=== PATIENT | female | born 1950 | race African-American/Black ===

== ENCOUNTER 2021-10-12 22:24 | Observation (INO) | payer MEDICARE, OTHER ==
[2021-10-12] MEDS ORDERED: SODIUM CHLORIDE 0.9% 1,000 ML IV STA (22:39)
--- NOTE | 2021-10-12 22:47 | ED ---
Weakness HPI - General Stated complaint: weakness Time Seen by Provider: 10/12/21 22:32 Source: RN notes reviewed - History of Present Illness Initial comments: This is a pleasant 71-year-old female with a history of diabetes, hypertension, osteoarthritis. Patient presents to the emergency department today complaining of worsening weakness over the past few days. Patient also states she's getting a jerking sensation in her left hand and arm. Patient also ascertains that she is having some stuttering in her speech. She states this was going on "a few days. " Patient also complaining of generalized weakness with decreased mobility. Patient normally gets around her house with her electric wheelchair. Patient lives alone. Does have a son and daughter in the area. No headache, no fever or chills, no changes in vision or hearing, no sore throat or difficulty with speech, no neck pain, no chest pain or shortness of breath, no abdominal pain, no nausea or vomiting, no changes in urination or bowel movements, no numbness or tingling, no extremity pain, no skin rashes or lesions. MD Complaint: generalized weakness - Related Data Home Medications Medication Instructions Recorded Confirmed Omeprazole [PriLOSEC] 20 mg PO DAILY 05/22/15 10/12/21 Albuterol Inhaler [Ventolin Hfa 1 - 2 puff INHALATION RT-Q4H PRN 10/12/21 10/12/21 Inhaler] Gabapentin [Neurontin] 400 mg PO TID 10/12/21 10/12/21 Hydrocodone/Acetaminophen 1 tab PO Q6HR PRN 10/12/21 10/12/21 [Hydrocodone/Acetaminophen 10-325] amLODIPine [Norvasc] 5 mg PO DAILY 10/12/21 10/12/21 Allergies Allergy/AdvReac Type Severity Reaction Status Date / Time No Known Allergies Allergy Verified 10/12/21 23:46 Review of Systems ROS Statement: Those systems with pertinent positive or pertinent negative responses have been documented in the HPI. ROS Other: All systems not noted in ROS Statement are negative. Past Medical History Past Medical History: GERD/Reflux, Hypertension, Osteoarthritis (OA) Additional Past Medical History / Comment(s): has been on oral hyperglycemic medications in the past but pcp has taken her off of meds History of Any Multi-Drug Resistant Organisms: MRSA Date of last positivie culture/infection: 2011 MDRO Source:: L Knee Past Surgical History: Hernia Repair, Joint Replacement Additional Past Surgical History / Comment(s): total knee bilateral, left became infected component removed and antibiotic spacer placed. 3 years ago was on iv antibiotics and in rehab for 8 months follwing this Past Anesthesia/Blood Transfusion Reactions: No Reported Reaction Past Psychological History: No Psychological Hx Reported Past Alcohol Use History: Rare Past Drug Use History: None Reported - Past Family History Mother Family Medical History: Cancer Father Family Medical History: Myocardial Infarction ([place]) General Exam - General Exam Comments Initial Comments: Plan no specific distress. Cranial nerves II through XII are intact. No tremor noted. No focal neurologic deficit noted. Patient does not appear to be toxic. Vital signs reviewed General appearance: alert, in no apparent distress, obese Head exam: Present: atraumatic, normocephalic, normal inspection Eye exam: Present: normal appearance, PERRL, EOMI. Absent: scleral icterus, conjunctival injection, periorbital swelling ENT exam: Present: normal exam, normal oropharynx, mucous membranes dry, mucous membranes moist, normal external ear exam Neck exam: Present: normal inspection, full ROM. Absent: tenderness, meningismus, lymphadenopathy Respiratory exam: Present: normal lung sounds bilaterally. Absent: respiratory distress, wheezes, rales, rhonchi, stridor, chest wall tenderness, accessory muscle use, decreased breath sounds, prolonged expiratory Cardiovascular Exam: Present: regular rate, normal rhythm, normal heart sounds. Absent: systolic murmur, diastolic murmur, rubs, gallop, clicks GI/Abdominal exam: Present: soft, normal bowel sounds. Absent: distended, tenderness, guarding, rebound, rigid Extremities exam: Present: normal inspection, full ROM, normal capillary refill, pedal edema (Scant edema bilaterally. Patient has chronic skin changes with an open wound to the right lower extremity which appears to be chronic in nature. Distal sensation intact. Pulses intact.). Absent: tenderness, joint swelling, calf tenderness Back exam: Present: normal inspection Neurological exam: Present: alert, oriented X3, CN II-XII intact, reflexes normal. Absent: motor sensory deficit Expanded Patient oriented to: Present: person, place, time Speech: Present: fluid speech Cranial nerves: EOM's Intact: Normal, Gag Reflex: Normal, Tongue Deviation: Normal, Nystagmus: Normal, Facial Sensation: Normal, Facial Palsy with Forehead Movement: Normal, Facial Palsy without Forehead Movement: Normal Cerebellar function: Finger to Nose: Normal, Heel to [place]: Normal Upper motor neuron: Timbo Neglect: Normal, Pronator Drift: Normal, Sensory Extinction: Normal Sensory exam: Upper Extremity Light Touch: Normal, Upper Extremity Pin Prick: Normal, Lower Extremity Light Touch: Normal, Lower Extremity Pin Prick: Normal Motor strength exam: RUE: 5, LUE: 5, RLE: 5, LLE: 5 Eye Response: (4) open spontaneously Motor Response: (6) obeys commands Verbal Response: (5) oriented Psychiatric exam: Present: normal affect, normal mood Skin exam: Present: warm, dry, intact, normal color. Absent: rash Course Vital Signs 10/12/21 23:01 Temperature 98.2 F Pulse Rate 78 Respiratory 18 Rate Blood Pressure 109/45 O2 Sat by Pulse 98 Oximetry - Reevaluation(s) Reevaluation #1: 10/13/21 02:28 Medical record is reviewed Symptoms are essentially unchanged Patient is informed of results and questions answered Patient in no distress - Consultations Consultation #1: Case discussed with Dr. Weldon for observation/admission. Consultation for neurology will be placed Medical Decision Making - Medical Decision Making Patient presents with generalized weakness, also twitching in her left hand and arm. Although she she retains full strength. Patient also ascertains that she's been having some stuttering and stammering for the past 2 or 3 days. Patient has no other focal neurologic deficits. Differential could include neurological etiology. Electrolyte disturbance. The case was discussed in detail with ED attending physician. Presentation, findings, treatment plan discussed in detail. Data Processing Consultant Dr. Hull - Lab Data Result diagrams: 10/12/21 23:40 10/12/21 23:40 Lab Results 10/12/21 10/12/21 10/12/21 Range/Units 23:40 23:40 23:40 WBC 9.6 (3.8-10.6) k/uL RBC 3.75 L (3.80-5.40) m/uL Hgb 11.1 L (11.4-16.0) gm/dL Hct 37.7 (34.0-46.0) % MCV 100.7 H (80.0-100.0) fL MCH 29.6 (25.0-35.0) pg MCHC 29.4 L (31.0-37.0) g/dL RDW 17.0 H (11.5-15.5) % Plt Count 139 L (150-450) k/uL MPV 10.4 Neutrophils % 81 % Lymphocytes % 9 % Monocytes % 6 % Eosinophils % 1 % Basophils % 0 % Neutrophils # 7.8 H (1.3-7.7) k/uL Lymphocytes # 0.9 L (1.0-4.8) k/uL Monocytes # 0.6 (0-1.0) k/uL Eosinophils # 0.1 (0-0.7) k/uL Basophils # 0.0 (0-0.2) k/uL Hypochromasia Marked Anisocytosis Slight Macrocytosis Slight APTT 27.2 (22.0-30.0) sec Sodium 141 (137-145) mmol/L Potassium 5.8 H (3.5-5.1) mmol/L Chloride 112 H (98-107) mmol/L Carbon Dioxide 22 (22-30) mmol/L Anion Gap 7 mmol/L BUN 43 H (7-17) mg/dL Creatinine 1.72 H (0.52-1.04) mg/dL Est GFR (CKD-EPI)AfAm 34 (>60 ml/min/1.73 sqM) Est GFR (CKD-EPI)NonAf 29 (>60 ml/min/1.73 sqM) Glucose 89 (74-99) mg/dL Plasma Lactic Acid Marcus (0.7-2.0) mmol/L Calcium 9.1 (8.4-10.2) mg/dL Ionized Calcium Tyler 5.1 (4.5-5.3) mg/dL Phosphorus 4.6 H (2.5-4.5) mg/dL Magnesium 2.1 (1.6-2.3) mg/dL Total Bilirubin 0.4 (0.2-1.3) mg/dL AST 37 H (14-36) U/L ALT 31 (4-34) U/L Alkaline Phosphatase 110 (38-126) U/L Creatine Kinase 198 H (30-135) U/L Troponin I (0.000-0.034) ng/mL NT-Pro-B Natriuret Pep pg/mL Total Protein 7.0 (6.3-8.2) g/dL Albumin 3.4 L (3.5-5.0) g/dL TSH 2.660 (0.465-4.680) mIU/L 10/12/21 10/12/21 10/12/21 Range/Units 23:40 23:40 23:40 WBC (3.8-10.6) k/uL RBC (3.80-5.40) m/uL Hgb (11.4-16.0) gm/dL Hct (34.0-46.0) % MCV (80.0-100.0) fL MCH (25.0-35.0) pg MCHC (31.0-37.0) g/dL RDW (11.5-15.5) % Plt Count (150-450) k/uL MPV Neutrophils % % Lymphocytes % % Monocytes % % Eosinophils % % Basophils % % Neutrophils # (1.3-7.7) k/uL Lymphocytes # (1.0-4.8) k/uL Monocytes # (0-1.0) k/uL Eosinophils # (0-0.7) k/uL Basophils # (0-0.2) k/uL Hypochromasia Anisocytosis Macrocytosis APTT (22.0-30.0) sec Sodium (137-145) mmol/L Potassium (3.5-5.1) mmol/L Chloride (98-107) mmol/L Carbon Dioxide (22-30) mmol/L Anion Gap mmol/L BUN (7-17) mg/dL Creatinine (0.52-1.04) mg/dL Est GFR (CKD-EPI)AfAm (>60 ml/min/1.73 sqM) Est GFR (CKD-EPI)NonAf (>60 ml/min/1.73 sqM) Glucose (74-99) mg/dL Plasma Lactic Acid Marcus 1.3 (0.7-2.0) mmol/L Calcium (8.4-10.2) mg/dL Ionized Calcium Tyler (4.5-5.3) mg/dL Phosphorus (2.5-4.5) mg/dL Magnesium (1.6-2.3) mg/dL Total Bilirubin (0.2-1.3) mg/dL AST (14-36) U/L ALT (4-34) U/L Alkaline Phosphatase (38-126) U/L Creatine Kinase (30-135) U/L Troponin I <0.012 (0.000-0.034) ng/mL NT-Pro-B Natriuret Pep 362 pg/mL Total Protein (6.3-8.2) g/dL Albumin (3.5-5.0) g/dL TSH (0.465-4.680) mIU/L Disposition Clinical Impression: Generalized weakness, Hyperkalemia, Myoclonic disorder, Stage 3 acute kidney injury, Hyperphosphatemia, Thrombocytopenia Disposition: ADMITTED IP TO THIS HOSP Condition: Fair Referrals: Garry Carranza DO [Primary Care Provider] - 1-2 days Time of Disposition: 02:15 Decision to Admit Reason: Admit from EC Decision Time: 02:15
[2021-10-13 00:05] LABS: Ionized Calcium 5.1 mg/dL (4.5-5.3)
[2021-10-13 00:13] LABS: Anisocytosis Slight; Basophils % (A) 0 %; Eosinophils # (A) 0.1 k/uL (0-0.7); Eosinophils % (A) 1 %; HCT 37.7 % (34.0-46.0); HGB 11.1 gm/dL (11.4-16.0); Hypochromasia Marked; Lymphocytes # (A) 0.9 k/uL (1.0-4.8); Lymphocytes % (A) 9 %; MCH 29.6 pg (25.0-35.0); MCHC 29.4 g/dL (31.0-37.0); MCV 100.7 fL (80.0-100.0); Macrocytosis Slight; Mean Platelet Volume 10.4; Monocytes # (A) 0.6 k/uL (0-1.0); Monocytes % (A) 6 %; Neutrophils # (A) 7.8 k/uL (1.3-7.7); Neutrophils % (A) 81 %; Platelet Count 139 k/uL (150-450); RBC 3.75 m/uL (3.80-5.40); WBC 9.6 k/uL (3.8-10.6)
[2021-10-13 00:21] LABS: Amorphous Sediment,Urine Rare /hpf; Appearance,Urine Clear (Clear); Bacteria,Urine Rare /hpf; Bilirubin,Urine Negative (Negative); Blood,Urine Negative (Negative); Color,Urine Yellow; Glucose,Urine (UA) Negative (Negative); Hyaline Casts,Urine 15 /lpf (0-2); Ketones,Urine 1+ (Negative); Leukocyte Esterase,Urine Trace (Negative); Mucus,Urine Rare /hpf; Nitrite,Urine Negative (Negative); Protein,Urine Trace (Negative); RBC,Urine 1 /hpf (0-5); Squamous Epithelial Cell,Urine 1 /hpf (0-4); WBC,Urine 2 /hpf (0-5)
[2021-10-13 01:05] LABS: Albumin 3.4 g/dL (3.5-5.0); Calcium 9.1 mg/dL (8.4-10.2); Magnesium 2.1 mg/dL (1.6-2.3); Phosphorus 4.6 mg/dL (2.5-4.5); Potassium 5.8 mmol/L (3.5-5.1); Total Bilirubin 0.4 mg/dL (0.2-1.3)
--- NOTE | 2021-10-13 01:14 | XR ---
EXAM: XR Chest, 1 View CLINICAL HISTORY: ITS.REASON XR Reason: Weakness TECHNIQUE: Frontal view of the chest. COMPARISON: No previous studies. FINDINGS: Lungs: Unremarkable. No consolidation. Pleural space: Unremarkable. No pneumothorax. Heart: Cardiomegaly. Mediastinum: Unremarkable. Bones/joints: Osteopenia. Soft tissues: Soft tissues are unremarkable. Vasculature: Prominence of central pelvic vasculature. Atherosclerotic disease. Upper abdomen: Elevation of the right hemidiaphragm. Other findings: Mild hypoaeration. IMPRESSION: 1. Cardiomegaly and prominence of central pulmonary vasculature. Clinical correlation is advised to assess for incipient congestive heart failure. 2. Atherosclerotic disease. 3. Osteopenia.
--- NOTE | 2021-10-13 01:17 | CT ---
EXAM: CT Head Without Intravenous Contrast CLINICAL HISTORY: ITS.REASON CT Reason: weakness TECHNIQUE: Axial computed tomography images of the head/brain without intravenous contrast. CTDI is 49.27 mGy and DLP is 1113.4 mGy-cm. This CT exam was performed using one or more of the following dose reduction techniques: automated exposure control, adjustment of the mA and/or kV according to patient size, and/or use of iterative reconstruction technique. COMPARISON: No previous studies. FINDINGS: Brain: No abnormal extra-axial collection is noted. No hemorrhage. No significant white matter disease. Ventricles: The ventricular system is age appropriate. Bones/joints: Calvarium is within normal limits. No acute fracture. Soft tissues: Unremarkable. Sinuses: Visualized sinuses are unremarkable. Mastoid air cells: Mastoid air cells are well pneumatized. Sella: Partial empty sella. IMPRESSION: 1. Age-related changes. 2. No acute intracranial pathology. 3. If there is concern for etiology such as early acute lacunar infarcts, MRI imaging of the brain with diffusion-weighted sequences should be performed.
[2021-10-13] MEDS ORDERED: ASPIRIN 325 MG TAB PO STA (02:10)
[2021-10-13] MEDS: SODIUM POLYSTYRENE SULFONATE 15 GM/60 ML BOTTLE PO STA ×2 (02:30→02:33)
[2021-10-13] MEDS ORDERED: NALOXONE 0.4 MG/ML 1 ML VIAL IV PRN (02:31)
[2021-10-13] MEDS ORDERED: ACETAMINOPHEN TAB 325 MG TAB PO PRN (02:31)
[2021-10-13] MEDS ORDERED: ONDANSETRON 4 MG/2 ML VIAL IVP PRN (02:31)
[2021-10-13] MEDS ORDERED: ALBUTEROL NEBULIZED 2.5 MG/3 ML INHALATION PRN (02:35)
[2021-10-13] MEDS: SODIUM CHLORIDE 0.9% 1,000 ML IV SCH ×2 (04:23→18:16)
[2021-10-13] MEDS: HYDROcodone/APAP 10-325MG 1 EACH TAB PO PRN ×2 (04:42→12:54)
[2021-10-13] MEDS ORDERED: GABAPENTIN 400 MG CAP PO SCH (09:00)
[2021-10-13] MEDS: amLODIPine 5 MG TAB PO SCH (09:42)
[2021-10-13] MEDS: PANTOPRAZOLE 40 MG TABLET PO SCH (09:42)
[2021-10-13 09:46] LABS: Glucose,Whole Blood 118 mg/dL (70-110)
[2021-10-13] MEDS ORDERED: ENOXAPARIN 40 MG/0.4 ML SYRINGE SQ SCH (12:15)
[2021-10-13] MEDS: SODIUM ZIRCONIUM CYCLOSILICATE 10 GM PACKET PO SCH ×3 (12:47→22:28)
--- NOTE | 2021-10-13 14:12 | P.HPIM ---
History of Present Illness H&P Date: 10/13/21 Chief Complaint: Slurred speech This is a pleasant 71-year-old patient of follows with Dr. Carranza. Patient lives alone. Normally uses electric scooter. Chronic stable medical conditions include GERD, hypertension, osteoarthritis, peripheral neuropathy. Patient was discovered while talking on the phone to her [id number] that patient is having slurred speech. Patient also reported jerking of the left arm. That has been going on from 3 days. Patient has slight headache yesterday. No change in swallowing. No arm or leg weakness otherwise. Currently patient's daughter and son-in-law at the bedside. Review of systems: GEN.: Tired EYES: None HEENT: None NECK: None RESPIRATORY: None CARDIOVASCULAR: None GASTROINTESTINAL: None GENITOURINARY: Continents MUSCULOSKELETAL: Joint pains LYMPHATICS: None HEMATOLOGICAL: None PSYCHIATRY: None NEUROLOGICAL: Uses electric scooter Past medical history to include: GERD, hypertension, osteoarthritis, peripheral neuropathy, baseline uses electric scooter Social history: Lives alone. Does use electric scooter. No smoking. Alcohol rarely. Family history: Cancer Physical examination: VITAL SIGNS: 98.3, 54, 18, 1:30 was 85, 98% room air GENERAL: BMI 54.1, reclining bed, awake. EYES: Pupils equal. Conjunctiva normal. HEENT: External appearance of nose and ears normal, oral cavity grossly normal. NECK: JVD unable to assess; masses not palpable. HEART: First and second heart sounds are normal; no edema. LUNGS: Respiratory rate normal; distant breath sounds. ABDOMEN: Soft, nontender, liver spleen not palpable, no masses palpable. PSYCH: Alert and oriented x3; mood and affect normal. MUSCULOSKELETAL:No Clubbing/cyanosis;muscles-grossly intact. Chronic limited range of motion of right shoulder. NEUROLOGICAL: Slowness of speech. No facial asymmetry.. Power sensation grossly intact. LYMPHATICS: No lymph nodes palpable in the axilla and neck INVESTIGATIONS, reviewed in the clinical context: White count 9.6 hemoglobin 11.1 platelets 139 potassium 5.8 BUN 43 creatinine 1.7 to Troponin I less than 0.012 TSH 2.6 Chest x-ray film personally reviewed by me-portable/cardiomegaly question venous prominence. Telemetry strip: Sinus rhythm CT brain: Without contrast: No stroke reported Assessment and plan: -Possible subacute stroke. For 3 days patient noticed to have slurred speech. She came the left arm. This could be focal seizure from the stroke area. Aspirin. Lipitor. Neurology consultation. Neuro checks. -Morbid obesity BMI 54.1 Weight loss measures -Essential hypertension Amlodipine 5 mg daily -Primary osteoarthritis [place] 10 every 6 when necessary -Peripheral neuropathy Contact Neurontin to 300 mg twice a day in setting of kidney dysfunction. -GERD Prilosec mg a day -Hyperkalemia in the setting of renal failure. Regional diet. Lokelma. -Abnormal kidney function. Unknown acute versus chronic. Renal ultrasound. IV fluids. Repeat labs in the morning. UA shows trace protein. Neuro checks.. Aspirin. Lipitor. Neurology consulted. Home medications resumed. Possible EEG. Subcu Lovenox. Patient needed D echocardiogram carotid ultrasound. Consultation to speech therapy. Advanced care planning: Discussed with the patient. She wants her [id number], Prerna to be the POA. She currently does not have any official documents for the same. This was discussed with patient other daughter and son-in-law at the bedside." I care was discussed. After several questions patient decided to proceed to be DO NOT RESUSCITATE. Total time spent during this was about 25 minutes Past Medical History Past Medical History: GERD/Reflux, Hypertension, Osteoarthritis (OA) Additional Past Medical History / Comment(s): has been on oral hyperglycemic medications in the past but pcp has taken her off of meds; neuropathy History of Any Multi-Drug Resistant Organisms: MRSA Date of last positivie culture/infection: 2011 MDRO Source:: L Knee Past Surgical History: Hernia Repair, Joint Replacement Additional Past Surgical History / Comment(s): total knee bilateral, left became infected component removed and antibiotic spacer placed. 3 years ago was on iv antibiotics and in rehab for 8 months follwing this Past Anesthesia/Blood Transfusion Reactions: No Reported Reaction Past Psychological History: No Psychological Hx Reported Smoking Status: Never smoker Past Alcohol Use History: Rare Past Drug Use History: None Reported - Past Family History Mother Family Medical History: Cancer Father Family Medical History: Myocardial Infarction ([place]) Medications and Allergies Home Medications Medication Instructions Recorded Confirmed Type Omeprazole [PriLOSEC] 20 mg PO DAILY 05/22/15 10/12/21 History Albuterol Inhaler [Ventolin Hfa 1 - 2 puff INHALATION RT-Q4H PRN 10/12/21 10/12/21 History Inhaler] Gabapentin [Neurontin] 400 mg PO TID 10/12/21 10/12/21 History Hydrocodone/Acetaminophen 1 tab PO Q6HR PRN 10/12/21 10/12/21 History [Hydrocodone/Acetaminophen 10-325] amLODIPine [Norvasc] 5 mg PO DAILY 10/12/21 10/12/21 History Allergies Allergy/AdvReac Type Severity Reaction Status Date / Time No Known Allergies Allergy Verified 10/12/21 23:46 Physical Exam Vitals: Vital Signs Temp Pulse Pulse Resp BP BP Pulse Ox 10/13/21 09:41 98.3 F 54 L 131/85 98 10/13/21 07:53 96 10/13/21 06:10 97.5 F L 10/13/21 04:00 18 10/13/21 03:55 96.6 F L 72 18 107/55 100 10/13/21 02:37 72 18 114/89 96 10/12/21 23:01 98.2 F 78 18 109/45 98 Intake and Output 10/12/21 10/13/21 10/13/21 22:59 06:59 14:59 Intake Total 250 0 Balance 250 0 Intake: Intake, IV Titration 150 Amount Sodium Chloride 0.9% 1, 150 000 ml @ 75 mls/hr IV . [id number] [facility] Rx#:[id number] Oral 100 0 Other: Voiding Method External Catheter Weight 147.418 kg Results CBC & Chem 7: 10/12/21 23:40 10/13/21 02:52 Labs: Abnormal Lab Results - Last 24 Hours (Table) 10/12/21 10/12/21 10/13/21 Range/Units 23:40 23:40 00:09 RBC 3.75 L (3.80-5.40) m/uL Hgb 11.1 L (11.4-16.0) gm/dL MCV 100.7 H (80.0-100.0) fL MCHC 29.4 L (31.0-37.0) g/dL RDW 17.0 H (11.5-15.5) % Plt Count 139 L (150-450) k/uL Neutrophils # 7.8 H (1.3-7.7) k/uL Lymphocytes # 0.9 L (1.0-4.8) k/uL Potassium 5.8 H (3.5-5.1) mmol/L Chloride 112 H (98-107) mmol/L BUN 43 H (7-17) mg/dL Creatinine 1.72 H (0.52-1.04) mg/dL POC Glucose (mg/dL) (70-110) mg/dL Phosphorus 4.6 H (2.5-4.5) mg/dL AST 37 H (14-36) U/L Creatine Kinase 198 H (30-135) U/L Albumin 3.4 L (3.5-5.0) g/dL Urine Protein Trace H (Negative) Urine Ketones 1+ H (Negative) Ur Leukocyte Esterase Trace H (Negative) Amorphous Sediment Rare H (None) /hpf Urine Bacteria Rare H (None) /hpf Hyaline Casts 15 H (0-2) /lpf Urine Mucus Rare H (None) /hpf 10/13/21 10/13/21 Range/Units 02:52 09:41 RBC (3.80-5.40) m/uL Hgb (11.4-16.0) gm/dL MCV (80.0-100.0) fL MCHC (31.0-37.0) g/dL RDW (11.5-15.5) % Plt Count (150-450) k/uL Neutrophils # (1.3-7.7) k/uL Lymphocytes # (1.0-4.8) k/uL Potassium 5.4 H (3.5-5.1) mmol/L Chloride (98-107) mmol/L BUN (7-17) mg/dL Creatinine (0.52-1.04) mg/dL POC Glucose (mg/dL) 118 H (70-110) mg/dL Phosphorus (2.5-4.5) mg/dL AST (14-36) U/L Creatine Kinase (30-135) U/L Albumin (3.5-5.0) g/dL Urine Protein (Negative) Urine Ketones (Negative) Ur Leukocyte Esterase (Negative) Amorphous Sediment (None) /hpf Urine Bacteria (None) /hpf Hyaline Casts (0-2) /lpf Urine Mucus (None) /hpf Thrombosis Risk Factor Assmnt - Choose All That Apply Any of the Below Risk Factors Present?: Yes Each Factor Represents 1 point: Medical pt on bed rest, Obesity (BMI >25), Swollen legs (current) Other Risk Factors: Yes Each Risk Factor Represents 2 Points: Age 61-74 years, Patient confined to bed Other congenital or acquired thrombophilia - If yes, enter type in comment: No Thrombosis Risk Factor Assessment Total Risk Factor Score: 7 Thrombosis Risk Factor Assessment Level: High Risk
--- NOTE | 2021-10-13 14:50 | CA ---
Transthoracic Echo Report Name: Sully Randall Age: 71 Gender: F : 1950 Exam Date: 10/13/2021 14:16 Exam Location: [place] [facility] Ht (in): 65 Wt (lb): 325 Ordering Physician: Afshan Wade MD Attending/Referring Phys: Research Librarian Brigid Lyons RDCS Procedure CPT: Indications: slurred speech Cardiac Hx: Technical Quality: Technically difficult study Contrast 1: Total Dose (mL): Contrast 2: Total Dose (mL): MEASUREMENTS (Male / Female) Normal Values 2D ECHO LV Diastolic Diameter PLAX 4.1 cm 4.2 - 5.9 / 3.9 - 5.3 cm LV Systolic Diameter PLAX 3.1 cm IVS Diastolic Thickness 1.5 cm 0.6 - 1.0 / 0.6 - 0.9 cm LVPW Diastolic Thickness 1.6 cm 0.6 - 1.0 / 0.6 - 0.9 cm LV Relative Wall Thickness 0.7 RV Internal Dim ED PLAX 3.7 cm M-MODE Aortic Root Diameter MM 2.4 cm LA Systolic Diameter MM 4.8 cm LA Ao Ratio MM 2.0 AV Cusp Separation MM 1.9 cm DOPPLER AV Peak Velocity 125.4 cm/s AV Peak Gradient 6.3 mmHg LVOT Peak Velocity 85.9 cm/s LVOT Peak Gradient 3.0 mmHg MV Area PHT 3.6 cm??? Mitral E Point Velocity 61.0 cm/s Mitral A Point Velocity 72.6 cm/s Mitral E to A Ratio 0.8 MV Deceleration Time 212.7 ms TR Peak Velocity 146.4 cm/s TR Peak Gradient 8.6 mmHg Right Ventricular Systolic Press 13.6 mmHg FINDINGS Left Ventricle Moderately increased left ventricular wall thickness. Left ventricular cavity size normal. No obvious regional wall motion abnormalities. Left ventricular ejection fraction is estimated at 55-60 %. Right Ventricle Moderate right ventricular dilatation. Right Atrium Right atrium not well visualized. Left Atrium Mild left atrial dilatation. No evidence for an atrial septal defect. Mitral Valve Mitral valve not well visualized. No mitral regurgitation. No mitral stenosis. Aortic Valve Aortic valve not well visualized. No aortic valve stenosis or regurgitation. Tricuspid Valve Mild tricuspid regurgitation. Pulmonic Valve Pulmonic valve not well visualized. Pericardium No pericardial effusion. Aorta Normal size aortic root and proximal ascending aorta. CONCLUSIONS Left ventricular function is normal Right ventricle is enlarged Mild tricuspid regurgitation Previewed by: Dr. Brian Marquez MD (Electronically Signed) Final Date: 13 October 2021 14:50
--- NOTE | 2021-10-13 17:32 | US ---
EXAMINATION TYPE: US kidneys/renal and bladder DATE OF EXAM: 10/13/2021 COMPARISON: NONE CLINICAL HISTORY: Abnormal kidney function. Exam done portable EXAM MEASUREMENTS: Right Kidney: 10.7 x 4.9 x 4.9 cm Left Kidney: 11.9 x 6.4 x 6.7 cm Difficult and limited study due to morbidly obese patient Right Kidney: No hydronephrosis or masses seen Left Kidney: limited visualization, appears wnl as seen Bladder: not imaged due to above limitations There is no evidence for hydronephrosis at this point in time. No nephrolithiasis is seen. No natividad s are identified. The urinary bladder is anechoic. Bilateral ureteral jets are seen. IMPRESSION: No evidence of renal mass or obstruction. No atrophy. Limited exam.
--- NOTE | 2021-10-13 17:48 | US ---
EXAMINATION TYPE: US carotid duplex BILAT DATE OF EXAM: 10/13/2021 COMPARISON: NONE CLINICAL HISTORY: Slurred speech. Exam done portable EXAM MEASUREMENTS: RIGHT: Peak Systolic Velocity (PSV) cm/sec ----- Right CCA: 64.7 ----- Right ICA: 79.3 ----- Right ECA: 82.1 ICA/CCA ratio: 1.2 RIGHT: End Diastole cm/sec ----- Right CCA: 7.7 ----- Right ICA: 21.1 ----- Right ECA: 0.0 LEFT: Peak Systolic Velocity (PSV) cm/sec ----- Left CCA: 81.1 ----- Left ICA: 105.0 ----- Left ECA: 93.6 ICA/CCA ratio: 1.3 LEFT: End Diastole cm/sec ----- Left CCA: 5.5 ----- Left ICA: 22.8 ----- Left ECA: 0.0 VERTEBRALS (direction of flow): Right Vertebral: Antegrade Left Vertebral: Antegrade Rhythm: Normal No significant stenosis IMPRESSION: There is antegrade flow in the vertebral arteries. Images and measurements suggest close to 0% stenosis in both internal carotid arteries. Criteria for Assigning % of Stenosis / Diameter reduction (Estimation based on the indirect measurements of the internal carotid artery velocities (ICA PSV). 1. Normal (no stenosis)=ICA PSV < 125 cm/s: ratio < 2.0: ICA EDV<40 cm/s. 2. Less than 50% stenosis=ICA PSV < 125 cm/s: ratio < 2.0: ICA EDV<40 cm/s. 3. 50 to 69% stenosis=ICA PSV of 125 to 230 cm/s: ration 2.0 ? 4.0: ICA EDV 40-100 cm/s. 4. Greater than 70% stenosis to near occlusion= ICA PSV > 230 cm/s: ratio > 4.0: ICA EDV > 100 cm/s. 5. Near occlusion= ICA PSV velocities may be low or undetectable: variable ratio and ICA EDV. 6. Total occlusion=unable to detect flow.
[2021-10-13] MEDS: GABAPENTIN 300 MG CAP PO SCH (21:26)
[2021-10-13] MEDS: ATORVASTATIN 40 MG TAB PO SCH (21:26)
--- NOTE | 2021-10-14 00:51 | P.CNNES ---
History of Present Illness Consult date: 10/13/21 Requesting physician: Corby Samson Reason for Consult: Myoclonic activity, stammering speech History of Present Illness: This is a tele-neurology consultation performed today on 10/13/2021. Patient is a 71-year-old female came to the hospital by ambulance yesterday at 10:24 PM for jerking of the hands, slurring. As per EMS flow sheet, EMS was called for patient having stroke symptoms started 2 days ago. When they a rrived, found patient sitting on the side of her bed at her home. She states she has slurred speech and she might have left-sided weakness. [place] stroke scale was negative and her slurred speech was felt to be due to dentures falling out when she tried to speak. Patient mentioned that she has not been out of bed in 4-5 days. Patient was covered in urine and fecal matter and smelled of UTI. Patient showed signs of dehydration therefore fluids were started. Patient's blood pressure at the scene was 134/55% 74 respirations 16 saturation 95% blood sugar 124 mg/dL. CT head showed no acute process. Age-related changes. MRI if clinically indicated. I personally reviewed CT head agree with the findings. Chest x-ray revealed cardiomegaly and prominence of central pulmonary vasculature. Clinical correlation is advised to assess for CHF. Osteopenia, atherosclerotic disease. Blood test shows normal WBC hemoglobin 11.1, platelet 139. PTT is normal, sodium normal, potassium 5.8, BUN 43 creatinine 1.72. AST 37 ALT 31. Troponin negative. CK 198, TSH normal, UA shows trace leukocyte esterase. Patient's daughter and son-in-law were present today. They state that patient's symptoms have been present for 2-3 days when she started slurring/stuttering and became very tremulous. Her hands were jerking. It has never happened before. Patient's granddaughter noticed that patient was not making sense, something was not right. There was no facial droop, no focal weakness. Her right shoulder always hurts. Now the left shoulder also hurts. She also has some neuropathy. Since she arrived to the hospital, she sometimes stuttering, and jerking has improved, but not gone yet. Slightly better. Patient has been wheelchair-bound since last 10 years, after she underwent left knee surgery and developed infection in the joint, and the joint was removed. She has known left knee joint. Patient has history of hypertension, denies diabetes. Patient has smoked 1 pack per day started from age 23 until age 63 when she cut back to 1 pack per week. Denies any alcohol. Patient's home medications include gabapentin 400 mg 3 times a day, amlodipine 5 mg daily, albuterol, [place] and omeprazole. Review of Systems All 14 points of review systems reviewed, noncontributory except as mentioned in HPI. Past Medical History Past Medical History: GERD/Reflux, Hypertension, Osteoarthritis (OA) Additional Past Medical History / Comment(s): has been on oral hyperglycemic medications in the past but pcp has taken her off of meds; neuropathy History of Any Multi-Drug Resistant Organisms: MRSA Date of last positivie culture/infection: 2011 MDRO Source:: L Knee Past Surgical History: Hernia Repair, Joint Replacement Additional Past Surgical History / Comment(s): total knee bilateral, left became infected component removed and antibiotic spacer placed. 3 years ago was on iv antibiotics and in rehab for 8 months follwing this Past Anesthesia/Blood Transfusion Reactions: No Reported Reaction Past Psychological History: No Psychological Hx Reported Smoking Status: Never smoker Past Alcohol Use History: Rare Past Drug Use History: None Reported - Past Family History Mother Family Medical History: Cancer Father Family Medical History: Myocardial Infarction ([place]) Medications and Allergies Home Medications Medication Instructions Recorded Confirmed Type Omeprazole [PriLOSEC] 20 mg PO DAILY 05/22/15 10/12/21 History Albuterol Inhaler [Ventolin Hfa 1 - 2 puff INHALATION RT-Q4H PRN 10/12/21 0 10/12/21 History Inhaler] Gabapentin [Neurontin] 400 mg PO TID 10/12/21 10/12/21 History Hydrocodone/Acetaminophen 1 tab PO Q6HR PRN 10/12/21 10/12/21 History [Hydrocodone/Acetaminophen 10-325] amLODIPine [Norvasc] 5 mg PO DAILY 10/12/21 10/12/21 History Allergies Allergy/AdvReac Type Severity Reaction Status Date / Time No Known Allergies Allergy Verified 10/12/21 23:46 Physical Examination - Vital Signs Vital Signs: Vital Signs Temp Pulse Pulse Resp BP BP Pulse Ox 10/13/21 09:41 98.3 F 54 L 131/85 98 10/13/21 07:53 96 10/13/21 06:10 97.5 F L 10/13/21 04:00 18 10/13/21 03:55 96.6 F L 72 18 107/55 100 10/13/21 02:37 72 18 114/89 96 10/12/21 23:01 98.2 F 78 18 109/45 98 Intake and Output 10/12/21 10/13/21 10/13/21 22:59 06:59 14:59 Intake Total 250 0 Balance 250 0 Intake: Intake, IV Titration 150 Amount Sodium Chloride 0.9% 1, 150 000 ml @ 75 mls/hr IV . [id number] [facility] Rx#:[id number] Oral 100 0 Other: Voiding Method External Catheter Weight 147.418 kg Patient is an elderly Afro[place] female, in no acute distress. Patient is alert awake oriented to time place and person. Patient states it is 10/11/2021 and that she is in [facility] in [facility]. She knows name of the current president. Speech and language functions are normal. No aphasia or dysarthria noted. Attention, concentration and fund of knowledge is adequate. On cranial examination, pupils are round and reacting to light, visual harvey are full on confrontation, extraocular muscles are intact with no nystagmus. Face is symmetric, tongue protrudes to the midline. Palatal elevation and sensa tion normal, hearing and shoulder shrug normal, facial sensation normal. Shoulder shrug normal. On muscle strength testing, there is no pronator drift and the strength is normal in arms distally and proximally, except right shoulder which is painful and weak. Patient cannot lift his lower extremities off the bed. She has no left knee joint. Her ankle dorsiflexion is normal. Patient has mentioned that she usually she can lift her right lower extremity off the bed, but because she has been sick, therefore not able to do so. Patient has significant myoclonic jerks noticed of outstretched hands bilaterally. Deep tendon reflexes are diminished and plantars are flat bilaterally. Sensory to touch is equal with no neglect. Cerebellar function showed slight ataxia for [id number] testing bilaterally. Tone and bulk of muscles normal. Gait patient nonambulatory. On general examination, there is no carotid bruit or murmur, S1-S2 audible. Abdomen is soft nontender. No organomegaly, bowel sounds present. Chest is clear. No pitting edema. Patient has a sore in the right leg above the ankle which is bandaged. Results - Laboratory Findings CBC and BMP: 10/12/21 23:40 10/13/21 02:52 Abnormal Lab Findings: Abnormal Labs 10/12/21 10/12/21 10/13/21 23:40 23:40 00:09 RBC 3.75 L Hgb 11.1 L MCV 100.7 H MCHC 29.4 L RDW 17.0 H Plt Count 139 L Neutrophils # 7.8 H Lymphocytes # 0.9 L Potassium 5.8 H Chloride 112 H BUN 43 H Creatinine 1.72 H POC Glucose (mg/dL) Phosphorus 4.6 H AST 37 H Creatine Kinase 198 H Albumin 3.4 L Urine Protein Trace H Urine Ketones 1+ H Ur Leukocyte Esterase Trace H Amorphous Sediment Rare H Urine Bacteria Rare H Hyaline Casts 15 H Urine Mucus Rare H 10/13/21 10/13/21 02:52 09:41 RBC Hgb MCV MCHC RDW Plt Count Neutrophils # Lymphocytes # Potassium 5.4 H Chloride BUN Creatinine POC Glucose (mg/dL) 118 H Phosphorus AST Creatine Kinase Albumin Urine Protein Urine Ketones Ur Leukocyte Esterase Amorphous Sediment Urine Bacteria Hyaline Casts Urine Mucus Assessment and Plan Assessment: * Altered mental status, myoclonic jerking, stuttering, likely due to metabolic encephalopathy. Exact cause is uncertain, although medication side effect(Neurontin, opiates) in the background of renal insufficiency may be cause. 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 * Morbid obesity Plan: * Patient has metabolic encephalopathy. She has significant myoclonic jerks related to metabolic dysfunction. Patient is currently on Neurontin 400 mg 3 times a day. With her renal insufficiency, we will decrease it to 300 mg twice a day. Limit amount of opiates. We will decrease [place] 10 mg every 8 hours, instead of every 6 hours as needed. * Patient has renal insufficiency. Patient is getting hydration. Repeat renal functions in the morning. * Although slurred speech is probably related to metabolic dysfunction, but we will check carotid Doppler and a 2-D echo to rule out any embolic source. * Agree with starting aspirin 81 mg daily. * Fasting lipid panel, hemoglobin A1c. * B12, folate. * DVT prophylaxis: Patient on Lovenox 30 mg subcutaneous daily. * We will follow patient clinically. Thank you for the consult.
[2021-10-14] MEDS: SODIUM CHLORIDE 0.9% 1,000 ML IV SCH (04:16)
[2021-10-14 08:14] LABS: African American GFR (CKD) 42 (>60 ml/min/1.73 sqM); Anion Gap 6 mmol/L; Blood Urea Nitrogen 36 mg/dL (7-17); Calcium 8.1 mg/dL (8.4-10.2); Carbon Dioxide 24 mmol/L (22-30); Chloride 114 mmol/L (98-107); Glucose 52 mg/dL (74-99); Non-African American GFR(CKD) 36 (>60 ml/min/1.73 sqM); Phosphorus 4.1 mg/dL (2.5-4.5); Potassium 4.6 mmol/L (3.5-5.1); Sodium 144 mmol/L (137-145)
[2021-10-14] MEDS: GABAPENTIN 300 MG CAP PO SCH ×2 (08:57→20:11)
[2021-10-14] MEDS: amLODIPine 5 MG TAB PO SCH (08:57)
[2021-10-14] MEDS: SODIUM ZIRCONIUM CYCLOSILICATE 10 GM PACKET PO SCH (08:57)
[2021-10-14] MEDS: PANTOPRAZOLE 40 MG TABLET PO SCH (08:57)
[2021-10-14] MEDS: ASPIRIN 81 MG PO SCH (08:57)
[2021-10-14] MEDS ORDERED: ENOXAPARIN 30 MG/0.3 ML SYRINGE SQ SCH ×2 (09:00→09:15)
[2021-10-14] MEDS: ENOXAPARIN 40 MG/0.4 ML SYRINGE SQ SCH (09:49)
[2021-10-14 12:01] LABS: Chol/HDL Ratio 2.22 Ratio; LDL Cholesterol,Calculated 60.4 mg/dL (0.0-131.0); VLDL Calculation 13.68 mg/dL (5.00-40.00)
[2021-10-14] MEDS: FOLIC ACID 1 MG TAB PO SCH (13:51)
[2021-10-14] MEDS: SODIUM CHLORIDE 0.45% 1,000 ML IV SCH (13:58)
[2021-10-14] MEDS: HYDROcodone/APAP 10-325MG 1 EACH TAB PO PRN (14:25)
--- NOTE | 2021-10-14 17:04 | P.PN ---
Progress Note - Text Progress Note Date: 10/14/21 Chief Complaint: Slurred speech This is a pleasant 71-year-old patient of follows with Dr. Carranza. Patient lives alone. Normally uses electric scooter. Chronic stable medical conditions include GERD, hypertension, osteoarthritis, peripheral neuropathy. Patient was discovered while talking on the phone to her [id number] that patient is having slurred speech. Patient also reported jerking of the left arm. That has been going on from 3 days. Patient has slight headache yesterday. No change in swallowing. No arm or leg weakness otherwise. Currently patient's daughter and son-in-law at the bedside. Patient felt to have metabolic encephalopathy, likely side effect from Neurontin is sitting of acute kidney injury. Dose of Neurontin was cutback. IV fluids given for kidney injury. Patient also had hyperkalemia. Given Lokelma October 14: Patient's speech is better. Feeling better. Some improvement in creatinine. Granddaughter the bedside. Oral intake better. Continue IV fluids. Hyperkalemia better. Active Medications Acetaminophen (Acetaminophen Tab 325 Mg Tab) 650 mg PO Q6HR PRN PRN Reason: Mild Pain or Fever > 100.5 Hydrocodone Bitart/Acetaminophen (Hydrocodone/Apap 10-325mg 1 Each Tab) 1 each PO Q8HR PRN PRN Reason: Pain Last Admin: 10/14/21 14:25 Dose: 1 each Albuterol Sulfate (Albuterol Nebulized 2.5 Mg/3 Ml) 2.5 mg INHALATION RT-Q4H PRN PRN Reason: Shortness Of Breath Amlodipine Besylate (Amlodipine 5 Mg Tab) 5 mg PO DAILY [facility] Last Admin: 10/14/21 08:57 Dose: 5 mg Aspirin (Aspirin 81 Mg) 81 mg PO DAILY [facility] Last Admin: 10/14/21 08:57 Dose: 81 mg Atorvastatin Calcium (Atorvastatin 40 Mg Tab) 40 mg PO HS [facility] Last Admin: 10/13/21 21:26 Dose: 40 mg Enoxaparin Sodium (Enoxaparin 40 Mg/0.4 Ml Syringe) 40 mg SQ DAILY [facility] Last Admin: 10/14/21 09:49 Dose: 40 mg Folic Acid (Folic Acid 1 Mg Tab) 1 mg PO DAILY [facility] Last Admin: 10/14/21 13:51 Dose: 1 mg Gabapentin (Gabapentin 300 Mg Cap) 300 mg PO BID [facility] Last Admin: 10/14/21 08:57 Dose: 300 mg Sodium Chloride (Saline 0.45%) 1,000 mls @ 100 mls/hr IV .Q10H [facility] Last Admin: 10/14/21 13:58 Dose: 100 mls/hr Naloxone HCl (Naloxone 0.4 Mg/Ml 1 Ml Vial) 0.2 mg IV Q2M PRN PRN Reason: Opioid Reversal Ondansetron HCl (Ondansetron 4 Mg/2 Ml Vial) 4 mg IVP Q8HR PRN PRN Reason: Nausea And Vomiting Pantoprazole Sodium (Pantoprazole 40 Mg Tablet) 40 mg PO AC-BRKFST [facility] Last Admin: 10/14/21 08:57 Dose: 40 mg Past medical history to include: GERD, hypertension, osteoarthritis, peripheral neuropathy, baseline uses electric scooter Social history: Lives alone. Does use electric scooter. No smoking. Alcohol rarely. Family history: Cancer Physical examination: VITAL SIGNS: 97.4, 89, 14, 118/73, 97% room air GENERAL: Appetite in bed, awake, comfortable EYES: Pupils equal. Conjunctiva normal. HEENT: External appearance of nose and ears normal, oral cavity grossly normal. NECK: JVD unable to assess; masses not palpable. HEART: First and second heart sounds are normal; no edema. LUNGS: Respiratory rate normal; distant breath sounds. ABDOMEN: Soft, nontender, liver spleen not palpable, no masses palpable. PSYCH: Alert and oriented x3; mood and affect normal. MUSCULOSKELETAL:No Clubbing/cyanosis;muscles-grossly intact. Chronic limited range of motion of right shoulder. NEUROLOGICAL: Speech improved. No facial asymmetry.. Power sensation grossly intact. INVESTIGATIONS, reviewed in the clinical context: Renal ultrasound: No evidence of hydronephrosis. No kidney stones. No masses. No atrophy. October 14: Potassium 4.6 BUN 36 creatinine 1.43 LDL 60 White count 9.6 hemoglobin 11.1 platelets 139 potassium 5.8 BUN 43 creatinine 1.7 to Troponin I less than 0.012 TSH 2.6 Chest x-ray film personally reviewed by me-portable/cardiomegaly question venous prominence. Telemetry strip: Sinus rhythm CT brain: Without contrast: No stroke reported Assessment and plan: -Acute metabolic encephalopathy/delirium from Neurontin in the setting of acute kidney injury: Back to -Morbid obesity BMI 54.1 Weight loss measures -Essential hypertension Amlodipine 5 mg daily -Primary osteoarthritis [place] 10 every 6 when necessary -Peripheral neuropathy Decrease Neurontin to 300 mg twice a day in setting of kidney dysfunction. -GERD Prilosec mg a day -Hyperkalemia in the setting of renal failure. Regional diet. Lokelma. -Acute kidney injury, possibly prerenal: Some improvement Renal ultrasound. IV fluids. Repeat labs in the morning. UA shows trace protein. -Component possibly of CK D, likely nephrosclerosis Repeat labs in the morning. Discussed with patient. Continue IV fluids. Repeat renal function tomorrow. Possible discharge tomorrow.
[2021-10-14] MEDS: ATORVASTATIN 40 MG TAB PO SCH (20:11)
--- NOTE | 2021-10-14 23:10 | P.CONS ---
History of Present Illness - Reason for Consult Consult date: 10/14/21 - History of Present Illness Patient is a 71-year-old -[place] female with a past medical he significant for diabetes mellitus hypertension osteoarthritis, morbidly obese mostly bedbound however the patient has been able to have some ambulation with the help of wheelchair, patient be brought into the ER 2 nights ago for evaluation of worsening weakness over the last few days before presentation to the hospital patient also complaining of some jerking sensation in her left hand and arm except slurring of the speech for the patient has been brought into the ER concerning for possible CVA and has been evaluated by cardiology and neurology services patient on presentation to the hospital has been afebrile and no fever have been recorded subsequently patient did have a normal white count BUN/creatinine was slightly elevated however trending down urine has been negative patient was noticed to have a wound to the right posterior leg which infectious disease was consulted for further management patient mentioned she get the wound from irritation from her wheelchair about 2 weeks ago patient mention started as a small scratch however has increased in size since then patient denies any worsening pain to the area and denies having any drainage Past Medical History Past Medical History: GERD/Reflux, Hypertension, Osteoarthritis (OA) Additional Past Medical History / Comment(s): has been on oral hyperglycemic medications in the past but pcp has taken her off of meds; neuropathy 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 3 years ago was on iv antibiotics and in rehab for 8 months follwing this Past Anesthesia/Blood Transfusion Reactions: No Reported Reaction Past Psychological History: No Psychological Hx Reported Smoking Status: Never smoker Past Alcohol Use History: Rare Past Drug Use History: None Reported - Past Family History Mother Family Medical History: Cancer Father Family Medical History: Myocardial Infarction ([place]) Medications and Allergies Home Medications Medication Instructions Recorded Confirmed Type Omeprazole [PriLOSEC] 20 mg PO DAILY 05/22/15 10/12/21 History Albuterol Inhaler [Ventolin Hfa 1 - 2 puff INHALATION RT-Q4H PRN 10/12/21 10/12/21 History Inhaler] Gabapentin [Neurontin] 400 mg PO TID 10/12/21 10/12/21 History Hydrocodone/Acetaminophen 1 tab PO Q6HR PRN 10/12/21 10/12/21 History [Hydrocodone/Acetaminophen 10-325] amLODIPine [Norvasc] 5 mg PO DAILY 10/12/21 10/12/21 History Allergies Allergy/AdvReac Type Severity Reaction Status Date / Time No Known Allergies Allergy Verified 10/12/21 23:46 Physical Exam Vitals: Vital Signs Temp Pulse Resp BP Pulse Ox 10/14/21 12:49 97.4 F L 89 14 118/73 97 10/14/21 07:33 94 L 10/14/21 05:00 98 F 76 16 113/66 92 L 10/13/21 20:10 18 10/13/21 20:01 97.3 F L 76 18 117/84 98 10/13/21 15:45 97 Intake and Output 10/14/21 10/14/21 10/14/21 06:59 14:59 22:59 Intake Total 1200 Output Total 800 Balance 400 Intake: Intake, IV Titration 900 Amount Sodium Chloride 0.9% 1, 900 000 ml @ 75 mls/hr IV . [id number] [facility] Rx#:[id number] Oral 300 Output: Urine 800 Other: Voiding Method External Catheter Results CBC & Chem 7: 10/12/21 23:40 10/14/21 07:08 Labs: Abnormal Lab Results - Last 24 Hours (Table) 10/14/21 10/14/21 Range/Units 07:08 07:08 Chloride 114 H (98-107) mmol/L BUN 36 H (7-17) mg/dL Creatinine 1.43 H (0.52-1.04) mg/dL Glucose 52 L (74-99) mg/dL Calcium 8.1 L (8.4-10.2) mg/dL HDL Cholesterol 60.90 H (40.00-60.00) mg/dL Folate 4.00 L (4.40-31.00) ng/mL Assessment and Plan Plan: 1patient with right lower extremity wound traumatic currently with no evidence of any secondary cellulitis will recommend local wound care. 2we will apply dry Aquacel silver dressing and change every 48 hour daily of the pressure. 3no need for systemic antibiotic therapy. We will follow on clinical condition and cultures to further adjust medication if needed Thank you for this consultation will follow this patient along with you
[2021-10-15] MEDS: SODIUM CHLORIDE 0.45% 1,000 ML IV SCH ×2 (00:32→08:27)
--- NOTE | 2021-10-15 00:53 | P.PN ---
Subjective Progress Note Date: 10/14/21 This is a telemedicine neurology follow-up performed today on 10/14/2021. Patient states she is feeling better. Offers no complaints. States bilaterally jerks have improved, but not gone yet. Her speech is improved. Objective - Vital Signs Vital signs: Vital Signs Temp 97.4 F L 10/14/21 12:49 Pulse 89 10/14/21 12:49 Resp 14 10/14/21 12:49 BP 118/73 10/14/21 12:49 Pulse Ox 97 10/14/21 12:49 FiO2 Intake & Output 10/13/21 10/14/21 10/14/21 18:59 06:59 18:59 Intake Total 118 1200 Output Total 816 800 Balance -698 400 Intake: Intake, IV Titration 900 Amount Sodium Chloride 0.9% 1, 900 000 ml @ 75 mls/hr IV . [id number] [facility] Rx#:[id number] Oral 118 300 Output: Urine 400 800 Post Void Residual 416 Other: Voiding Method External Catheter External Catheter External Catheter - Exam Mental status, speech and language functions are normal. Patient still has myoclonic jerks of outstretched hands, although slightly better. - Labs CBC & Chem 7: 10/12/21 23:40 10/14/21 07:08 Labs: Abnormal Lab Results - Last 24 Hours (Table) 10/14/21 10/14/21 Range/Units 07:08 07:08 Chloride 114 H (98-107) mmol/L BUN 36 H (7-17) mg/dL Creatinine 1.43 H (0.52-1.04) mg/dL Glucose 52 L (74-99) mg/dL Calcium 8.1 L (8.4-10.2) mg/dL HDL Cholesterol 60.90 H (40.00-60.00) mg/dL Folate 4.00 L (4.40-31.00) ng/mL Assessment and Plan Assessment: * Altered mental status, myoclonic jerking, stuttering, likely due to metabolic encephalopathy. Exact cause is uncertain, although medication side effect(Neurontin, opiates) in the background of renal insufficiency may be cause. 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 * Morbid obesity Plan: * Patient has metabolic encephalopathy. She has significant myoclonic jerks related to metabolic dysfunction. Patient is currently on Neurontin 400 mg 3 times a day. With her renal insufficiency, we will decrease it to 300 mg twice a day. Limit amount of opiates. We will decrease [place] 10 mg every 8 hours, instead of every 6 hours as needed. * Patient has renal insufficiency. Patient is getting hydration. Her renal functions have improved with BUN 36, creatinine 1.43. * Carotid Doppler revealed no stenosis in the ICA. Antegrade flow in the vertebral arteries. * 2-D echo revealed normal left ventricular size, right ventricle is enlarged. Mild TR. Mild left atrial dilatation. * Agree with starting aspirin 81 mg daily. * Fasting lipid panel cholesterol 135, LDL 60, HDL 60 and triglycerides 68. Continue Lipitor 40 mg daily. Continue aspirin daily. * Hemoglobin A1c 5.3. * B12 541, folate 4.0. We will start folate replacement 1 mg daily. * Patient's myoclonic jerks have slightly improved, but not resolved. If the myoclonic jerks further improves overnight, will be clear for discharge from neurology point. Please inform Dr. Jesse Lee if any persistent concerns about myoclonic jerks or any other neurological concerns
[2021-10-15 07:02] LABS: African American GFR (CKD) 52 (>60 ml/min/1.73 sqM); Anion Gap 3 mmol/L; Blood Urea Nitrogen 27 mg/dL (7-17); Calcium 8.1 mg/dL (8.4-10.2); Carbon Dioxide 27 mmol/L (22-30); Chloride 113 mmol/L (98-107); Glucose 59 mg/dL (74-99); Non-African American GFR(CKD) 45 (>60 ml/min/1.73 sqM); Sodium 143 mmol/L (137-145)
[2021-10-15] MEDS: PANTOPRAZOLE 40 MG TABLET PO SCH (08:25)
[2021-10-15] MEDS: amLODIPine 5 MG TAB PO SCH (08:25)
[2021-10-15] MEDS: GABAPENTIN 300 MG CAP PO SCH ×2 (08:25→20:02)
[2021-10-15] MEDS: FOLIC ACID 1 MG TAB PO SCH (08:25)
[2021-10-15] MEDS: ENOXAPARIN 40 MG/0.4 ML SYRINGE SQ SCH (08:25)
[2021-10-15] MEDS: ASPIRIN 81 MG PO SCH (08:25)
[2021-10-15 09:07] LABS: Glucose,Whole Blood 158 mg/dL (70-110)
[2021-10-15 13:08] VITALS: BMI 54.1
--- NOTE | 2021-10-15 16:58 | P.PN ---
Progress Note - Text Progress Note Date: 10/15/21 Chief Complaint: Tired This is a pleasant 71-year-old patient of follows with Dr. Carranza. Patient lives alone. Normally uses electric scooter. Chronic stable medical conditions include GERD, hypertension, osteoarthritis, peripheral neuropathy. Patient was discovered while talking on the phone to her [id number] that patient is having slurred speech. Patient also reported jerking of the left arm. That has been going on from 3 days. Patient has slight headache yesterday. No change in swallowing. No arm or leg weakness otherwise. Currently patient's daughter and son-in-law at the bedside. Patient felt to have metabolic encephalopathy, likely side effect from Neurontin is sitting of acute kidney injury. Dose of Neurontin was cutback. IV fluids given for kidney injury. Patient also had hyperkalemia. Given Lokelma October 14: Patient's speech is better. Feeling better. Some improvement in creatinine. Granddaughter the bedside. Oral intake better. Continue IV fluids. Hyperkalemia better. October 15: Patient getting local Aquacel dressing to the right lower extremity wound from trauma as per ID. Patient IV fluids were discontinued today. Patient's finding it difficult to transfer to the chair. PTOT consulted. Discharge planning consulted for possible rehab. Active Medications Acetaminophen (Acetaminophen Tab 325 Mg Tab) 650 mg PO Q6HR PRN PRN Reason: Mild Pain or Fever > 100.5 Hydrocodone Bitart/Acetaminophen (Hydrocodone/Apap 10-325mg 1 Each Tab) 1 each PO Q8HR PRN PRN Reason: Pain Last Admin: 10/14/21 14:25 Dose: 1 each Albuterol Sulfate (Albuterol Nebulized 2.5 Mg/3 Ml) 2.5 mg INHALATION RT-Q4H PRN PRN Reason: Shortness Of Breath Amlodipine Besylate (Amlodipine 5 Mg Tab) 5 mg PO DAILY [facility] Last Admin: 10/15/21 08:25 Dose: 5 mg Aspirin (Aspirin 81 Mg) 81 mg PO DAILY [facility] Last Admin: 10/15/21 08:25 Dose: 81 mg Atorvastatin Calcium (Atorvastatin 40 Mg Tab) 40 mg PO HS [facility] Last Admin: 10/14/21 20:11 Dose: 40 mg Enoxaparin Sodium (Enoxaparin 40 Mg/0.4 Ml Syringe) 40 mg SQ DAILY [facility] Last Admin: 10/15/21 08:25 Dose: 40 mg Folic Acid (Folic Acid 1 Mg Tab) 1 mg PO DAILY [facility] Last Admin: 10/15/21 08:25 Dose: 1 mg Gabapentin (Gabapentin 300 Mg Cap) 300 mg PO BID [facility] Last Admin: 10/15/21 08:25 Dose: 300 mg Naloxone HCl (Naloxone 0.4 Mg/Ml 1 Ml Vial) 0.2 mg IV Q2M PRN PRN Reason: Opioid Reversal Ondansetron HCl (Ondansetron 4 Mg/2 Ml Vial) 4 mg IVP Q8HR PRN PRN Reason: Nausea And Vomiting Pantoprazole Sodium (Pantoprazole 40 Mg Tablet) 40 mg PO -BRKFST [facility] Last Admin: 10/15/21 08:25 Dose: 40 mg Past medical history to include: GERD, hypertension, osteoarthritis, peripheral neuropathy, baseline uses electric scooter Social history: Lives alone. Does use electric scooter. No smoking. Alcohol rarely. Family history: Cancer Physical examination: VITAL SIGNS: 97.8, 76, 16, 1 12 x 64, 94% GENERAL: Laying in bed, awake, comfortable EYES: Pupils equal. Conjunctiva normal. HEENT: External appearance of nose and ears normal, oral cavity grossly normal. NECK: JVD unable to assess; masses not palpable. HEART: First and second heart sounds are normal; no edema. LUNGS: Respiratory rate normal; distant breath sounds. ABDOMEN: Soft, nontender, liver spleen not palpable, no masses palpable. PSYCH: Alert and oriented x3; mood and affect normal. MUSCULOSKELETAL:No Clubbing/cyanosis;muscles-grossly intact. Chronic limited range of motion of right shoulder. NEUROLOGICAL: Speech improved. No facial asymmetry.. Power sensation grossly intact. INVESTIGATIONS, reviewed in the clinical context: October 15: Potassium 4. 27 creatinine. 1.21 Folate: 4 Renal ultrasound: No evidence of hydronephrosis. No kidney stones. No masses. No atrophy. October 14: Potassium 4.6 BUN 36 creatinine 1.43 LDL 60 White count 9.6 hemoglobin 11.1 platelets 139 potassium 5.8 BUN 43 creatinine 1.7 to Troponin I less than 0.012 TSH 2.6 Chest x-ray film personally reviewed by me-portable/cardiomegaly question venous prominence. Telemetry strip: Sinus rhythm CT brain: Without contrast: No stroke reported Assessment and plan: -Acute metabolic encephalopathy/delirium from Neurontin in the setting of acute kidney injury: Improved -Morbid obesity BMI 54.1 Weight loss measures -Essential hypertension Amlodipine 5 mg daily -Primary osteoarthritis [place] 10 every 6 when necessary -Peripheral neuropathy Neurontin to 300 mg twice a day in setting of kidney dysfunction. -GERD Prilosec mg a day -Hyperkalemia in the setting of renal failure: Better. Low potassium diet. Lokelma. -Acute kidney injury, possibly prerenal: Improving Renal ultrasound. IV fluids. Repeat labs in the morning. UA shows trace protein. - CK D, stage III likely nephrosclerosis Creatinine 1.21 -Folate deficiency Add folic acid -Acute on chronic medical debility. PTOT. manager analytical looking into rehab -Right cuff posterior wound traumatic, POA Aquacel silver dressing but IV to continue Discussed with patient. Stop IV fluids today. Folic acid supplement added. PTOT. Looking into rehab. Wound care to continue.
[2021-10-15] MEDS: ATORVASTATIN 40 MG TAB PO SCH (20:02)
[2021-10-15] MEDS: LOPERAMIDE 2 MG CAP PO PRN (20:03)
[2021-10-16] MEDS: HYDROcodone/APAP 10-325MG 1 EACH TAB PO PRN ×2 (00:59→09:52)
[2021-10-16] MEDS: LOPERAMIDE 2 MG CAP PO PRN (01:01)
[2021-10-16 06:41] LABS: African American GFR (CKD) 55 (>60 ml/min/1.73 sqM); Anion Gap 3 mmol/L; Blood Urea Nitrogen 24 mg/dL (7-17); Calcium 8.3 mg/dL (8.4-10.2); Carbon Dioxide 28 mmol/L (22-30); Chloride 111 mmol/L (98-107); Glucose 62 mg/dL (74-99); Non-African American GFR(CKD) 48 (>60 ml/min/1.73 sqM); Potassium 4.1 mmol/L (3.5-5.1); Sodium 142 mmol/L (137-145)
--- NOTE | 2021-10-16 07:41 | P.PN ---
Subjective Progress Note Date: 10/15/21 Principal diagnosis: Right leg wound Patient is a 71-year-old female with multiple comorbidities presented to hospital with worsening weakness and some jerky sensation she also have him wound to the right lower leg as a trauma from her wheelchair. On today's evaluation that is 10/15/2021, patient denies having any fever or chills, patient has been combining of some burning pain to the right leg and attributing it to the dressing denies any chest pain shortness of breath or cough no abdominal pain no diarrhea Objective - Vital Signs Vital signs: Vital Signs Temp 97.8 F 10/15/21 05:00 Pulse 76 10/15/21 05:00 Resp 16 10/15/21 05:00 BP 167/75 10/15/21 05:00 Pulse Ox 94 L 10/15/21 05:00 FiO2 Intake & Output 10/14/21 10/15/21 10/15/21 18:59 06:59 18:59 Intake Total 1920 Output Total 680 Balance 1240 Intake: Intake, IV Titration 1200 Amount Sodium Chloride 0.45% 1, 1200 000 ml @ 100 mls/hr IV . Q10H [facility] Rx#:[id number] Oral 720 Output: Urine 680 Other: Voiding Method External Catheter External Catheter External Catheter # Voids 2 # Bowel Movements 1 - Exam GENERAL DESCRIPTION: An elderly female lying in bed in no distress RESPIRATORY SYSTEM: Unlabored breathing , decreased breath sounds at bases HEART: S1 S2 regular rate and rhythm , ABDOMEN: Soft , no tenderness EXTREMITIES: Right leg wound is currently dressed no drainage on the dressing - Labs CBC & Chem 7: 10/12/21 23:40 10/16/21 05:39 Labs: Abnormal Lab Results - Last 24 Hours (Table) 10/14/21 10/14/21 10/15/21 Range/Units 07:08 07:08 06:02 Chloride 113 H (98-107) mmol/L BUN 27 H (7-17) mg/dL Creatinine 1.21 H (0.52-1.04) mg/dL Glucose 59 L (74-99) mg/dL POC Glucose (mg/dL) (70-110) mg/dL Calcium 8.1 L (8.4-10.2) mg/dL HDL Cholesterol 60.90 H (40.00-60.00) mg/dL Folate 4.00 L (4.40-31.00) ng/mL 10/15/21 Range/Units 09:05 Chloride (98-107) mmol/L BUN (7-17) mg/dL Creatinine (0.52-1.04) mg/dL Glucose (74-99) mg/dL POC Glucose (mg/dL) 158 H (70-110) mg/dL Calcium (8.4-10.2) mg/dL HDL Cholesterol (40.00-60.00) mg/dL Folate (4.40-31.00) ng/mL Assessment and Plan (1) Wound of right leg Current Visit: Yes Status: Acute Code(s): S81.801A - UNSPECIFIED OPEN WOUND, RIGHT LOWER LEG, INITIAL ENCOUNTER SNOMED Code(s): 345770248 Plan: 1patient with right lower extremity wound traumatic currently with no evidence of any secondary cellulitis 2patient to continue dry Aquacel silver dressing and change every 48 hour daily and keep the area off the pressure. Time with Patient: Less than 30
[2021-10-16] MEDS: ENOXAPARIN 40 MG/0.4 ML SYRINGE SQ SCH (08:21)
[2021-10-16] MEDS: GABAPENTIN 300 MG CAP PO SCH (08:21)
[2021-10-16] MEDS: ASPIRIN 81 MG PO SCH (08:21)
[2021-10-16] MEDS: amLODIPine 5 MG TAB PO SCH (08:21)
[2021-10-16] MEDS: FOLIC ACID 1 MG TAB PO SCH (08:21)
[2021-10-16] MEDS: PANTOPRAZOLE 40 MG TABLET PO SCH (08:21)
[2021-10-16 13:17] VITALS: BP 137/69; PULSE 56; RESP 16; TEMP 97.6
--- NOTE | 2021-10-16 15:16 | P.DS ---
Providers Date of admission: 10/13/21 02:32 Expected date of discharge: 10/16/21 Attending physician: John Weldon Consults: 10/13/21 02:31 Consult Physician Urgent Consulting Provider: Afshan Wade Consult Reason/Comments: Myoclonic Activity, Stammering Speech Do you want consulting provider notified?: Yes, Notify in am 10/14/21 13:25 Consult Physician Routine Consulting Provider: Roselia Khalil Consult Reason/Comments: RLE wound Do you want consulting provider notified?: Yes Primary care physician: [facility] Course: Chief Complaint: Tired This is a pleasant 71-year-old patient of follows with Dr. Carranza. Patient lives alone. Normally uses electric scooter. Chronic stable medical conditions include GERD, hypertension, osteoarthritis, peripheral neuropathy. Patient was discovered while talking on the phone to her [id number] that patient is having slurred speech. Patient also reported jerking of the left arm. That has been going on from 3 days. Patient has slight headache yesterday. No change in swallowing. No arm or leg weakness otherwise. Currently patient's daughter and son-in-law at the bedside. Patient felt to have metabolic encephalopathy, likely side effect from Neurontin is sitting of acute kidney injury. Dose of Neurontin was cutback. IV fluids given for kidney injury. Patient also had hyperkalemia. Given Lokelma October 14: Patient's speech is better. Feeling better. Some improvement in creatinine. Granddaughter the bedside. Oral intake better. Continue IV fluids. Hyperkalemia better. October 15: Patient getting local Aquacel dressing to the right lower extremity wound from trauma as per ID. Patient IV fluids were discontinued today. Patient's finding it difficult to transfer to the chair. PTOT consulted. Discharge planning consulted for possible rehab. October 16: Discussed with patient. Accepted at rehab. We'll get a right lower extremity to continue. No infection. Discussed with patient. And supply chain planner. Discussion and discharge planning more than 35 minutes Past medical history to include: GERD, hypertension, osteoarthritis, peripheral neuropathy, baseline uses electric scooter Social history: Lives alone. Does use electric scooter. No smoking. Alcohol rarely. Family history: Cancer Physical examination: VITAL SIGNS: 97.6, 56, 16, 1 37 x 69, 100% room air GENERAL: Laying in bed, awake, comfortable EYES: Pupils equal. Conjunctiva normal. HEENT: External appearance of nose and ears normal, oral cavity grossly normal. NECK: JVD unable to assess; masses not palpable. HEART: First and second heart sounds are normal; no edema. LUNGS: Respiratory rate normal; distant breath sounds. ABDOMEN: Soft, nontender, liver spleen not palpable, no masses palpable. PSYCH: Alert and oriented x3; mood and affect normal. MUSCULOSKELETAL:No Clubbing/cyanosis;muscles-grossly intact. Chronic limited range of motion of right shoulder. NEUROLOGICAL: Speech improved. No facial asymmetry.. Power sensation grossly intact. DERMATOLOGICAL: Wound on the right lower extremity, see nursing notes for details. INVESTIGATIONS, reviewed in the clinical context: October 16: Potassium 4.1 BUN 24 creatinine 1.14 COVID : Not detected October 15: Potassium 4. 27 creatinine. 1.21 Folate: 4 Renal ultrasound: No evidence of hydronephrosis. No kidney stones. No masses. No atrophy. LDL 60 White count 9.6 hemoglobin 11.1 platelets 139 potassium 5.8 BUN 43 creatinine 1.7 to Troponin I less than 0.012 TSH 2.6 Chest x-ray film personally reviewed by me-portable/cardiomegaly question venous prominence. Telemetry strip: Sinus rhythm CT brain: Without contrast: No stroke reported Assessment and plan: -Acute metabolic encephalopathy/delirium from Neurontin in the setting of acute kidney injury: Improved -Morbid obesity BMI 54.1 Weight loss measures -Essential hypertension Amlodipine 5 mg daily -Primary osteoarthritis [place] 10 every 6 when necessary -Peripheral neuropathy Neurontin to 300 mg twice a day in setting of kidney dysfunction. -GERD Prilosec mg a day -Hyperkalemia in the setting of renal failure: Better. Low potassium diet. Lokelma. -Acute kidney injury, possibly prerenal: Improving Renal ultrasound. IV fluids. Repeat labs in the morning. UA shows trace protein. - CK D, stage III likely nephrosclerosis Creatinine 1.14 -Folate deficiency folic acid -Acute on chronic medical debility. PTOT. conference planning manager looking into rehab -Right lower extremity/calf posterior wound traumatic, not infected POA Aquacel silver dressing - -DO NOT RESUSCITATE Disposition: [facility] Plan - Discharge Summary Discharge Rx Participant: No New Discharge Prescriptions: New Aspirin 81 mg PO DAILY tab Gabapentin [Neurontin] 300 mg PO BID #60 cap Folic Acid 1 mg PO DAILY #30 tab Continue Omeprazole [PriLOSEC] 20 mg PO DAILY Hydrocodone/Acetaminophen [Hydrocodone/Acetaminophen 10-325] 1 tab PO Q6HR PRN PRN Reason: Pain amLODIPine [Norvasc] 5 mg PO DAILY Albuterol Inhaler [Ventolin Hfa Inhaler] 1 - 2 puff INHALATION RT-Q4H PRN PRN Reason: Shortness Of Breath Discontinued Gabapentin [Neurontin] 400 mg PO TID Discharge Medication List Omeprazole [PriLOSEC] 20 mg PO DAILY 05/22/15 [History] Albuterol Inhaler [Ventolin Hfa Inhaler] 1 - 2 puff INHALATION RT-Q4H PRN 10/12/21 [History] Hydrocodone/Acetaminophen [Hydrocodone/Acetaminophen 10-325] 1 tab PO Q6HR PRN 10/12/21 [History] amLODIPine [Norvasc] 5 mg PO DAILY 10/12/21 [History] Aspirin 81 mg PO DAILY tab 10/15/21 [Rx] Folic Acid 1 mg PO DAILY #30 tab 10/15/21 [Rx] Gabapentin [Neurontin] 300 mg PO BID #60 cap 10/15/21 [Rx] Follow up Appointment(s)/Referral(s): Garry Carranza DO [Primary Care Provider] - 10/23/21 1:40 pm [facility], [NON-STAFF] - As Needed
== END 2021-10-16 16:19 ==
LOC: EC 22:24 → 5NMEDONC 10-13 02:32
PROVIDERS: ADMIT Hospitalist; ATTEND Hospitalist
DX: G92.8 Other toxic encephalopathy (principal); T42.6X5A Adverse effect of other antiepileptic and sedative-hypnotic drugs, initial encounter; E66.01 Morbid (severe) obesity due to excess calories; Z68.43 Body mass index [BMI] 50.0-59.9, adult; I12.9 Hypertensive chronic kidney disease with stage 1 through stage 4 chronic kidney disease, or unspecified chronic kidney disease; N18.9 Chronic kidney disease, unspecified; E11.22 Type 2 diabetes mellitus with diabetic chronic kidney disease; G62.9 Polyneuropathy, unspecified; M19.91 Primary osteoarthritis, unspecified site; K21.9 Gastro-esophageal reflux disease without esophagitis; E87.5 Hyperkalemia; N17.9 Acute kidney failure, unspecified; R47.9 Unspecified speech disturbances; E53.8 Deficiency of other specified B group vitamins; I25.2 Old myocardial infarction; D69.6 Thrombocytopenia, unspecified; E86.0 Dehydration; M85.80 Other specified disorders of bone density and structure, unspecified site; I51.7 Cardiomegaly; R47.81 Slurred speech; R51.9 Headache, unspecified; M79.89 Other specified soft tissue disorders; R53.81 Other malaise; S81.801A Unspecified open wound, right lower leg, initial encounter; Z20.822 Contact with and (suspected) exposure to COVID-19; Z86.14 Personal history of Methicillin resistant Staphylococcus aureus infection; Z96.653 Presence of artificial knee joint, bilateral; X58.XXXA Exposure to other specified factors, initial encounter; E83.39 Other disorders of phosphorus metabolism; Z71.9 Counseling, unspecified; Z71.3 Dietary counseling and surveillance; Z66 Do not resuscitate; Z99.3 Dependence on wheelchair; Z74.01 Bed confinement status; Z79.899 Other long term (current) drug therapy; Z80.9 Family history of malignant neoplasm, unspecified; Z82.49 Family history of ischemic heart disease and other diseases of the circulatory system
CPT/HCPCS: 96361 ×4; 96372 ×4; 96360; 99285; 36415; 94760 ×2; 93005 ×2; 93306; 97530; 97162; 97535 ×2; 97167; 92522; 83880; 80061; 80053; 80048 ×3; 82330; 82607; 82550; 82746; 83605; 83735 ×2; 84100 ×2; 84132; 84443; 84484; 85025; 85730; 81001; 83036; 87635; 71045; 76770; 93880; 70450; G0378 ×4; J1650 ×4

== ENCOUNTER 2022-01-29 14:02 | Observation (INO) | payer MEDICARE, OTHER ==
--- NOTE | 2022-01-29 14:16 | ED ---
General Adult HPI - General Stated complaint: confusion Time Seen by Provider: 01/29/22 14:02 Source: patient, RN notes reviewed, old records reviewed - History of Present Illness Initial comments: This is a 71-year-old female presents emergency Department from a custodial. Patient is brought in because she according to staff is more combative and is hitting staff. They also stated that she was altered mentally. Patient herself denies this. Patientmonth and the year patient knows where she is and she appears to be alert and oriented 3. Patient denies any complaints. Patient denies any headache patient denies numbness weakness. Patient denies any chest pain difficulty breathing shortness of breath per patient denies any recent fever chills or cough per patient denies any abdominal pain patient denies nausea vomiting or diarrhea. - Related Data Home Medications Medication Instructions Recorded Confirmed Omeprazole [PriLOSEC] 20 mg PO HS 05/22/15 01/29/22 Acetaminophen [Tylenol] 650 mg PO Q4H PRN 01/29/22 01/29/22 Calcium Citrate/Vitamin D3 1 tab PO BID 01/29/22 01/29/22 [Calcium Cit 315-Vit D3 6.25 Mcg (250 Iu)] Dextrose Chew [Glucose Chew Tab] 32 gm PO QID 01/29/22 01/29/22 Ipratropium-Albuterol Nebulize 3 ml INHALATION RT-Q6H PRN 01/29/22 01/29/22 [Duoneb 0.5 mg-3 mg/3 ml Soln] risperiDONE [RisperDAL] 1 mg PO HS 01/29/22 01/29/22 Previous Rx's Medication Instructions Recorded Folic Acid 1 mg PO DAILY #30 tab 10/15/21 Allergies Allergy/AdvReac Type Severity Reaction Status Date / Time No Known Allergies Allergy Verified 01/29/22 15:01 Review of Systems ROS Statement: Those systems with pertinent positive or pertinent negative responses have been documented in the HPI. ROS Other: All systems not noted in ROS Statement are negative. Past Medical History Past Medical History: GERD/Reflux, Hypertension, Osteoarthritis (OA) Additional Past Medical History / Comment(s): has been on oral hyperglycemic medications in the past but pcp has taken her off of meds; neuropathy History of Any Multi-Drug Resistant Organisms: MRSA Date of last positivie culture/infection: 2011 MDRO Source:: L Knee Past Surgical History: Hernia Repair, Joint Replacement Additional Past Surgical History / Comment(s): total knee bilateral, left became infected component removed and antibiotic spacer placed. 3 years ago was on iv antibiotics and in rehab for 8 months follwing this Past Anesthesia/Blood Transfusion Reactions: No Reported Reaction Past Psychological History: No Psychological Hx Reported Smoking Status: Never smoker Past Alcohol Use History: Rare Past Drug Use History: None Reported - Past Family History Mother Family Medical History: Cancer Father Family Medical History: Myocardial Infarction (MO) General Exam - General Exam Comments Initial Comments: GENERAL: Patient is well-developed and well-nourished. Patient is nontoxic and well- hydrated and is in no acute distress. ENT: Neck is soft and supple. No significant lymphadenopathy is noted. Oropharynx is clear. Moist mucous membranes. Neck has full range of motion without eliciting any pain. EYES: The sclera were anicteric and conjunctiva were pink and moist. Extraocular movements were intact and pupils were equal round and reactive to light. Eyelids were unremarkable. PULMONARY: Unlabored respirations. Good breath sounds bilaterally. No audible rales rhonchi or wheezing was noted. CARDIOVASCULAR: There is a regular rate and rhythm without any murmurs gallops or rubs. ABDOMEN: Soft and nontender with normal bowel sounds. SKIN: Skin is clear with no lesions or rashes and otherwise unremarkable. NEUROLOGIC: Patient is alert and oriented x3. Cranial nerves II through XII are grossly intact. Motor and sensory are also intact. Normal speech, volume and content. Symmetrical smile. MUSCULOSKELETAL: Normal extremities with adequate strength and full range of motion. LYMPHATICS: No significant lymphadenopathy is noted PSYCHIATRIC: Normal psychiatric evaluation. Course Vital Signs 01/29/22 01/29/22 14:12 17:27 Pulse Rate 82 80 Respiratory 18 18 Rate Blood Pressure 125/84 115/74 O2 Sat by Pulse 98 Oximetry Medical Decision Making - Medical Decision Making Chest x-ray shows no acute abnormality. Patient's creatinine was elevated as well as the potassium. And I was sound physician's they agreed to admit the patient admitted orders. Patient has not been here just very angry. - Lab Data Result diagrams: 01/29/22 14:36 01/29/22 14:36 Lab Results 01/29/22 01/29/22 01/29/22 Range/Units 14:17 14:20 14:36 WBC 5.3 (3.8-10.6) k/uL RBC 3.29 L (3.80-5.40) m/uL Hgb 9.7 L (11.4-16.0) gm/dL Hct 32.0 L (34.0-46.0) % MCV 97.4 (80.0-100.0) fL MCH 29.7 (25.0-35.0) pg MCHC 30.5 L (31.0-37.0) g/dL RDW 19.9 H (11.5-15.5) % Plt Count 165 (150-450) k/uL MPV 10.2 Neutrophils % 66 % Lymphocytes % 17 % Monocytes % 11 % Eosinophils % 1 % Basophils % 1 % Neutrophils # 3.5 (1.3-7.7) k/uL Lymphocytes # 0.9 L (1.0-4.8) k/uL Monocytes # 0.6 (0-1.0) k/uL Eosinophils # 0.1 (0-0.7) k/uL Basophils # 0.0 (0-0.2) k/uL Manual Slide Review Performed Hypochromasia Marked Poikilocytosis Slight Poikilocytosis (manual Present Anisocytosis Slight Macrocytosis Slight Rouleaux Present PT (9.0-12.0) sec INR (<1.2) APTT (22.0-30.0) sec Sodium (137-145) mmol/L Potassium (3.5-5.1) mmol/L Chloride (98-107) mmol/L Carbon Dioxide (22-30) mmol/L Anion Gap mmol/L BUN (7-17) mg/dL Creatinine (0.52-1.04) mg/dL Est GFR (CKD-EPI)AfAm (>60 ml/min/1.73 sqM) Est GFR (CKD-EPI)NonAf (>60 ml/min/1.73 sqM) Glucose (74-99) mg/dL POC Glucose (mg/dL) 70 (70-110) mg/dL POC Glu Bottom Loader ID Aleksey, Tanvi Calcium (8.4-10.2) mg/dL Total Bilirubin (0.2-1.3) mg/dL AST (14-36) U/L ALT (4-34) U/L Alkaline Phosphatase (38-126) U/L Troponin I (0.000-0.034) ng/mL Total Protein (6.3-8.2) g/dL Albumin (3.5-5.0) g/dL Urine Color Yellow Urine Appearance Cloudy H (Clear) Urine pH 5.5 (5.0-8.0) Ur Specific [place] 1.020 (1.001-1.035) Urine Protein 1+ H (Negative) Urine Glucose (UA) Negative (Negative) Urine Ketones 1+ H (Negative) Urine Blood Small H (Negative) Urine Nitrite Negative (Negative) Urine Bilirubin Negative (Negative) Urine Urobilinogen 2.0 (<2.0) mg/dL Ur Leukocyte Esterase Large H (Negative) Urine RBC 26 H (0-5) /hpf Urine WBC 26 H (0-5) /hpf Ur Squamous Epith Cells 9 H (0-4) /hpf Urine Mucus Rare H (None) /hpf 01/29/22 01/29/22 01/29/22 Range/Units 14:36 14:36 14:36 WBC (3.8-10.6) k/uL RBC (3.80-5.40) m/uL Hgb (11.4-16.0) gm/dL Hct (34.0-46.0) % MCV (80.0-100.0) fL MCH (25.0-35.0) pg MCHC (31.0-37.0) g/dL RDW (11.5-15.5) % Plt Count (150-450) k/uL MPV Neutrophils % % Lymphocytes % % Monocytes % % Eosinophils % % Basophils % % Neutrophils # (1.3-7.7) k/uL Lymphocytes # (1.0-4.8) k/uL Monocytes # (0-1.0) k/uL Eosinophils # (0-0.7) k/uL Basophils # (0-0.2) k/uL Manual Slide Review Hypochromasia Poikilocytosis Poikilocytosis (manual Anisocytosis Macrocytosis Rouleaux PT 10.7 (9.0-12.0) sec INR 1.0 (<1.2) APTT 26.9 (22.0-30.0) sec Sodium 146 H (137-145) mmol/L Potassium 5.4 H (3.5-5.1) mmol/L Chloride 114 H (98-107) mmol/L Carbon Dioxide 21 L (22-30) mmol/L Anion Gap 11 mmol/L BUN 33 H (7-17) mg/dL Creatinine 2.52 H (0.52-1.04) mg/dL Est GFR (CKD-EPI)AfAm 21 (>60 ml/min/1.73 sqM) Est GFR (CKD-EPI)NonAf 18 (>60 ml/min/1.73 sqM) Glucose 99 (74-99) mg/dL POC Glucose (mg/dL) (70-110) mg/dL POC Glu Bottom Loader ID Calcium 9.2 (8.4-10.2) mg/dL Total Bilirubin 0.9 (0.2-1.3) mg/dL AST 53 H (14-36) U/L ALT 31 (4-34) U/L Alkaline Phosphatase 97 (38-126) U/L Troponin I <0.012 (0.000-0.034) ng/mL Total Protein 6.3 (6.3-8.2) g/dL Albumin 3.0 L (3.5-5.0) g/dL Urine Color Urine Appearance (Clear) Urine pH (5.0-8.0) Ur Specific [place] (1.001-1.035) Urine Protein (Negative) Urine Glucose (UA) (Negative) Urine Ketones (Negative) Urine Blood (Negative) Urine Nitrite (Negative) Urine Bilirubin (Negative) Urine Urobilinogen (<2.0) mg/dL Ur Leukocyte Esterase (Negative) Urine RBC (0-5) /hpf Urine WBC (0-5) /hpf Ur Squamous Epith Cells (0-4) /hpf Urine Mucus (None) /hpf Disposition Clinical Impression: Acute renal failure, Hyperkalemia, Combative behavior Disposition: ADMITTED IP TO THIS [facility] Referrals: Garry Carranza DO [Primary Care Provider] - 1-2 days Time of Disposition: 17:08
[2022-01-29 14:18] LABS: Glucose,Whole Blood 70 mg/dL (70-110)
[2022-01-29 15:14] LABS: Anisocytosis Slight; Basophils % (A) 1 %; Eosinophils # (A) 0.1 k/uL (0-0.7); Eosinophils % (A) 1 %; HGB 9.7 gm/dL (11.4-16.0); Hypochromasia Marked; Lymphocytes # (A) 0.9 k/uL (1.0-4.8); Lymphocytes % (A) 17 %; MCH 29.7 pg (25.0-35.0); MCHC 30.5 g/dL (31.0-37.0); MCV 97.4 fL (80.0-100.0); Macrocytosis Slight; Mean Platelet Volume 10.2; Monocytes # (A) 0.6 k/uL (0-1.0); Monocytes % (A) 11 %; Neutrophils # (A) 3.5 k/uL (1.3-7.7); Neutrophils % (A) 66 %; Platelet Count 165 k/uL (150-450); Poikilocytosis Slight; RBC 3.29 m/uL (3.80-5.40); RDW 19.9 % (11.5-15.5); WBC 5.3 k/uL (3.8-10.6)
[2022-01-29 15:30] LABS: Partial Thromboplastin Time 26.9 sec (22.0-30.0); Prothrombin Time 10.7 sec (9.0-12.0)
[2022-01-29 15:32] LABS: Calcium 9.2 mg/dL (8.4-10.2); Potassium 5.4 mmol/L (3.5-5.1); Total Bilirubin 0.9 mg/dL (0.2-1.3); Total Protein 6.3 g/dL (6.3-8.2)
--- NOTE | 2022-01-29 16:01 | XR ---
EXAMINATION TYPE: XR chest 2V DATE OF EXAM: 01/29/2022 COMPARISON: Chest x-ray October 13, 2021 HISTORY: Altered mental status and weakness. TECHNIQUE: Frontal and lateral views of the chest are obtained. FINDINGS: There is cardiomegaly with new mild central increased opacities bilaterally. No pleural ef fusion or pneumothorax seen bilaterally. Bridging osteophytes in the thoracic spine are noted. IMPRESSION: Cannot exclude CHF exacerbation. Correlate clinically.
[2022-01-29 16:32] LABS: Appearance,Urine Cloudy (Clear); Bilirubin,Urine Negative (Negative); Blood,Urine Small (Negative); Color,Urine Yellow; Glucose,Urine (UA) Negative (Negative); Ketones,Urine 1+ (Negative); Leukocyte Esterase,Urine Large (Negative); Mucus,Urine Rare /hpf; Nitrite,Urine Negative (Negative); PH, Urine 5.5 (5.0-8.0); Protein,Urine 1+ (Negative); RBC,Urine 26 /hpf (0-5); Squamous Epithelial Cell,Urine 9 /hpf (0-4); WBC,Urine 26 /hpf (0-5)
[2022-01-29 16:50] LABS: Poikilocytosis (M) Present; Rouleaux Present
[2022-01-29] MEDS ORDERED: SODIUM CHLORIDE 0.9% 1,000 ML IV ONE (17:30)
[2022-01-29] MEDS: PANTOPRAZOLE 40 MG TABLET PO SCH (22:07)
[2022-01-30] MEDS ORDERED: ACETAMINOPHEN TAB 325 MG TAB PO PRN (01:43)
[2022-01-30] MEDS ORDERED: ONDANSETRON 4 MG/2 ML VIAL IVP PRN (01:43)
--- NOTE | 2022-01-30 03:38 | P.HPIM ---
History of Present Illness H&P Date: 01/29/22 Chief Complaint: combative behavior 71 year old female with hypertension, GERD This is very pleasant patient laying comfortably in bed pleasantly confused, has no complaints at this time she denies any fevers or chills denies any pain denies any chest pain trouble breathing abdominal pain nausea vomiting changes in bowel or urinary habits. She has no idea where she has. She is chatting pleasantly over random things. patient is a [place] resident , comes in due to combative aggressive behavior toward staff. Nursing staff mentioned that her mental status was altered and this is not her normal behavior Blood work in the ED showed chronic stable anemia, potassium 5.4, sodium 146, acute kidney injury with creatinine 2.5 Most recent left ventricular ejection fraction 5560 percent Review of Systems Pertinent positives as noted in HPI. All other systems were reviewed and are negative Past Medical History Past Medical History: GERD/Reflux, Hypertension, Osteoarthritis (OA) Additional Past Medical History / Comment(s): has been on oral hyperglycemic medications in the past but pcp has taken her off of meds; neuropathy History of Any Multi-Drug Resistant Organisms: MRSA Date of last positivie culture/infection: 2011 MDRO Source:: L Knee Past Surgical History: Hernia Repair, Joint Replacement Additional Past Surgical History / Comment(s): total knee bilateral, left became infected component removed and antibiotic spacer placed. 3 years ago was on iv antibiotics and in rehab for 8 months follwing this Past Anesthesia/Blood Transfusion Reactions: No Reported Reaction Past Psychological History: No Psychological Hx Reported Smoking Status: Never smoker Past Alcohol Use History: Rare Past Drug Use History: None Reported - Past Family History Mother Family Medical History: Cancer Father Family Medical History: Myocardial Infarction (CT) Medications and Allergies Home Medications Medication Instructions Recorded Confirmed Type Omeprazole [PriLOSEC] 20 mg PO HS 05/22/15 01/29/22 History Folic Acid 1 mg PO DAILY #30 tab 10/15/21 01/29/22 Rx Acetaminophen [Tylenol] 650 mg PO Q4H PRN 01/29/22 01/29/22 History Calcium Citrate/Vitamin D3 1 tab PO BID 01/29/22 01/29/22 History [Calcium Cit 315-Vit D3 6.25 Mcg (250 Iu)] Dextrose Chew [Glucose Chew Tab] 32 gm PO QID 01/29/22 01/29/22 History Ipratropium-Albuterol Nebulize 3 ml INHALATION RT-Q6H PRN 01/29/22 01/29/22 History [Duoneb 0.5 mg-3 mg/3 ml Soln] risperiDONE [RisperDAL] 1 mg PO HS 01/29/22 01/29/22 History Allergies Allergy/AdvReac Type Severity Reaction Status Date / Time No Known Allergies Allergy Verified 01/29/22 15:01 Physical Exam Vitals: Vital Signs Pulse Resp BP Pulse Ox 01/29/22 17:44 84 20 120/51 100 01/29/22 14:12 82 18 125/84 98 Intake and Output 01/29/22 01/29/22 01/29/22 06:59 14:59 22:59 Other: Weight 143.3 kg Constitutional: No acute distress, talkative pleasantly confused, morbidly obese Eyes: Anicteric sclerae, moist conjunctiva, Pupils equal round reactive to light ENMT: NC/AT Oropharynx clear, dry mucous membranes, no erythema, or exudates Neck: Supple, no masses, or JVD No carotid bruits No thyromegaly Lungs: Clear to auscultation Clear to percussion Normal respiratory effort, no accessory muscle use Cardiovascular: Heart regular in rate and rhythm, No murmurs, gallops, or rubs No peripheral edema Abdominal: Soft Nontender, no guarding, rebound or rigidity Abdomen moving with respiration Normoactive bowel sounds No hepatomegaly, No splenomegaly No palpable mass No abdominal wall hernia noted Skin: Area of skin sloughing over the left dorsal arm and right thigh, Chronic skin changes bilateral legs, otherwise Normal temperature, tone, texture, turgor No induration No subcutaneous nodules No rash, lesions No ulcers Extremities: No digital cyanosis No clubbing Pedal pulses intact and symmetrical Radial pulses intact and symmetrical No calf tenderness Psychiatric: Alert and oriented to person, only Pleasantly confused Neuro Muscles Strength 4/5 in all 4 extremities Sensation to light touch grossly present throughout Cranial nerves II-XII grossly intact No focal sensory deficits Lymphatics: no palpable cervical or supraclavicular , or inguinal lymph nodes Results CBC & Chem 7: 01/29/22 14:36 01/29/22 14:36 Labs: Abnormal Lab Results - Last 24 Hours (Table) 01/29/22 01/29/22 01/29/22 Range/Units 14:20 14:36 14:36 RBC 3.29 L (3.80-5.40) m/uL Hgb 9.7 L (11.4-16.0) gm/dL Hct 32.0 L (34.0-46.0) % MCHC 30.5 L (31.0-37.0) g/dL RDW 19.9 H (11.5-15.5) % Lymphocytes # 0.9 L (1.0-4.8) k/uL Sodium 146 H (137-145) mmol/L Potassium 5.4 H (3.5-5.1) mmol/L Chloride 114 H (98-107) mmol/L Carbon Dioxide 21 L (22-30) mmol/L BUN 33 H (7-17) mg/dL Creatinine 2.52 H (0.52-1.04) mg/dL AST 53 H (14-36) U/L Albumin 3.0 L (3.5-5.0) g/dL Urine Appearance Cloudy H (Clear) Urine Protein 1+ H (Negative) Urine Ketones 1+ H (Negative) Urine Blood Small H (Negative) Ur Leukocyte Esterase Large H (Negative) Urine RBC 26 H (0-5) /hpf Urine WBC 26 H (0-5) /hpf Ur Squamous Epith Cells 9 H (0-4) /hpf Urine Mucus Rare H (None) /hpf Assessment and Plan Assessment: Acute kidney injury Avoid nephrotoxic meds IV fluid hydration with saline Monitor renal function Mild hypernatremia and hyperkalemia Continue to monitor electrolytes closely Chronic anemia stable Denies GI bleeding Continue to monitor hemoglobin Acute metabolic encephalopathy possibly secondary to acute kidney injury and dehydration Fall precautions Supportive care Wound care for superficial wounds over the left arm and right thigh Chronic conditions Hypertension resume home blood pressure medications Peripheral neuropathy GERD dvt prophylaxis heparin subcu 3 times a day Full code
[2022-01-30] MEDS: HEPARIN SODIUM,PORCINE/PF 5,000 UNIT/0.5 ML SYRINGE SQ SCH ×2 (08:51→17:55)
[2022-01-30 12:15] LABS: Anisocytosis Slight; HCT 30.6 % (34.0-46.0); HGB 8.9 gm/dL (11.4-16.0); Hypochromasia Marked; MCH 28.7 pg (25.0-35.0); MCV 98.9 fL (80.0-100.0); Macrocytosis Moderate; Mean Platelet Volume 10.7; Platelet Count 140 k/uL (150-450); Poikilocytosis Slight; RBC 3.09 m/uL (3.80-5.40); WBC 4.2 k/uL (3.8-10.6)
[2022-01-30 12:37] LABS: African American GFR (CKD) 27 (>60 ml/min/1.73 sqM); Anion Gap 9 mmol/L; Blood Urea Nitrogen 30 mg/dL (7-17); Calcium 8.6 mg/dL (8.4-10.2); Carbon Dioxide 23 mmol/L (22-30); Chloride 116 mmol/L (98-107); Glucose 121 mg/dL (74-99); Non-African American GFR(CKD) 24 (>60 ml/min/1.73 sqM); Potassium 4.8 mmol/L (3.5-5.1); Sodium 148 mmol/L (137-145)
[2022-01-30 13:04] LABS: Eosinophils # (M) 0.04 k/uL (0-0.7); Lymphocytes # (M) 0.84 k/uL (1.0-4.8); Metamyelocytes # (M) 0.04 k/uL (0); Metamyelocytes % 1 %; Monocytes # (M) 0.38 k/uL (0-1.0); Neutrophils # (M) 2.94 k/uL (1.3-7.7); Neutrophils % (M) 70 %; Nucleated Red Blood Cells 0 /100 WBC (0-0); Total Cells Counted 200
[2022-01-30 13:07] LABS: Target Cells Present
[2022-01-30 13:08] LABS: Polychromasia Present; Rouleaux Present
[2022-01-30] MEDS: SODIUM CHLORIDE 0.9% 1,000 ML IV SCH ×2 (14:12→15:27)
[2022-01-30] MEDS: DEXTROSE 5%-0.45% NACL 1,000 ML IV SCH (15:27)
--- NOTE | 2022-01-30 15:35 | P.PN ---
Subjective Progress Note Date: 01/30/22 Hospital course: Patient is a very pleasant 71-year-old hypertension, GERD, anemia of chronic disease, and osteoarthritis currently residing in [facility] for rehabilitation. She presented to the emergency department with a chief complaint of confusion and combative behavior. . She underwent full evaluation in the emergency department. CBC revealed normocytic normochromic anemia with hemoglobin of 9.7 at baseline levels. CMP revealing hypernatremia with sodium of 146, hyperkalemia with potassium of 5.4, and an acute kidney injury with BUN of 33, creatinine 2.52, and GFR of 18 with baseline creatinine of 1.1. Urinalysis was contaminated Patient was started on IV fluid hydration and admitted under our services at this time. Upon admission patient alert to pe rson, place, situation and confused to time and date. Patient denies having any urinary complaints, initial urinalysis was contaminated. Physical exam: Patient seen and fully evaluated at bedside this morning. She was alert to person, place, and situation. She denied having any complaints or concerns including headache, lightheadedness, dizziness, chest pain, palpitations, or shortness of breath. Patient was eating breakfast. Morning labs reviewed in renal function improving with IV fluid hydration. However hypernatremia slightly worsening and 0.9% normal saline was discontinued and patient placed on D5.45 infusion for rehydration. We will continue to monitor closely with plans for likely return to long-term tomorrow morning pending further improvement of renal function with rehydration. Vital signs reviewed and stable. General: Nontoxic, no distress and appears stated age. Derm: Skin warm and dry, normal coloration for ethnicity. Patient has bruises on bilateral shoulders. Abrasions/area of skin sloughing over left dorsal arm and right thigh. Head: Atraumatic, normocephalic and symmetric. Eyes: EOMs intact, no lid lag, and anicteric sclera Mouth: no lip lesions, mucus membranes moist Cardiovascular: regular rate and rhythm with normal S1S2, no murmur, positive posterior tibial pulses bilaterally, and cap refill < 2 seconds. Lungs: Respirations even, regular, and unlabored on room air. Lungs CTA bilaterally, no rhonchi, no rales, no wheezing, and no accessory muscle usage. Abdominal: soft, nontender to palpation, no guarding, no appreciable organomega ly Ext: ROM intact. No gross muscle atrophy, no edema, no contractures Neuro: Speech clear, face symmetrical and CN II-XII grossly intact with no noted focal neuro deficits. GCS 14. Psych: Alert and oriented to person, place, and situation. Confused to time. Appropriate and pleasant affect. Assessment and Plan of Care: Acute kidney injury secondary to dehydration -Improving with IV fluid hydration -Continue to hold nephrotoxic medications and provide patient with gentle IV fluid hydration. -Continue close monitoring with repeat a.m. labs. Acute metabolic encephalopathy believed to be secondary to acute kidney injury and dehydration -Patient alert to person, place, and situation. -Provide safe and supportive care with redirection as needed. -Fall precautions. Hyperkalemia, resolved Hypernatremia, worsening -0.9% normal saline discontinued and patient placed on D5.45 infusion. Weakness, difficulty with ambulation -Physical therapy and occupational therapy consulted secondary to patient needing evaluation and prior insurance authorization for return to long-term. CODE STATUS: Full code DVT prophylaxis: Heparin Discussed with: Patient, social work, and RN Anticipated discharge date: 1-2 days pending further and improvement in renal function Anticipated discharge place: Return to [facility] A total of 38 minutes was spent on the care of this complex patient more than 50% of the time was spent in counseling and care coordination. Objective - Vital Signs Vital signs: Vital Signs Temp 97.5 F L 01/30/22 07:33 Pulse 93 01/30/22 07:33 Resp 18 01/30/22 07:33 BP 111/68 01/30/22 07:33 Pulse Ox 95 01/30/22 05:00 FiO2 Intake & Output 01/29/22 01/30/22 01/30/22 18:59 06:59 18:59 Intake Total 600 Balance 600 Weight 143.3 kg 143.3 kg Intake: Intake, IV Titration 600 Amount Sodium Chloride 0.9% 1, 600 000 ml @ 130 mls/hr IV . [id number] [facility] Rx#:[id number] Other: Voiding Method Diaper # Voids 2 - Labs CBC & Chem 7: 01/30/22 12:00 01/30/22 12:00 Labs: Abnormal Lab Results - Last 24 Hours (Table) 01/29/22 01/29/22 01/29/22 Range/Units 14:20 14:36 14:36 RBC 3.29 L (3.80-5.40) m/uL Hgb 9.7 L (11.4-16.0) gm/dL Hct 32.0 L (34.0-46.0) % MCHC 30.5 L (31.0-37.0) g/dL RDW 19.9 H (11.5-15.5) % Lymphocytes # 0.9 L (1.0-4.8) k/uL Sodium 146 H (137-145) mmol/L Potassium 5.4 H (3.5-5.1) mmol/L Chloride 114 H (98-107) mmol/L Carbon Dioxide 21 L (22-30) mmol/L BUN 33 H (7-17) mg/dL Creatinine 2.52 H (0.52-1.04) mg/dL AST 53 H (14-36) U/L Albumin 3.0 L (3.5-5.0) g/dL Urine Appearance Cloudy H (Clear) Urine Protein 1+ H (Negative) Urine Ketones 1+ H (Negative) Urine Blood Small H (Negative) Ur Leukocyte Esterase Large H (Negative) Urine RBC 26 H (0-5) /hpf Urine WBC 26 H (0-5) /hpf Ur Squamous Epith Cells 9 H (0-4) /hpf Urine Mucus Rare H (None) /hpf Microbiology - Last 24 Hours (Table) 01/29/22 14:20 Urine Culture - Preliminary Urine,Voided
[2022-01-30] MEDS: risperiDONE 1 MG TAB PO SCH (22:00)
[2022-01-30] MEDS: PANTOPRAZOLE 40 MG TABLET PO SCH (22:00)
[2022-01-31] MEDS: HEPARIN SODIUM,PORCINE/PF 5,000 UNIT/0.5 ML SYRINGE SQ SCH ×4 (00:37→23:19)
[2022-01-31] MEDS: DEXTROSE 5%-0.45% NACL 1,000 ML IV SCH ×2 (02:29→13:57)
[2022-01-31 10:37] LABS: HCT 25.4 % (37.2-46.3); HGB 7.9 g/dL (12.0-15.0); MCH 29.4 pg (27.0-32.0); MCHC 31.1 g/dL (32.0-37.0); MCV 94.4 fL (80.0-97.0); Mean Platelet Volume 11.7 fL (9.5-12.2); NRBC Per 100 WBC 0 /100 WBCS (0.0-0.0); Platelet Count 143 X 10*3/uL (140-440); RBC 2.69 X 10*6/uL (4.10-5.20); RDW 20.2 % (11.5-14.5); WBC 4.48 X 10*3/uL (4.50-10.00)
[2022-01-31 10:55] LABS: African American GFR (CKD) 31.8 (60.0-200.0); Albumin 2.6 g/dL (3.8-4.9); Albumin/Globulin Ratio 0.96 (1.60-3.17); Anion Gap 6.6 mmol/L (10.00-18.00); BUN/Creat Ratio 12.89 Ratio (12.00-20.00); Blood Urea Nitrogen 23.2 mg/dL (9.0-27.0); Calcium 8.4 mg/dL (8.7-10.3); Carbon Dioxide 24.4 mmol/L (20.0-27.5); Globulin 2.7 g/dL (1.6-3.3); Magnesium 1.5 mg/dL (1.5-2.4); Non-African American GFR(CKD) 27.4 (60.0-200.0); Potassium 4.6 mmol/L (3.5-5.5); Total Bilirubin 0.4 mg/dL (0.30-1.20); Total Protein 5.3 g/dL (6.2-8.2)
--- NOTE | 2022-01-31 15:47 | P.PN ---
Subjective Progress Note Date: 01/31/22 Hospital course: Patient is a very pleasant 71-year-old hypertension, GERD, anemia of chronic disease, and osteoarthritis currently residing in [facility] for rehabilitation. She presented to the emergency department with a chief complaint of confusion and combative behavior. . She underwent full evaluation in the emergency department. CBC revealed normocytic normochromic anemia with hemoglobin of 9.7 at baseline levels. CMP revealing hypernatremia with sodium of 146, hyperkalemia with potassium of 5.4, and an acute kidney injury with BUN of 33, creatinine 2.52, and GFR of 18 with baseline creatinine of 1.1. Urinalysis was contaminated Patient was started on IV fluid hydration and admitted under our services at this time. Upon admission patient alert to person, place, situation and confused to time and date. Patient denies having any urinary complaints, initial urinalysis was contaminated. Physical exam: Patient seen and fully evaluated at bedside this morning at 10:40 AM. She was alert to person, place, and situation and continued to deny having any complaints or concerns including headache, lightheadedness, dizziness, chest pain, palpitations, or shortness of breath. Patient is awaiting placement at [facility] pending insurance authorization. Vital signs reviewed and stable. General: Nontoxic, no distress and appears stated age. Derm: Skin warm and dry, normal coloration for ethnicity. Patient has bruises on bilateral shoulders. Abrasions/area of skin sloughing over left dorsal arm and right thigh. Head: Atraumatic, normocephalic and symmetric. Eyes: EOMs intact, no lid lag, and anicteric sclera Mouth: no lip lesions, mucus membranes moist Cardiovascular: regular rate and rhythm with normal S1S2, no murmur, positive posterior tibial pulses bilaterally, and cap refill < 2 seconds. Lungs: Respirations even, regular, and unlabored on room air. Lungs CTA bilaterally, no rhonchi, no rales, no wheezing, and no accessory muscle usage. Abdominal: soft, nontender to palpation, no guarding, no appreciable organomegaly Ext: ROM intact. No gross muscle atrophy, no edema, no contractures Neuro: Speech clear, face symmetrical and CN II-XII grossly intact with no noted focal neuro deficits. GCS 14. Psych: Alert and oriented to person, place, and situation. Confused to time. Appropriate and pleasant affect. Assessment and Plan of Care: Acute kidney injury secondary to dehydration. Improved with IV fluid hydration. -Continue close monitoring with repeat a.m. labs. Acute metabolic encephalopathy believed to be secondary to acute kidney injury and dehydration. Resolved. Hyperkalemia, resolved Hypernatremia, improved Weakness, difficulty with ambulation, patient evaluated by PT/OT and is awaiting acceptance to a assisted facility, [facility]. Patient has been accepted, however awaiting insurance authorization. CODE STATUS: Full code DVT prophylaxis: Heparin Discussed with: Patient, social work, and RN Anticipated discharge date: Awaiting insurance authorization for placement. Anticipated discharge place: [facility] A total of 38 minutes was spent on the care of this complex patient more than 50% of the time was spent in counseling and care coordination. Objective - Vital Signs Vital signs: Vital Signs Temp 98.2 F 01/31/22 11:00 Pulse 82 01/31/22 11:00 Resp 16 01/31/22 11:00 BP 123/55 01/31/22 11:00 Pulse Ox 98 01/31/22 11:00 FiO2 Intake & Output 01/30/22 01/31/22 01/31/22 18:59 06:59 18:59 Intake Total 200 1000 Balance 200 1000 Intake: Intake, IV Titration 200 1000 Amount Dextrose 5%-0.45% NaCl 1, 200 1000 000 ml @ 100 mls/hr IV . Q10H [facility] Rx#:[id number] Other: Voiding Method Diaper Diaper Diaper External Catheter Incontinent External Catheter # Voids 1 1 - Labs CBC & Chem 7: 01/31/22 07:15 01/31/22 07:15 Labs: Abnormal Lab Results - Last 24 Hours (Table) 01/31/22 01/31/22 Range/Units 07:15 07:15 WBC 4.48 L (4.50-10.00) X 10*3/uL RBC 2.69 L (4.10-5.20) X 10*6/uL Hgb 7.9 L (12.0-15.0) g/dL Hct 25.4 L (37.2-46.3) % MCHC 31.1 L (32.0-37.0) g/dL RDW 20.2 H (11.5-14.5) % Sodium 147 H (135-145) mmol/L Chloride 116 H (96-109) mmol/L Anion Gap 6.60 L (10.00-18.00) mmol/L Creatinine 1.8 H (0.6-1.5) mg/dL Est GFR (CKD-EPI)AfAm 31.8 L (60.0-200.0) Est GFR (CKD-EPI)NonAf 27.4 L (60.0-200.0) Calcium 8.4 L (8.7-10.3) mg/dL Total Protein 5.3 L (6.2-8.2) g/dL Albumin 2.6 L (3.8-4.9) g/dL Albumin/Globulin Ratio 0.96 L (1.60-3.17) g/dL Microbiology - Last 24 Hours (Table) 01/29/22 14:20 Urine Culture - Final Urine,Voided
[2022-01-31] MEDS: risperiDONE 1 MG TAB PO SCH (20:03)
[2022-01-31] MEDS: PANTOPRAZOLE 40 MG TABLET PO SCH (20:03)
[2022-02-01] MEDS ORDERED: PANTOPRAZOLE 40 MG/10 ML VIAL IVP SCH (09:00)
[2022-02-01 11:38] VITALS: BP 126/70; PULSE 91; RESP 16; TEMP 98.1
[2022-02-01 12:18] LABS: Glucose,Whole Blood 93 mg/dL (70-110)
--- NOTE | 2022-02-01 14:32 | P.DS ---
Providers Date of admission: 01/29/22 17:30 Expected date of discharge: 02/01/22 Attending physician: Lucia Latif DO [facility] Course: Discharge Diagnosis: Acute kidney injury secondary to dehydration. Improved after IV fluid hydration. Acute metabolic encephalopathy believed to be secondary to acute kidney injury and dehydration. Resolved and patient is back to baseline. Hyperkalemia, resolved Hypernatremia, improved Weakness, difficulty with ambulation, patient evaluated by PT/OT and is awaiting acceptance to a custodial facility, [facility]. Hospital Course: Patient is a very pleasant 71-year-old hypertension, GERD, anemia of chronic disease, and osteoarthritis currently residing in [facility] for rehabilitation. She presented to the emergency department with a chief complaint of confusion and combative behavior. . She underwent full evaluation in the emergency department. CBC revealed normocytic normochromic anemia with hemoglobin of 9.7 at baseline levels. CMP revealing hypernatremia with sodium of 146, hyperkalemia with potassium of 5.4, and an acute kidney injury with BUN of 33, creatinine 2.52, and GFR of 18 with baseline creatinine of 1.1. Urinalysis was contaminated. Patient was started on IV fluid hydration and admitted under our services at this time. Upon admission patient alert to person, place, situation and confused to time and date. Patient denies having any urinary complaints, and initial urinalysis was contaminated. Patient received IV fluid hydration and renal function improving. Hyperkalemia resolving and patient's mentation improving. Patient is back to baseline mentation alert and oriented 3. Patient did continue to have weakness and difficulty with ambulation however she was at [facility] receiving physical therapy for this reason. Patient underwent evaluation by physical therapy and does require assistance and physical therapist is recommending continued therapy and placement in custodial facility upon discharge. Patient and family declining wanting to return to [facility] and arrangements were made for patient to be transferred to [facility] for continued custodial and physical therapy care. Patient alert and oriented. Morning labs were to be drawn however patient declined at this time stating she is going to rehab and did not want her labs drawn again. Patient is medically stable at this time in stable for transfer to custodial facility. Physical exam: Vital signs reviewed and stable. General: Nontoxic, no distress and appears stated age. Derm: Skin warm and dry, normal coloration for ethnicity. Patient has bruises on bilateral shoulders. Abrasions/area of skin sloughing over left dorsal arm and right thigh. Head: Atraumatic, normocephalic and symmetric. Eyes: EOMs intact, no lid lag, and anicteric sclera Mouth: no lip lesions, mucus membranes moist Cardiovascular: regular rate and rhythm with normal S1S2, no murmur, positive posterior tibial pulses bilaterally, and cap refill < 2 seconds. Lungs: Respirations even, regular, and unlabored on room air. Lungs CTA bilaterally, no rhonchi, no rales, no wheezing, and no accessory muscle usage. Abdominal: soft, nontender to palpation, no guarding, no appreciable organomeg anuradha Ext: ROM intact. No gross muscle atrophy, no edema, no contractures Neuro: Speech clear, face symmetrical and CN II-XII grossly intact with no noted focal neuro deficits. GCS 14. Psych: Alert and oriented to person, place, and situation. Confused to time. Appropriate and pleasant affect. A total of 32 minutes of time were spent preparing this complex discharge summary. Pt was discharged on 02/01/22 at 12:15 PM. I reviewed the documentation as provided by the KALIN above, who is the original author of this note. I agree with the documented assessment and plan, with the following changes: none Patient Condition at Discharge: Stable Plan - Discharge Summary Discharge Rx Participant: No New Discharge Prescriptions: Continue Omeprazole [PriLOSEC] 20 mg PO HS risperiDONE [RisperDAL] 1 mg PO HS Calcium Citrate/Vitamin D3 [Calcium Cit 315-Vit D3 6.25 Mcg (250 Iu)] 1 tab P O BID Dextrose Chew [Glucose Chew Tab] 32 gm PO QID Ipratropium-Albuterol Nebulize [Duoneb 0.5 mg-3 mg/3 ml Soln] 3 ml INHALATION RT-Q6H PRN PRN Reason: Shortness Of Breath Folic Acid 1 mg PO DAILY #30 tab Acetaminophen [Tylenol] 650 mg PO Q4H PRN PRN Reason: Fever And/ Or Pain Discharge Medication List Omeprazole [PriLOSEC] 20 mg PO HS 05/22/15 [History] Folic Acid 1 mg PO DAILY #30 tab 10/15/21 [Rx] Acetaminophen [Tylenol] 650 mg PO Q4H PRN 01/29/22 [History] Calcium Citrate/Vitamin D3 [Calcium Cit 315-Vit D3 6.25 Mcg (250 Iu)] 1 tab PO BID 01/29/22 [History] Dextrose Chew [Glucose Chew Tab] 32 gm PO QID 01/29/22 [History] Ipratropium-Albuterol Nebulize [Duoneb 0.5 mg-3 mg/3 ml Soln] 3 ml INHALATION RT-Q6H PRN 01/29/22 [History] risperiDONE [RisperDAL] 1 mg PO HS 01/29/22 [History] Follow up Appointment(s)/Referral(s): Garry Carranza DO [Primary Care Provider] - 1-2 days Discharge Disposition: TRANSFER TO SNF/ECF
== END 2022-02-01 15:35 ==
LOC: EC 14:02 → 5NMEDONC 17:30
PROVIDERS: ADMIT Internal Medicine; ATTEND Internal Medicine
DX: N17.9 Acute kidney failure, unspecified (principal); E86.0 Dehydration; G93.41 Metabolic encephalopathy; E87.5 Hyperkalemia; E87.0 Hyperosmolality and hypernatremia; E66.01 Morbid (severe) obesity due to excess calories; I11.9 Hypertensive heart disease without heart failure; K21.9 Gastro-esophageal reflux disease without esophagitis; G62.9 Polyneuropathy, unspecified; M25.78 Osteophyte, vertebrae; D63.8 Anemia in other chronic diseases classified elsewhere; Z96.653 Presence of artificial knee joint, bilateral; Z82.49 Family history of ischemic heart disease and other diseases of the circulatory system; Z80.9 Family history of malignant neoplasm, unspecified; Z79.899 Other long term (current) drug therapy; Z20.822 Contact with and (suspected) exposure to COVID-19; Z68.43 Body mass index [BMI] 50.0-59.9, adult
CPT/HCPCS: 36415; 97162; 97167; 80053 ×2; 80048; 83735; 84484; 85025 ×2; 85027; 85610; 85730; 81001; 87086; 87635; 71046; G0378 ×4; C9113; J1644 ×2; 96361; 96372; 96374; 99285

== ENCOUNTER 2022-02-23 07:32 | Emergency (ER) | payer MEDICARE, OTHER ==
[2022-02-23 07:49] VITALS: TEMP 98
--- NOTE | 2022-02-23 08:07 | ED ---
General Adult HPI - General Chief complaint: Upper Respiratory Infection Stated complaint: lethargic Time Seen by Provider: 02/23/22 07:33 Source: patient, RN notes reviewed Mode of arrival: ambulatory Limitations: no limitations - History of Present Illness Initial comments: 71-year-old female presents emergency Department chief complaint of congestion. Patient was sent in by mom for evaluation stating that she was lethargic. Patient states she is sleeping EMS did arrive states that she was sleeping they aroused her she is awake alert and orientated x 4. Patient did have hospitalization 2 weeks ago for acute renal failure. Patient had repeat labs frequently, and urinalysis yesterday which was unremarkable. Patient denies any chest pain shortness breath fevers chills headache dizziness or any complaints of pain. - Related Data Home Medications Medication Instructions Recorded Confirmed Omeprazole [PriLOSEC] 20 mg PO HS 05/22/15 01/29/22 Acetaminophen [Tylenol] 650 mg PO Q4H PRN 01/29/22 01/29/22 Calcium Citrate/Vitamin D3 1 tab PO BID 01/29/22 01/29/22 [Calcium Cit 315-Vit D3 6.25 Mcg (250 Iu)] Dextrose Chew [Glucose Chew Tab] 32 gm PO QID 01/29/22 01/29/22 Ipratropium-Albuterol Nebulize 3 ml INHALATION RT-Q6H PRN 01/29/22 01/29/22 [Duoneb 0.5 mg-3 mg/3 ml Soln] risperiDONE [RisperDAL] 1 mg PO HS 01/29/22 01/29/22 Previous Rx's Medication Instructions Recorded Folic Acid 1 mg PO DAILY #30 tab 10/15/21 Allergies Allergy/AdvReac Type Severity Reaction Status Date / Time No Known Allergies Allergy Verified 02/23/22 07:39 Review of Systems ROS Statement: Those systems with pertinent positive or pertinent negative responses have been documented in the HPI. ROS Other: All systems not noted in ROS Statement are negative. Past Medical History Past Medical History: GERD/Reflux, Hypertension, Osteoarthritis (OA) Additional Past Medical History / Comment(s): has been on oral hyperglycemic medications in the past but pcp has taken her off of meds; neuropathy History of Any Multi-Drug Resistant Organisms: MRSA Date of last positivie culture/infection: 2011 MDRO Source:: L Knee Past Surgical History: Hernia Repair, Joint Replacement Additional Past Surgical History / Comment(s): total knee bilateral, left became infected component removed and antibiotic spacer placed. 3 years ago was on iv antibiotics and in rehab for 8 months follwing this Past Anesthesia/Blood Transfusion Reactions: No Reported Reaction Past Psychological History: No Psychological Hx Reported Smoking Status: Never smoker Past Alcohol Use History: Rare Past Drug Use History: None Reported - Past Family History Mother Family Medical History: Cancer Father Family Medical History: Myocardial Infarction ([place]) General Exam Limitations: no limitations General appearance: alert, in no apparent distress Head exam: Present: atraumatic, normocephalic, normal inspection Eye exam: Present: normal appearance, PERRL, EOMI. Absent: scleral icterus, conjunctival injection, periorbital swelling ENT exam: Present: mucous membranes moist Neck exam: Present: normal inspection. Absent: tenderness, meningismus, lymphadenopathy Respiratory exam: Present: normal lung sounds bilaterally. Absent: respiratory distress, wheezes, rales, rhonchi, stridor Cardiovascular Exam: Present: regular rate, normal rhythm, normal heart sounds. Absent: systolic murmur, diastolic murmur, rubs, gallop, clicks GI/Abdominal exam: Present: soft, normal bowel sounds. Absent: distended, tenderness, guarding, rebound, rigid Neurological exam: Present: alert, oriented X3 Skin exam: Present: warm, dry, intact, normal color. Absent: rash Course Vital Signs 02/23/22 07:34 Temperature 98 F Pulse Rate 72 Respiratory 18 Rate Blood Pressure 123/63 O2 Sat by Pulse 98 Oximetry Medical Decision Making - Medical Decision Making 71-year-old female presented from for evaluation of being fatigued. Patient has no acute findings. Patient had CMP and urinalysis yesterday. Patient we discharged in stable condition temperature discussed. - Lab Data Result diagrams: 02/23/22 07:58 Lab Results 02/23/22 02/23/22 Range/Units 07:58 07:58 WBC 4.7 (3.8-10.6) k/uL RBC 3.28 L (3.80-5.40) m/uL Hgb 9.5 L (11.4-16.0) gm/dL Hct 31.7 L (34.0-46.0) % MCV 96.6 D (80.0-100.0) fL MCH 29.1 (25.0-35.0) pg MCHC 30.1 L (31.0-37.0) g/dL RDW 19.7 H (11.5-15.5) % Plt Count 59 L D (150-450) k/uL MPV 13.1 Neutrophils % (Manual) 69 % Band Neuts % (Manual) 1 % Lymphocytes % (Manual) 21 % Monocytes % (Manual) 8 % Eosinophils % (Manual) 2 % Basophils % (Manual) 1 % Neutrophils # (Manual) 3.20 (1.3-7.7) k/uL Lymphocytes # (Manual) 0.99 L (1.0-4.8) k/uL Monocytes # (Manual) 0.38 (0-1.0) k/uL Eosinophils # (Manual) 0.09 (0-0.7) k/uL Basophils # (Manual) 0.05 (0-0.2) k/uL Nucleated RBCs 3 H (0-0) /100 WBC Manual Slide Review Performed Large Platelets Present Hypochromasia Marked Poikilocytosis (manual Present Anisocytosis Slight Macrocytosis Slight Target Cells Present Influenza Type A (PCR) Not Detected (Not Detectd) Influenza Type B (PCR) Not Detected (Not Detectd) RSV (PCR) Not Detected (Not Detectd) SARS-CoV-2 (PCR) Not Detected (Not Detectd) Disposition Clinical Impression: Fatigue Disposition: HOME SELF-CARE Condition: Stable Instructions (If sedation given, give patient instructions): Fatigue (ED) Additional Instructions: Please return to the Emergency Department if symptoms worsen or any other concerns. Is patient prescribed a controlled substance at d/c from ED?: No Referrals: Garry Carranza DO [Primary Care Provider] - 1-2 days Time of Disposition: 10:50
[2022-02-23 08:42] LABS: Anisocytosis Slight; HCT 31.7 % (34.0-46.0); HGB 9.5 gm/dL (11.4-16.0); Hypochromasia Marked; MCH 29.1 pg (25.0-35.0); MCHC 30.1 g/dL (31.0-37.0); Macrocytosis Slight; Mean Platelet Volume 13.1; RBC 3.28 m/uL (3.80-5.40); RDW 19.7 % (11.5-15.5)
[2022-02-23 08:43] LABS: MCV 96.6 fL (80.0-100.0)
[2022-02-23 09:21] LABS: Band Neutrophils % 1 %; Basophils # (M) 0.05 k/uL (0-0.2); Monocytes # (M) 0.38 k/uL (0-1.0); Neutrophils % (M) 69 %; Nucleated Red Blood Cells 3 /100 WBC (0-0); Total Cells Counted 200
[2022-02-23 09:22] LABS: Eosinophils # (M) 0.09 k/uL (0-0.7); Large Platelets Present; Lymphocytes # (M) 0.99 k/uL (1.0-4.8); Target Cells Present; WBC 4.7 k/uL (3.8-10.6)
[2022-02-23 09:24] LABS: Poikilocytosis (M) Present
[2022-02-23 12:58] VITALS: BP 148/86; PULSE 68; RESP 16
[2022-02-23 13:42] LABS: Platelet Count 59 k/uL (150-450)
== END 2022-02-23 12:58 | disposition home or self-care (01) ==
LOC: EC 07:32
DX: R53.83 Other fatigue (principal); K21.9 Gastro-esophageal reflux disease without esophagitis; I10 Essential (primary) hypertension; M19.90 Unspecified osteoarthritis, unspecified site; Z79.83 Long term (current) use of bisphosphonates; Z79.899 Other long term (current) drug therapy; Z20.822 Contact with and (suspected) exposure to COVID-19
CPT/HCPCS: 36415; 85025; 87636; 99284

== ENCOUNTER → 2022-03-19 | Outpatient (CLI) | payer MEDICARE, OTHER ==
--- NOTE | 2022-03-19 16:00 | US ---
EXAMINATION TYPE: US transvaginal DATE OF EXAM: 03/19/2022 COMPARISON: NONE CLINICAL HISTORY: 71-year-old female postmenopausal bleeding N95.0. Morbidly obese patient transferre d from facility. Spotting. No pain. No prior surgeries. TECHNIQUE: Transvaginal (TV) Date of LMP: RN LACTATION CONSULTANT, EXAM MEASUREMENTS: Uterus: 7.3 x 4.4 x 3.7 cm Endometrial Stripe: 0.4 cm School Bus Driver/Custodian notes:Limited exam due to patient unable to lift pelvis for different imaging angles 1. Uterus: Anteverted. Heterogenous. Focal right area of calcifications = 2.2 x 1.8 x 1.9 cm. Li mited transverse images due to unable to angle probe. 2. Endometrium: wnl as visualized 3. Right Ovary: Obscured by overlying bowel gas 4. Left Ovary: Obscured by overlying bowel gas 5. Bilateral Adnexa: wnl 6. Posterior cul-de-sac: free fluid 7. Cervix- wnl IMPRESSION: 1. Mild pelvic free fluid, abnormal in a postmenopausal female. Correlate as to potential etiology. 2. Unable to visualize either ovary. 3. Overall limited assessment due to large patient body habitus. There is a 2.2 cm focus of calcifica tion along the right side of the ureters, possible calcified uterine fibroid. 4. Endometrial stripe estimated at 4 mm. However, there is a 2.2 cm echogenic area just to the right of the expected endometrium. Intramural fibroid with submucosal component versus other lesion not exc luded. Consider further MACHINING ENGINEER evaluation versus female pelvic MRI for better assessment of the junct ional anatomy.
== END | disposition home or self-care (01) ==
LOC: RADUSWWP 10:24
PROVIDERS: ATTEND Family Medicine
DX: D25.1 Intramural leiomyoma of uterus (principal); N95.0 Postmenopausal bleeding
CPT/HCPCS: 76830

== ENCOUNTER 2022-06-30 16:18 | Inpatient (IN) | payer MEDICARE, OTHER ==
--- NOTE | 2022-06-30 16:53 | ED ---
General Adult HPI - General Chief complaint: Dizziness Stated complaint: dizziness Time Seen by Provider: 06/30/22 16:20 Source: EMS Mode of arrival: EMS Limitations: no limitations - History of Present Illness Initial comments: Dictation was produced using [employer] dictation software. please excuse any grammatical, word or spelling errors. Chief Complaint: 72-year-old female presents emergency Department with irregular heart rate, a. fib and generalized weakness History of Present Illness: Patient 72-year-old female she presents to emergency Department from half-way. Patient is a poor historian. She presents with transfer documentation. Documentation reports that patient has new-onset A. fib. She began complaining of edema to extremities, dizziness headache and bilateral hand tingling. Patient denies any pain complaints. She denies any headache at the bedside. She does complaining of tingling to the bilateral mcgovern nds. She is bedbound. The ROS documented in this emergency department record has been reviewed and confirmed by me. Those systems with pertinent positive or negative responses have been documented in the HPI. All other systems are other negative and/or noncontributory. PHYSICAL EXAM: General Impression: Alert and oriented x3, not in acute distress, obese HEENT: Normocephalic atraumatic, extra-ocular movements intact, pupils equal and reactive to light bilaterally, mucous membranes moist. Cardiovascular: Irregularly irregular Chest: Able to complete full sentences, no retractions, no tachypnea Abdomen: abdomen soft, non-tender, non-distended, no organomegaly Musculoskeletal: Pulses present and equal in all extremities, no peripheral edema Motor: no focal deficits noted Neurological: CN II-XII grossly intact, no focal motor or sensory deficits noted Skin: Intact with no visualized rashes Psych: Normal affect and mood ED course: 72-year-old female presents to the emergency department for chief complaint of generalized weakness. She presents to us from the half-way where she complained of weakness, headache, dizziness and neuropathic symptoms to the bilateral upper extremities. Upon my evaluation she denies any pain complaints. She does have an irregularly irregular rhythm. Patient allegedly does not have any history of atrial fibrillation. She was supposed to follow up with cardiology however appointment is not for quite some time. Vital signs upon arrival are within acceptable limits. Nursing notes and chart review was performed EKG interpreted by me: Ventricular rate 92, A. fib QRS 90, QTC 424. No RI prolongation, no QTC prolongation, no ST or T-wave changes noted. EKG compared to October 13 2021 showing no changes. Overall, this EKG supports new-onset atrial fibrillation Was pt. sent in by a medical professional or institution (, [facility], WAD IMPREGNATOR, urgent care, hospital, or half-way...) When possible be specific @ -custodial Did you speak to anyone other than the patient for history (EMS, parent, family, police, friend...)? What history was obtained from this source @ -EMS Did you review nursing and triage notes (agree or disagree)? Why? @ -I reviewed and agree with nursing and triage notes Were old charts reviewed (outside hosp., previous admission, EMS record, old EKG, old radiological studies, urgent care reports/EKG's, half-way records)? Report findings @ -No old charts were reviewed Differential Diagnosis (chest pain, altered mental status, abdominal pain women, abdominal pain men, vaginal bleeding, musculoskeletal, weakness, fever, dyspnea, syncope, headache, dizziness, GI bleed, back pain, seizure, CVA, palpatations, mental health)? @ - Differential Palpitations: Ventricular arrhythmias, atrial arrhythmias, myocardial infarction, anemia, thyrotoxicosis, electrolyte imbalance, hypokalemia, pulmonary embolism, p ulmonary disease, drugs, alcohol, anxiety, stress.... This is not meant to be an all-inclusive list. EKG interpreted by me (3pts min.). @ -see above X-rays interpreted by me (1pt min.). @ -Pleural effusions concerning for pulmonary edema CT interpreted by me (1pt min.). @ -None done U/S interpreted by me (1pt. min.). @ -None done What testing was considered but not performed or refused? (CT, X-rays, U/S, labs)? Why? @ -See above What meds were considered but not given or refused? Why? @ -See above Did you discuss the management of the patient with other professionals (professionals i.e. [facility] Mcleod, WAD IMPREGNATOR, lab, RT, psych nurse, school social worker, glass embosser, t eacher, flight radio officer, case packer and sealer)? Give summary @ -Spoke with Dr. Weldon for admission Was smoking cessation discussed for >3mins.? @ -No Was critical care preformed (if so, how long)? @ -No Were there social determinants of health that impacted care today? How? (Homelessness, low income, unemployed, alcoholism, drug addiction, transportation, low edu. Level, literacy, decrease access to med. care, longterm, rehab)? @ -No Was there de-escalation of care discussed even if they declined (Discuss DNR or withdrawal of care, Hospice)? DNR status @ -No What co-morbidities impacted this encounter? (DM, HTN, Smoking, COPD, CAD, Cancer, CVA, ARF, Chemo, Hep., AIDS, mental health diagnosis, sleep apnea, morbid obesity)? @ -None Was patient admitted / discharged? Hospital course, mention meds given and route, prescriptions, significant lab abnormalities, going to OR and other pertinent info. @ -72-year-old female with new-onset A. fib. Started on heparin. She was also hypothermic concerning for sepsis versus other stress-related issue. Laboratory evaluation shows anemia 9.9. Leukopenia 3.0. These appear to be around her baseline. Metabolic panel shows elevation of renal markers. Brain natruretic peptide is elevated. Patient given gentle hydration due to evidence of heart failure on her x-ray. Undiagnosed new problem with uncertain prognosis? @ -No Drug Therapy requiring intensive monitoring for toxicity (Heparin, Nitro, Insulin, Cardizem)? @ -No Were any procedures done? @ -No Diagnosis/symptom? Acute, or Chronic, or Acute on Chronic? Uncomplicated (without systemic symptoms) or Complicated (systemic symptoms)? @ -1. Hypothermia, 2. New-onset A. fib Side effects of treatment? @ -No Exacerbation, Progression, or Severe Exacerbation? @ -No Poses a threat to life or bodily function? How? (Chest pain, [place], [place], pneumonia, PE, COPD, DKA, ARF, appy, cholecystitis, CVA, Diverticulitis, Homicidal, Suicidal, threat to staff... and all critical care pts) @ -Yes - Related Data Home Medications Medication Instructions Recorded Confirmed Acetaminophen [Tylenol] 650 mg PO Q4H PRN 01/29/22 06/30/22 Dextrose Chew [Glucose Chew Tab] 32 gm PO QID PRN 01/29/22 06/30/22 Ipratropium-Albuterol Nebulize 3 ml INHALATION RT-Q6H PRN 10/04/22 03/05/23 [Duoneb 0.5 mg-3 mg/3 ml Soln] Cefuroxime [Ceftin] 250 mg PO BID@0800,1700 06/26/22 06/30/22 HYDROcodone/APAP 10-325MG [[place] 1 tab PO Q6H PRN 06/26/22 06/30/22 10-325] Albuterol Sulfate [Ventolin HFA] 1 puff INHALATION RT-Q4H PRN 06/30/22 06/30/22 Ammonium Lactate Lotion 1 applic TOPICAL BID 06/30/22 06/30/22 [Lac-Hydrin 12% Lotion] Ascorbic Acid [Vitamin C] 1,000 mg PO DAILY@1700 06/30/22 06/30/22 Cholecalciferol [Vitamin D3 (25 25 mcg PO DAILY@1700 06/30/22 06/30/22 Mcg = 1000 Iu)] Ciclopirox Olamine [Loprox 0.77% 1 applic TOPICAL BID@0800,2100 06/30/22 06/30/22 cream] Ferrous Sulfate [Iron (65 MG 325 mg PO DAILY@0800 06/30/22 06/30/22 Elemental)] Folic Acid 1 mg PO DAILY@1700 06/30/22 06/30/22 Furosemide [Lasix] 40 mg PO DAILY@0600 06/30/22 06/30/22 Loperamide HCl [Imodium A-D] 2 - 4 mg PO QID PRN 06/30/22 06/30/22 Magnesium Hydroxide [Milk of 7,200 mg PO Q48H PRN 06/30/22 06/30/22 Magnesia Concentrate] Menthol [Biofreeze] 1 applic TOPICAL DAILY PRN 06/30/22 06/30/22 Omeprazole Magnesium [PriLOSEC OTC] 20 mg PO HS 06/30/22 06/30/22 bisacodyL 10 mg RECTAL DAILY PRN 06/30/22 06/30/22 Allergies Allergy/AdvReac Type Severity Reaction Status Date / Time No Known Allergies Allergy Verified 06/30/22 17:44 Review of Systems ROS Statement: Those systems with pertinent positive or pertinent negative responses have been documented in the HPI. ROS Other: All systems not noted in ROS Statement are negative. Past Medical History Past Medical History: GERD/Reflux, Hypertension, Osteoarthritis (OA) Additional Past Medical History / Comment(s): has been on oral hyperglycemic medications in the past but pcp has taken her off of meds; neuropathy History of Any Multi-Drug Resistant Organisms: MRSA Date of last positivie culture/infection: 2011 MDRO Source:: L Knee Past Surgical History: Hernia Repair, Joint Replacement Additional Past Surgical History / Comment(s): total knee bilateral, left became infected component removed and antibiotic spacer placed. 3 years ago was on iv antibiotics and in rehab for 8 months follwing this Past Anesthesia/Blood Transfusion Reactions: No Reported Reaction Past Psychological History: No Psychological Hx Reported Smoking Status: Former smoker Past Alcohol Use History: None Reported Past Drug Use History: None Reported - Past Family History Mother Family Medical History: Cancer Father Family Medical History: Myocardial Infarction ([place]) General Exam Limitations: no limitations Course Vital Signs 06/30/22 06/30/22 16:22 17:55 Temperature 93.0 F L Pulse Rate 94 Respiratory 20 Rate Blood Pressure 149/61 O2 Sat by Pulse 99 Oximetry Medical Decision Making - Lab Data Result diagrams: 06/30/22 16:38 06/30/22 16:38 Lab Results 06/30/22 06/30/22 06/30/22 Range/Units 16:38 16:38 16:38 WBC 3.0 L (3.8-10.6) k/uL RBC 3.41 L (3.80-5.40) m/uL Hgb 9.9 L (11.4-16.0) gm/dL Hct 34.3 (34.0-46.0) % MCV 100.7 H (80.0-100.0) fL MCH 28.9 (25.0-35.0) pg MCHC 28.7 L (31.0-37.0) g/dL RDW 19.4 H (11.5-15.5) % Plt Count 130 L (150-450) k/uL MPV 11.4 Neutrophils % (Manual) 69 % Lymphocytes % (Manual) 22 % Monocytes % (Manual) 8 % Eosinophils % (Manual) 1 % Basophils % (Manual) 1 % Neutrophils # (Manual) 2.07 (1.3-7.7) k/uL Lymphocytes # (Manual) 0.66 L (1.0-4.8) k/uL Monocytes # (Manual) 0.24 (0-1.0) k/uL Eosinophils # (Manual) 0.03 (0-0.7) k/uL Basophils # (Manual) 0.03 (0-0.2) k/uL Nucleated RBCs 3 H (0-0) /100 WBC Manual Slide Review Performed Hypochromasia Marked Poikilocytosis Slight Anisocytosis Slight Macrocytosis Moderate Target Cells Present PT 10.6 (9.0-12.0) sec INR 1.0 (<1.2) APTT 31.9 H (22.0-30.0) sec Sodium 145 (137-145) mmol/L Potassium 5.2 H (3.5-5.1) mmol/L Chloride 112 H (98-107) mmol/L Carbon Dioxide 25 (22-30) mmol/L Anion Gap 8 mmol/L BUN 58 H (7-17) mg/dL Creatinine 2.22 H (0.52-1.04) mg/dL Est GFR (CKD-EPI)AfAm 24 (>60 ml/min/1.73 sqM) Est GFR (CKD-EPI)NonAf 21 (>60 ml/min/1.73 sqM) Glucose 83 (74-99) mg/dL Calcium 9.1 (8.4-10.2) mg/dL Magnesium 2.3 (1.6-2.3) mg/dL Total Bilirubin 0.3 (0.2-1.3) mg/dL AST 25 (14-36) U/L ALT 23 (4-34) U/L Alkaline Phosphatase 98 (38-126) U/L Troponin I (0.000-0.034) ng/mL NT-Pro-B Natriuret Pep pg/mL Total Protein 7.6 (6.3-8.2) g/dL Albumin 3.7 (3.5-5.0) g/dL TSH 5.440 H (0.465-4.680) mIU/L 06/30/22 06/30/22 Range/Units 16:38 16:38 WBC (3.8-10.6) k/uL RBC (3.80-5.40) m/uL Hgb (11.4-16.0) gm/dL Hct (34.0-46.0) % MCV (80.0-100.0) fL MCH (25.0-35.0) pg MCHC (31.0-37.0) g/dL RDW (11.5-15.5) % Plt Count (150-450) k/uL MPV Neutrophils % (Manual) % Lymphocytes % (Manual) % Monocytes % (Manual) % Eosinophils % (Manual) % Basophils % (Manual) % Neutrophils # (Manual) (1.3-7.7) k/uL Lymphocytes # (Manual) (1.0-4.8) k/uL Monocytes # (Manual) (0-1.0) k/uL Eosinophils # (Manual) (0-0.7) k/uL Basophils # (Manual) (0-0.2) k/uL Nucleated RBCs (0-0) /100 WBC Manual Slide Review Hypochromasia Poikilocytosis Anisocytosis Macrocytosis Target Cells PT (9.0-12.0) sec INR (<1.2) APTT (22.0-30.0) sec Sodium (137-145) mmol/L Potassium (3.5-5.1) mmol/L Chloride (98-107) mmol/L Carbon Dioxide (22-30) mmol/L Anion Gap mmol/L BUN (7-17) mg/dL Creatinine (0.52-1.04) mg/dL Est GFR (CKD-EPI)AfAm (>60 ml/min/1.73 sqM) Est GFR (CKD-EPI)NonAf (>60 ml/min/1.73 sqM) Glucose (74-99) mg/dL Calcium (8.4-10.2) mg/dL Magnesium (1.6-2.3) mg/dL Total Bilirubin (0.2-1.3) mg/dL AST (14-36) U/L ALT (4-34) U/L Alkaline Phosphatase (38-126) U/L Troponin I 0.016 (0.000-0.034) ng/mL NT-Pro-B Natriuret Pep 8520 pg/mL Total Protein (6.3-8.2) g/dL Albumin (3.5-5.0) g/dL TSH (0.465-4.680) mIU/L Disposition Clinical Impression: Hypothermia, Afib Disposition: ADMITTED IP TO THIS HOSP Condition: Serious Referrals: Garry Carranza DO [Primary Care Provider] - 1-2 days Decision Time: 19:16
[2022-06-30 17:06] LABS: Partial Thromboplastin Time 31.9 sec (22.0-30.0); Prothrombin Time 10.6 sec (9.0-12.0)
--- NOTE | 2022-06-30 17:06 | XR ---
EXAMINATION TYPE: XR chest 2V DATE OF EXAM: 06/30/2022 COMPARISON: 01/29/2022 HISTORY: Weakness TECHNIQUE: 2 views FINDINGS: Heart is enlarged. There is pulmonary vascular congestion. There is bilateral pleural effus ions are larger on the right side. Exam limited by patient's size. IMPRESSION: Congestive heart failure with bilateral pleural effusions. Pleural fluid and pulmonary co ngestion increased compared to old exams
[2022-06-30 17:20] LABS: Anisocytosis Slight; HCT 34.3 % (34.0-46.0); HGB 9.9 gm/dL (11.4-16.0); Hypochromasia Marked; MCH 28.9 pg (25.0-35.0); MCHC 28.7 g/dL (31.0-37.0); MCV 100.7 fL (80.0-100.0); Macrocytosis Moderate; Mean Platelet Volume 11.4; Platelet Count 130 k/uL (150-450); Poikilocytosis Slight; RBC 3.41 m/uL (3.80-5.40); RDW 19.4 % (11.5-15.5)
[2022-06-30 17:31] LABS: Albumin 3.7 g/dL (3.5-5.0); Calcium 9.1 mg/dL (8.4-10.2); Magnesium 2.3 mg/dL (1.6-2.3); Potassium 5.2 mmol/L (3.5-5.1); Total Bilirubin 0.3 mg/dL (0.2-1.3); Total Protein 7.6 g/dL (6.3-8.2)
[2022-06-30 17:40] LABS: Basophils # (M) 0.03 k/uL (0-0.2); Eosinophils # (M) 0.03 k/uL (0-0.7); Neutrophils % (M) 69 %; Nucleated Red Blood Cells 3 /100 WBC (0-0); Total Cells Counted 200
[2022-06-30 17:41] LABS: Lymphocytes # (M) 0.66 k/uL (1.0-4.8); Monocytes # (M) 0.24 k/uL (0-1.0); Neutrophils # (M) 2.07 k/uL (1.3-7.7)
[2022-06-30 17:42] LABS: Target Cells Present
[2022-06-30] MEDS ORDERED: PIPERACILLIN-TAZOBACTAM 3.375 GM in SODIUM CHLORIDE 0.9% 100 ML IVPB STA (18:12)
[2022-06-30] MEDS ORDERED: VANCOMYCIN IV PER PHARMACY 1 EACH MISC MISCELLANE PRN (18:12)
[2022-06-30] MEDS ORDERED: SODIUM CHLORIDE 0.9% 1,000 ML IV STA (18:14)
[2022-06-30] MEDS ORDERED: VANCOMYCIN 2,500 MG in SODIUM CHLORIDE 0.9% 500 ML 500 ML IVPB STA (18:22)
[2022-06-30] MEDS ORDERED: HEPARIN SODIUM 1,000 UN/ML (10ML VL) IV PRN (18:36)
[2022-06-30] MEDS ORDERED: HEPARIN SODIUM 1,000 UN/ML (10ML VL) IV ONE (18:36)
[2022-06-30] MEDS ORDERED: HEPARIN SOD,PORK IN 0.45% NACL 25,000 UNIT in 0.45% NACL 1 250ML.BAG IV SCH (18:45)
[2022-06-30] MEDS ORDERED: NALOXONE 0.4 MG/ML 1 ML VIAL IV PRN (19:05)
[2022-06-30] MEDS ORDERED: ACETAMINOPHEN TAB 325 MG TAB PO PRN (19:05)
[2022-06-30] MEDS ORDERED: ONDANSETRON 4 MG/2 ML VIAL IVP PRN (19:05)
[2022-06-30] MEDS: SODIUM CHLORIDE 0.9% 1,000 ML IV SCH (20:42)
[2022-06-30] MEDS: PANTOPRAZOLE 40 MG/10 ML VIAL IV SCH (20:42)
[2022-06-30 21:14] LABS: Appearance,Urine Cloudy (Clear); Bacteria,Urine Rare /hpf; Bilirubin,Urine Negative (Negative); Blood,Urine Negative (Negative); Color,Urine Yellow; Glucose,Urine (UA) Negative (Negative); Hyaline Casts,Urine 13 /lpf (0-2); Ketones,Urine Negative (Negative); Leukocyte Esterase,Urine Large (Negative); Mucus,Urine Rare /hpf; Nitrite,Urine Negative (Negative); Protein,Urine 1+ (Negative); RBC,Urine 15 /hpf (0-5); Specific Gravity,Urine 1.017 (1.001-1.035); Squamous Epithelial Cell,Urine 5 /hpf (0-4); Urobilinogen,Urine <2.0 mg/dL (<2.0); WBC,Urine 59 /hpf (0-5)
[2022-07-01 06:25] LABS: Glucose,Whole Blood 63 mg/dL (70-110)
[2022-07-01] MEDS ORDERED: LEVOTHYROXINE 50 MCG TAB PO SCH (06:30)
[2022-07-01 06:50] LABS: Glucose,Whole Blood 81 mg/dL (70-110)
[2022-07-01] MEDS: PANTOPRAZOLE 40 MG/10 ML VIAL IV SCH (08:17)
[2022-07-01] MEDS: SODIUM CHLORIDE 0.9% 1,000 ML IV SCH (08:18)
[2022-07-01 08:25] LABS: Glucose,Whole Blood 79 mg/dL (70-110)
[2022-07-01 11:02] LABS: Glucose,Whole Blood 73 mg/dL (70-110)
[2022-07-01] MEDS ORDERED: bisacodyL 10 MG SUPP RECTAL PRN (11:05)
[2022-07-01] MEDS ORDERED: METHYL SALICYLATE-MENTHOL OINT (3 OZ TUBE) TOPICAL PRN (11:05)
[2022-07-01] MEDS ORDERED: MAGNESIUM HYDROXIDE 2,400 MG/10 ML CUP PO PRN (11:05)
[2022-07-01] MEDS ORDERED: IPRATROPIUM-ALBUTEROL 3 ML NEB INHALATION PRN (11:05)
[2022-07-01] MEDS ORDERED: HYDROcodone/APAP 10-325MG 1 EACH TAB PO PRN (11:05)
[2022-07-01] MEDS ORDERED: DEXTROSE 4 GM CHEWABLE PO PRN (11:05)
[2022-07-01] MEDS ORDERED: VANCOMYCIN 2,500 MG in SODIUM CHLORIDE 0.9% 500 ML 500 ML IVPB ONE (14:00)
[2022-07-01] MEDS: LEVOTHYROXINE 50 MCG TAB PO SCH (14:34)
[2022-07-01] MEDS: DEXTROSE 4 GM CHEWABLE PO SCH ×3 (14:41→22:18)
[2022-07-01 14:44] LABS: Glucose,Whole Blood 117 mg/dL (70-110)
--- NOTE | 2022-07-01 15:58 | P.HPIM ---
History of Present Illness H&P Date: 07/01/22 Chief Complaint: Not feeling well This is a pleasant 72-year-old patient of follows with Dr. Carranza. At [facility]. Chronic stable medical conditions include GERD, hypertension, osteoarthritis, peripheral neuropathy. CK D. Patient was brought in from the [facility] by EMS. Patient had been complaining of dizzy lightheaded not feeling well. Some numbness tingling. Patient's found to be hypothermic in the ER. It may be noted that patient has glucose tablets at the [facility]. And Accu-Cheks and blood glucose running low. Patient urine was dirty appearing. Denies any chest pain or shortness of breath. Has had decreased appetite. Denied any obvious fever and chills. Review of systems: GEN.: Tired, decreased appetite EYES: None HEENT: None NECK: None RESPIRATORY: None CARDIOVASCULAR: None GASTROINTESTINAL: None GENITOURINARY: Continents MUSCULOSKELETAL: Joint pains LYMPHATICS: None HEMATOLOGICAL: None PSYCHIATRY: None NEUROLOGICAL: Wheelchair Past medical history to include: GERD, hypertension, osteoarthritis, peripheral neuropathy, CK D Social history: At [facility] No smoking. Alcohol rarely. Physical examination: VITAL SIGNS: 93 rectal, 87, 18, 103/85, 95% on 3 L GENERAL: Reclining in bed, awake, tired EYES: Pupils equal. Conjunctiva normal. HEENT: External appearance of nose and ears normal, oral cavity grossly normal. NECK: JVD unable to assess; masses not palpable. HEART: First and second heart sounds are normal; no edema. LUNGS: Respiratory rate normal; distant breath sounds. ABDOMEN: Soft, nontender, liver spleen not palpable, no masses palpable. PSYCH: Alert and oriented x3; mood and affect normal. MUSCULOSKELETAL:No Clubbing/cyanosis;muscles-grossly intact. Chronic limited range of motion of right shoulder. NEUROLOGICAL: Cranial nerves grossly intact Power sensation grossly intact. LYMPHATICS: No lymph node palpable neck and axilla INVESTIGATIONS, reviewed in the clinical context: White count 3 hemoglobin 9.9 platelets 1:30 sodium 145 potassium 5.2 BUN 58 creatinine 2.2 to TSH 5.4 UA: Protein 1+ leukoesterase positive WBC 59 bacteria rare EKG tracing personally reviewed by me-atrial fibrillation. PVC. Rate 92 Chest x-ray film personally reviewed by me-underpenetrated due to obesity. Possible right basilar infiltrate/effusion Previous testin-D echocardiogram [September 2021] EF 55-60% 05/17/2022: Creatinine 1.5 Assessment and plan: -Severe hypothermia, multifactorial. Admission rectal temperature 93 degrees IV fluids at room temperature -Probable right lower lobe pneumonia suspect gram-negative organism IV ceftriaxone -Hypoglycemia Glucose tablets -Morbid obesity BMI 72.1 Weight loss measures -Primary osteoarthritis [place] 10 every 6 when necessary -Peripheral neuropathy -GERD Prilosec 20mg -Hyperkalemia in the setting of renal failure: Low potassium diet. Lokelma. -Acute kidney injury, possibly prerenal: From decreased oral intake IV hydration - CKD, stage III likely nephrosclerosis Creatinine 1.5 in April 2022 -Chronic medical debility -DO NOT RESUSCITATE Past Medical History Past Medical History: GERD/Reflux, Hypertension, Osteoarthritis (OA) Additional Past Medical History / Comment(s): has been on oral hyperglycemic medications in the past but pcp has taken her off of meds; neuropathy History of Any Multi-Drug Resistant Organisms: MRSA Date of last positivie culture/infection: 2011 MDRO Source:: L Knee Past Surgical History: Hernia Repair, Joint Replacement Additional Past Surgical History / Comment(s): total knee bilateral, left became infected component removed and antibiotic spacer placed. 3 years ago was on iv antibiotics and in rehab for 8 months follwing this Past Anesthesia/Blood Transfusion Reactions: No Reported Reaction Past Psychological History: No Psychological Hx Reported Smoking Status: Former smoker Past Alcohol Use History: None Reported Past Drug Use History: None Reported - Past Family History Mother Family Medical History: Cancer Father Family Medical History: Myocardial Infarction ([place]) Medications and Allergies Home Medications Medication Instructions Recorded Confirmed Type Acetaminophen [Tylenol] 650 mg PO Q4H PRN 01/29/22 06/30/22 History Dextrose Chew [Glucose Chew Tab] 32 gm PO QID PRN 01/29/22 06/30/22 History Ipratropium-Albuterol Nebulize 3 ml INHALATION RT-Q6H PRN 01/29/22 06/30/22 History [Duoneb 0.5 mg-3 mg/3 ml Soln] Cefuroxime [Ceftin] 250 mg PO BID@0800,1700 06/26/22 06/30/22 History HYDROcodone/APAP 10-325MG [[place] 1 tab PO Q6H PRN 06/26/22 06/30/22 History 10-325] Albuterol Sulfate [Ventolin HFA] 1 puff INHALATION RT-Q4H PRN 06/30/22 06/30/22 History Ammonium Lactate Lotion 1 applic TOPICAL BID 06/30/22 06/30/22 History [Lac-Hydrin 12% Lotion] Ascorbic Acid [Vitamin C] 1,000 mg PO DAILY@1700 06/30/22 06/30/22 History Cholecalciferol [Vitamin D3 (25 25 mcg PO DAILY@1700 06/30/22 06/30/22 History Mcg = 1000 Iu)] Ciclopirox Olamine [Loprox 0.77% 1 applic TOPICAL BID@0800,2100 06/30/22 06/30/22 History cream] Ferrous Sulfate [Iron (65 MG 325 mg PO DAILY@0800 06/30/22 06/30/22 History Elemental)] Folic Acid 1 mg PO DAILY@1700 06/30/22 06/30/22 History Furosemide [Lasix] 40 mg PO DAILY@0600 06/30/22 06/30/22 History Loperamide HCl [Imodium A-D] 2 - 4 mg PO QID PRN 06/30/22 06/30/22 History Magnesium Hydroxide [Milk of 7,200 mg PO Q48H PRN 06/30/22 06/30/22 History Magnesia Concentrate] Menthol [Biofreeze] 1 applic TOPICAL DAILY PRN 06/30/22 06/30/22 History Omeprazole Magnesium [PriLOSEC OTC] 20 mg PO HS 06/30/22 06/30/22 History bisacodyL 10 mg RECTAL DAILY PRN 06/30/22 06/30/22 History Allergies Allergy/AdvReac Type Severity Reaction Status Date / Time No Known Allergies Allergy Verified 06/30/22 17:44 Physical Exam Vitals: Vital Signs Temp Pulse Resp BP Pulse Ox 07/01/22 10:42 89 116/62 95 07/01/22 09:01 95 16 116/58 100 07/01/22 08:00 110 H 16 113/67 100 07/01/22 06:40 100 16 92/62 100 07/01/22 05:51 97.7 F 07/01/22 04:28 96.2 F L 96 18 93/73 96 07/01/22 01:51 87 15 105/61 98 06/30/22 23:00 94.2 F L 80 18 111/98 100 06/30/22 20:57 93.8 F L 06/30/22 20:55 98 20 126/57 95 06/30/22 19:34 87 18 103/85 95 06/30/22 17:55 93.0 F L 06/30/22 17:00 115/73 06/30/22 16:22 94 20 149/61 99 06/30/22 16:21 97 Intake and Output 06/30/22 07/01/22 07/01/22 22:59 06:59 14:59 Intake Total 70.333 Output Total 200 Balance -200 70.333 Intake: Intake, IV Titration 70.333 Amount Heparin Sod,Pork in 0.45% 70.333 NaCl 25,000 unit In 0.45 % NaCl 1 250ml.bag @ 5. 249 UNITS/KG/HR 10 mls/hr IV .Q24H [facility] Rx#: [id number] Output: Urine 200 Uretheral (Gomez) 200 Other: Weight 190.509 kg Results CBC & Chem 7: 06/30/22 16:38 07/01/22 02:45 Labs: Abnormal Lab Results - Last 24 Hours (Table) 06/30/22 06/30/22 06/30/22 Range/Units 16:38 16:38 16:38 WBC 3.0 L (3.8-10.6) k/uL RBC 3.41 L (3.80-5.40) m/uL Hgb 9.9 L (11.4-16.0) gm/dL MCV 100.7 H (80.0-100.0) fL MCHC 28.7 L (31.0-37.0) g/dL RDW 19.4 H (11.5-15.5) % Plt Count 130 L (150-450) k/uL Lymphocytes # (Manual) 0.66 L (1.0-4.8) k/uL Nucleated RBCs 3 H (0-0) /100 WBC APTT 31.9 H (22.0-30.0) sec Potassium 5.2 H (3.5-5.1) mmol/L Chloride 112 H (98-107) mmol/L BUN 58 H (7-17) mg/dL Creatinine 2.22 H (0.52-1.04) mg/dL POC Glucose (mg/dL) (70-110) mg/dL TSH 5.440 H (0.465-4.680) mIU/L Urine Appearance (Clear) Urine Protein (Negative) Ur Leukocyte Esterase (Negative) Urine RBC (0-5) /hpf Urine WBC (0-5) /hpf Urine WBC Clumps (None) /hpf Ur Squamous Epith Cells (0-4) /hpf Urine Bacteria (None) /hpf Hyaline Casts (0-2) /lpf Urine Mucus (None) /hpf 06/30/22 07/01/22 07/01/22 Range/Units 20:55 02:45 02:45 WBC (3.8-10.6) k/uL RBC (3.80-5.40) m/uL Hgb (11.4-16.0) gm/dL MCV (80.0-100.0) fL MCHC (31.0-37.0) g/dL RDW (11.5-15.5) % Plt Count (150-450) k/uL Lymphocytes # (Manual) (1.0-4.8) k/uL Nucleated RBCs (0-0) /100 WBC APTT 86.1 H (22.0-30.0) sec Potassium (3.5-5.1) mmol/L Chloride (98-107) mmol/L BUN (7-17) mg/dL Creatinine 2.21 H (0.52-1.04) mg/dL POC Glucose (mg/dL) (70-110) mg/dL TSH (0.465-4.680) mIU/L Urine Appearance Cloudy H (Clear) Urine Protein 1+ H (Negative) Ur Leukocyte Esterase Large H (Negative) Urine RBC 15 H (0-5) /hpf Urine WBC 59 H (0-5) /hpf Urine WBC Clumps Few H (None) /hpf Ur Squamous Epith Cells 5 H (0-4) /hpf Urine Bacteria Rare H (None) /hpf Hyaline Casts 13 H (0-2) /lpf Urine Mucus Rare H (None) /hpf 07/01/22 07/01/22 Range/Units 06:24 09:47 WBC (3.8-10.6) k/uL RBC (3.80-5.40) m/uL Hgb (11.4-16.0) gm/dL MCV (80.0-100.0) fL MCHC (31.0-37.0) g/dL RDW (11.5-15.5) % Plt Count (150-450) k/uL Lymphocytes # (Manual) (1.0-4.8) k/uL Nucleated RBCs (0-0) /100 WBC APTT 57.5 H (22.0-30.0) sec Potassium (3.5-5.1) mmol/L Chloride (98-107) mmol/L BUN (7-17) mg/dL Creatinine (0.52-1.04) mg/dL POC Glucose (mg/dL) 63 L (70-110) mg/dL TSH (0.465-4.680) mIU/L Urine Appearance (Clear) Urine Protein (Negative) Ur Leukocyte Esterase (Negative) Urine RBC (0-5) /hpf Urine WBC (0-5) /hpf Urine WBC Clumps (None) /hpf Ur Squamous Epith Cells (0-4) /hpf Urine Bacteria (None) /hpf Hyaline Casts (0-2) /lpf Urine Mucus (None) /hpf Microbiology - Last 24 Hours (Table) 06/30/22 20:55 Urine Culture - Preliminary Urine,Voided
[2022-07-01 16:12] LABS: Anisocytosis Slight; Basophils % (A) 1 %; Eosinophils # (A) 0.1 k/uL (0-0.7); Eosinophils % (A) 1 %; HCT 31.1 % (34.0-46.0); HGB 8.9 gm/dL (11.4-16.0); Hypochromasia Marked; Lymphocytes # (A) 0.9 k/uL (1.0-4.8); Lymphocytes % (A) 17 %; MCH 29.5 pg (25.0-35.0); MCHC 28.5 g/dL (31.0-37.0); MCV 103.5 fL (80.0-100.0); Macrocytosis Moderate; Mean Platelet Volume 10.8; Monocytes # (A) 0.4 k/uL (0-1.0); Monocytes % (A) 8 %; Neutrophils # (A) 3.5 k/uL (1.3-7.7); Neutrophils % (A) 70 %; Platelet Count 118 k/uL (150-450); Poikilocytosis Slight; RBC 3.01 m/uL (3.80-5.40); RDW 19.5 % (11.5-15.5)
[2022-07-01 16:15] LABS: Total Bilirubin 0.3 mg/dL (0.2-1.3)
[2022-07-01 16:45] LABS: Albumin 3.3 g/dL (3.5-5.0); Calcium 8.2 mg/dL (8.4-10.2); Potassium 5.6 mmol/L (3.5-5.1); Total Protein 6.8 g/dL (6.3-8.2)
[2022-07-01 17:35] LABS: Polychromasia Present
[2022-07-01] MEDS: ASCORBIC ACID 500 MG TAB PO SCH (17:49)
[2022-07-01] MEDS: FOLIC ACID 1 MG TAB PO SCH (17:50)
[2022-07-01] MEDS: CHOLECALCIFEROL 25 MCG (1000 IU) TABLET PO SCH (17:50)
[2022-07-01] MEDS ORDERED: NON FORMULARY DRUG (Omeprazole Magnesium [Prilosec Otc] 20 MG Tablet) PO SCH (21:00)
[2022-07-01] MEDS: AMMONIUM LACTATE 12% LOTION 225 GM BTL TOPICAL SCH (22:02)
[2022-07-01] MEDS: CLOTRIMAZOLE 1% CREAM 30 GM TUBE TOPICAL SCH (22:02)
[2022-07-01] MEDS: APIXABAN 5 MG TAB PO SCH (22:02)
[2022-07-02] MEDS: SODIUM CHLORIDE 0.9% 1,000 ML IV SCH (00:20)
[2022-07-02] MEDS: LEVOTHYROXINE 50 MCG TAB PO SCH (05:49)
[2022-07-02] MEDS: ALBUTEROL HFA INHALER INHALATION PRN ×3 (08:25→14:43)
[2022-07-02] MEDS ORDERED: DEXTROSE PO SCH (09:00)
[2022-07-02] MEDS: APIXABAN 5 MG TAB PO SCH ×2 (09:45→21:32)
[2022-07-02] MEDS: FERROUS SULFATE 325 MG TAB PO SCH (09:45)
[2022-07-02] MEDS: METOPROLOL TARTRATE 25 MG TAB PO SCH ×2 (09:46→21:32)
[2022-07-02] MEDS: CLOTRIMAZOLE 1% CREAM 30 GM TUBE TOPICAL SCH ×2 (09:46→21:32)
[2022-07-02] MEDS: AMMONIUM LACTATE 12% LOTION 225 GM BTL TOPICAL SCH ×2 (09:46→21:32)
[2022-07-02 10:12] LABS: Calcium 8.6 mg/dL (8.4-10.2); Potassium 5.5 mmol/L (3.5-5.1)
[2022-07-02] MEDS ORDERED: SODIUM CHLORIDE 0.45% 1,000 ML IV SCH (10:45)
--- NOTE | 2022-07-02 11:09 | P.CRDCN ---
History of Present Illness History of present illness: HISTORY OF PRESENT ILLNESS: This is a 72-year-old female with a past medical history significant for chronic kidney disease, neuropathy, GERD, and morbid obesity. Patient does not follow with a property inspector. We have been asked to see the patient in consultation for new onset atrial fibrillation. Patient examined at the bedside. Patient came to the ER from [facility] due to hypothermia. The patient is wheelchair bound as baseline per documentation. She was found to be in atrial fibrillation. The patient denies a previous history of atrial fibrillation. The patient currently denies chest pain or pressure. She denies shortness of breath. She denies a history of coronary artery disease. * EKG reveals atrial fibrillation with controlled ventricular rate * Chest xray congestive heart failure with bilateral pleural effusions. Pleural fluid and pulmonary congestion increased compared to old exam * Laboratory data: WBC 5.0. Hemoglobin 8.9. Platelet count 118. Sodium 145. Potassium 5.5. BUN 62. Creatinine 3.11. * Current home cardiac medications include Lasix 40 mg daily * Most recent echocardiogram obtained in September 2021 revealed ejection fraction 55-60% and mild tricuspid regurgitation REVIEW OF SYSTEMS: At the time of my exam: CONSTITUTIONAL: Denies fever or chills. HEENT: Denies blurred vision, vision changes, or eye pain. Denies hemoptysis CARDIOVASCULAR: Denies chest pain. Denies orthopnea. Denies PND. Denies pal pitations RESPIRATORY: Denies shortness of breath. GASTROINTESTINAL: Denies abdominal pain. Denies nausea or vomiting. HEMATOLOGIC: Denies bleeding disorders. GENITOURINARY: Denies any blood in urine. SKIN: Denies pruitis. Denies rash. PHYSICAL EXAM: VITAL SIGNS: Reviewed. GENERAL: Well-developed in no acute distress. HEENT: Head is normocephalic. Pupils are equal, round. Sclerae anicteric. Mucous membranes of the mouth are moist. Neck supple. No JVD or thyromegaly LUNGS: Respirations even and unlabored. Lungs essentially clear to auscultation bilaterally. HEART: Irregular rate and rhythm. S1 and S2 heard. ABDOMEN: Soft. Nondistended. Nontender. EXTREMITIES: Normal range of motion. No clubbing or cyanosis. Peripheral pulses intact. Trace lower extremity edema NEUROLOGIC: Somewhat lethargic on examination. ASSESSMENT: Hypothermia Right lower lobe pneumonia New onset atrial fibrillation with controlled ventricular rate Hyperkalemia Acute on chronic kidney disease History of hypoglycemia GERD Neuropathy Morbid obesity Elevated TSH, patient started on synthroid PLAN: Obtain 2D echo to assess cardiac structure and function Patient has been started on Eliquis per primary medicine Add metoprolol 25mg BID Continue telemetry monitoring Further recommendations pending patient course Nurse practitioner note has been reviewed by physician. Signing provider agrees with the documented findings, assessment, and plan of care. Past Medical History Past Medical History: GERD/Reflux, Hypertension, Osteoarthritis (OA) Additional Past Medical History / Comment(s): has been on oral hyperglycemic medications in the past but pcp has taken her off of meds; neuropathy History of Any Multi-Drug Resistant Organisms: MRSA Date of last positivie culture/infection: 2011 MDRO Source:: L Knee Past Surgical History: Hernia Repair, Joint Replacement Additional Past Surgical History / Comment(s): total knee bilateral, left became infected component removed and antibiotic spacer placed. 3 years ago was on iv antibiotics and in rehab for 8 months follwing this Past Anesthesia/Blood Transfusion Reactions: No Reported Reaction Past Psychological History: No Psychological Hx Reported Smoking Status: Former smoker Past Alcohol Use History: None Reported Past Drug Use History: None Reported - Past Family History Mother Family Medical History: Cancer Father Family Medical History: Myocardial Infarction ([place]) Medications and Allergies Home Medications Medication Instructions Recorded Confirmed Type Acetaminophen [Tylenol] 650 mg PO Q4H PRN 01/29/22 06/30/22 History Dextrose Chew [Glucose Chew Tab] 32 gm PO QID PRN 01/29/22 06/30/22 History Ipratropium-Albuterol Nebulize 3 ml INHALATION RT-Q6H PRN 01/29/22 06/30/22 History [Duoneb 0.5 mg-3 mg/3 ml Soln] Cefuroxime [Ceftin] 250 mg PO BID@0800,1700 06/26/22 06/30/22 History HYDROcodone/APAP 10-325MG [[place] 1 tab PO Q6H PRN 06/26/22 06/30/22 History 10-325] Albuterol Sulfate [Ventolin HFA] 1 puff INHALATION RT-Q4H PRN 06/30/22 06/30/22 History Ammonium Lactate Lotion 1 applic TOPICAL BID 06/30/22 06/30/22 History [Lac-Hydrin 12% Lotion] Ascorbic Acid [Vitamin C] 1,000 mg PO DAILY@1700 06/30/22 06/30/22 History Cholecalciferol [Vitamin D3 (25 25 mcg PO DAILY@1700 06/30/22 06/30/22 History Mcg = 1000 Iu)] Ciclopirox Olamine [Loprox 0.77% 1 applic TOPICAL BID@0800,2100 06/30/22 06/30/22 History cream] Ferrous Sulfate [Iron (65 MG 325 mg PO DAILY@0800 06/30/22 06/30/22 History Elemental)] Folic Acid 1 mg PO DAILY@1700 06/30/22 06/30/22 History Furosemide [Lasix] 40 mg PO DAILY@0600 06/30/22 06/30/22 History Loperamide HCl [Imodium A-D] 2 - 4 mg PO QID PRN 06/30/22 06/30/22 History Magnesium Hydroxide [Milk of 7,200 mg PO Q48H PRN 06/30/22 06/30/22 History Magnesia Concentrate] Menthol [Biofreeze] 1 applic TOPICAL DAILY PRN 06/30/22 06/30/22 History Omeprazole Magnesium [PriLOSEC OTC] 20 mg PO HS 06/30/22 06/30/22 History bisacodyL 10 mg RECTAL DAILY PRN 06/30/22 06/30/22 History Allergies Allergy/AdvReac Type Severity Reaction Status Date / Time No Known Allergies Allergy Verified 06/30/22 17:44 Physical Exam Vitals: Vital Signs Temp Pulse Pulse Resp BP BP Pulse Ox 07/02/22 04:00 97.4 F L 97 18 121/71 100 07/02/22 02:00 89 18 07/02/22 00:00 97.7 F 89 18 121/83 100 07/01/22 20:07 92 L 07/01/22 20:00 97.8 F 118 H 18 96/61 97 07/01/22 17:26 95.7 F L 80 16 103/57 96 07/01/22 16:27 89 16 103/55 100 07/01/22 15:44 95.5 F L 102 H 16 110/63 97 07/01/22 14:35 95.6 F L 102 H 16 100/57 98 07/01/22 12:41 99 18 94/66 99 07/01/22 11:51 86 16 98 07/01/22 10:42 89 116/62 95 07/01/22 09:01 95 16 116/58 100 Intake and Output 07/01/22 07/02/22 07/02/22 22:59 06:59 14:59 Output Total 200 600 Balance -200 -600 Output: Urine 200 600 Uretheral (Gomez) 300 Other: Voiding Method Indwelling Catheter Indwelling Catheter Results 07/01/22 15:57 07/02/22 09:23 Cardiac Enzymes 07/01/22 Range/Units 15:57 AST 26 (14-36) U/L Coagulation 07/01/22 Range/Units 09:47 APTT 57.5 H (22.0-30.0) sec CBC 07/01/22 Range/Units 15:57 WBC 5.0 (3.8-10.6) k/uL RBC 3.01 L (3.80-5.40) m/uL Hgb 8.9 L (11.4-16.0) gm/dL Hct 31.1 L (34.0-46.0) % Plt Count 118 L (150-450) k/uL Comprehensive Metabolic Panel 07/01/22 Range/Units 15:57 Sodium 145 (137-145) mmol/L Potassium 5.6 H (3.5-5.1) mmol/L Chloride 114 H (98-107) mmol/L Carbon Dioxide 24 (22-30) mmol/L BUN 62 H (7-17) mg/dL Creatinine 2.75 H (0.52-1.04) mg/dL Glucose 102 H (74-99) mg/dL Calcium 8.2 L (8.4-10.2) mg/dL AST 26 (14-36) U/L ALT 21 (4-34) U/L Alkaline Phosphatase 71 (38-126) U/L Total Protein 6.8 (6.3-8.2) g/dL Albumin 3.3 L (3.5-5.0) g/dL Current Medications Generic Name Dose Route Start Last Admin Trade Name Freq PRN Reason Stop Dose Admin Acetaminophen 650 mg 06/30/22 19:05 Acetaminophen Tab 325 Mg Tab PO Q6HR PRN Mild Pain or Fever > 100.5 Hydrocodone Bitart/Acetaminophen 1 each 07/01/22 11:05 Hydrocodone/Apap 10-325mg 1 Each Tab PO Q6H PRN Moderate Pain 4-7 Albuterol Sulfate 2 puff 07/01/22 11:05 Albuterol Hfa Inhaler INHALATION RT-Q4H PRN Shortness Of Breath Apixaban 5 mg 07/01/22 21:00 07/01/22 22:02 Apixaban 5 Mg Tab PO 5 mg BID [facility] Administration Protocol Ascorbic Acid 1,000 mg 07/01/22 17:00 07/01/22 17:49 Ascorbic Acid 500 Mg Tab PO 1,000 mg DAILY@1700 [facility] Administration Bisacodyl 10 mg 07/01/22 11:05 Bisacodyl 10 Mg Supp RECTAL DAILY PRN Constipation Cholecalciferol 25 mcg 07/01/22 17:00 07/01/22 17:50 Cholecalciferol 25 Mcg (1000 Iu) Tablet PO 25 mcg DAILY@1700 [facility] Administration Clotrimazole 1 applic 07/01/22 21:00 07/01/22 22:02 Clotrimazole 1% Cream 30 Gm Tube TOPICAL 1 applic BID@0800,2100 [facility] Administration Ferrous Sulfate 325 mg 07/02/22 08:00 Ferrous Sulfate 325 Mg Tab PO DAILY@0800 [facility] Folic Acid 1 mg 07/01/22 17:00 07/01/22 17:50 Folic Acid 1 Mg Tab PO 1 mg DAILY@1700 [facility] Administration Glucose 32 gm 07/02/22 09:00 Dextrose (Gel) __ Gm PO QID [facility] Sodium Chloride 1,000 mls @ 75 mls/hr 06/30/22 19:15 07/02/22 00:20 Saline 0.9% IV 75 mls/hr .[id number] [facility] Administration Lactic Acid 1 applic 07/01/22 21:00 07/01/22 22:02 Ammonium Lactate 12% Lotion 225 Gm Btl TOPICAL 1 applic BID [facility] Administration Protocol Levothyroxine Sodium 50 mcg 07/01/22 13:30 07/02/22 05:49 Levothyroxine 50 Mcg Tab PO 50 mcg DAILY@0630 [facility] Administration Magnesium Hydroxide 2,400 mg 07/01/22 11:05 Magnesium Hydroxide 2,400 Mg/10 Ml Cup PO Q48H PRN Constipation Methyl Salicylate 1 applic 07/01/22 11:05 07/02/22 05:48 Methyl Salicylate-Menthol Oint (3 Oz Tube) TOPICAL 1 applic DAILY PRN Administration neck & shoulder pain Metoprolol Tartrate 25 mg 07/02/22 09:00 Metoprolol Tartrate 25 Mg Tab PO BID JAIMIE Naloxone HCl 0.2 mg 06/30/22 19:05 Naloxone 0.4 Mg/Ml 1 Ml Vial IV Q2M PRN Opioid Reversal Ondansetron HCl 4 mg 06/30/22 19:05 Ondansetron 4 Mg/2 Ml Vial IVP Q8HR PRN Nausea And Vomiting Intake and Output 07/01/22 07/02/22 07/02/22 22:59 06:59 14:59 Output Total 200 600 Balance -200 -600 Output: Urine 200 600 Uretheral (Gomez) 300 Other: Voiding Method Indwelling Catheter Indwelling Catheter 07/01/22 15:57 07/01/22 15:57
[2022-07-02] MEDS: DEXTROSE 5%-0.45% NACL 1,000 ML IV SCH (13:23)
[2022-07-02] MEDS: DEXTROSE 4 GM CHEWABLE PO SCH ×3 (13:27→21:36)
[2022-07-02] MEDS: CHOLECALCIFEROL 25 MCG (1000 IU) TABLET PO SCH (16:24)
[2022-07-02] MEDS: FOLIC ACID 1 MG TAB PO SCH (16:24)
[2022-07-02] MEDS: ASCORBIC ACID 500 MG TAB PO SCH (16:24)
--- NOTE | 2022-07-02 22:39 | P.PN ---
Progress Note - Text Progress Note Date: 07/02/22 Chief Complaint: Not feeling well This is a pleasant 72-year-old patient of follows with Dr. Carranza. At [facility]. Chronic stable medical conditions include GERD, hypertension, osteoarthritis, peripheral neuropathy. CK D. Patient was brought in from the [facility] by EMS. Patient had been complaining of dizzy lightheaded not feeling well. Some numbness tingling. Patient's found to be hypothermic in the ER. It may be noted that patient has glucose tablets at the [facility]. And Accu-Cheks and blood glucose running low. Patient urine was dirty appearing. Denies any chest pain or shortness of breath. Has had decreased appetite. Denied any obvious fever and chills. 07/02/2022: Tired. Poor appetite. Placed on D5.45. Schedules glucose tablets. Discussed with the patient increase oral intake. Active Medications Acetaminophen (Acetaminophen Tab 325 Mg Tab) 650 mg PO Q6HR PRN PRN Reason: Mild Pain or Fever > 100.5 Hydrocodone Bitart/Acetaminophen (Hydrocodone/Apap 10-325mg 1 Each Tab) 1 each PO Q6H PRN PRN Reason: Moderate to Severe Pain (4-10) Albuterol Sulfate (Albuterol Hfa Inhaler) 2 puff INHALATION RT-Q4H PRN PRN Reason: Shortness Of Breath Last Admin: 07/02/22 14:43 Dose: 2 puff Apixaban (Apixaban 5 Mg Tab) 5 mg PO BID [facility]; Protocol Last Admin: 07/02/22 21:32 Dose: 5 mg Ascorbic Acid (Ascorbic Acid 500 Mg Tab) 1,000 mg PO DAILY@1700 [facility] Last Admin: 07/02/22 16:24 Dose: 1,000 mg Bisacodyl (Bisacodyl 10 Mg Supp) 10 mg RECTAL DAILY PRN PRN Reason: Constipation Cholecalciferol (Cholecalciferol 25 Mcg (1000 Iu) Tablet) 25 mcg PO DAILY@1700 [facility] Last Admin: 07/02/22 16:24 Dose: 25 mcg Clotrimazole (Clotrimazole 1% Cream 30 Gm Tube) 1 applic TOPICAL BID@0800,2100 [facility] Last Admin: 07/02/22 21:32 Dose: 1 applic Ferrous Sulfate (Ferrous Sulfate 325 Mg Tab) 325 mg PO DAILY@0800 [facility] Last Admin: 07/02/22 09:45 Dose: 325 mg Folic Acid (Folic Acid 1 Mg Tab) 1 mg PO DAILY@1700 [facility] Last Admin: 07/02/22 16:24 Dose: 1 mg Glucose (Dextrose 4 Gm Chewable) 32 gm PO QID [facility] Last Admin: 07/02/22 21:36 Dose: 32 gm Dextrose/Sodium Chloride (Dextrose 5%-1/2ns Iv Soln) 1,000 mls @ 125 mls/hr IV .Q8H [facility] Last Admin: 07/02/22 13:23 Dose: 125 mls/hr Lactic Acid (Ammonium Lactate 12% Lotion 225 Gm Btl) 1 applic TOPICAL BID [facility]; Protocol Last Admin: 07/02/22 21:32 Dose: 1 applic Levothyroxine Sodium (Levothyroxine 50 Mcg Tab) 50 mcg PO DAILY@0630 [facility] Last Admin: 07/02/22 05:49 Dose: 50 mcg Magnesium Hydroxide (Magnesium Hydroxide 2,400 Mg/10 Ml Cup) 2,400 mg PO Q48H PRN PRN Reason: Constipation Methyl Salicylate (Methyl Salicylate-Menthol Oint (3 Oz Tube)) 1 applic TOPICAL DAILY PRN PRN Reason: neck & shoulder pain Last Admin: 07/02/22 05:48 Dose: 1 applic Metoprolol Tartrate (Metoprolol Tartrate 25 Mg Tab) 25 mg PO BID [facility] Last Admin: 07/02/22 21:32 Dose: 25 mg Naloxone HCl (Naloxone 0.4 Mg/Ml 1 Ml Vial) 0.2 mg IV Q2M PRN PRN Reason: Opioid Reversal Ondansetron HCl (Ondansetron 4 Mg/2 Ml Vial) 4 mg IVP Q8HR PRN PRN Reason: Nausea And Vomiting Past medical history to include: GERD, hypertension, osteoarthritis, peripheral neuropathy, CK D Social history: At [facility] [place] No smoking. Alcohol rarely. Physical examination: VITAL SIGNS: 97.4, 93, 15, 129/85 93% room air GENERAL: Reclining in bed, tired EYES: Pupils equal. Conjunctiva normal. HEENT: External appearance of nose and ears normal, oral cavity grossly normal. NECK: JVD unable to assess; masses not palpable. HEART: First and second heart sounds are normal; no edema. LUNGS: Respiratory rate normal; distant breath sounds. ABDOMEN: Soft, nontender, liver spleen not palpable, no masses palpable. PSYCH: Lethargic tired but able to answer questions MUSCULOSKELETAL:No Clubbing/cyanosis;muscles-grossly intact. Chronic limited range of motion of right shoulder. NEUROLOGICAL: Cranial nerves grossly intact Power sensation grossly intact. LYMPHATICS: No lymph node palpable neck and axilla INVESTIGATIONS, reviewed in the clinical context: 07/02/2022: Potassium 5.5 BUN 62 creatinine 3.11. Procalcitonin 0.12 White count 3 hemoglobin 9.9 platelets 1:30 sodium 145 potassium 5.2 BUN 58 creatinine 2.2 to TSH 5.4 UA: Protein 1+ leukoesterase positive WBC 59 bacteria rare EKG tracing personally reviewed by me-atrial fibrillation. PVC. Rate 92 Chest x-ray film personally reviewed by me-underpenetrated due to obesity. Possible right basilar infiltrate/effusion Previous testin-D echocardiogram [September 2021] EF 55-60% 05/17/2022: Creatinine 1.5 Assessment and plan: -Severe hypothermia, multifactorial. Admission rectal temperature 93 degrees: Better IV fluids at room temperature -Probable right lower lobe pneumonia suspect gram-negative organism IV ceftriaxone -Hypoglycemia Glucose tablets. D5 0.45 -Morbid obesity BMI 72.1 Weight loss measures -Primary osteoarthritis [place] 10 every 6 when necessary -Peripheral neuropathy -Hypothyroid Start Synthroid 50 g a day -GERD Prilosec 20mg -Hyperkalemia in the setting of renal failure: Low potassium diet. Lokelma. -Acute kidney injury, possibly prerenal: From decreased oral intake: Some worsening IV hydration - CKD, stage III likely nephrosclerosis Creatinine 1.5 in April 2022 -Chronic medical debility -DO NOT RESUSCITATE Change IV fluids 35.45. Increased rate. Continue glucose tablets. IV ceftriaxone. Encourage oral intake. Follow
[2022-07-03] MEDS: DEXTROSE 5%-0.45% NACL 1,000 ML IV SCH ×5 (01:49→22:17)
[2022-07-03] MEDS: LEVOTHYROXINE 50 MCG TAB PO SCH (06:27)
--- NOTE | 2022-07-03 07:28 | CA ---
Transthoracic Echo Report Name: Sully Randall Age: 72 Gender: F : 1950 Exam Date: 07/02/2022 10:54 Exam Location: [place] [facility] Ht (in): 64 Wt (lb): 420 Ordering Physician: Ofelia Flower Attending/Referring Phys: [id number], [place] [employer] Technician Kelsey Gonzales RDCS Procedure CPT: Indications: LV function Cardiac Hx: Technical Quality: Fair Contrast 1: Total Dose (mL): Contrast 2: Total Dose (mL): MEASUREMENTS (Male / Female) Normal Values 2D ECHO LV Diastolic Diameter PLAX 5.0 cm 4.2 - 5.9 / 3.9 - 5.3 cm LV Systolic Diameter PLAX 3.9 cm IVS Diastolic Thickness 1.5 cm 0.6 - 1.0 / 0.6 - 0.9 cm LVPW Diastolic Thickness 1.1 cm 0.6 - 1.0 / 0.6 - 0.9 cm LV Relative Wall Thickness 0.5 RV Internal Dim ED PLAX 3.0 cm LA Volume 80.3 cm??? 18 - 58 / 22 - 52 cm??? M-MODE Aortic Root Diameter MM 2.5 cm AV Cusp Separation MM 1.8 cm DOPPLER AV Peak Velocity 112.1 cm/s AV Peak Gradient 5.0 mmHg LVOT Peak Velocity 80.4 cm/s LVOT Peak Gradient 2.6 mmHg MV Area PHT 5.3 cm??? MR Peak Velocity 296.3 cm/s MR Peak Gradient 35.1 mmHg Mitral E Point Velocity 123.8 cm/s Mitral A Point Velocity 20.6 cm/s Mitral E to A Ratio 6.0 MV Deceleration Time 153.0 ms TR Peak Velocity 310.7 cm/s TR Peak Gradient 38.6 mmHg Right Atrial Pressure 15.0 mmHg Pulmonary Artery Systolic Pressu 53.6 mmHg Right Ventricular Systolic Press 53.6 mmHg PV Peak Velocity 83.5 cm/s PV Peak Gradient 2.8 mmHg FINDINGS Left Ventricle Moderately increased septal wall thickness. Mildly increased posterior wall thickness. Grade 4 diastolic dysfunction. Left ventricular cavity size normal. Left ventricular ejection fraction is estimated at 40-45%. Right Ventricle Severe right ventricular dilatation. Reduced right ventricular global systolic function. Moderate pulmonary hypertension. Right ventricular systolic pressure estimated at 54 mm hg. Right Atrium Severe right atrial dilatation. Left Atrium Severely increased left atrial volume. Mitral Valve Moderate mitral regurgitation. Mitral stenosis. Aortic Valve Trileaflet aortic valve. No aortic regurgitation. No aortic stenosis. Tricuspid Valve Severe tricuspid regurgitation. Pulmonic Valve Moderate pulmonic regurgitation. Pericardium normal Aorta Normal size aortic root and proximal ascending aorta. CONCLUSIONS Normal LV size with reduced LV systolic function, septal hypokinesis Severely dilated right atrium Dilated RV Left atrial enlargement Previewed by: Dr. Huang Rosa MD (Electronically Signed) Final Date: 03 July 2022 07:27
[2022-07-03 11:00] LABS: Calcium 8.7 mg/dL (8.4-10.2); Potassium 5.5 mmol/L (3.5-5.1)
[2022-07-03] MEDS ORDERED: SODIUM POLYSTYRENE SULFONATE 15 GM/60 ML BOTTLE PO STA (11:08)
[2022-07-03] MEDS: FERROUS SULFATE 325 MG TAB PO SCH (11:10)
[2022-07-03] MEDS: AMMONIUM LACTATE 12% LOTION 225 GM BTL TOPICAL SCH ×2 (11:10→22:14)
[2022-07-03] MEDS: APIXABAN 5 MG TAB PO SCH ×2 (11:10→22:16)
[2022-07-03] MEDS: METOPROLOL TARTRATE 25 MG TAB PO SCH ×2 (11:10→22:16)
[2022-07-03] MEDS: CLOTRIMAZOLE 1% CREAM 30 GM TUBE TOPICAL SCH ×2 (11:10→22:15)
[2022-07-03] MEDS: DEXTROSE 4 GM CHEWABLE PO SCH ×3 (11:11→18:27)
--- NOTE | 2022-07-03 12:58 | P.PN ---
Subjective Progress Note Date: 07/03/22 HISTORY OF PRESENT ILLNESS: This is a 72-year-old female with a past medical history significant for chronic kidney disease, neuropathy, GERD, and morbid obesity. Patient does not follow with a national sales. We have been asked to see the patient in consultation for new onset atrial fibrillation. Patient examined at the bedside. Patient came to the ER from [facility] due to hypothermia. The patient is wheelchair bound as baseline per documentation. She was found to be in atrial fibrillation. The patient denies a previous history of atrial fibrillation. The patient currently denies chest pain or pressure. She denies shortness of breath. She denies a history of coronary artery disease. * EKG reveals atrial fibrillation with controlled ventricular rate * Chest xray congestive heart failure with bilateral pleural effusions. Pleural fluid and pulmonary congestion increased compared to old exam * Laboratory data: WBC 5.0. Hemoglobin 8.9. Platelet count 118. Sodium 145. Potassium 5.5. BUN 62. Creatinine 3.11. * Current home cardiac medications include Lasix 40 mg daily * Most recent echocardiogram obtained in September 2021 revealed ejection fraction 55-60% and mild tricuspid regurgitation 07/03/2022 Patient examined this morning at the bedside. Patient remains somewhat lethargic. She denies chest pain or pressure. Denies shortness of breath. Telemetry reveals atrial fibrillation with heart rate in the 70s. Echocardiogram completed revealing ejection fraction 40-45% with moderate mitral regurgitation. Creatinine today 2.78. Potassium 5.5. Ammonia level 138. PHYSICAL EXAM: VITAL SIGNS: Reviewed. GENERAL: Well-developed in no acute distress. HEENT: Head is normocephalic. Pupils are equal, round. Sclerae anicteric. Mucous membranes of the mouth are moist. Neck supple. No JVD or thyromegaly LUNGS: Respirations even and unlabored. Lungs essentially clear to auscultation bilaterally. HEART: Irregular rate and rhythm. S1 and S2 heard. ABDOMEN: Soft. Nondistended. Nontender. EXTREMITIES: Normal range of motion. No clubbing or cyanosis. Peripheral pulses intact. Trace lower extremity edema NEUROLOGIC: Somewhat lethargic on examination. ASSESSMENT: Hypothermia Right lower lobe pneumonia New onset atrial fibrillation with controlled ventricular rate Hyperkalemia Acute on chronic kidney disease History of hypoglycemia GERD Neuropathy Morbid obesity Elevated TSH, patient started on synthroid PLAN: Patient has been started on Eliquis per primary medicine Continue additional cardiac medications Continue telemetry monitoring Stable from a cardiac standpoint Further recommendations pending patient course Nurse practitioner note has been reviewed by physician. Signing provider agrees with the documented findings, assessment, and plan of care. Objective - Vital Signs Vital signs: Vital Signs Temp 98.0 F 07/03/22 08:00 Pulse 60 07/03/22 08:00 Resp 12 07/03/22 08:00 BP 108/53 07/03/22 08:00 Pulse Ox 95 07/03/22 08:00 FiO2 Intake & Output 07/02/22 07/03/22 07/03/22 18:59 06:59 18:59 Output Total 250 275 Balance -250 -275 Weight 190.509 kg Output: Urine 250 275 Other: Voiding Method Indwelling Catheter Indwelling Catheter Indwelling Catheter - Labs CBC & Chem 7: 07/01/22 15:57 07/03/22 10:04 Labs: Abnormal Lab Results - Last 24 Hours (Table) 07/03/22 07/03/22 Range/Units 10:04 11:49 Sodium 146 H (137-145) mmol/L Potassium 5.5 H (3.5-5.1) mmol/L Chloride 115 H (98-107) mmol/L BUN 66 H (7-17) mg/dL Creatinine 2.78 H (0.52-1.04) mg/dL Glucose 102 H (74-99) mg/dL Ammonia 138 H (<30) umol/L Microbiology - Last 24 Hours (Table) 06/30/22 20:55 Urine Culture - Final Urine,Voided Proteus mirabilis 06/30/22 18:55 Blood Culture - Preliminary Blood No Growth after 48 hours
--- NOTE | 2022-07-03 13:16 | P.PN ---
Progress Note - Text Progress Note Date: 07/03/22 Chief Complaint: Not feeling well This is a pleasant 72-year-old patient of follows with Dr. Carranza. At [facility]. Chronic stable medical conditions include GERD, hypertension, osteoarthritis, peripheral neuropathy. CK D. Patient was brought in from the [facility] by EMS. Patient had been complaining of dizzy lightheaded not feeling well. Some numbness tingling. Patient's found to be hypothermic in the ER. It may be noted that patient has glucose tablets at the [facility]. And Accu-Cheks and blood glucose running low. Patient urine was dirty appearing. Denies any chest pain or shortness of breath. Has had decreased appetite. Denied any obvious fever and chills. 07/02/2022: Tired. Poor appetite. Placed on D5.45. Schedules glucose tablets. Discussed with the patient increase oral intake. 07/03/2022: Remains diet. Sleepy. Does wake up to answer questions. Taking her medications. Not really eating. Spoke at length with the patient. Willing to eat some. Consult psychiatry for depression. Active Medications Acetaminophen (Acetaminophen Tab 325 Mg Tab) 650 mg PO Q6HR PRN PRN Reason: Mild Pain or Fever > 100.5 Hydrocodone Bitart/Acetaminophen (Hydrocodone/Apap 10-325mg 1 Each Tab) 1 each PO Q6H PRN PRN Reason: Moderate to Severe Pain (4-10) Albuterol Sulfate (Albuterol Hfa Inhaler) 2 puff INHALATION RT-Q4H PRN PRN Reason: Shortness Of Breath Last Admin: 07/02/22 14:43 Dose: 2 puff Apixaban (Apixaban 5 Mg Tab) 5 mg PO BID [facility]; Protocol Last Admin: 07/03/22 11:10 Dose: 5 mg Ascorbic Acid (Ascorbic Acid 500 Mg Tab) 1,000 mg PO DAILY@1700 [facility] Last Admin: 07/02/22 16:24 Dose: 1,000 mg Bisacodyl (Bisacodyl 10 Mg Supp) 10 mg RECTAL DAILY PRN PRN Reason: Constipation Cholecalciferol (Cholecalciferol 25 Mcg (1000 Iu) Tablet) 25 mcg PO DAILY@1700 [facility] Last Admin: 07/02/22 16:24 Dose: 25 mcg Clotrimazole (Clotrimazole 1% Cream 30 Gm Tube) 1 applic TOPICAL BID@0800,2100 [facility] Last Admin: 07/03/22 11:10 Dose: 1 applic Ferrous Sulfate (Ferrous Sulfate 325 Mg Tab) 325 mg PO DAILY@0800 [facility] Last Admin: 07/03/22 11:10 Dose: 325 mg Folic Acid (Folic Acid 1 Mg Tab) 1 mg PO DAILY@1700 [facility] Last Admin: 07/02/22 16:24 Dose: 1 mg Glucose (Dextrose 4 Gm Chewable) 32 gm PO QID [facility] Last Admin: 07/03/22 11:11 Dose: 32 gm Dextrose/Sodium Chloride (Dextrose 5%-1/2ns Iv Soln) 1,000 mls @ 125 mls/hr IV .Q8H [facility] Last Admin: 07/03/22 05:36 Dose: Not Given Lactic Acid (Ammonium Lactate 12% Lotion 225 Gm Btl) 1 applic TOPICAL BID [facility]; Protocol Last Admin: 07/03/22 11:10 Dose: 1 applic Levothyroxine Sodium (Levothyroxine 50 Mcg Tab) 50 mcg PO DAILY@0630 [facility] Last Admin: 07/03/22 06:27 Dose: 50 mcg Magnesium Hydroxide (Magnesium Hydroxide 2,400 Mg/10 Ml Cup) 2,400 mg PO Q48H PRN PRN Reason: Constipation Methyl Salicylate (Methyl Salicylate-Menthol Oint (3 Oz Tube)) 1 applic TOPICAL DAILY PRN PRN Reason: neck & shoulder pain Last Admin: 07/02/22 05:48 Dose: 1 applic Metoprolol Tartrate (Metoprolol Tartrate 25 Mg Tab) 25 mg PO BID [facility] Last Admin: 07/03/22 11:10 Dose: 25 mg Naloxone HCl (Naloxone 0.4 Mg/Ml 1 Ml Vial) 0.2 mg IV Q2M PRN PRN Reason: Opioid Reversal Ondansetron HCl (Ondansetron 4 Mg/2 Ml Vial) 4 mg IVP Q8HR PRN PRN Reason: Nausea And Vomiting Sodium Zirconium Cyclosilicate (Sodium Zirconium Cyclosilicate 10 Gm Packet) 10 gm PO TID [facility] Stop: 07/04/22 09:01 Past medical history to include: GERD, hypertension, osteoarthritis, peripheral neuropathy, CK D Social history: At [facility] [place] No smoking. Alcohol rarely. Physical examination: VITAL SIGNS: 98, 16, 12, 10 8 x 53, 95% on 2 L GENERAL: Reclining in bed, tired EYES: Pupils equal. Conjunctiva normal. HEENT: External appearance of nose and ears normal, oral cavity grossly normal. NECK: JVD unable to assess; masses not palpable. HEART: First and second heart sounds are normal; no edema. LUNGS: Respiratory rate normal; distant breath sounds. ABDOMEN: Soft, nontender, liver spleen not palpable, no masses palpable. PSYCH: Lethargic tired but able to answer questions. Possibly depressed MUSCULOSKELETAL:No Clubbing/cyanosis;muscles-grossly intact. Chronic limited range of motion of right shoulder. NEUROLOGICAL: Cranial nerves grossly intact Power sensation grossly intact. LYMPHATICS: No lymph node palpable neck and axilla INVESTIGATIONS, reviewed in the clinical context: 07/03/2022: Potassium 5.5 chloride 115 BUN 66 creatinine 2.78 ammonia 138 07/02/2022: Potassium 5.5 BUN 62 creatinine 3.11. Procalcitonin 0.12 White count 3 hemoglobin 9.9 platelets 1:30 sodium 145 potassium 5.2 BUN 58 creatinine 2.2 to TSH 5.4 UA: Protein 1+ leukoesterase positive WBC 59 bacteria rare EKG tracing personally reviewed by me-atrial fibrillation. PVC. Rate 92 Chest x-ray film personally reviewed by me-underpenetrated due to obesity. Possible right basilar infiltrate/effusion Previous testin-D echocardiogram [September 2021] EF 55-60% 05/17/2022: Creatinine 1.5 Assessment and plan: -Severe hypothermia, multifactorial. Admission rectal temperature 93 degrees: Better IV fluids at room temperature -Acute metabolic encephalopathy from hyperammonemia. New diagnosis Start lactulose -Probable right lower lobe pneumonia suspect gram-negative organism IV ceftriaxone -Hypoglycemia and decreased oral intake. Glucose tablets. D5 0.45 -Hyper-ammonemia, cause unclear Start lactulose 20 g every 12. -Morbid obesity BMI 72.1 Weight loss measures -Primary osteoarthritis [place] 10 every 6 when necessary -Peripheral neuropathy -Hypothyroid Start Synthroid 50 g a day -Probable depression Consults psychiatry -GERD Prilosec 20mg -Hyperkalemia in the setting of renal failure: Not improving Low potassium diet. Lokelma. -Acute kidney injury, possibly prerenal: From decreased oral intake: Slow to respond Continue IV fluids - CKD, stage III likely nephrosclerosis Creatinine 1.5 in April 2022 -Chronic medical debility -DO NOT RESUSCITATE Continue D5 0.45. Continue glucose tablets. IV ceftriaxone. Consult psychiatry. Start lactulose 12 g every 12 I treated 2-3 BMs a day. Encourage oral intake.
[2022-07-03] MEDS: SODIUM ZIRCONIUM CYCLOSILICATE 10 GM PACKET PO SCH ×2 (13:24→18:28)
--- NOTE | 2022-07-03 14:33 | P.CN ---
Psychiatric Consult - . Consult date: 07/03/22 Consult:: 07/03/22 13:21 IDENTIFYING DATA: This patient is a 72-year-old female coming from a [facility]. REASON FOR REFERRAL: Psychiatry was consulted for "depression" HISTORY OF PRESENT ILLNESS: The patient presented to the hospital initially on Psychiatric atrial fibrillation and generalized weakness and was sent in from the [facility]. Patient apparently was a poor historian in the ER. She had an elevated potassium of 5.2, creatinine was 2.22, BUN was 58. Patient was fairly sleepy and not eating well in the hospital. Psychiatrist was consulted for suspected depression. Patient's mother states that patient has a flat affect and is fairly slow to speak. Patient was seen today laying in bed in agreeable to speak to magnetic tape typewriter operator. She appeared to be mainly disinterested in the conversation however is fairly concrete. She was morbidly obese. She claims that she feels "abit sad" when asked aboiut her depression and alsoendorsed anxiety. She states that she has never seen a psychiatrist however is agreeable to try medications. States that her sleep and appetite are fair. She was fairly concrete however was distractible during conversation . At this time patient denies any suicidal or homical ideations, intent or plan. Patient denies any auditory, visual hallucinations and denies any paranoia or delusions. Patients admits to using no recreational drugs or cigarettes. PAST PSYCHIATRIC HISTORY: Patient has no known psychiatric history. Patient denies being on any psychiatric medications. Patient denies any previous psychiatric hospitalizations. Patient denies any psychiatric outpatient follow- up. Patient denies any history of suicide attempts in the past. Past Medical History: GERD/Reflux, Hypertension, Osteoarthritis (OA) Additional Past Medical History / Comment(s): has been on oral hyperglycemic medications in the past but pcp has taken her off of meds; neuropathy History of Any Multi-Drug Resistant Organisms: MRSA Date of last positivie culture/infection: 2011 MDRO Source:: L Knee Past Surgical History: Hernia Repair, Joint Replacement Additional Past Surgical History / Comment(s): total knee bilateral, left became infected component removed and antibiotic spacer placed. 3 years ago was on iv antibiotics and in rehab for 8 months follwing this Past Anesthesia/Blood Transfusion Reactions: No Reported Reaction Past Psychological History: No Psychological Hx Reported Smoking Status: Former smoker Past Alcohol Use History: None Reported Past Drug Use History: None Reported ALLERGIES: as per EMR. CHEMICAL DEPENDENCY HISTORY: as per HPI. FAMILY PSYCHIATRIC/SUBSTANCE USE HISTORY: denies SOCIAL HISTORY: Patient was born and raised in [facility]. She claims that she has 2 kids that are grown, she was coming from [facility]. She is single. He denied any legal history. MENTAL STATUS EXAM: General Appearance: Patient appears to be morbidly obese, stated age is pleasant, and attempts to be cooperative. Patient appears to have fair hygiene a nd grooming wearing hospital gown with fair eye contact. Behavior: Patient is calmly lying in bed without any agitated behavior. Attempts to cooperate. Speech: Patient's speech is fluent and nonpressured. Soft tone Mood/Affect: Patient reports their mood is "a bit sad and anxious", affect is congruent and constricted Suicidality/Homicidality: Patient denies having any suicidal or homicidal idea tion intent or plan. Perceptions: Patient denies any visual hallucinations and denies any auditory hallucinations Though content/process: There is no evidence of any delusional thought content and thought process is linear and goal-directed. concrete. Memory and concentration: AOX3, grossly intact for the purposes of this session. Can spell "WORLD" backwards Judgment and insight: limited IMPRESSIONS: Major depressive disorder mild Anxiety disorder NOS PLAN: -At this time patient DOES NOT meet criteria for inpatient psychiatric admission. -Would recommend the following medication changes/additions: added cymbalta 30 mg daily for mood/anxiety. -flume worker to provide patient with outpatient mental health/psychiatry resources for appropriate follow up upon discharge -Communicated plan to patient's nurse -Psychiatry will sign off at this time -Please contact with any questions. 07/03/22 14:28
[2022-07-03] MEDS: DULoxetine HCL 30 MG CAPSULE.DR PO SCH (16:00)
[2022-07-03] MEDS: LACTULOSE 20 GM/30 ML CUP PO SCH ×2 (16:00→22:15)
[2022-07-03] MEDS: FOLIC ACID 1 MG TAB PO SCH (17:59)
[2022-07-03] MEDS: CHOLECALCIFEROL 25 MCG (1000 IU) TABLET PO SCH (18:00)
[2022-07-03] MEDS: ASCORBIC ACID 500 MG TAB PO SCH (18:00)
[2022-07-03 19:57] LABS: Glucose,Whole Blood 135 mg/dL (70-110)
[2022-07-04] MEDS: DEXTROSE 4 GM CHEWABLE PO SCH ×5 (01:07→22:57)
[2022-07-04] MEDS: SODIUM ZIRCONIUM CYCLOSILICATE 10 GM PACKET PO SCH ×2 (01:07→10:03)
[2022-07-04 06:07] LABS: Glucose,Whole Blood 138 mg/dL (70-110)
[2022-07-04 06:26] LABS: Anisocytosis Moderate; Basophils % (A) 1 %; Eosinophils # (A) 0.1 k/uL (0-0.7); Eosinophils % (A) 2 %; HCT 30.6 % (34.0-46.0); HGB 8.8 gm/dL (11.4-16.0); Hypochromasia Marked; Lymphocytes % (A) 18 %; MCH 29.5 pg (25.0-35.0); MCHC 28.9 g/dL (31.0-37.0); MCV 102.1 fL (80.0-100.0); Macrocytosis Moderate; Mean Platelet Volume 9.1; Monocytes # (A) 0.3 k/uL (0-1.0); Monocytes % (A) 6 %; Neutrophils # (A) 3.9 k/uL (1.3-7.7); Neutrophils % (A) 69 %; Poikilocytosis Slight; RBC 2.99 m/uL (3.80-5.40); RDW 20.4 % (11.5-15.5); WBC 5.6 k/uL (3.8-10.6)
[2022-07-04] MEDS: LEVOTHYROXINE 50 MCG TAB PO SCH (06:37)
[2022-07-04 06:54] LABS: Platelet Count 93 k/uL (150-450)
[2022-07-04] MEDS: LACTULOSE 20 GM/30 ML CUP PO SCH ×2 (10:02→20:39)
[2022-07-04] MEDS: CLOTRIMAZOLE 1% CREAM 30 GM TUBE TOPICAL SCH ×2 (10:02→20:39)
[2022-07-04] MEDS: DULoxetine HCL 30 MG CAPSULE.DR PO SCH (10:03)
[2022-07-04] MEDS: METOPROLOL TARTRATE 25 MG TAB PO SCH ×2 (10:03→20:39)
[2022-07-04] MEDS: AMMONIUM LACTATE 12% LOTION 225 GM BTL TOPICAL SCH ×2 (10:03→20:39)
[2022-07-04] MEDS: FERROUS SULFATE 325 MG TAB PO SCH (10:03)
[2022-07-04] MEDS: APIXABAN 5 MG TAB PO SCH (10:03)
--- NOTE | 2022-07-04 10:41 | P.PN ---
Subjective Progress Note Date: 07/04/22 HISTORY OF PRESENT ILLNESS: This is a 72-year-old female with a past medical history significant for chronic kidney disease, neuropathy, GERD, and morbid obesity. Patient does not follow with a family medicine physician assistant. We have been asked to see the patient in consultation for new onset atrial fibrillation. Patient examined at the bedside. Patient came to the ER from [facility] due to hypothermia. The patient is wheelchair bound as baseline per documentation. She was found to be in atrial fibrillation. The patient denies a previous history of atrial fibrillation. The patient currently denies chest pain or pressure. She denies shortness of breath. She denies a history of coronary artery disease. * EKG reveals atrial fibrillation with controlled ventricular rate * Chest xray congestive heart failure with bilateral pleural effusions. Pleural fluid and pulmonary congestion increased compared to old exam * Laboratory data: WBC 5.0. Hemoglobin 8.9. Platelet count 118. Sodium 145. Potassium 5.5. BUN 62. Creatinine 3.11. * Current home cardiac medications include Lasix 40 mg daily * Most recent echocardiogram obtained in September 2021 revealed ejection fraction 55-60% and mild tricuspid regurgitation 07/03/2022 Patient examined this morning at the bedside. Patient remains somewhat lethargic. She denies chest pain or pressure. Denies shortness of breath. Telemetry reveals atrial fibrillation with heart rate in the 70s. Echocardiogram completed revealing ejection fraction 40-45% with moderate mitral regurgitation. Creatinine today 2.78. Potassium 5.5. Ammonia level 138. 07/04/2022 Patient examined this morning. Patient is somewhat lethargic. She denies chest pain or pressure. Denies SOB. Vital signs are stable. Hemoglobin this morning 8.8. Stool for occult blood is positive. PHYSICAL EXAM: VITAL SIGNS: Reviewed. GENERAL: Well-developed in no acute distress. HEENT: Head is normocephalic. Pupils are equal, round. Sclerae anicteric. Mucous membranes of the mouth are moist. Neck supple. No JVD or thyromegaly LUNGS: Respirations even and unlabored. Lungs essentially clear to auscultation bilaterally. HEART: Irregular rate and rhythm. S1 and S2 heard. ABDOMEN: Soft. Nondistended. Nontender. EXTREMITIES: Normal range of motion. No clubbing or cyanosis. Peripheral pulses intact. Trace lower extremity edema NEUROLOGIC: Somewhat lethargic on examination. ASSESSMENT: Hypothermia Right lower lobe pneumonia New onset persistent atrial fibrillation with controlled ventricular rate Hyperkalemia Acute on chronic kidney disease History of hypoglycemia GERD Neuropathy Morbid obesity Elevated TSH, patient started on synthroid Anemia PLAN: Continue additional cardiac medications Continue telemetry monitoring Per Dr. Kearns, discontinue Eliquis due to positive occult blood Further recommendations pending patient course Nurse practitioner note has been reviewed by physician. Signing provider agrees with the documented findings, assessment, and plan of care. Objective - Vital Signs Vital signs: Vital Signs Temp 98.3 F 07/04/22 08:00 Pulse 61 07/04/22 08:00 Resp 18 07/04/22 08:00 BP 115/65 07/04/22 08:00 Pulse Ox 97 07/04/22 08:54 FiO2 Intake & Output 07/03/22 07/04/22 07/04/22 18:59 06:59 18:59 Intake Total 240 100 Output Total 1100 Balance 240 -1000 Intake: Oral 240 100 Output: Urine 1100 Uretheral (Gomez) 700 Other: Voiding Method Indwelling Catheter Indwelling Catheter # Bowel Movements 1 - Labs CBC & Chem 7: 07/04/22 05:54 07/03/22 10:04 Labs: Abnormal Lab Results - Last 24 Hours (Table) 07/03/22 07/03/22 07/03/22 Range/Units 10:04 11:49 16:33 RBC (3.80-5.40) m/uL Hgb (11.4-16.0) gm/dL Hct (34.0-46.0) % MCV (80.0-100.0) fL MCHC (31.0-37.0) g/dL RDW (11.5-15.5) % Plt Count (150-450) k/uL Sodium 146 H (137-145) mmol/L Potassium 5.5 H (3.5-5.1) mmol/L Chloride 115 H (98-107) mmol/L BUN 66 H (7-17) mg/dL Creatinine 2.78 H (0.52-1.04) mg/dL Glucose 102 H (74-99) mg/dL POC Glucose (mg/dL) (70-110) mg/dL Ammonia 138 H (<30) umol/L Stool Occult Blood Positive H (Negative) 07/03/22 07/04/2223 Range/Units 19:55 05:54 06:06 RBC 2.99 L (3.80-5.40) m/uL Hgb 8.8 L (11.4-16.0) gm/dL Hct 30.6 L (34.0-46.0) % MCV 102.1 H (80.0-100.0) fL MCHC 28.9 L (31.0-37.0) g/dL RDW 20.4 H (11.5-15.5) % Plt Count 93 L (150-450) k/uL Sodium (137-145) mmol/L Potassium (3.5-5.1) mmol/L Chloride (98-107) mmol/L BUN (7-17) mg/dL Creatinine (0.52-1.04) mg/dL Glucose (74-99) mg/dL POC Glucose (mg/dL) 135 H 138 H (70-110) mg/dL Ammonia (<30) umol/L Stool Occult Blood (Negative) Microbiology - Last 24 Hours (Table) 06/30/22 18:55 Blood Culture - Preliminary Blood No Growth after 72 hours 06/30/22 18:40 Blood Culture Gram Stain - Final Blood Blood Culture - Final Staphylococcus epidermidis 06/30/22 20:55 Urine Culture - Final Urine,Voided Proteus mirabilis
[2022-07-04 11:36] LABS: Glucose,Whole Blood 115 mg/dL (70-110)
[2022-07-04 13:19] LABS: Calcium 8.5 mg/dL (8.4-10.2); Potassium 4.8 mmol/L (3.5-5.1)
--- NOTE | 2022-07-04 14:27 | CT ---
EXAMINATION TYPE: CT brain wo con DATE OF EXAM: 07/04/2022 COMPARISON: 10/13/2021. HISTORY: Mental status. CT DLP: 1139.4 mGycm Technique: Axial images of the head were obtained without contrast. Coronal and sagittal reformats we re performed. Automated exposure control for dose reduction was used. FINDINGS: There is no acute intracranial hemorrhage, mass, midline shift, extra-axial fluid collections or hydr ocephalus. There is is question of sulcal effacement when compared to the previous examination which could potentially relate to some cerebral edema. If indicated an MRI would BE recommended for further evaluation. No acute major vessel infarct is seen. The visualized paranasal sinuses and mastoid air cells are clear. IMPRESSION: 1. WHEN COMPARED TO THE PREVIOUS EXAMINATION. THE SULCI APPEAR TO BE LESS PROMINENT AND POTENTIALLY E FFACED WHEN COMPARED TO THE PREVIOUS EXAMINATION AND CEREBRAL EDEMA MAY BE POSSIBLE. CLINICAL CORRELA TION IS RECOMMENDED AND AN MRI WOULD BE RECOMMENDED FOR FURTHER EVALUATION. 2. NO ACUTE MAJOR VESSEL INFARCT IS OTHERWISE SEEN. 3. NO ACUTE INTRACRANIAL HEMORRHAGE.
--- NOTE | 2022-07-04 15:48 | P.CNNES ---
History of Present Illness Consult date: 07/04/22 Requesting physician: John Weldon Reason for Consult: Altered mentation History of Present Illness: Patient is a 72-year-old female came to the hospital by ambulance on 06/30/2022 for patient complaining of dizziness, lightheadedness and hand numbness and tingling in her fingers and was seeing spots according to the staff. Patient was experiencing edema. Patient has morbid obesity, hypertension, possible A. fib and renal disease. She has been bedbound secondary to her failing health and morbid obesity. Patient was alert and oriented 4 with GCS of 15. Patient denied any chest pain shortness of breath or dizziness. Patient tells me that she came to the hospital because she was jerking, shaking. Patient appears obviously encephalopathic, somnolent, not able to provide detailed history. Patient's blood test shows normal WBC hemoglobin 8.8 with elevated MCV 102.1, platelets 93. Electrolytes are normal, BUN 66, creatinine 2.72. Stool occult blood positive. Patient has acute on chronic renal insufficiency. Hepatic panel is normal, troponin negative. UA shows large amount of leukocyte Estrace, few WBC clumps and rare bacteria. Patient's urine culture has grown Proteus mirabilis. Patient's blood culture on 06/30/2022 was positive for Staphylococcus epidermidis. CT head performed today reported "when compared to the previous examination, the sulci appeared to be less prominent and potentially effaced when compared to the previous examination and cerebral edema may be possible. Clinical correlation is recommended an MRI would be recommended for further evaluation". No acute major vessel infarct is otherwise seen. Patient has been wheelchair-bound since last 10 years, after she underwent left knee surgery and developed infection in the joint, and the joint was removed. She has known left knee joint. Patient has history of hypertension, denies diabetes. Patient has smoked 1 pack per day started from age 23 until age 63 when she cut back to 1 pack per week. Denies any alcohol. Patient's home medications include gabapentin 400 mg 3 times a day, amlodipine 5 mg daily, albuterol, Bernard and omeprazole. Past Medical History Past Medical History: GERD/Reflux, Hypertension, Osteoarthritis (OA) Additional Past Medical History / Comment(s): has been on oral hyperglycemic medications in the past but pcp has taken her off of meds; neuropathy History of Any Multi-Drug Resistant Organisms: MRSA Date of last positivie culture/infection: 2011 MDRO Source:: L Knee Past Surgical History: Hernia Repair, Joint Replacement Additional Past Surgical History / Comment(s): total knee bilateral, left became infected component removed and antibiotic spacer placed. 3 years ago was on iv antibiotics and in rehab for 8 months follwing this Past Anesthesia/Blood Transfusion Reactions: No Reported Reaction Past Psychological History: No Psychological Hx Reported Smoking Status: Former smoker Past Alcohol Use History: None Reported Past Drug Use History: None Reported - Past Family History Mother Family Medical History: Cancer Father Family Medical History: Myocardial Infarction ([place]) Medications and Allergies Home Medications Medication Instructions Recorded Confirmed Type Acetaminophen [Tylenol] 650 mg PO Q4H PRN 01/29/22 06/30/22 History Dextrose Chew [Glucose Chew Tab] 32 gm PO QID PRN 01/29/22 06/30/22 History Ipratropium-Albuterol Nebulize 3 ml INHALATION RT-Q6H PRN 01/29/22 06/30/22 History [Duoneb 0.5 mg-3 mg/3 ml Soln] Cefuroxime [Ceftin] 250 mg PO BID@0800,1700 06/26/22 06/30/22 History HYDROcodone/APAP 10-325MG [Bernard 1 tab PO Q6H PRN 06/26/22 06/30/22 History 10-325] Albuterol Sulfate [Ventolin HFA] 1 puff INHALATION RT-Q4H PRN 06/30/22 06/30/22 History Ammonium Lactate Lotion 1 applic TOPICAL BID 06/30/22 06/30/22 History [Lac-Hydrin 12% Lotion] Ascorbic Acid [Vitamin C] 1,000 mg PO DAILY@1700 06/30/22 06/30/22 History Cholecalciferol [Vitamin D3 (25 25 mcg PO DAILY@0 06/30/22 06/30/22 History Mcg = 1000 Iu)] Ciclopirox Olamine [Loprox 0.77% 1 applic TOPICAL BID@0800,2100 06/30/22 06/30/22 History cream] Ferrous Sulfate [Iron (65 MG 325 mg PO DAILY@0800 06/30/22 06/30/22 History Elemental)] Folic Acid 1 mg PO DAILY@1700 06/30/22 06/30/22 History Furosemide [Lasix] 40 mg PO DAILY@0600 06/30/22 06/30/22 History Loperamide HCl [Imodium A-D] 2 - 4 mg PO QID PRN 06/30/22 06/30/22 History Magnesium Hydroxide [Milk of 7,200 mg PO Q48H PRN 06/30/22 06/30/22 History Magnesia Concentrate] Menthol [Biofreeze] 1 applic TOPICAL DAILY PRN 06/30/22 06/30/22 History Omeprazole Magnesium [PriLOSEC OTC] 20 mg PO HS 06/30/22 06/30/22 History bisacodyL 10 mg RECTAL DAILY PRN 06/30/22 06/30/22 History Allergies Allergy/AdvReac Type Severity Reaction Status Date / Time No Known Allergies Allergy Verified 06/30/22 17:44 Physical Examination - Vital Signs Vital Signs: Vital Signs Temp Pulse Resp BP Pulse Ox 07/04/22 14:00 64 17 07/04/22 11:48 98 F 64 17 105/56 99 07/04/22 08:54 97 07/04/22 08:00 98.3 F 64 17 115/65 100 07/04/22 04:00 98 F 72 18 106/53 100 07/04/22 02:00 72 18 07/04/22 00:00 98.0 F 65 18 110/58 100 07/03/22 20:15 97.8 F 72 20 102/58 100 07/03/22 16:00 97.9 F 77 14 112/60 97 Intake and Output 07/03/22 07/04/22 07/04/22 22:59 06:59 14:59 Intake Total 340 Output Total 1100 Balance 340 -1100 Intake: Oral 340 Output: Urine 1100 Uretheral (Gomez) 700 Other: Voiding Method Indwelling Catheter Indwelling Catheter Indwelling Catheter # Bowel Movements 1 Patient is an elderly Afro-Greek female, morbidly obese, appears encephalopathic. She sometimes moaning. Patient is groggy, encephalopathic, but does wake up and sometimes answers appropriately. Patient knows it is June 2022 and that she is in [facility]. Speech and language functions are normal. No obvious aphasia or dysarthria. Attention, concentration and fund of knowledge is limited. On cranial nerve examination, pupils are equal 4-5 mm, round and reacting to light, visual harvey patient did not cooperate well with testing today. Extraocular muscles are intact with no nystagmus. Patient has proptosis. Face is symmetric, tongue protrudes to the midline. Patient did not cooperate for palatal testing. Hearing appears intact. Shoulder shrug normal, facial sensation normal. On muscle strength testing, patient did not cooperate well. 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 Deltoids patient did not cooperate, because of lethargy illness, she would not hold it up. She would lift her hands up with elbow on the bed, and either because of fatigue or from with 1 myoclonic jerk, she would bring it down. No myoclonic jerks noted at rest. In the lower extremities, patient would move at about 2 in bilateral hips and knees. Ankle dorsiflexion appears normal bilaterally. Deep tendon reflexes are very hypoactive, and plantars are flat. Sensory to touch is equal. Cerebellar function patient did not cooperate for testing. Tone and bulk of muscles normal. Gait deferred.. On general examination, there is no carotid bruit or murmur, S1-S2 audible. Chest is clear on consultation. Abdomen is soft nontender. No organomegaly, bowel sounds present. Patient has mild to moderate pitting edema bilaterally in the lower limbs. Patient has hyperpigmentation of the skin of the right lower leg cool area. Results - Laboratory Findings CBC and BMP: 07/04/22 05:54 07/04/22 05:54 Abnormal Lab Findings: Abnormal Labs 06/30/22 06/30/22 06/30/22 16:38 16:38 16:38 WBC 3.0 L RBC 3.41 L Hgb 9.9 L Hct MCV 100.7 H MCHC 28.7 L RDW 19.4 H Plt Count 130 L Lymphocytes # Lymphocytes # (Manual) 0.66 L Nucleated RBCs 3 H APTT 31.9 H Sodium Potassium 5.2 H Chloride 112 H BUN 58 H Creatinine 2.22 H Glucose POC Glucose (mg/dL) Calcium Ammonia Albumin Procalcitonin TSH 5.440 H Urine Appearance Urine Protein Ur Leukocyte Esterase Urine RBC Urine WBC Urine WBC Clumps Ur Squamous Epith Cells Urine Bacteria Hyaline Casts Urine Mucus Stool Occult Blood 06/30/22 07/01/22 07/01/22 20:55 02:45 02:45 WBC RBC Hgb Hct MCV MCHC RDW Plt Count Lymphocytes # Lymphocytes # (Manual) Nucleated RBCs APTT 86.1 H Sodium Potassium Chloride BUN Creatinine 2.21 H Glucose POC Glucose (mg/dL) Calcium Ammonia Albumin Procalcitonin TSH Urine Appearance Cloudy H Urine Protein 1+ H Ur Leukocyte Esterase Large H Urine RBC 15 H Urine WBC 59 H Urine WBC Clumps Few H Ur Squamous Epith Cells 5 H Urine Bacteria Rare H Hyaline Casts 13 H Urine Mucus Rare H Stool Occult Blood 07/01/22 07/01/22 07/01/22 06:24 09:47 14:40 WBC RBC Hgb Hct MCV MCHC RDW Plt Count Lymphocytes # Lymphocytes # (Manual) Nucleated RBCs APTT 57.5 H Sodium Potassium Chloride BUN Creatinine Glucose POC Glucose (mg/dL) 63 L 117 H Calcium Ammonia Albumin Procalcitonin TSH Urine Appearance Urine Protein Ur Leukocyte Esterase Urine RBC Urine WBC Urine WBC Clumps Ur Squamous Epith Cells Urine Bacteria Hyaline Casts Urine Mucus Stool Occult Blood 07/01/22 07/01/22 07/01/22 15:30 15:57 15:57 WBC RBC 3.01 L Hgb 8.9 L Hct 31.1 L MCV 103.5 H MCHC 28.5 L RDW 19.5 H Plt Count 118 L Lymphocytes # 0.9 L Lymphocytes # (Manual) Nucleated RBCs APTT Sodium Potassium 5.6 H Chloride 114 H BUN 62 H Creatinine 2.75 H Glucose 102 H POC Glucose (mg/dL) Calcium 8.2 L Ammonia Albumin 3.3 L Procalcitonin 0.12 H TSH Urine Appearance Urine Protein Ur Leukocyte Esterase Urine RBC Urine WBC Urine WBC Clumps Ur Squamous Epith Cells Urine Bacteria Hyaline Casts Urine Mucus Stool Occult Blood 07/02/22 07/03/22 07/03/22 09:23 10:04 11:49 WBC RBC Hgb Hct MCV MCHC RDW Plt Count Lymphocytes # Lymphocytes # (Manual) Nucleated RBCs APTT Sodium 146 H Potassium 5.5 H 5.5 H Chloride 113 H 115 H BUN 62 H 66 H Creatinine 3.11 H 2.78 H Glucose 102 H POC Glucose (mg/dL) Calcium Ammonia 138 H Albumin Procalcitonin TSH Urine Appearance Urine Protein Ur Leukocyte Esterase Urine RBC Urine WBC Urine WBC Clumps Ur Squamous Epith Cells Urine Bacteria Hyaline Casts Urine Mucus Stool Occult Blood 07/03/22 07/03/22 07/04/22 16:33 19:55 05:54 WBC RBC 2.99 L Hgb 8.8 L Hct 30.6 L MCV 102.1 H MCHC 28.9 L RDW 20.4 H Plt Count 93 L Lymphocytes # Lymphocytes # (Manual) Nucleated RBCs APTT Sodium Potassium Chloride BUN Creatinine Glucose POC Glucose (mg/dL) 135 H Calcium Ammonia Albumin Procalcitonin TSH Urine Appearance Urine Protein Ur Leukocyte Esterase Urine RBC Urine WBC Urine WBC Clumps Ur Squamous Epith Cells Urine Bacteria Hyaline Casts Urine Mucus Stool Occult Blood Positive H 07/04/22 07/04/22 07/04/22 05:54 06:06 11:34 WBC RBC Hgb Hct MCV MCHC RDW Plt Count Lymphocytes # Lymphocytes # (Manual) Nucleated RBCs APTT Sodium Potassium Chloride 113 H BUN 66 H Creatinine 2.72 H Glucose 112 H POC Glucose (mg/dL) 138 H 115 H Calcium Ammonia Albumin Procalcitonin TSH Urine Appearance Urine Protein Ur Leukocyte Esterase Urine RBC Urine WBC Urine WBC Clumps Ur Squamous Epith Cells Urine Bacteria Hyaline Casts Urine Mucus Stool Occult Blood Assessment and Plan Assessment: * Altered mental status, likely due to toxic metabolic encephalopathy. * Acute on chronic renal insufficiency * Stool occult blood positive. 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 * Morbid obesity * Nonambulatory status. * Depression Plan: * Patient's altered mental status is likely due to toxic metabolic encephalopath y. * Patient has acute on chronic renal insufficiency. IM to address. * Patient undergoing EEG. * CT had reported by radiologist as diffuse edema. I reviewed her current computed tomography scan and reviewed with her previous CT head from 10/13/2021, was essentially unchanged. No further workup needed. * Previous workup as below was unremarkable, no need to repeat. * Carotid Doppler 10/13/2021 revealed no stenosis in the ICA. Antegrade flow in the vertebral arteries. * 2-D echo 07/02/2022 revealed normal left ventricular size and reduced left- ventricular systolic function with EF 40-45%. Septal hypokinesis. Severely dilated right atrium. Left atrial enlargement. * Consider starting aspirin 81 mg daily. * Fasting lipid panel cholesterol 135, LDL 60, HDL 60 and triglycerides 68. Continue Lipitor 40 mg daily. Continue aspirin daily. * Hemoglobin A1c 5.3. * B12 541, folate 40.0. TSH mildly elevated 5.44, will defer to IM. * DVT prophylaxis, start heparin 5000 units subcu every 8 hours. * Thank you for the consult.
--- NOTE | 2022-07-04 16:15 | P.PN ---
Progress Note - Text Progress Note Date: 07/04/22 Chief Complaint: Not feeling well This is a pleasant 72-year-old patient of follows with Dr. Carranza. At [facility]. Chronic stable medical conditions include GERD, hypertension, osteoarthritis, peripheral neuropathy. CK D. Patient was brought in from the [facility] by EMS. Patient had been complaining of dizzy lightheaded not feeling well. Some numbness tingling. Patient's found to be hypothermic in the ER. It may be noted that patient has glucose tablets at the [facility]. And Accu-Cheks and blood glucose running low. Patient urine was dirty appearing. Denies any chest pain or shortness of breath. Has had decreased appetite. Denied any obvious fever and chills. 07/02/2022: Tired. Poor appetite. Placed on D5.45. Schedules glucose tablets. Discussed with the patient increase oral intake. 07/03/2022: Remains diet. Sleepy. Does wake up to answer questions. Taking her medications. Not really eating. Spoke at length with the patient. Willing to eat some. Consult psychiatry for depression. 07/04/2022: Patient's ammonia level came back elevated yesterday. Patient put on lactulose. Remains lethargic. Not eating. We'll proceed to do an EEG and a computed tomography scan of the brain. Consult neurology. Neurology compared to current computed tomography scan from prior computed tomography scan. Unchanged. Active Medications Acetaminophen (Acetaminophen Tab 325 Mg Tab) 650 mg PO Q6HR PRN PRN Reason: Mild Pain or Fever > 100.5 Hydrocodone Bitart/Acetaminophen (Hydrocodone/Apap 10-325mg 1 Each Tab) 1 each PO Q6H PRN PRN Reason: Moderate to Severe Pain (4-10) Albuterol Sulfate (Albuterol Hfa Inhaler) 2 puff INHALATION RT-Q4H PRN PRN Reason: Shortness Of Breath Last Admin: 07/02/22 14:43 Dose: 2 puff Ascorbic Acid (Ascorbic Acid 500 Mg Tab) 1,000 mg PO DAILY@1700 JAIMIE Last Admin: 07/03/22 18:00 Dose: 1,000 mg Bisacodyl (Bisacodyl 10 Mg Supp) 10 mg RECTAL DAILY PRN PRN Reason: Constipation Cholecalciferol (Cholecalciferol 25 Mcg (1000 Iu) Tablet) 25 mcg PO DAILY@1700 [facility] Last Admin: 07/03/22 18:00 Dose: 25 mcg Clotrimazole (Clotrimazole 1% Cream 30 Gm Tube) 1 applic TOPICAL BID@0800,2100 [facility] Last Admin: 07/04/22 10:02 Dose: 1 applic Duloxetine HCl (Duloxetine Hcl 30 Mg Capsule.Dr) 30 mg PO DAILY [facility] Last Admin: 07/04/22 10:03 Dose: 30 mg Ferrous Sulfate (Ferrous Sulfate 325 Mg Tab) 325 mg PO DAILY@0800 [facility] Last Admin: 07/04/22 10:03 Dose: 325 mg Folic Acid (Folic Acid 1 Mg Tab) 1 mg PO DAILY@1700 [facility] Last Admin: 07/03/22 17:59 Dose: 1 mg Glucose (Dextrose 4 Gm Chewable) 32 gm PO QID [facility] Last Admin: 07/04/22 14:37 Dose: Not Given Heparin Sodium (Porcine) (Heparin Sodium,Porcine/Pf 5,000 Unit/0.5 Ml Syringe) 5,000 unit SQ Q8HR [facility] Dextrose/Sodium Chloride (Dextrose 5%-1/2ns Iv Soln) 1,000 mls @ 125 mls/hr IV .Q8H [facility] Last Admin: 07/03/22 22:17 Dose: 125 mls/hr Lactic Acid (Ammonium Lactate 12% Lotion 225 Gm Btl) 1 applic TOPICAL BID [facility]; Protocol Last Admin: 07/04/22 10:03 Dose: 1 applic Lactulose (Lactulose 20 Gm/30 Ml Cup) 20 gm PO BID [facility] Last Admin: 07/04/22 10:02 Dose: 20 gm Levothyroxine Sodium (Levothyroxine 50 Mcg Tab) 50 mcg PO DAILY@0630 [facility] Last Admin: 07/04/22 06:37 Dose: 50 mcg Magnesium Hydroxide (Magnesium Hydroxide 2,400 Mg/10 Ml Cup) 2,400 mg PO Q48H PRN PRN Reason: Constipation Methyl Salicylate (Methyl Salicylate-Menthol Oint (3 Oz Tube)) 1 applic TOPICAL DAILY PRN PRN Reason: neck & shoulder pain Last Admin: 07/02/22 05:48 Dose: 1 applic Metoprolol Tartrate (Metoprolol Tartrate 25 Mg Tab) 25 mg PO BID [facility] Last Admin: 07/04/22 10:03 Dose: 25 mg Naloxone HCl (Naloxone 0.4 Mg/Ml 1 Ml Vial) 0.2 mg IV Q2M PRN PRN Reason: Opioid Reversal Ondansetron HCl (Ondansetron 4 Mg/2 Ml Vial) 4 mg IVP Q8HR PRN PRN Reason: Nausea And Vomiting Past medical history to include: GERD, hypertension, osteoarthritis, peripheral neuropathy, CK D Social history: At [facility] No smoking. Alcohol rarely. Physical examination: VITAL SIGNS: 98, 64, 17, 105/56, 99% on 2 L GENERAL: Reclining in bed, lethargic but arousable EYES: Pupils equal. Conjunctiva normal. HEENT: External appearance of nose and ears normal, oral cavity grossly normal. NECK: JVD unable to assess; masses not palpable. HEART: First and second heart sounds are normal; no edema. LUNGS: Respiratory rate normal; distant breath sounds. ABDOMEN: Soft, nontender, liver spleen not palpable, no masses palpable. PSYCH: Lethargic tired but able to answer questions. Possibly depressed MUSCULOSKELETAL:No Clubbing/cyanosis;muscles-grossly intact. Chronic limited range of motion of right shoulder. NEUROLOGICAL: Cranial nerves grossly intact Power sensation grossly intact. LYMPHATICS: No lymph node palpable neck and axilla INVESTIGATIONS, reviewed in the clinical context: CT brain without contrast: Questionable edema. 07/04/2022: White count 5.6 albumin 8.8 platelets 93 potassium 4.8 BUN 66 creatinine 2.7 to 07/03/2022: Potassium 5.5 chloride 115 BUN 66 creatinine 2.78 ammonia 138 07/02/2022: Potassium 5.5 BUN 62 creatinine 3.11. Procalcitonin 0.12 White count 3 hemoglobin 9.9 platelets 1:30 sodium 145 potassium 5.2 BUN 58 creatinine 2.2 to TSH 5.4 UA: Protein 1+ leukoesterase positive WBC 59 bacteria rare EKG tracing personally reviewed by me-atrial fibrillation. PVC. Rate 92 Chest x-ray film personally reviewed by me-underpenetrated due to obesity. Possible right basilar infiltrate/effusion Previous testin-D echocardiogram [September 2021] EF 55-60% 05/17/2022: Creatinine 1.5 Assessment and plan: -Severe hypothermia, multifactorial. Admission rectal temperature 93 degrees: B gretel IV fluids at room temperature -Acute metabolic encephalopathy from hyperammonemia. Not improving lactulose. Neurology consulted. No focal findings. Computed tomography scan unchanged from prior computed tomography scan per neurology. EEG pending -Probable right lower lobe pneumonia suspect gram-negative organism IV ceftriaxone -Hypoglycemia and decreased oral intake. Glucose tablets. D5 0.45 -Hyper-ammonemia, cause unclear lactulose 20 g every 12. Titrate for 2-3 BMs a day. -Morbid obesity BMI 72.1 Weight loss measures -Primary osteoarthritis [place] 10 every 6 when necessary -Peripheral neuropathy -Hypothyroid Synthroid 50 g a day -Probable depression Consults psychiatry -GERD Prilosec 20mg -Hyperkalemia in the setting of renal failure: Better Low potassium diet. Lokelma. -Acute kidney injury, possibly prerenal: From decreased oral intake: Slow to respond Continue IV fluids - CKD, stage III likely nephrosclerosis Creatinine 1.5 in April 2022 -Chronic medical debility -DO NOT RESUSCITATE Continue D5 0.45. Continue glucose tablets. IV ceftriaxone. lactulose 12 g every 12 . Neurology consulted. EEG pending
[2022-07-04 16:18] LABS: Glucose,Whole Blood 105 mg/dL (70-110)
[2022-07-04] MEDS: DEXTROSE 5%-0.45% NACL 1,000 ML IV SCH ×2 (16:43→20:39)
[2022-07-04] MEDS: HEPARIN SODIUM,PORCINE/PF 5,000 UNIT/0.5 ML SYRINGE SQ SCH (16:45)
[2022-07-04] MEDS: CHOLECALCIFEROL 25 MCG (1000 IU) TABLET PO SCH (18:15)
[2022-07-04] MEDS: ASCORBIC ACID 500 MG TAB PO SCH (18:15)
[2022-07-04] MEDS: FOLIC ACID 1 MG TAB PO SCH (18:16)
[2022-07-04 21:09] LABS: Glucose,Whole Blood 140 mg/dL (70-110)
[2022-07-05] MEDS: HEPARIN SODIUM,PORCINE/PF 5,000 UNIT/0.5 ML SYRINGE SQ SCH ×3 (00:46→16:55)
[2022-07-05] MEDS: DEXTROSE 5%-0.45% NACL 1,000 ML IV SCH (05:01)
[2022-07-05] MEDS: LEVOTHYROXINE 50 MCG TAB PO SCH (06:05)
[2022-07-05 06:13] LABS: Glucose,Whole Blood 135 mg/dL (70-110)
[2022-07-05 06:53] LABS: Calcium 8.4 mg/dL (8.4-10.2)
[2022-07-05 07:08] LABS: Anisocytosis Slight; Basophils % (A) 1 %; Eosinophils # (A) 0.1 k/uL (0-0.7); Eosinophils % (A) 1 %; HCT 33.9 % (34.0-46.0); HGB 9.4 gm/dL (11.4-16.0); Hypochromasia Marked; Lymphocytes # (A) 0.8 k/uL (1.0-4.8); Lymphocytes % (A) 16 %; MCH 29.1 pg (25.0-35.0); MCHC 27.7 g/dL (31.0-37.0); MCV 105.1 fL (80.0-100.0); Macrocytosis Marked; Mean Platelet Volume 9.6; Monocytes # (A) 0.4 k/uL (0-1.0); Monocytes % (A) 7 %; Neutrophils # (A) 3.6 k/uL (1.3-7.7); Neutrophils % (A) 72 %; Poikilocytosis Slight; RBC 3.23 m/uL (3.80-5.40); RDW 19.6 % (11.5-15.5); WBC 5.1 k/uL (3.8-10.6)
[2022-07-05 07:15] LABS: Platelet Count 93 k/uL (150-450)
[2022-07-05] MEDS: METOPROLOL TARTRATE 25 MG TAB PO SCH ×2 (08:55→20:42)
[2022-07-05] MEDS ORDERED: APIXABAN 5 MG TAB PO SCH (09:00)
[2022-07-05] MEDS: DEXTROSE 4 GM CHEWABLE PO SCH ×4 (09:48→21:16)
[2022-07-05] MEDS: CLOTRIMAZOLE 1% CREAM 30 GM TUBE TOPICAL SCH ×2 (09:51→21:15)
[2022-07-05] MEDS: AMMONIUM LACTATE 12% LOTION 225 GM BTL TOPICAL SCH ×2 (09:51→21:15)
--- NOTE | 2022-07-05 10:48 | P.PN ---
Subjective Progress Note Date: 07/05/22 HISTORY OF PRESENT ILLNESS: This is a 72-year-old female with a past medical history significant for chronic kidney disease, neuropathy, GERD, and morbid obesity. 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 We have been asked to see the patient in consultation for new onset atrial fibrillation. Patient examined at the bedside. Patient came to the ER from [facility] due to hypothermia. The patient is wheelchair bound as baseline per documentation. She was found to be in atrial fibrillation. The patient denies a previous history of atrial fibrillation. The patient currently denies chest pain or pressure. She denies shortness of breath. She denies a history of coronary artery disease. * EKG reveals atrial fibrillation with controlled ventricular rate * Chest xray congestive heart failure with bilateral pleural effusions. Pleural fluid and pulmonary congestion increased compared to old exam * Laboratory data: WBC 5.0. Hemoglobin 8.9. Platelet count 118. Sodium 145. Potassium 5.5. BUN 62. Creatinine 3.11. * Current home cardiac medications include Lasix 40 mg daily * Most recent echocardiogram obtained in September 2021 revealed ejection fraction 55-60% and mild tricuspid regurgitation 07/03/2022 Patient examined this morning at the bedside. Patient remains somewhat lethargic. She denies chest pain or pressure. Denies shortness of breath. Telemetry reveals atrial fibrillation with heart rate in the 70s. Echocardiogram completed revealing ejection fraction 40-45% with moderate mitral regurgitation. Creatinine today 2.78. Potassium 5.5. Ammonia level 138. 07/04/2022 Patient examined this morning. Patient is somewhat lethargic. She denies chest pain or pressure. Denies SOB. Vital signs are stable. Hemoglobin this morning 8.8. Stool for occult blood is positive. 07/05/2022 Examined this morning to bedside. Patient is lethargic at the time of examination. She does state though that she is feeling better. Telemetry reveals atrial fibrillation with controlled ventricular rates. Hemoglobin this morning remains stable at 9.4. PHYSICAL EXAM: VITAL SIGNS: Reviewed. GENERAL: Well-developed in no acute distress. HEENT: Head is normocephalic. Pupils are equal, round. Sclerae anicteric. Mucous membranes of the mouth are moist. Neck supple. No JVD or thyromegaly LUNGS: Respirations even and unlabored. Lungs essentially clear to auscultation bilaterally. HEART: Irregular rate and rhythm. S1 and S2 heard. EXTREMITIES: Normal range of motion. No clubbing or cyanosis. Peripheral pulses intact. Trace upper and lower extremity edema ASSESSMENT: Hypothermia Right lower lobe pneumonia New onset persistent atrial fibrillation with controlled ventricular rate Hyperkalemia Acute on chronic kidney disease History of hypoglycemia GERD Neuropathy Morbid obesity Elevated TSH, patient started on synthroid Anemia PLAN: Continue additional cardiac medications Continue telemetry monitoring Resume Eliquis. Monitor hemoglobin Stable from a cardiac standpoint. We will sign off. Please reconsult if needed. Nurse practitioner note has been reviewed by physician. Signing provider agrees with the documented findings, assessment, and plan of care. Objective - Vital Signs Vital signs: Vital Signs Temp 98.4 F 07/05/22 08:10 Pulse 52 L 07/05/22 08:10 Resp 19 07/05/22 08:10 BP 90/50 07/05/22 08:10 Pulse Ox 98 07/05/22 08:45 FiO2 Intake & Output 07/04/22 07/05/22 07/05/22 18:59 06:59 18:59 Output Total 150 Balance -150 Output: Urine 150 Other: Voiding Method Indwelling Catheter Indwelling Catheter Indwelling Catheter # Voids 1 # Bowel Movements 1 - Labs CBC & Chem 7: 07/05/22 05:55 07/05/22 05:55 Labs: Abnormal Lab Results - Last 24 Hours (Table) 07/04/22 07/04/22 07/04/22 Range/Units 05:54 11:34 21:06 RBC (3.80-5.40) m/uL Hgb (11.4-16.0) gm/dL Hct (34.0-46.0) % MCV (80.0-100.0) fL MCHC (31.0-37.0) g/dL RDW (11.5-15.5) % Plt Count (150-450) k/uL Lymphocytes # (1.0-4.8) k/uL Macrocytosis Chloride 113 H (98-107) mmol/L BUN 66 H (7-17) mg/dL Creatinine 2.72 H (0.52-1.04) mg/dL Glucose 112 H (74-99) mg/dL POC Glucose (mg/dL) 115 H 140 H (70-110) mg/dL Ammonia (<30) umol/L 07/05/22 07/05/22 07/05/22 Range/Units 05:55 05:55 05:55 RBC 3.23 L (3.80-5.40) m/uL Hgb 9.4 L (11.4-16.0) gm/dL Hct 33.9 L (34.0-46.0) % MCV 105.1 H (80.0-100.0) fL MCHC 27.7 L (31.0-37.0) g/dL RDW 19.6 H (11.5-15.5) % Plt Count 93 L (150-450) k/uL Lymphocytes # 0.8 L (1.0-4.8) k/uL Macrocytosis Marked A Chloride 113 H (98-107) mmol/L BUN 67 H (7-17) mg/dL Creatinine 2.87 H (0.52-1.04) mg/dL Glucose 139 H (74-99) mg/dL POC Glucose (mg/dL) (70-110) mg/dL Ammonia 166 H (<30) umol/L 07/05/22 Range/Units 06:11 RBC (3.80-5.40) m/uL Hgb (11.4-16.0) gm/dL Hct (34.0-46.0) % MCV (80.0-100.0) fL MCHC (31.0-37.0) g/dL RDW (11.5-15.5) % Plt Count (150-450) k/uL Lymphocytes # (1.0-4.8) k/uL Macrocytosis Chloride (98-107) mmol/L BUN (7-17) mg/dL Creatinine (0.52-1.04) mg/dL Glucose (74-99) mg/dL POC Glucose (mg/dL) 135 H (70-110) mg/dL Ammonia (<30) umol/L Microbiology - Last 24 Hours (Table) 06/30/22 18:55 Blood Culture - Preliminary Blood No Growth after 96 hours
[2022-07-05] MEDS ORDERED: FUROSEMIDE 10 MG/ML 4 ML VIAL IV STA (10:51)
[2022-07-05] MEDS ORDERED: DEXTROSE 5%-0.45% NACL 1,000 ML IV SCH (11:00)
--- NOTE | 2022-07-05 11:17 | P.NPCON ---
History of Present Illness - Reason for Consult acute renal failure, chronic renal failure - History of Present Illness Reason for consultation: Acute kidney injury on chronic kidney disease History of present illness: Patient is a 72-year-old female seen in consultation for acute kidney injury on chronic kidney disease. Patient has chronic kidney disease stage IIIB with baseline creatinine in the range of 1.3-1.5 in February and March 2022. This admission her creatinine was 2.22 and peaked at 3.1 on 07/02/2022. It is 2.87 today. She has a Gomez catheter. Urine output has been on the lower side. Oral intake is poor. She is receiving D5 half normal saline running at 1 25 mL an hour. Patient presented to the hospital from [facility] due to new onset A. fib. She is being followed by cardiology and is maintained on Lopressor. Patient has history of systolic CHF with ejection fraction of 40-45% with moderate mitral regurgitation, aortic regurgitation and pulmonary hypertension. Also noted to have severe tricuspid regurgitation. Patient is currently quite lethargic. She is not answering questions at this time. She is also on antibiotics for UTI as well as bacteremia. Urine culture positive for Proteus and blood culture positive for staph epidermidis. Vital signs are stable. General: Lethargic. HEENT: Head exam is unremarkable. On nasal cannula. LUNGS: No audible rhonchi or wheezes. HEART: Rate and Rhythm are regular. ABDOMEN: Obese. EXTREMITITES: Trace edema. Past Medical History Past Medical History: GERD/Reflux, Hypertension, Osteoarthritis (OA) Additional Past Medical History / Comment(s): has been on oral hyperglycemic medications in the past but pcp has taken her off of meds; neuropathy History of Any Multi-Drug Resistant Organisms: MRSA Date of last positivie culture/infection: 2011 MDRO Source:: L Knee Past Surgical History: Hernia Repair, Joint Replacement Additional Past Surgical History / Comment(s): total knee bilateral, left became infected component removed and antibiotic spacer placed. 3 years ago was on iv antibiotics and in rehab for 8 months follwing this Past Anesthesia/Blood Transfusion Reactions: No Reported Reaction Past Psychological History: No Psychological Hx Reported Smoking Status: Former smoker Past Alcohol Use History: None Reported Past Drug Use History: None Reported - Past Family History Mother Family Medical History: Cancer Father Family Medical History: Myocardial Infarction ([place]) Medications and Allergies Home Medications Medication Instructions Recorded Confirmed Type Acetaminophen [Tylenol] 650 mg PO Q4H PRN 01/29/22 06/30/22 History Dextrose Chew [Glucose Chew Tab] 32 gm PO QID PRN 01/29/22 06/30/22 History Ipratropium-Albuterol Nebulize 3 ml INHALATION RT-Q6H PRN 01/29/22 06/30/22 History [Duoneb 0.5 mg-3 mg/3 ml Soln] Cefuroxime [Ceftin] 250 mg PO BID@0800,1700 06/26/22 06/30/22 History HYDROcodone/APAP 10-325MG [[place] 1 tab PO Q6H PRN 06/26/22 06/30/22 History 10-325] Albuterol Sulfate [Ventolin HFA] 1 puff INHALATION RT-Q4H PRN 06/30/22 06/30/22 History Ammonium Lactate Lotion 1 applic TOPICAL BID 06/30/22 06/30/22 History [Lac-Hydrin 12% Lotion] Ascorbic Acid [Vitamin C] 1,000 mg PO DAILY@1700 06/30/22 06/30/22 History Cholecalciferol [Vitamin D3 (25 25 mcg PO DAILY@0 06/30/22 06/30/22 History Mcg = 1000 Iu)] Ciclopirox Olamine [Loprox 0.77% 1 applic TOPICAL BID@0800,2100 06/30/22 06/30/22 History cream] Ferrous Sulfate [Iron (65 MG 325 mg PO DAILY@0800 06/30/22 06/30/22 History Elemental)] Folic Acid 1 mg PO DAILY@1700 06/30/22 06/30/22 History Furosemide [Lasix] 40 mg PO DAILY@0600 06/30/22 06/30/22 History Loperamide HCl [Imodium A-D] 2 - 4 mg PO QID PRN 06/30/22 06/30/22 History Magnesium Hydroxide [Milk of 7,200 mg PO Q48H PRN 06/30/22 06/30/22 History Magnesia Concentrate] Menthol [Biofreeze] 1 applic TOPICAL DAILY PRN 06/30/22 06/30/22 History Omeprazole Magnesium [PriLOSEC OTC] 20 mg PO HS 06/30/22 06/30/22 History bisacodyL 10 mg RECTAL DAILY PRN 06/30/22 06/30/22 History Allergies Allergy/AdvReac Type Severity Reaction Status Date / Time No Known Allergies Allergy Verified 06/30/22 17:44 Physical Exam Vitals: Vital Signs Temp Pulse Resp BP Pulse Ox 07/05/22 08:45 98 07/05/22 08:10 98.4 F 52 L 19 90/50 97 07/05/22 08:00 52 L 19 07/05/22 04:30 98 F 60 19 105/54 99 07/05/22 02:00 18 07/05/22 00:00 98.1 F 73 18 99/54 100 07/04/22 20:00 72 20 07/04/22 19:49 98.5 F 72 20 105/58 100 07/04/22 16:00 98.4 F 59 L 19 98/53 100 07/04/22 14:00 64 17 07/04/22 11:48 98 F 64 17 105/56 99 Intake and Output 07/04/22 07/05/22 07/05/22 22:59 06:59 14:59 Output Total 150 Balance -150 Output: Urine 150 Other: Voiding Method Indwelling Catheter Indwelling Catheter Indwelling Catheter # Voids 1 # Bowel Movements 1 Results - Lab Results Most recent lab results Calcium 8.4 mg/dL (8.4-10.2) 07/05/22 05:55 Magnesium 2.3 mg/dL (1.6-2.3) 06/30/22 16:38 07/05/22 05:55 07/05/22 05:55 Assessment and Plan Plan: Assessment: 1. Acute kidney injury secondary to hemodynamic ATN. Creatinine peaked at 3.1 this admission and is 2.87 today. 2. Chronic kidney disease stage IIIB with baseline creatinine 1.3-1.5 from February and March 2022. Etiology is likely nephrosclerosis. 3. A. fib with RVR. Now rate controlled. Cardiology following. On Lopressor. 4. Anemia of chronic kidney disease. Rule out iron deficiency. 5. Chronic systolic CHF with ejection fraction of 40-45% with moderate mitral regurgitation, aortic regurgitation and pulmonary hypertension; severe tricuspid regurgitation. 6. Proteus UTI and staph epidermidis bacteremia on antibiotics. 7. Hypernatremia from lack of oral water intake. 8. Volume overload. Vascular congestion pleural effusions are noted on chest x-ray. Plan: Change IV fluids to D5W at 75 mL an hour. Add IV Lasix 40 mg once daily. Maintain Gomez catheter. Check renal ultrasound. Avoid nephrotoxins. Check iron studies. Continue to monitor renal function and urine output. Thank you for the consultation. I will continue to follow the patient during her hospital stay.
[2022-07-05] MEDS: FERROUS SULFATE 325 MG TAB PO SCH (11:23)
[2022-07-05] MEDS: DULoxetine HCL 30 MG CAPSULE.DR PO SCH (11:23)
[2022-07-05] MEDS: LACTULOSE 20 GM/30 ML CUP PO SCH ×2 (11:24→20:45)
[2022-07-05] MEDS: DEXTROSE 5% IN WATER 1,000 ML IV SCH (11:24)
[2022-07-05 11:42] LABS: Glucose,Whole Blood 130 mg/dL (70-110)
[2022-07-05 12:33] LABS: ABG Base Excess -5.5 mmol/L; ABG HCO3 25 mmol/L (21-25); ABG PO2 103 mmHg (83-108); ABG TCO2 28 mmol/L (19-24); Allen Test Performed? Yes
[2022-07-05 12:38] LABS: ABG PCO2 97 mmHg (35-45); ABG PH 7.03 (7.35-7.45)
--- NOTE | 2022-07-05 13:07 | EEG ---
ELECTROENCEPHALOGRAM REPORT PREAMBLE: This is a 72-year-old female with altered mental status. EEG FINDINGS: This is a 21-channel digital EEG recorded with video component, utilizing 10/20 international system with referential and bipolar montages. Background consists of moderately well-developed, poorly regulated, somewhat low amplitude mixed frequencies of 6 hertz theta, with 2-3 hertz delta activity seen in bihemispheric region. Background does not seem to be reactive to eye opening or closing, and no response to photic stimulation. Different stages of sleep were not seen. No focal or generalized epileptiform activity was seen. IMPRESSION: This is an abnormal EEG due to background slowing of moderate to severe degree, suggestive of generalized cerebral dysfunction as can be seen with toxic metabolic encephalopathy or related to diffuse structural brain abnormality. Clinical correlation is recommended. No epileptiform activity was seen. MMODL / IJN: [id number] /
--- NOTE | 2022-07-05 13:16 | US ---
EXAMINATION TYPE: US kidneys/renal and bladder DATE OF EXAM: 07/05/2022 COMPARISON: CLINICAL HISTORY: jaspal. Abnormal labs. Patient has bladder pierre. Poor historian, patient unable to move. EXAM MEASUREMENTS: Right Kidney: 10.4 x 4.7 x 4.0 cm Right Kidney: Echogenic in appearance. Lower pole cortical cystic lesion = 0.8 x 0.8 x 0.7 cm Left Kidney: Not visualized on todays exam due to patient morbidly obese body habitus and unable to m ove for proper positioning Bladder: pierre seen Bilateral Jets not seen due to pierre There is no evidence for hydronephrosis at this point in time. No nephrolithiasis is seen. No natividad s are identified. The urinary bladder is anechoic. Bilateral ureteral jets are seen. IMPRESSION: 1. Echogenic appearance to the right kidney which likely relates to medical renal disease. 2. Left kidney unable to be visualized as above. 3. Bladder is underdistended and not well evaluated as it contains a Pierre catheter.
--- NOTE | 2022-07-05 14:39 | P.PN ---
Progress Note - Text Progress Note Date: 07/05/22 Chief Complaint: Not feeling well This is a pleasant 72-year-old patient of follows with Dr. Carranza. At [facility]. Chronic stable medical conditions include GERD, hypertension, osteoarthritis, peripheral neuropathy. CK D. Patient was brought in from the [facility] by EMS. Patient had been complaining of dizzy lightheaded not feeling well. Some numbness tingling. Patient's found to be hypothermic in the ER. It may be noted that patient has glucose tablets at the [facility]. And Accu-Cheks and blood glucose running low. Patient urine was dirty appearing. Denies any chest pain or shortness of breath. Has had decreased appetite. Denied any obvious fever and chills. 07/02/2022: Tired. Poor appetite. Placed on D5.45. Schedules glucose tablets. Discussed with the patient increase oral intake. 07/03/2022: Remains diet. Sleepy. Does wake up to answer questions. Taking her medications. Not really eating. Spoke at length with the patient. Willing to eat some. Consult psychiatry for depression. 07/04/2022: Patient's ammonia level came back elevated yesterday. Patient put on lactulose. Remains lethargic. Not eating. We'll proceed to do an EEG and a computed tomography scan of the brain. Consult neurology. Neurology compared to current computed tomography scan from prior computed tomography scan. Unchanged. 07/05/2022: Patient getting lactulose for hyperammonemia. Having to 3 BMs a day. Still remained lethargic. Not eating. Getting IV fluids. ABG ordered showed a pH of 7.03 and a pCO2 of 97. BiPAP and pulmonary consultation done. Likely underlying obesity hypoventilation syndrome. EEG suggestive of metabolic encephalopathy. Active Medications Acetaminophen (Acetaminophen Tab 325 Mg Tab) 650 mg PO Q6HR PRN PRN Reason: Mild Pain or Fever > 100.5 Hydrocodone Bitart/Acetaminophen (Hydrocodone/Apap 10-325mg 1 Each Tab) 1 each PO Q6H PRN PRN Reason: Moderate to Severe Pain (4-10) Albuterol Sulfate (Albuterol Hfa Inhaler) 2 puff INHALATION RT-Q4H PRN PRN Reason: Shortness Of Breath Last Admin: 07/02/22 14:43 Dose: 2 puff Apixaban (Apixaban 5 Mg Tab) 5 mg PO BID [facility]; Protocol Last Admin: 07/05/22 11:23 Dose: Not Given Ascorbic Acid (Ascorbic Acid 500 Mg Tab) 1,000 mg PO DAILY@1700 [facility] Last Admin: 07/04/22 18:15 Dose: Not Given Bisacodyl (Bisacodyl 10 Mg Supp) 10 mg RECTAL DAILY PRN PRN Reason: Constipation Cholecalciferol (Cholecalciferol 25 Mcg (1000 Iu) Tablet) 25 mcg PO DAILY@1700 [facility] Last Admin: 07/04/22 18:15 Dose: Not Given Clotrimazole (Clotrimazole 1% Cream 30 Gm Tube) 1 applic TOPICAL BID@0800,2100 [facility] Last Admin: 07/05/22 09:51 Dose: 1 applic Duloxetine HCl (Duloxetine Hcl 30 Mg Capsule.Dr) 30 mg PO DAILY [facility] Last Admin: 07/05/22 11:23 Dose: Not Given Ferrous Sulfate (Ferrous Sulfate 325 Mg Tab) 325 mg PO DAILY@0800 [facility] Last Admin: 07/05/22 11:23 Dose: Not Given Folic Acid (Folic Acid 1 Mg Tab) 1 mg PO DAILY@1700 [facility] Last Admin: 07/04/22 18:16 Dose: Not Given Furosemide (Furosemide 10 Mg/Ml 4 Ml Vial) 40 mg IV DAILY [facility] Glucose (Dextrose 4 Gm Chewable) 32 gm PO QID [facility] Last Admin: 07/05/22 09:48 Dose: Not Given Ceftriaxone Sodium 1 gm/ (Sodium Chloride) 50 mls @ 100 mls/hr IVPB Q24HR [facility]; Protocol Last Admin: 07/05/22 10:24 Dose: 100 mls/hr Dextrose/Water (Dextrose 5%-Water Iv Soln) 1,000 mls @ 75 mls/hr IV .[id number] [facility] Last Admin: 07/05/22 11:24 Dose: 75 mls/hr Lactic Acid (Ammonium Lactate 12% Lotion 225 Gm Btl) 1 applic TOPICAL BID [facility]; Protocol Last Admin: 07/05/22 09:51 Dose: 1 applic Lactulose (Lactulose 20 Gm/30 Ml Cup) 20 gm PO BID [facility] Last Admin: 07/05/22 11:24 Dose: Not Given Levothyroxine Sodium (Levothyroxine 50 Mcg Tab) 50 mcg PO DAILY@0630 [facility] Last Admin: 07/05/22 06:05 Dose: 50 mcg Magnesium Hydroxide (Magnesium Hydroxide 2,400 Mg/10 Ml Cup) 2,400 mg PO Q48H PRN PRN Reason: Constipation Methyl Salicylate (Methyl Salicylate-Menthol Oint (3 Oz Tube)) 1 applic TOPICAL DAILY PRN PRN Reason: neck & shoulder pain Last Admin: 07/02/22 05:48 Dose: 1 applic Metoprolol Tartrate (Metoprolol Tartrate 25 Mg Tab) 25 mg PO BID [facility] Last Admin: 07/05/22 08:55 Dose: Not Given Naloxone HCl (Naloxone 0.4 Mg/Ml 1 Ml Vial) 0.2 mg IV Q2M PRN PRN Reason: Opioid Reversal Ondansetron HCl (Ondansetron 4 Mg/2 Ml Vial) 4 mg IVP Q8HR PRN PRN Reason: Nausea And Vomiting Past medical history to include: GERD, hypertension, osteoarthritis, peripheral neuropathy, CK D Social history: At [facility] No smoking. Alcohol rarely. Physical examination: VITAL SIGNS: 97, 53, 19, 91/54, 97% on room air GENERAL: Reclining in bed, lethargic but arousable EYES: Pupils equal. Conjunctiva normal. HEENT: External appearance of nose and ears normal, oral cavity dry mucous membranes NECK: JVD unable to assess; masses not palpable. HEART: First and second heart sounds are normal; no edema. LUNGS: Respiratory rate normal; distant breath sounds. ABDOMEN: Soft, nontender, liver spleen not palpable, no masses palpable. PSYCH: Lethargic tired but able to answer questions. Possibly depressed MUSCULOSKELETAL:No Clubbing/cyanosis;muscles-grossly intact. Chronic limited range of motion of right shoulder. NEUROLOGICAL: Cranial nerves grossly intact Power sensation grossly intact. INVESTIGATIONS, reviewed in the clinical context: 07/05/2022: White count 5.1 hemoglobin 9.4 platelets 93 potassium 5 BUN 67 creatinine 2.87 ammonia 166 ABG on room air: PH 7.03 pCO2 97 pO2 103 EEG: Suggestive of metabolic encephalopathy. CT brain without contrast: Questionable edema. 07/04/2022: White count 5.6 albumin 8.8 platelets 93 potassium 4.8 BUN 66 creatinine 2.7 to 07/03/2022: Potassium 5.5 chloride 115 BUN 66 creatinine 2.78 ammonia 138 07/02/2022: Potassium 5.5 BUN 62 creatinine 3.11. Procalcitonin 0.12 White count 3 hemoglobin 9.9 platelets 1:30 sodium 145 potassium 5.2 BUN 58 creatinine 2.2 to TSH 5.4 UA: Protein 1+ leukoesterase positive WBC 59 bacteria rare EKG tracing personally reviewed by me-atrial fibrillation. PVC. Rate 92 Chest x-ray film personally reviewed by me-underpenetrated due to obesity. Possible right basilar infiltrate/effusion Previous testin-D echocardiogram [September 2021] EF 55-60% 05/17/2022: Creatinine 1.5 Assessment and plan: -Severe hypothermia, multifactorial. Admission rectal temperature 93 degrees: Better IV fluids at room temperature -Acute metabolic encephalopathy from hyperammonemia and CO2 narcosis. Not improving lactulose. Neurology consulted. No focal findings. Computed tomography scan unchanged from prior computed tomography scan per neurology. EEG shows encephalopathy. -Acute severe respiratory acidosis from obesity hypoventilation syndrome: New diagnosis Order BiPAP -Acute hypercapnic respiratory failure from obesity hypoventilation syndrome: New diagnosis Order BiPAP. Consult pulmonary. - right lower lobe pneumonia suspect gram-negative organism IV ceftriaxone -Severe obesity hypoventilation syndrome. BMI 72.1 -Hypoglycemia and decreased oral intake. Glucose tablets. D5 0.45 iv -Hyper-ammonemia, cause unclear lactulose 20 g every 12. Titrate for 2-3 BMs a day. -Morbid obesity BMI 72.1 Weight loss measures -Primary osteoarthritis [place] 10 every 6 when necessary -Peripheral neuropathy -Hypothyroid Synthroid 50 g a day -Probable depression Consults psychiatry -Morbid obesity BMI 72.1 Weight loss measures -GERD Prilosec 20mg -Hyperkalemia in the setting of renal failure: Better Low potassium diet. Lokelma. -Acute kidney injury, possibly prerenal: From decreased oral intake: Slow to respond Continue IV fluids - CKD, stage III likely nephrosclerosis Creatinine 1.5 in April 2022 -Chronic medical debility -DO NOT RESUSCITATE Continue D5 0.45. Continue glucose tablets. IV ceftriaxone. lactulose 12 g every 12 . Order BiPAP. Pulmonary consultation.
[2022-07-05] MEDS: ALBUTEROL HFA INHALER INHALATION PRN ×2 (15:35→20:37)
[2022-07-05] MEDS ORDERED: FUROSEMIDE 10 MG/ML 10 ML VIAL IV STA (16:14)
--- NOTE | 2022-07-05 16:14 | P.CNPUL ---
History of Present Illness Consult date: 07/05/22 Chief complaint: Altered mental status History of present illness: 72-year-old morbidly obese female patient, presented to the hospital because of not feeling well, dizziness, hypothermic and she was also found to be in acute kidney injury on top of chronic kidney disease and an underlying gram-negative urinary tract infection. I was asked to evaluate this patient as the patient was becoming more somnolent and sleepy and unresponsive. Blood gas that was done this morning showed an acute respiratory acidosis. Showing a pH of 7.03 with a pCO2 of 96 and pO2 of 103 and this was done on FiO2 of 24%. Based on that, the patient was placed on a BiPAP. Currently she is on a BiPAP pressures of 14/6 cm of water and FiO2 of 30%. They changed tidal volumes around 150 with a respiratory rate of 13. Increase IPAP up to 16 and she generating a tidal volume of around 270 mL. She remains very much somnolent and lethargic although there is some improvement in her level of alertness since she was started on a BiPAP. Morning blood gases were noted. The electrolytes show a sodium level of 144, potassium is at 5, bicarbonate 24, BUN is at 67 with a creatinine of 2.7. The response at 5.1 with a hemoglobin of 9.4. Urine culture was positive Proteus mirabilis. The patient is currently on IV Rocephin. Most recent hemodynamic parameters show a temperature of 97, pulse of 53, respiration of 16 and a blood pressure 91/54. Gomez catheter was inserted. The patient was given a dose of Lasix with essentially no urine output. Ultrasound of the kidneys were done and it showed no evidence of any hydronephrosis.. This patient is known to have some mild chronic systolic heart failure with an ejection fraction of 40-45%. She has severe enlargement of the RV with tricuspid regurgitation and severe pulmonary hypertension. Her EKG is co nsistent of atrial fibrillation. She is diabetic. She has hypertension. She has peripheral neuropathy, morbid obesity, I do not think she is maintaining on any form of noninvasive positive pressure ventilator at home. The chest x-ray that was done at the time of admission showed CHF with bilateral pleural effusion. Right-sided pleural effusion is quite large. CAT scan of the brain was done because of an altered mentation. The sulci appear to be less prominent and there was a question of cerebral edema. Based on that, neurology consultation was obtained. EEG was also done today that showed background slowing and moderate to severe generalized cerebral dysfunction consistent with encephalopathy. The patient was also seen by various consultants including nephrology and neurology and their consults are all appreciated. No reported aspiration. Review of Systems ROS unobtainable: due to mental status Past Medical History Past Medical History: GERD/Reflux, Hypertension, Osteoarthritis (OA) Additional Past Medical History / Comment(s): has been on oral hyperglycemic medications in the past but pcp has taken her off of meds; neuropathy History of Any Multi-Drug Resistant Organisms: MRSA Date of last positivie culture/infection: 2011 MDRO Source:: L Knee Past Surgical History: Hernia Repair, Joint Replacement Additional Past Surgical History / Comment(s): total knee bilateral, left became infected component removed and antibiotic spacer placed. 3 years ago was on iv antibiotics and in rehab for 8 months follwing this Past Anesthesia/Blood Transfusion Reactions: No Reported Reaction Past Psychological History: No Psychological Hx Reported Smoking Status: Former smoker Past Alcohol Use History: None Reported Past Drug Use History: None Reported - Past Family History Mother Family Medical History: Cancer Father Family Medical History: Myocardial Infarction ([place]) Medications and Allergies Home Medications Medication Instructions Recorded Confirmed Type Acetaminophen [Tylenol] 650 mg PO Q4H PRN 01/29/22 06/30/22 History Dextrose Chew [Glucose Chew Tab] 32 gm PO QID PRN 01/29/22 06/30/22 History Ipratropium-Albuterol Nebulize 3 ml INHALATION RT-Q6H PRN 01/29/22 06/30/22 History [Duoneb 0.5 mg-3 mg/3 ml Soln] Cefuroxime [Ceftin] 250 mg PO BID@0800,1700 06/26/22 06/30/22 History HYDROcodone/APAP 10-325MG [[place] 1 tab PO Q6H PRN 06/26/22 06/30/22 History 10-325] Albuterol Sulfate [Ventolin HFA] 1 puff INHALATION RT-Q4H PRN 06/30/22 06/30/22 History Ammonium Lactate Lotion 1 applic TOPICAL BID 06/30/22 06/30/22 History [Lac-Hydrin 12% Lotion] Ascorbic Acid [Vitamin C] 1,000 mg PO DAILY@1700 06/30/22 06/30/22 History Cholecalciferol [Vitamin D3 (25 25 mcg PO DAILY@1700 06/30/22 06/30/22 History Mcg = 1000 Iu)] Ciclopirox Olamine [Loprox 0.77% 1 applic TOPICAL BID@0800,2100 06/30/22 06/30/22 History cream] Ferrous Sulfate [Iron (65 MG 325 mg PO DAILY@0800 06/30/22 06/30/22 History Elemental)] Folic Acid 1 mg PO DAILY@1700 06/30/22 06/30/22 History Furosemide [Lasix] 40 mg PO DAILY@0600 06/30/22 06/30/22 History Loperamide HCl [Imodium A-D] 2 - 4 mg PO QID PRN 06/30/22 06/30/22 History Magnesium Hydroxide [Milk of 7,200 mg PO Q48H PRN 06/30/22 06/30/22 History Magnesia Concentrate] Menthol [Biofreeze] 1 applic TOPICAL DAILY PRN 06/30/22 06/30/22 History Omeprazole Magnesium [PriLOSEC OTC] 20 mg PO HS 06/30/22 06/30/22 History bisacodyL 10 mg RECTAL DAILY PRN 06/30/22 06/30/22 History Allergies Allergy/AdvReac Type Severity Reaction Status Date / Time No Known Allergies Allergy Verified 06/30/22 17:44 Physical Exam Vitals: Vital Signs Temp Pulse Resp BP Pulse Ox FiO2 07/05/22 15:59 98 F 57 L 15 93/54 97 30 07/05/22 15:33 30 07/05/22 13:10 30 07/05/22 11:21 97 F L 53 L 19 91/54 97 07/05/22 08:45 98 07/05/22 08:10 98.4 F 52 L 19 90/50 97 07/05/22 08:00 52 L 19 07/05/22 04:30 98 F 60 19 105/54 99 07/05/22 02:00 18 07/05/22 00:00 98.1 F 73 18 99/54 100 07/04/22 20:00 72 20 07/04/22 19:49 98.5 F 72 20 105/58 100 Intake and Output 07/05/22 07/05/22 07/05/22 06:59 14:59 22:59 Output Total 150 Balance -150 Output: Urine 150 Other: Voiding Method Indwelling Catheter Indwelling Catheter # Bowel Movements 1 Weight 190.509 kg Patient is very much somnolent and lethargic on a BiPAP at a pressure of 16/6 cm of water and FiO2 of 30%, she is morbidly obese Head exam was generally normal. There was no scleral icterus or corneal arcus. Mucous membranes were moist. Neck was supple and without jugular venous distension, thyromegaly, or carotid bruits. Carotids were easily palpable bilaterally. There was no adenopathy. No significant JVD could be appreciated Breath other quite diminished bilaterally. No wheezes or rhonchi. Marked image breast on the mid and lower lung harvey bilaterally. Heart sounds are irregular consistent with atrial fibrillation. Overall heart sounds are distant. Abdomen is obese. CANNOT be accurately felt. There is no ascites. No direct tenderness or rebound tenderness or guarding. Extremities reveal significant amount of edema mainly in the thighs. Pulses are diminished bilaterally. No open wounds or sores. The scars of previous knee replacement bilaterally. Examination of the skin revealed no evidence of significant rashes, suspicious appearing nevi or other concerning lesions. Neurologically, the patient opens her eyes spontaneously. She is sluggishly responsive to the painful stimulation. His moldable 4 extremities. Neurologic exam is nonfocal. Results - Laboratory Findings CBC and BMP: 07/05/22 05:55 07/05/22 05:55 ABG ABG pH 7.03 (7.35-7.45) L* 07/05/22 12:25 ABG pCO2 97 mmHg (35-45) H* 07/05/22 12:25 ABG pO2 103 mmHg (83-108) 07/05/22 12:25 ABG O2 Saturation 98.0 % (94-97) H 07/05/22 12:25 PT/INR, D-dimer PT 10.6 sec (9.0-12.0) 06/30/22 16:38 INR 1.0 (<1.2) 06/30/22 16:38 Abnormal lab findings: Abnormal Labs 06/30/22 06/30/22 06/30/22 16:38 16:38 16:38 WBC 3.0 L RBC 3.41 L Hgb 9.9 L Hct MCV 100.7 H MCHC 28.7 L RDW 19.4 H Plt Count 130 L Lymphocytes # Lymphocytes # (Manual) 0.66 L Nucleated RBCs 3 H Macrocytosis APTT 31.9 H ABG pH ABG pCO2 ABG Total CO2 ABG O2 Saturation Sodium Potassium 5.2 H Chloride 112 H BUN 58 H Creatinine 2.22 H Glucose POC Glucose (mg/dL) Calcium Ammonia Albumin Procalcitonin TSH 5.440 H Urine Appearance Urine Protein Ur Leukocyte Esterase Urine RBC Urine WBC Urine WBC Clumps Ur Squamous Epith Cells Urine Bacteria Hyaline Casts Urine Mucus Stool Occult Blood 06/30/22 07/01/22 07/01/22 20:55 02:45 02:45 WBC RBC Hgb Hct MCV MCHC RDW Plt Count Lymphocytes # Lymphocytes # (Manual) Nucleated RBCs Macrocytosis APTT 86.1 H ABG pH ABG pCO2 ABG Total CO2 ABG O2 Saturation Sodium Potassium Chloride BUN Creatinine 2.21 H Glucose POC Glucose (mg/dL) Calcium Ammonia Albumin Procalcitonin TSH Urine Appearance Cloudy H Urine Protein 1+ H Ur Leukocyte Esterase Large H Urine RBC 15 H Urine WBC 59 H Urine WBC Clumps Few H Ur Squamous Epith Cells 5 H Urine Bacteria Rare H Hyaline Casts 13 H Urine Mucus Rare H Stool Occult Blood 07/01/22 07/01/22 07/01/22 06:24 09:47 14:40 WBC RBC Hgb Hct MCV MCHC RDW Plt Count Lymphocytes # Lymphocytes # (Manual) Nucleated RBCs Macrocytosis APTT 57.5 H ABG pH ABG pCO2 ABG Total CO2 ABG O2 Saturation Sodium Potassium Chloride BUN Creatinine Glucose POC Glucose (mg/dL) 63 L 117 H Calcium Ammonia Albumin Procalcitonin TSH Urine Appearance Urine Protein Ur Leukocyte Esterase Urine RBC Urine WBC Urine WBC Clumps Ur Squamous Epith Cells Urine Bacteria Hyaline Casts Urine Mucus Stool Occult Blood 07/01/22 07/01/22 07/01/22 15:30 15:57 15:57 WBC RBC 3.01 L Hgb 8.9 L Hct 31.1 L MCV 103.5 H MCHC 28.5 L RDW 19.5 H Plt Count 118 L Lymphocytes # 0.9 L Lymphocytes # (Manual) Nucleated RBCs Macrocytosis APTT ABG pH ABG pCO2 ABG Total CO2 ABG O2 Saturation Sodium Potassium 5.6 H Chloride 114 H BUN 62 H Creatinine 2.75 H Glucose 102 H POC Glucose (mg/dL) Calcium 8.2 L Ammonia Albumin 3.3 L Procalcitonin 0.12 H TSH Urine Appearance Urine Protein Ur Leukocyte Esterase Urine RBC Urine WBC Urine WBC Clumps Ur Squamous Epith Cells Urine Bacteria Hyaline Casts Urine Mucus Stool Occult Blood 07/02/22 07/03/22 07/03/22 09:23 10:04 11:49 WBC RBC Hgb Hct MCV MCHC RDW Plt Count Lymphocytes # Lymphocytes # (Manual) Nucleated RBCs Macrocytosis APTT ABG pH ABG pCO2 ABG Total CO2 ABG O2 Saturation Sodium 146 H Potassium 5.5 H 5.5 H Chloride 113 H 115 H BUN 62 H 66 H Creatinine 3.11 H 2.78 H Glucose 102 H POC Glucose (mg/dL) Calcium Ammonia 138 H Albumin Procalcitonin TSH Urine Appearance Urine Protein Ur Leukocyte Esterase Urine RBC Urine WBC Urine WBC Clumps Ur Squamous Epith Cells Urine Bacteria Hyaline Casts Urine Mucus Stool Occult Blood 07/03/22 07/03/22 07/04/22 16:33 19:55 05:54 WBC RBC 2.99 L Hgb 8.8 L Hct 30.6 L MCV 102.1 H MCHC 28.9 L RDW 20.4 H Plt Count 93 L Lymphocytes # Lymphocytes # (Manual) Nucleated RBCs Macrocytosis APTT ABG pH ABG pCO2 ABG Total CO2 ABG O2 Saturation Sodium Potassium Chloride BUN Creatinine Glucose POC Glucose (mg/dL) 135 H Calcium Ammonia Albumin Procalcitonin TSH Urine Appearance Urine Protein Ur Leukocyte Esterase Urine RBC Urine WBC Urine WBC Clumps Ur Squamous Epith Cells Urine Bacteria Hyaline Casts Urine Mucus Stool Occult Blood Positive H 07/04/22 07/04/22 07/04/22 05:54 06:06 11:34 WBC RBC Hgb Hct MCV MCHC RDW Plt Count Lymphocytes # Lymphocytes # (Manual) Nucleated RBCs Macrocytosis APTT ABG pH ABG pCO2 ABG Total CO2 ABG O2 Saturation Sodium Potassium Chloride 113 H BUN 66 H Creatinine 2.72 H Glucose 112 H POC Glucose (mg/dL) 138 H 115 H Calcium Ammonia Albumin Procalcitonin TSH Urine Appearance Urine Protein Ur Leukocyte Esterase Urine RBC Urine WBC Urine WBC Clumps Ur Squamous Epith Cells Urine Bacteria Hyaline Casts Urine Mucus Stool Occult Blood 07/04/22 07/05/22 07/05/22 21:06 05:55 05:55 WBC RBC 3.23 L Hgb 9.4 L Hct 33.9 L MCV 105.1 H MCHC 27.7 L RDW 19.6 H Plt Count 93 L Lymphocytes # 0.8 L Lymphocytes # (Manual) Nucleated RBCs Macrocytosis Marked A APTT ABG pH ABG pCO2 ABG Total CO2 ABG O2 Saturation Sodium Potassium Chloride 113 H BUN 67 H Creatinine 2.87 H Glucose 139 H POC Glucose (mg/dL) 140 H Calcium Ammonia Albumin Procalcitonin TSH Urine Appearance Urine Protein Ur Leukocyte Esterase Urine RBC Urine WBC Urine WBC Clumps Ur Squamous Epith Cells Urine Bacteria Hyaline Casts Urine Mucus Stool Occult Blood 07/05/22 07/05/22 07/05/22 05:55 06:11 11:36 WBC RBC Hgb Hct MCV MCHC RDW Plt Count Lymphocytes # Lymphocytes # (Manual) Nucleated RBCs Macrocytosis APTT ABG pH ABG pCO2 ABG Total CO2 ABG O2 Saturation Sodium Potassium Chloride BUN Creatinine Glucose POC Glucose (mg/dL) 135 H 130 H Calcium Ammonia 166 H Albumin Procalcitonin TSH Urine Appearance Urine Protein Ur Leukocyte Esterase Urine RBC Urine WBC Urine WBC Clumps Ur Squamous Epith Cells Urine Bacteria Hyaline Casts Urine Mucus Stool Occult Blood 07/05/22 12:25 WBC RBC Hgb Hct MCV MCHC RDW Plt Count Lymphocytes # Lymphocytes # (Manual) Nucleated RBCs Macrocytosis APTT ABG pH 7.03 L* ABG pCO2 97 H* ABG Total CO2 28 H ABG O2 Saturation 98.0 H Sodium Potassium Chloride BUN Creatinine Glucose POC Glucose (mg/dL) Calcium Ammonia Albumin Procalcitonin TSH Urine Appearance Urine Protein Ur Leukocyte Esterase Urine RBC Urine WBC Urine WBC Clumps Ur Squamous Epith Cells Urine Bacteria Hyaline Casts Urine Mucus Stool Occult Blood - Diagnostic Findings Chest x-ray: image reviewed Assessment and Plan Plan: Acute respiratory acidosis, multifactorial. The patient has acute hypercapnic respiratory failure currently on a BiPAP. The patient has bilateral pleural effusions/CHF in the pleural effusions worse on the right based on the chest x- ray that was done 06/30/2022. The patient has an acute kidney injury and has signs of fluid overload. Underlying pneumonia cannot be completely excluded. Altered mentation, CO2 narcosis along possibly with a component of metabolic encephalopathy. Neurologically on the case. EEG showing generalized slowing consistent with cerebral dysfunction. No evidence of any seizures. Acute on chronic kidney injury. No evidence of any hydronephrosis. The patient has baseline stage III chronic kidney disease. Currently she is anorexic/oliguric. Did not respond to Lasix. The father's on the case. Morbid obesity Proteus mirabilis UTI currently on Rocephin Diabetes mellitus Hypertension Degenerative arthritis with bilateral knee replacements Anemia of chronic disease Acute thrombocytopenia. Note that the baseline platelet count at the time of admission was also lateral around 130 CHF with systolic heart failure and ejection fraction of 40-45% and the patient has evidence of severe pulmonary hypertension and right-sided heart failure Chronic lower oximetry edema Chronic atrial fibrillation, rate is controlled for now. DNR/DNI CODE STATUS Plan This patient is critically ill. Response to BiPAP has been suboptimal. We'll keep her on a BiPAP and keep the pressures of 16/6 cm of water Recommend transferring this patient denies U for more close monitoring. Obtain a blood gases and ICU and this is a BiPAP changes will be done accordingly. The patient will be requiring diuretics. I'm going to give her 80 mg IV push Lasix and put on a Lasix drip at 10 mg an hour I'm going to start IV Rocephin stenosis patient IV Zosyn Monitor platelet counts Keep the patient by mouth for now Monitor urine output and keep the Gomez catheter in place and assess his response to Lasix. She is on anticoagulation with Eliquis. I doubt that the patient be able to take anything orally at this point in time. A recommend IV heparin. We'll transfer the patient to the ICU with the understanding that she is a DNR/DNI. We'll try to optimize her condition medically. Case was discussed with Dr. Shiraz Davis with Patient: Greater than 30
[2022-07-05] MEDS: FOLIC ACID 1 MG TAB PO SCH (16:19)
[2022-07-05] MEDS: ASCORBIC ACID 500 MG TAB PO SCH (16:19)
[2022-07-05] MEDS: CHOLECALCIFEROL 25 MCG (1000 IU) TABLET PO SCH (16:19)
--- NOTE | 2022-07-05 16:39 | P.PN ---
Subjective Progress Note Date: 07/05/22 Patient was seen for a follow-up. Patient is more lethargic, obtunded. Patient is laying in the bed, appears in respiratory distress. Objective - Vital Signs Vital signs: Vital Signs Temp 98 F 07/05/22 15:59 Pulse 57 L 07/05/22 15:59 Resp 15 07/05/22 15:59 BP 93/54 07/05/22 15:59 Pulse Ox 97 07/05/22 15:59 FiO2 30 07/05/22 15:59 Intake & Output 07/04/22 07/05/22 07/05/22 18:59 06:59 18:59 Output Total 150 Balance -150 Weight 190.509 kg Output: Urine 150 Other: Voiding Method Indwelling Catheter Indwelling Catheter Indwelling Catheter # Voids 1 # Bowel Movements 1 - Exam Patient is laying in the bed, appears obtunded, slightly lethargic. Patient's pupils are equal, round and reacting. Extraocular muscles are intact, face is symmetric. - Labs CBC & Chem 7: 07/05/22 05:55 07/05/22 05:55 Labs: Abnormal Lab Results - Last 24 Hours (Table) 07/04/22 07/05/22 07/05/22 Range/Units 21:06 05:55 05:55 RBC 3.23 L (3.80-5.40) m/uL Hgb 9.4 L (11.4-16.0) gm/dL Hct 33.9 L (34.0-46.0) % MCV 105.1 H (80.0-100.0) fL MCHC 27.7 L (31.0-37.0) g/dL RDW 19.6 H (11.5-15.5) % Plt Count 93 L (150-450) k/uL Lymphocytes # 0.8 L (1.0-4.8) k/uL Macrocytosis Marked A ABG pH (7.35-7.45) ABG pCO2 (35-45) mmHg ABG Total CO2 (19-24) mmol/L ABG O2 Saturation (94-97) % Chloride 113 H (98-107) mmol/L BUN 67 H (7-17) mg/dL Creatinine 2.87 H (0.52-1.04) mg/dL Glucose 139 H (74-99) mg/dL POC Glucose (mg/dL) 140 H (70-110) mg/dL Ammonia (<30) umol/L 07/05/22 07/05/22 07/05/22 Range/Units 05:55 06:11 11:36 RBC (3.80-5.40) m/uL Hgb (11.4-16.0) gm/dL Hct (34.0-46.0) % MCV (80.0-100.0) fL MCHC (31.0-37.0) g/dL RDW (11.5-15.5) % Plt Count (150-450) k/uL Lymphocytes # (1.0-4.8) k/uL Macrocytosis ABG pH (7.35-7.45) ABG pCO2 (35-45) mmHg ABG Total CO2 (19-24) mmol/L ABG O2 Saturation (94-97) % Chloride (98-107) mmol/L BUN (7-17) mg/dL Creatinine (0.52-1.04) mg/dL Glucose (74-99) mg/dL POC Glucose (mg/dL) 135 H 130 H (70-110) mg/dL Ammonia 166 H (<30) umol/L 07/05/22 Range/Units 12:25 RBC (3.80-5.40) m/uL Hgb (11.4-16.0) gm/dL Hct (34.0-46.0) % MCV (80.0-100.0) fL MCHC (31.0-37.0) g/dL RDW (11.5-15.5) % Plt Count (150-450) k/uL Lymphocytes # (1.0-4.8) k/uL Macrocytosis ABG pH 7.03 L* (7.35-7.45) ABG pCO2 97 H* (35-45) mmHg ABG Total CO2 28 H (19-24) mmol/L ABG O2 Saturation 98.0 H (94-97) % Chloride (98-107) mmol/L BUN (7-17) mg/dL Creatinine (0.52-1.04) mg/dL Glucose (74-99) mg/dL POC Glucose (mg/dL) (70-110) mg/dL Ammonia (<30) umol/L Microbiology - Last 24 Hours (Table) 06/30/22 18:55 Blood Culture - Preliminary Blood No Growth after 96 hours Assessment and Plan Assessment: * Altered mental status, likely due to toxic metabolic encephalopathy. * Acute on chronic renal insufficiency * Hypercapnic respiratory failure * Hypotension * Hepatic encephalopathy * Stool occult blood positive. 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 * Morbid obesity * Nonambulatory status. * Depression Plan: * Patient's altered mental status is likely due to toxic metabolic encephalopathy. * Patient has acute on chronic renal insufficiency. IM to address. * EEG was abnormal due to background slowing of moderate to severe degree, suggestive of generalized cerebral dysfunction as can be seen with toxic metabolic encephalopathy or related to diffuse structural brain abnormality. Clinical correlation is recommended. No epileptiform activity was seen. * CT had reported by radiologist as diffuse edema. I reviewed her current computed tomography scan and reviewed with her previous CT head from 10/13/2021, was essentially unchanged. No further workup needed. * Patient's ABG with pH of 7.03, pCO2 97, pO2 103 and saturation 98% on 24% FiO2. Patient started on BiPAP. Patient is DO NOT RESUSCITATE. * Patient's ammonia is 166 suggestive of hepatic encephalopathy. * Previous workup as below was unremarkable, no need to repeat. * Carotid Doppler 10/13/2021 revealed no stenosis in the ICA. Antegrade flow in the vertebral arteries. * 2-D echo 07/02/2022 revealed normal left ventricular size and reduced left- ventricular systolic function with EF 40-45%. Septal hypokinesis. Severely dilated right atrium. Left atrial enlargement. * Fasting lipid panel cholesterol 135, LDL 60, HDL 60 and triglycerides 68. Continue Lipitor 40 mg daily. Continue aspirin daily. * Hemoglobin A1c 5.3. * B12 541, folate 40.0. TSH mildly elevated 5.44, will defer to IM. * DVT prophylaxis, patient on heparin 5000 units subcu every 8 hours. * Neurologically no other workup indicated. Patient has severe numerous medical issues as listed above. Medical management as per IM, critical care, pulmonary and nephrology. * Neurology will sign off. Please reconsult if any other concerns.
[2022-07-05 16:43] LABS: Glucose,Whole Blood 135 mg/dL (70-110)
--- NOTE | 2022-07-05 16:47 | XR ---
EXAMINATION TYPE: XR chest 1V DATE OF EXAM: 07/05/2022 COMPARISON: 06/30/2022. HISTORY: Respiratory failure. TECHNIQUE: Single frontal view of the chest is obtained. FINDINGS: The cardiac silhouette is moderately enlarged and there is diffuse interstitial and airspa ce changes seen throughout the lungs bilaterally more prominent on the right which is likely related to pulmonary edema. The overall appearance is very similar to the previous examination. There appears to be small bilateral pleural effusions, right greater than left. IMPRESSION: Normal appearance to the pulmonary edema bilateral pleural effusions when compared to th e previous examination.
[2022-07-05 17:27] LABS: Glucose,Whole Blood 134 mg/dL (70-110)
[2022-07-05 17:41] LABS: ABG Base Excess -5.8 mmol/L; ABG HCO3 25 mmol/L (21-25); ABG Oxygen Saturation 95.7 % (94-97); ABG PO2 86 mmHg (83-108); ABG TCO2 28 mmol/L (19-24); Allen Test Performed? Yes
[2022-07-05 17:43] LABS: ABG PCO2 90 mmHg (35-45); ABG PH 7.05 (7.35-7.45)
[2022-07-05] MEDS: FUROSEMIDE 100 MG in SODIUM CHLORIDE 0.9% 90 ML IV SCH (18:08)
[2022-07-05 19:35] LABS: % Iron Saturation 8.43 (12.00-45.00)
[2022-07-05 19:56] LABS: Glucose,Whole Blood 126 mg/dL (70-110)
[2022-07-05] MEDS: PIPERACILLIN-TAZOBACTAM 3.375 GM in SODIUM CHLORIDE 0.9% 100 ML IVPB SCH (21:12)
[2022-07-06] MEDS: ALBUTEROL HFA INHALER INHALATION PRN ×5 (00:02→21:09)
[2022-07-06] MEDS: DEXTROSE/WATER 1 250ML.BAG with DOPamine DRIP 800 MG IV SCH ×2 (00:03→15:26)
[2022-07-06] MEDS: HEPARIN SODIUM,PORCINE/PF 5,000 UNIT/0.5 ML SYRINGE SQ SCH ×3 (01:00→15:26)
[2022-07-06] MEDS: DEXTROSE 5% IN WATER 1,000 ML IV SCH ×2 (01:20→21:41)
[2022-07-06] MEDS: FUROSEMIDE 100 MG in SODIUM CHLORIDE 0.9% 90 ML IV SCH ×2 (02:32→14:22)
[2022-07-06 02:39] LABS: Glucose,Whole Blood 108 mg/dL (70-110)
[2022-07-06 05:37] LABS: Anisocytosis Slight; HCT 31.9 % (34.0-46.0); HGB 8.9 gm/dL (11.4-16.0); Hypochromasia Marked; MCH 29.5 pg (25.0-35.0); MCV 105.4 fL (80.0-100.0); Macrocytosis Marked; Mean Platelet Volume 12.2; Poikilocytosis Slight; RBC 3.02 m/uL (3.80-5.40); RDW 19.7 % (11.5-15.5); WBC 6.1 k/uL (3.8-10.6)
[2022-07-06 05:49] LABS: Platelet Count 97 k/uL (150-450)
[2022-07-06 06:03] LABS: Albumin 3.1 g/dL (3.5-5.0); Bilirubin, Delta 0.3 mg/dL (0.0-0.2); Calcium 8.3 mg/dL (8.4-10.2); Magnesium 2.4 mg/dL (1.6-2.3); Potassium 4.8 mmol/L (3.5-5.1); Total Bilirubin 0.3 mg/dL (0.2-1.3); Total Protein 6.7 g/dL (6.3-8.2)
[2022-07-06 06:19] LABS: ABG Base Excess -4.7 mmol/L; ABG HCO3 25 mmol/L (21-25); ABG Oxygen Saturation 91.9 % (94-97); ABG PO2 65 mmHg (83-108); ABG TCO2 28 mmol/L (19-24); Allen Test Performed? Yes
[2022-07-06 06:28] LABS: ABG PCO2 81 mmHg (35-45)
--- NOTE | 2022-07-06 07:20 | XR ---
EXAMINATION TYPE: XR chest 1V portable DATE OF EXAM: 07/06/2022 5:45 AM COMPARISON: Chest radiograph from one day prior. TECHNIQUE: XR chest 1V portable Portable AP radiograph of the chest. CLINICAL INDICATION:Female, 72 years old with history of shortness of breath; FINDINGS: Lungs/Pleura: No evidence of focal consolidation or pneumothorax. Blunting of the costophrenic angles is present. Pulmonary vascularity: Pulmonary vascular congestion. Heart/mediastinum: Cardiomediastinal silhouette is enlarged and stable. Musculoskeletal: No acute osseous pathology. Other findings: None Lines/Tubes: IMPRESSION: Similar Cardiomegaly, pulmonary vascular congestion and bilateral pleural effusions. Correlate with B [employer] for congestive heart failure.
[2022-07-06] MEDS: LEVOTHYROXINE 50 MCG TAB PO SCH (07:32)
--- NOTE | 2022-07-06 07:53 | P.PN ---
Subjective Progress Note Date: 07/06/22 72-year-old morbidly obese female patient, presented to the hospital because of not feeling well, dizziness, hypothermic and she was also found to be in acute kidney injury on top of chronic kidney disease and an underlying gram-negative urinary tract infection. I was asked to evaluate this patient as the patient was becoming more somnolent and sleepy and unresponsive. Blood gas that was done this morning showed an acute respiratory acidosis. Showing a pH of 7.03 with a pCO2 of 96 and pO2 of 103 and this was done on FiO2 of 24%. Based on that, the patient was placed on a BiPAP. Currently she is on a BiPAP pressures of 14/6 cm of water and FiO2 of 30%. They changed tidal volumes around 150 with a respiratory rate of 13. Increase IPAP up to 16 and she generating a tidal volume of around 270 mL. She remains very much somnolent and lethargic although there is some improvement in her level of alertness since she was started on a BiPAP. Morning blood gases were noted. The electrolytes show a sodium level of 144, potassium is at 5, bicarbonate 24, BUN is at 67 with a creatinine of 2.7. The response at 5.1 with a hemoglobin of 9.4. Urine culture was positive Proteus mirabilis. The patient is currently on IV Rocephin. Most recent hemodynamic parameters show a temperature of 97, pulse of 53, respiration of 16 and a blood pressure 91/54. Gomez catheter was inserted. The patient was given a dose of Lasix with essentially no urine output. Ultrasound of the kidneys were done and it showed no evidence of any hydronephrosis.. This patient is known to have some mild chronic systolic heart failure with an ejection fraction of 40-45%. She has severe enlargement of the RV with tricuspid regurgitation and severe pulmonary hypertension. Her EKG is consistent of atrial fibrillation. She is diabetic. She has hypertension. She has peripheral neuropathy, morbid obesity, I do not think she is maintaining on any form of noninvasive positive pressure ventilator at home. The chest x-ray that was done at the time of admission showed CHF with bilateral pleural effusion. Right-sided pleural effusion is quite large. CAT scan of the brain was done because of an altered mentation. The sulci appear to be less prominent and there was a question of cerebral edema. Based on that, neurology consultation was obtained. EEG was also done today that showed background slowing and moderate to severe generalized cerebral dysfunction consistent with encephalopathy. The patient was also seen by various consultants including nephrology and neurology and their consults are all appreciated. No reported aspiration. On today's evaluation of 07/06/2022, the patient is lethargic and somnolent and she remains in acute hypercapnic respiratory failure. This occurred yesterday as the patient had severe respiratory acidosis. The patient was septic at the time of admission, hypothermic with gram-negative UTI with Proteus mirabilis and subsequently she developed acute hypercapnic respiratory failure. A chest x-ray was consistent with bilateral pleural effusion right more than left. She got transferred to the intensive care unit and she was placed on a BiPAP at a pressure of 16/6 cm of water FiO2 of 30%. Pulse ox is currently at 91%. She is able to generate better tidal volumes compared to yesterday which is in the order of 300 mL and her respiratory rate is around 11 when a minute ventilation of around 4 L/m. The morning blood gases showed a pH of 7.10 with a pCO2 of 81 and pO2 of 65. Chest x-ray showing cardiomegaly. His evidence of bilateral pleural effusion. Underlying pneumonia cannot be completely excluded. Based on that, I switch this patient to IV Zosyn. Overnight, attempts were made to improve the patient's urine output. The patient was given Lasix 80 mg IV. The patient was started on Lasix drip at 10 mg an hour. The patient was started on dopamine renal dose. Unfortunately, she has produced only for cc of urine output since she adopted intensive care unit. Her BUN is at 67 with a creatinine of 3.4. Sodium is at 144 with a potassium level of 4.8. Her ammonia level is down to 91. Unable to provide any lactulose as the patient doesn't have any access for oral intake of medication. Unable to take lactulose at this point in time. WBC count is at 6.1 with a hemoglobin of 8.9 and a platelet count of 97. Very much lethargic. Very much somnolent. Remains on IV Zosyn. She is receiving external warming and her rectal temperature is at 91.5. The fights on the case is Gomez cath is in place. There is no evidence of any hydronephrosis. She is known to have chronic kidney disease. She also developed an acute kidney injury on top of chronic kidney disease and she has systolic heart failure with right-sided ventricular failure and secondary pulmonary hypertension. She is a DNR/DNI CODE STATUS. Objective - Vital Signs Vital signs: Vital Signs Temp 91.5 F L 07/06/22 03:30 Pulse 90 07/06/22 07:00 Resp 10 L 07/06/22 07:00 BP 97/66 07/06/22 07:00 Pulse Ox 91 L 07/06/22 07:00 FiO2 30 07/06/22 04:03 Intake & Output 07/05/22 07/06/22 07/06/22 18:59 06:59 18:59 Intake Total 85 961.167 85 Output Total 0 4 0 Balance 85 957.167 85 Weight 190.509 kg 199.581 kg Intake: IV 885 85 Dextrose 5% in Water 1, 675 75 000 ml @ 75 mls/hr IV . [id number] JAIMIE Rx#:[id number] Furosemide 100 mg In 110 10 Sodium Chloride 0.9% 90 ml @ 10 MG/HR 10 mls/hr IV .Q10H JAIMIE Rx#: [id number] Piperacillin-Tazobactam 3 100 .375 gm In Sodium Chloride 0.9% 100 ml @ 25 mls/hr IVPB Q12HR JAIMIE Rx #:[id number] Intake, IV Titration 85 76.167 Amount Dextrose 5% in Water 1, 75 000 ml @ 75 mls/hr IV . [id number] JAIMIE Rx#:[id number] Furosemide 100 mg In 10 76.167 Sodium Chloride 0.9% 90 ml @ 10 MG/HR 10 mls/hr IV .Q10H JAIMIE Rx#: [id number] Oral 0 Output: Urine 0 4 0 Other: Voiding Method Indwelling Catheter Indwelling Catheter - Exam Patient is very much somnolent and lethargic on a BiPAP at a pressure of 16/6 cm of water and FiO2 of 30%, she is morbidly obese Head exam was generally normal. There was no scleral icterus or corneal arcus. Mucous membranes were moist. Neck was supple and without jugular venous distension, thyromegaly, or carotid bruits. Carotids were easily palpable bilaterally. There was no adenopathy. No significant JVD could be appreciated Breath other quite diminished bilaterally. No wheezes or rhonchi. Marked image breast on the mid and lower lung harvey bilaterally. Heart sounds are irregular consistent with atrial fibrillation. Overall heart sounds are distant. Abdomen is obese. CANNOT be accurately felt. There is no ascites. No direct tenderness or rebound tenderness or guarding. Extremities reveal significant amount of edema mainly in the thighs. Pulses are diminished bilaterally. No open wounds or sores. The scars of previous knee replacement bilaterally. Examination of the skin revealed no evidence of significant rashes, suspicious appearing nevi or other concerning lesions. Neurologically, the patient opens her eyes spontaneously. She is sluggishly responsive to the painful stimulation. His moldable 4 extremities. Neurologic exam is nonfocal. - Labs CBC & Chem 7: 07/06/22 05:22 07/06/22 05:22 Labs: Abnormal Lab Results - Last 24 Hours (Table) 07/05/22 07/05/22 07/05/22 Range/Units 05:55 11:36 12:25 RBC (3.80-5.40) m/uL Hgb (11.4-16.0) gm/dL Hct (34.0-46.0) % MCV (80.0-100.0) fL MCHC (31.0-37.0) g/dL RDW (11.5-15.5) % Plt Count (150-450) k/uL Macrocytosis ABG pH 7.03 L* (7.35-7.45) ABG pCO2 97 H* (35-45) mmHg ABG pO2 (83-108) mmHg ABG Total CO2 28 H (19-24) mmol/L ABG O2 Saturation 98.0 H (94-97) % Chloride (98-107) mmol/L BUN (7-17) mg/dL Creatinine (0.52-1.04) mg/dL Glucose (74-99) mg/dL POC Glucose (mg/dL) 130 H (70-110) mg/dL Calcium (8.4-10.2) mg/dL Magnesium (1.6-2.3) mg/dL Iron 30 L (50-170) ug/dL % Saturation 8.43 L (12.00-45.00) Delta Bilirubin (0.0-0.2) mg/dL Ammonia (<30) umol/L Albumin (3.5-5.0) g/dL 03/10/23 03/10/23 03/10/23 Range/Units 16:42 17:26 17:41 RBC (3.80-5.40) m/uL Hgb (11.4-16.0) gm/dL Hct (34.0-46.0) % MCV (80.0-100.0) fL MCHC (31.0-37.0) g/dL RDW (11.5-15.5) % Plt Count (150-450) k/uL Macrocytosis ABG pH 7.05 L* (7.35-7.45) ABG pCO2 90 H* (35-45) mmHg ABG pO2 (83-108) mmHg ABG Total CO2 28 H (19-24) mmol/L ABG O2 Saturation (94-97) % Chloride (98-107) mmol/L BUN (7-17) mg/dL Creatinine (0.52-1.04) mg/dL Glucose (74-99) mg/dL POC Glucose (mg/dL) 135 H 134 H (70-110) mg/dL Calcium (8.4-10.2) mg/dL Magnesium (1.6-2.3) mg/dL Iron (50-170) ug/dL % Saturation (12.00-45.00) Delta Bilirubin (0.0-0.2) mg/dL Ammonia (<30) umol/L Albumin (3.5-5.0) g/dL 07/05/22 07/06/22 07/06/22 Range/Units 19:55 05:22 05:22 RBC 3.02 L (3.80-5.40) m/uL Hgb 8.9 L (11.4-16.0) gm/dL Hct 31.9 L (34.0-46.0) % MCV 105.4 H (80.0-100.0) fL MCHC 28.0 L (31.0-37.0) g/dL RDW 19.7 H (11.5-15.5) % Plt Count 97 L (150-450) k/uL Macrocytosis Marked A ABG pH (7.35-7.45) ABG pCO2 (35-45) mmHg ABG pO2 (83-108) mmHg ABG Total CO2 (19-24) mmol/L ABG O2 Saturation (94-97) % Chloride 113 H (98-107) mmol/L BUN 67 H (7-17) mg/dL Creatinine 3.42 H (0.52-1.04) mg/dL Glucose 113 H (74-99) mg/dL POC Glucose (mg/dL) 126 H (70-110) mg/dL Calcium 8.3 L (8.4-10.2) mg/dL Magnesium 2.4 H (1.6-2.3) mg/dL Iron (50-170) ug/dL % Saturation (12.00-45.00) Delta Bilirubin 0.3 H (0.0-0.2) mg/dL Ammonia (<30) umol/L Albumin 3.1 L (3.5-5.0) g/dL 07/06/22 07/06/22 Range/Units 05:22 06:15 RBC (3.80-5.40) m/uL Hgb (11.4-16.0) gm/dL Hct (34.0-46.0) % MCV (80.0-100.0) fL MCHC (31.0-37.0) g/dL RDW (11.5-15.5) % Plt Count (150-450) k/uL Macrocytosis ABG pH 7.10 L* (7.35-7.45) ABG pCO2 81 H* (35-45) mmHg ABG pO2 65 L (83-108) mmHg ABG Total CO2 28 H (19-24) mmol/L ABG O2 Saturation 91.9 L (94-97) % Chloride (98-107) mmol/L BUN (7-17) mg/dL Creatinine (0.52-1.04) mg/dL Glucose (74-99) mg/dL POC Glucose (mg/dL) (70-110) mg/dL Calcium (8.4-10.2) mg/dL Magnesium (1.6-2.3) mg/dL Iron (50-170) ug/dL % Saturation (12.00-45.00) Delta Bilirubin (0.0-0.2) mg/dL Ammonia 91 H (<30) umol/L Albumin (3.5-5.0) g/dL Microbiology - Last 24 Hours (Table) 03/05/23 18:55 Blood Culture - Preliminary Blood No Growth after 120 hours Assessment and Plan Plan: Acute respiratory acidosis, multifactorial. The patient has acute hypercapnic respiratory failure currently on a BiPAP. The patient has bilateral pleural effusions/CHF in the pleural effusions worse on the right based on the chest x- ray that was done 06/30/2022. The patient has an acute kidney injury and has signs of fluid overload. Underlying pneumonia cannot be completely excluded. The patient got transferred to the intensive care unit. She remains on BiPAP. Limited improvement in oxygenation. Chest x-ray from today showing large bilateral pleural effusions and CHF and fluid overload. Remains on a BiPAP for now. Altered mentation, CO2 narcosis along possibly with a component of metabolic encephalopathy. Neurologically on the case. EEG showing generalized slowing consistent with cerebral dysfunction. No evidence of any seizures. There may be also a component of hepatic encephalopathy. Ammonia level is down to 91. Acute on chronic kidney injury. No evidence of any hydronephrosis. The patient has baseline stage III chronic kidney disease. Currently she is anorexic/oliguric. Did not respond to Lasix. The patient is currently on Lasix drip and dopamine infusion. No urine operas this point in time. The patient is anorexic. Morbid obesity Proteus mirabilis UTI currently on IV Zosyn should Diabetes mellitus Hypertension Degenerative arthritis with bilateral knee replacements Anemia of chronic disease Acute thrombocytopenia. CHF with systolic heart failure and ejection fraction of 40-45% and the patient has evidence of severe pulmonary hypertension and right-sided heart failure Chronic lower oximetry edema Chronic atrial fibrillation, rate is controlled for now. DNR/DNI CODE STATUS Plan This patient is critically ill. Response to BiPAP has been suboptimal. We'll keep her on a BiPAP and keep the pressures of 16/6 cm of water The patient got transferred to the intensive care unit yesterday. Remains on a BiPAP. Absolutely no response to diuretics. She is on Lasix drip. I put also on a dopamine renal dose. No response. Chest x-ray continues to show bilateral pleural effusions and the patient is in respiratory failure. Obviously, dialysis will be indicated in this situation. However, the patient is a DNR/DNI CODE STATUS. I would like to discuss this over with nephrology and the family prior to make a decision on dialysis. 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 We'll continue the IV Zosyn Monitor platelet counts Keep the patient by mouth for now Monitor urine output and keep the Gomez catheter in place Hold ANTICOAGULATION for now Condition is critical, the patient is in the ICU with the understanding that she is a DNR/DNI. > 30 minutes evaluation, critical care time Time with Patient: Greater than 30
[2022-07-06 08:08] LABS: Glucose,Whole Blood 116 mg/dL (70-110)
--- NOTE | 2022-07-06 08:27 | P.PN ---
Subjective Progress Note Date: 07/06/22 Principal diagnosis: 72-year-old female followed up with acute kidney injury secondary to bacteremia with staph epidermidis as well as Klebsiella UTI. Additionally she had A. fib with RVR and has been hypotensive. She is anuric. Currently she is retaining CO2 on her blood gases significantly at pCO2 of 81, pH of 7.1 and on 30% FiO2, on a BiPAP. She is obtunded and unresponsive. Currently she is on dopamine and on Lasix drip and anuric In atrial fibrillation with controlled ventricular response. Ultrasound shows right kidney normal size no hydronephrosis left kidney could not be visualized because she is obese . Objective - Vital Signs Vital signs: Vital Signs Temp 91.5 F L 07/06/22 03:30 Pulse 90 07/06/22 07:00 Resp 10 L 07/06/22 07:00 BP 97/66 07/06/22 07:00 Pulse Ox 91 L 07/06/22 07:00 FiO2 30 07/06/22 08:07 Intake & Output 07/05/22 07/06/22 07/06/22 18:59 06:59 18:59 Intake Total 85 961.167 85 Output Total 0 4 0 Balance 85 957.167 85 Weight 190.509 kg 199.581 kg Intake: IV 885 85 Dextrose 5% in Water 1, 675 75 000 ml @ 75 mls/hr IV . [id number] [facility] Rx#:[id number] Furosemide 100 mg In 110 10 Sodium Chloride 0.9% 90 ml @ 10 MG/HR 10 mls/hr IV .Q10H [facility] Rx#: [id number] Piperacillin-Tazobactam 3 100 .375 gm In Sodium Chloride 0.9% 100 ml @ 25 mls/hr IVPB Q12HR [facility] Rx #:[id number] Intake, IV Titration 85 76.167 Amount Dextrose 5% in Water 1, 75 000 ml @ 75 mls/hr IV . [id number] [facility] Rx#:[id number] Furosemide 100 mg In 10 76.167 Sodium Chloride 0.9% 90 ml @ 10 MG/HR 10 mls/hr IV .Q10H [facility] Rx#: [id number] Oral 0 Output: Urine 0 4 0 Other: Voiding Method Indwelling Catheter Indwelling Catheter On examination she is obtunded on CPAP 30% FiO2. No facial asymmetry noted. Because of morbid obesity difficult to examine. Heart sounds unremarkable except for atrial fibrillation Lungs are clear to auscultation currently on CPAP 30% Abdomen obese nontender Extremity exam was 2+ edema Neurologically obtunded - Labs CBC & Chem 7: 07/06/22 05:22 07/06/22 05:22 Labs: Abnormal Lab Results - Last 24 Hours (Table) 07/05/22 07/05/22 07/05/22 Range/Units 05:55 11:36 12:25 RBC (3.80-5.40) m/uL Hgb (11.4-16.0) gm/dL Hct (34.0-46.0) % MCV (80.0-100.0) fL MCHC (31.0-37.0) g/dL RDW (11.5-15.5) % Plt Count (150-450) k/uL Macrocytosis ABG pH 7.03 L* (7.35-7.45) ABG pCO2 97 H* (35-45) mmHg ABG pO2 (83-108) mmHg ABG Total CO2 28 H (19-24) mmol/L ABG O2 Saturation 98.0 H (94-97) % Chloride (98-107) mmol/L BUN (7-17) mg/dL Creatinine (0.52-1.04) mg/dL Glucose (74-99) mg/dL POC Glucose (mg/dL) 130 H (70-110) mg/dL Calcium (8.4-10.2) mg/dL Magnesium (1.6-2.3) mg/dL Iron 30 L (50-170) ug/dL % Saturation 8.43 L (12.00-45.00) Delta Bilirubin (0.0-0.2) mg/dL Ammonia (<30) umol/L Albumin (3.5-5.0) g/dL 07/05/22 07/05/22 07/05/22 Range/Units 16:42 17:26 17:41 RBC (3.80-5.40) m/uL Hgb (11.4-16.0) gm/dL Hct (34.0-46.0) % MCV (80.0-100.0) fL MCHC (31.0-37.0) g/dL RDW (11.5-15.5) % Plt Count (150-450) k/uL Macrocytosis ABG pH 7.05 L* (7.35-7.45) ABG pCO2 90 H* (35-45) mmHg ABG pO2 (83-108) mmHg ABG Total CO2 28 H (19-24) mmol/L ABG O2 Saturation (94-97) % Chloride (98-107) mmol/L BUN (7-17) mg/dL Creatinine (0.52-1.04) mg/dL Glucose (74-99) mg/dL POC Glucose (mg/dL) 135 H 134 H (70-110) mg/dL Calcium (8.4-10.2) mg/dL Magnesium (1.6-2.3) mg/dL Iron (50-170) ug/dL % Saturation (12.00-45.00) Delta Bilirubin (0.0-0.2) mg/dL Ammonia (<30) umol/L Albumin (3.5-5.0) g/dL 07/05/22 07/06/22 07/06/22 Range/Units 19:55 05:22 05:22 RBC 3.02 L (3.80-5.40) m/uL Hgb 8.9 L (11.4-16.0) gm/dL Hct 31.9 L (34.0-46.0) % MCV 105.4 H (80.0-100.0) fL MCHC 28.0 L (31.0-37.0) g/dL RDW 19.7 H (11.5-15.5) % Plt Count 97 L (150-450) k/uL Macrocytosis Marked A ABG pH (7.35-7.45) ABG pCO2 (35-45) mmHg ABG pO2 (83-108) mmHg ABG Total CO2 (19-24) mmol/L ABG O2 Saturation (94-97) % Chloride 113 H (98-107) mmol/L BUN 67 H (7-17) mg/dL Creatinine 3.42 H (0.52-1.04) mg/dL Glucose 113 H (74-99) mg/dL POC Glucose (mg/dL) 126 H (70-110) mg/dL Calcium 8.3 L (8.4-10.2) mg/dL Magnesium 2.4 H (1.6-2.3) mg/dL Iron (50-170) ug/dL % Saturation (12.00-45.00) Delta Bilirubin 0.3 H (0.0-0.2) mg/dL Ammonia (<30) umol/L Albumin 3.1 L (3.5-5.0) g/dL 07/06/22 07/06/22 07/06/22 Range/Units 05:22 06:15 08:07 RBC (3.80-5.40) m/uL Hgb (11.4-16.0) gm/dL Hct (34.0-46.0) % MCV (80.0-100.0) fL MCHC (31.0-37.0) g/dL RDW (11.5-15.5) % Plt Count (150-450) k/uL Macrocytosis ABG pH 7.10 L* (7.35-7.45) ABG pCO2 81 H* (35-45) mmHg ABG pO2 65 L (83-108) mmHg ABG Total CO2 28 H (19-24) mmol/L ABG O2 Saturation 91.9 L (94-97) % Chloride (98-107) mmol/L BUN (7-17) mg/dL Creatinine (0.52-1.04) mg/dL Glucose (74-99) mg/dL POC Glucose (mg/dL) 116 H (70-110) mg/dL Calcium (8.4-10.2) mg/dL Magnesium (1.6-2.3) mg/dL Iron (50-170) ug/dL % Saturation (12.00-45.00) Delta Bilirubin (0.0-0.2) mg/dL Ammonia 91 H (<30) umol/L Albumin (3.5-5.0) g/dL Microbiology - Last 24 Hours (Table) 06/30/22 18:55 Blood Culture - Preliminary Blood No Growth after 120 hours Assessment and Plan Assessment: Impression 1. ATN, secondary to sepsis with staph epidermidis bacteremia and Klebsiella UTI. Anuric. 2. Obtundation, CO2 narcosis, hypoventilation obesity 3. Staph epi bacteremia 4. UTI 5. Atrial fibrillation 6. Hypertension 7. Congestive heart failure. 8. Anemia, rule out an deficiency Recommendation 1. Will consider dialysis after consultation with the primary team. 2. Prognosis very guarded. 3. Will require a Filippo catheter if the decision is to proceed with dialysis. 4. No changes in medications suggestive for right now
[2022-07-06] MEDS ORDERED: FUROSEMIDE 10 MG/ML 4 ML VIAL IV SCH (09:00)
--- NOTE | 2022-07-06 09:02 | P.PN ---
Subjective Progress Note Date: 07/06/22 PROGRESS NOTE The patient became more lethargic yesterday, requiring transfer to the ICU she is on the BiPAP, she has no urinary output. She continues to be in atrial fibrillation with controlled ventricular response. She is not able to take any oral medications. She is on IV Lasix drip without significant response. She is being evaluated for possible dialysis. She continues to be somnolent today, she has hypercapnic respiratory failure. Medications: IV Lasix drip, IV dopamine, subcu heparin. Patient is unable to take her beta patricia because of the mental status PHYSICAL EXAMINATION: 72-year-old female somnolent, morbidly obese Blood pressure 97/66 heart rate 90 LUNGS: Clear to auscultation anteriorly HEART: Irregular rate and rhythm, S1, S2. No S3. systolic ejection murmur ABDOMEN: Soft, nontender, no organomegaly EXTREMETIES: +1-2 edema LAB: Hemoglobin 8.9, pH 7.1, pCO2 81, pO2 65, BUN 67, creatinine 3.42. IMPRESSION: 1. Respiratory failure with hypercapnic status with pleural effusion 2. Acute on chronic kidney injury 3. Atrial fibrillation 4. Morbid obesity 5. UTI with probable sepsis 6. Prior history of hypertension 7. [id number] systolic dysfunction 8. History of anemia PLAN: 1. Dialysis per nephrology 2. Continue supportive care 3. If needed use IV metoprolol until able to take by mouth 4. Prognosis is guarded Objective - Vital Signs Vital signs: Vital Signs Temp 91.5 F L 07/06/22 03:30 Pulse 90 07/06/22 07:00 Resp 10 L 07/06/22 07:00 BP 97/66 07/06/22 07:00 Pulse Ox 91 L 07/06/22 07:00 FiO2 30 07/06/22 08:07 Intake & Output 07/05/22 07/06/22 07/06/22 18:59 06:59 18:59 Intake Total 85 961.167 85 Output Total 0 4 0 Balance 85 957.167 85 Weight 190.509 kg 199.581 kg Intake: IV 885 85 Dextrose 5% in Water 1, 675 75 000 ml @ 75 mls/hr IV . [id number] [facility] Rx#:[id number] Furosemide 100 mg In 110 10 Sodium Chloride 0.9% 90 ml @ 10 MG/HR 10 mls/hr IV .Q10H [facility] Rx#: [id number] Piperacillin-Tazobactam 3 100 .375 gm In Sodium Chloride 0.9% 100 ml @ 25 mls/hr IVPB Q12HR [facility] Rx #:[id number] Intake, IV Titration 85 76.167 Amount Dextrose 5% in Water 1, 75 000 ml @ 75 mls/hr IV . [id number] [facility] Rx#:[id number] Furosemide 100 mg In 10 76.167 Sodium Chloride 0.9% 90 ml @ 10 MG/HR 10 mls/hr IV .Q10H [facility] Rx#: [id number] Oral 0 Output: Urine 0 4 0 Other: Voiding Method Indwelling Catheter Indwelling Catheter - Labs CBC & Chem 7: 07/06/22 05:22 07/06/22 05:22 Labs: Abnormal Lab Results - Last 24 Hours (Table) 07/05/22 07/05/22 07/05/22 Range/Units 05:55 11:36 12:25 RBC (3.80-5.40) m/uL Hgb (11.4-16.0) gm/dL Hct (34.0-46.0) % MCV (80.0-100.0) fL MCHC (31.0-37.0) g/dL RDW (11.5-15.5) % Plt Count (150-450) k/uL Macrocytosis ABG pH 7.03 L* (7.35-7.45) ABG pCO2 97 H* (35-45) mmHg ABG pO2 (83-108) mmHg ABG Total CO2 28 H (19-24) mmol/L ABG O2 Saturation 98.0 H (94-97) % Chloride (98-107) mmol/L BUN (7-17) mg/dL Creatinine (0.52-1.04) mg/dL Glucose (74-99) mg/dL POC Glucose (mg/dL) 130 H (70-110) mg/dL Calcium (8.4-10.2) mg/dL Magnesium (1.6-2.3) mg/dL Iron 30 L (50-170) ug/dL % Saturation 8.43 L (12.00-45.00) Delta Bilirubin (0.0-0.2) mg/dL Ammonia (<30) umol/L Albumin (3.5-5.0) g/dL 07/05/22 07/05/22 07/05/22 Range/Units 16:42 17:26 17:41 RBC (3.80-5.40) m/uL Hgb (11.4-16.0) gm/dL Hct (34.0-46.0) % MCV (80.0-100.0) fL MCHC (31.0-37.0) g/dL RDW (11.5-15.5) % Plt Count (150-450) k/uL Macrocytosis ABG pH 7.05 L* (7.35-7.45) ABG pCO2 90 H* (35-45) mmHg ABG pO2 (83-108) mmHg ABG Total CO2 28 H (19-24) mmol/L ABG O2 Saturation (94-97) % Chloride (98-107) mmol/L BUN (7-17) mg/dL Creatinine (0.52-1.04) mg/dL Glucose (74-99) mg/dL POC Glucose (mg/dL) 135 H 134 H (70-110) mg/dL Calcium (8.4-10.2) mg/dL Magnesium (1.6-2.3) mg/dL Iron (50-170) ug/dL % Saturation (12.00-45.00) Delta Bilirubin (0.0-0.2) mg/dL Ammonia (<30) umol/L Albumin (3.5-5.0) g/dL 07/05/22 07/06/22 07/06/22 Range/Units 19:55 05:22 05:22 RBC 3.02 L (3.80-5.40) m/uL Hgb 8.9 L (11.4-16.0) gm/dL Hct 31.9 L (34.0-46.0) % MCV 105.4 H (80.0-100.0) fL MCHC 28.0 L (31.0-37.0) g/dL RDW 19.7 H (11.5-15.5) % Plt Count 97 L (150-450) k/uL Macrocytosis Marked A ABG pH (7.35-7.45) ABG pCO2 (35-45) mmHg ABG pO2 (83-108) mmHg ABG Total CO2 (19-24) mmol/L ABG O2 Saturation (94-97) % Chloride 113 H (98-107) mmol/L BUN 67 H (7-17) mg/dL Creatinine 3.42 H (0.52-1.04) mg/dL Glucose 113 H (74-99) mg/dL POC Glucose (mg/dL) 126 H (70-110) mg/dL Calcium 8.3 L (8.4-10.2) mg/dL Magnesium 2.4 H (1.6-2.3) mg/dL Iron (50-170) ug/dL % Saturation (12.00-45.00) Delta Bilirubin 0.3 H (0.0-0.2) mg/dL Ammonia (<30) umol/L Albumin 3.1 L (3.5-5.0) g/dL 07/06/22 07/06/22 07/06/22 Range/Units 05:22 06:15 08:07 RBC (3.80-5.40) m/uL Hgb (11.4-16.0) gm/dL Hct (34.0-46.0) % MCV (80.0-100.0) fL MCHC (31.0-37.0) g/dL RDW (11.5-15.5) % Plt Count (150-450) k/uL Macrocytosis ABG pH 7.10 L* (7.35-7.45) ABG pCO2 81 H* (35-45) mmHg ABG pO2 65 L (83-108) mmHg ABG Total CO2 28 H (19-24) mmol/L ABG O2 Saturation 91.9 L (94-97) % Chloride (98-107) mmol/L BUN (7-17) mg/dL Creatinine (0.52-1.04) mg/dL Glucose (74-99) mg/dL POC Glucose (mg/dL) 116 H (70-110) mg/dL Calcium (8.4-10.2) mg/dL Magnesium (1.6-2.3) mg/dL Iron (50-170) ug/dL % Saturation (12.00-45.00) Delta Bilirubin (0.0-0.2) mg/dL Ammonia 91 H (<30) umol/L Albumin (3.5-5.0) g/dL Microbiology - Last 24 Hours (Table) 06/30/22 18:55 Blood Culture - Preliminary Blood No Growth after 120 hours
[2022-07-06] MEDS: DEXTROSE 4 GM CHEWABLE PO SCH ×4 (09:47→21:41)
[2022-07-06] MEDS: FERROUS SULFATE 325 MG TAB PO SCH (09:47)
[2022-07-06] MEDS: METOPROLOL TARTRATE 25 MG TAB PO SCH ×2 (09:48→21:41)
[2022-07-06] MEDS: LACTULOSE 20 GM/30 ML CUP PO SCH (09:48)
[2022-07-06] MEDS: DULoxetine HCL 30 MG CAPSULE.DR PO SCH (09:48)
[2022-07-06] MEDS: PIPERACILLIN-TAZOBACTAM 3.375 GM in SODIUM CHLORIDE 0.9% 100 ML IVPB SCH ×2 (09:56→21:37)
[2022-07-06] MEDS: AMMONIUM LACTATE 12% LOTION 225 GM BTL TOPICAL SCH ×2 (10:28→21:38)
[2022-07-06] MEDS: CLOTRIMAZOLE 1% CREAM 30 GM TUBE TOPICAL SCH ×3 (10:29→22:29)
--- NOTE | 2022-07-06 10:29 | P.PN ---
Subjective Progress Note Date: 07/06/22 This is a telemedicine neurology follow performed today on 07/06/2022. Patient was seen for a follow-up. Patient is more lethargic, obtunded. Patient has been transferred to ICU. Patient is now a full code as per her advanced directives. Patient has a bear hugger, also BiPAP on. Patient is currently on Lasix drip, dopamine 2.5 g per program per minute. Also D5W running. Patient is laying in the bed, appears in respiratory distress. Objective - Vital Signs Vital signs: Vital Signs Temp 91.5 F L 07/06/22 03:30 Pulse 90 07/06/22 07:00 Resp 10 L 07/06/22 07:00 BP 97/66 07/06/22 07:00 Pulse Ox 91 L 07/06/22 07:00 FiO2 30 07/06/22 08:07 Intake & Output 07/05/22 07/06/22 07/06/22 18:59 06:59 18:59 Intake Total 85 961.167 85 Output Total 0 4 0 Balance 85 957.167 85 Weight 190.509 kg 199.581 kg Intake: IV 885 85 Dextrose 5% in Water 1, 675 75 000 ml @ 75 mls/hr IV . [id number] [facility] Rx#:[id number] Furosemide 100 mg In 110 10 Sodium Chloride 0.9% 90 ml @ 10 MG/HR 10 mls/hr IV .Q10H [facility] Rx#: [id number] Piperacillin-Tazobactam 3 100 .375 gm In Sodium Chloride 0.9% 100 ml @ 25 mls/hr IVPB Q12HR [facility] Rx #:[id number] Intake, IV Titration 85 76.167 Amount Dextrose 5% in Water 1, 75 000 ml @ 75 mls/hr IV . [id number] [facility] Rx#:[id number] Furosemide 100 mg In 10 76.167 Sodium Chloride 0.9% 90 ml @ 10 MG/HR 10 mls/hr IV .Q10H [facility] Rx#: [id number] Oral 0 Output: Urine 0 4 0 Other: Voiding Method Indwelling Catheter Indwelling Catheter - Exam Patient is laying in the bed, appears obtunded, more lethargic. Patient's pupils are equal, round and reacting. Rest of the examination could not be performed because patient is obtunded. - Labs CBC & Chem 7: 07/06/22 05:22 07/06/22 05:22 Labs: Abnormal Lab Results - Last 24 Hours (Table) 07/05/22 07/05/22 07/05/22 Range/Units 05:55 11:36 12:25 RBC (3.80-5.40) m/uL Hgb (11.4-16.0) gm/dL Hct (34.0-46.0) % MCV (80.0-100.0) fL MCHC (31.0-37.0) g/dL RDW (11.5-15.5) % Plt Count (150-450) k/uL Macrocytosis ABG pH 7.03 L* (7.35-7.45) ABG pCO2 97 H* (35-45) mmHg ABG pO2 (83-108) mmHg ABG Total CO2 28 H (19-24) mmol/L ABG O2 Saturation 98.0 H (94-97) % Chloride (98-107) mmol/L BUN (7-17) mg/dL Creatinine (0.52-1.04) mg/dL Glucose (74-99) mg/dL POC Glucose (mg/dL) 130 H (70-110) mg/dL Calcium (8.4-10.2) mg/dL Magnesium (1.6-2.3) mg/dL Iron 30 L (50-170) ug/dL % Saturation 8.43 L (12.00-45.00) Delta Bilirubin (0.0-0.2) mg/dL Ammonia (<30) umol/L Albumin (3.5-5.0) g/dL 07/05/22 07/05/22 07/05/22 Range/Units 16:42 17:26 17:41 RBC (3.80-5.40) m/uL Hgb (11.4-16.0) gm/dL Hct (34.0-46.0) % MCV (80.0-100.0) fL MCHC (31.0-37.0) g/dL RDW (11.5-15.5) % Plt Count (150-450) k/uL Macrocytosis ABG pH 7.05 L* (7.35-7.45) ABG pCO2 90 H* (35-45) mmHg ABG pO2 (83-108) mmHg ABG Total CO2 28 H (19-24) mmol/L ABG O2 Saturation (94-97) % Chloride (98-107) mmol/L BUN (7-17) mg/dL Creatinine (0.52-1.04) mg/dL Glucose (74-99) mg/dL POC Glucose (mg/dL) 135 H 134 H (70-110) mg/dL Calcium (8.4-10.2) mg/dL Magnesium (1.6-2.3) mg/dL Iron (50-170) ug/dL % Saturation (12.00-45.00) Delta Bilirubin (0.0-0.2) mg/dL Ammonia (<30) umol/L Albumin (3.5-5.0) g/dL 07/05/22 07/06/22 07/06/22 Range/Units 19:55 05:22 05:22 RBC 3.02 L (3.80-5.40) m/uL Hgb 8.9 L (11.4-16.0) gm/dL Hct 31.9 L (34.0-46.0) % MCV 105.4 H (80.0-100.0) fL MCHC 28.0 L (31.0-37.0) g/dL RDW 19.7 H (11.5-15.5) % Plt Count 97 L (150-450) k/uL Macrocytosis Marked A ABG pH (7.35-7.45) ABG pCO2 (35-45) mmHg ABG pO2 (83-108) mmHg ABG Total CO2 (19-24) mmol/L ABG O2 Saturation (94-97) % Chloride 113 H (98-107) mmol/L BUN 67 H (7-17) mg/dL Creatinine 3.42 H (0.52-1.04) mg/dL Glucose 113 H (74-99) mg/dL POC Glucose (mg/dL) 126 H (70-110) mg/dL Calcium 8.3 L (8.4-10.2) mg/dL Magnesium 2.4 H (1.6-2.3) mg/dL Iron (50-170) ug/dL % Saturation (12.00-45.00) Delta Bilirubin 0.3 H (0.0-0.2) mg/dL Ammonia (<30) umol/L Albumin 3.1 L (3.5-5.0) g/dL 07/06/22 07/06/22 07/06/22 Range/Units 05:22 06:15 08:07 RBC (3.80-5.40) m/uL Hgb (11.4-16.0) gm/dL Hct (34.0-46.0) % MCV (80.0-100.0) fL MCHC (31.0-37.0) g/dL RDW (11.5-15.5) % Plt Count (150-450) k/uL Macrocytosis ABG pH 7.10 L* (7.35-7.45) ABG pCO2 81 H* (35-45) mmHg ABG pO2 65 L (83-108) mmHg ABG Total CO2 28 H (19-24) mmol/L ABG O2 Saturation 91.9 L (94-97) % Chloride (98-107) mmol/L BUN (7-17) mg/dL Creatinine (0.52-1.04) mg/dL Glucose (74-99) mg/dL POC Glucose (mg/dL) 116 H (70-110) mg/dL Calcium (8.4-10.2) mg/dL Magnesium (1.6-2.3) mg/dL Iron (50-170) ug/dL % Saturation (12.00-45.00) Delta Bilirubin (0.0-0.2) mg/dL Ammonia 91 H (<30) umol/L Albumin (3.5-5.0) g/dL Microbiology - Last 24 Hours (Table) 06/30/22 18:55 Blood Culture - Preliminary Blood No Growth after 120 hours Assessment and Plan Assessment: * Altered mental status, likely due to toxic metabolic encephalopathy. * Acute on chronic renal failure, with fluid overload, now starting hemodialysis * Hypercapnic respiratory failure * Acute UTI with urine growing > 100,000 Proteus mirabilis * Hypotension * Atrial fibrillation, cardiology on board. * Hepatic encephalopathy * Stool occult blood positive. 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 * Morbid obesity * Nonambulatory status. * Depression Plan: * Patient's altered mental status is likely due to toxic metabolic encephalopathy. Patient has acute UTI, on Zosyn. * Patient has acute on chronic renal failure, nephrology on board. Patient to get Filippo catheter today, and to be started on hemodialysis. * EEG was abnormal due to background slowing of moderate to severe degree, suggestive of generalized cerebral dysfunction as can be seen with toxic metabolic encephalopathy or related to diffuse structural brain abnormality. Clinical correlation is recommended. No epileptiform activity was seen. * CT had reported by radiologist as diffuse edema. I reviewed her current computed tomography scan and reviewed with her previous CT head from 10/13/2021, was essentially unchanged. No further workup needed. * Patient's ABG from this morning shows a pH 7.10, pCO2 81, pO2 65 and saturation 91.9%. Patient started on BiPAP. Patient was DO NOT RESUSCITATE, however now changed to full code per patient's son. * Patient's ammonia 166, now down to 91 today suggestive of hepatic encephalopathy. * Previous workup as below was unremarkable, no need to repeat. * Carotid Doppler 10/13/2021 revealed no stenosis in the ICA. Antegrade flow in the vertebral arteries. * 2-D echo 07/02/2022 revealed normal left ventricular size and reduced left- ventricular systolic function with EF 40-45%. Septal hypokinesis. Severely dilated right atrium. Left atrial enlargement. * Fasting lipid panel cholesterol 135, LDL 60, HDL 60 and triglycerides 68. Continue Lipitor 40 mg daily. Continue aspirin daily. * Hemoglobin A1c 5.3. * B12 541, folate 40.0. TSH mildly elevated 5.44, will defer to IM. * DVT prophylaxis, patient on heparin 5000 units subcu every 8 hours. * Neurologically no other workup indicated. Patient has severe numerous medical issues as listed above. Medical management as per IM, critical care, pulmonary and nephrology.
[2022-07-06] MEDS ORDERED: HEPARIN SODIUM 1,000 UN/ML (10ML VL) MISCELLANE ONE (11:00)
--- NOTE | 2022-07-06 12:21 | P.GSCN ---
History of Present Illness History of present illness: 68-year-old female history of morbid obesity. History of acute kidney injury due to sepsis patient also has history A. fib on CPAP seen in its care unit patient scheduled to have a dialysis catheter placement Neck is supple Chest few crackles the lung bases patient on CPAP Abdomen is soft no peritoneal sign femorals are not palpable due to obesity ultrasound done on the bedside patient has a decent femoral vein and artery were visualized and graft plan is placement dialysis catheter risk and complication discussed Past Medical History Past Medical History: GERD/Reflux, Hypertension, Osteoarthritis (OA) Additional Past Medical History / Comment(s): has been on oral hyperglycemic medications in the past but pcp has taken her off of meds; neuropathy 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 3 years ago was on iv antibiotics and in rehab for 8 months follwing this Past Anesthesia/Blood Transfusion Reactions: No Reported Reaction Past Psychological History: No Psychological Hx Reported Smoking Status: Former smoker Past Alcohol Use History: None Reported Past Drug Use History: None Reported - Past Family History Mother Family Medical History: Cancer Father Family Medical History: Myocardial Infarction ([place]) Medications and Allergies Home Medications Medication Instructions Recorded Confirmed Type Acetaminophen [Tylenol] 650 mg PO Q4H PRN 01/29/22 06/30/22 History Dextrose Chew [Glucose Chew Tab] 32 gm PO QID PRN 01/29/22 06/30/22 History Ipratropium-Albuterol Nebulize 3 ml INHALATION RT-Q6H PRN 01/29/22 06/30/22 History [Duoneb 0.5 mg-3 mg/3 ml Soln] Cefuroxime [Ceftin] 250 mg PO BID@0800,1700 06/26/22 06/30/22 History HYDROcodone/APAP 10-325MG [[place] 1 tab PO Q6H PRN 06/26/22 06/30/22 History 10-325] Albuterol Sulfate [Ventolin HFA] 1 puff INHALATION RT-Q4H PRN 06/30/22 06/30/22 History Ammonium Lactate Lotion 1 applic TOPICAL BID 06/30/22 06/30/22 History [Lac-Hydrin 12% Lotion] Ascorbic Acid [Vitamin C] 1,000 mg PO DAILY@1700 06/30/22 06/30/22 History Cholecalciferol [Vitamin D3 (25 25 mcg PO DAILY@169906/30/22 06/30/22 History Mcg = 1000 Iu)] Ciclopirox Olamine [Loprox 0.77% 1 applic TOPICAL BID@0800,2100 06/30/22 06/30/22 History cream] Ferrous Sulfate [Iron (65 MG 325 mg PO DAILY@0800 06/30/22 06/30/22 History Elemental)] Folic Acid 1 mg PO DAILY@1700 06/30/22 06/30/22 History Furosemide [Lasix] 40 mg PO DAILY@0600 06/30/22 06/30/22 History Loperamide HCl [Imodium A-D] 2 - 4 mg PO QID PRN 06/30/22 06/30/22 History Magnesium Hydroxide [Milk of 7,200 mg PO Q48H PRN 06/30/22 06/30/22 History Magnesia Concentrate] Menthol [Biofreeze] 1 applic TOPICAL DAILY PRN 06/30/22 06/30/22 History Omeprazole Magnesium [PriLOSEC OTC] 20 mg PO HS 06/30/22 06/30/22 History bisacodyL 10 mg RECTAL DAILY PRN 06/30/22 06/30/22 History Allergies Allergy/AdvReac Type Severity Reaction Status Date / Time No Known Allergies Allergy Verified 06/30/22 17:44 Surgical - Exam Vital Signs Pulse Ox 97 06/30/22 16:21 Results - Labs 07/06/22 05:22 07/06/22 05:22 Abnormal Lab Results - Last 24 Hours (Table) 07/05/22 07/05/22 07/05/22 Range/Units 05:55 12:25 16:42 RBC (3.80-5.40) m/uL Hgb (11.4-16.0) gm/dL Hct (34.0-46.0) % MCV (80.0-100.0) fL MCHC (31.0-37.0) g/dL RDW (11.5-15.5) % Plt Count (150-450) k/uL Macrocytosis ABG pH 7.03 L* (7.35-7.45) ABG pCO2 97 H* (35-45) mmHg ABG pO2 (83-108) mmHg ABG Total CO2 28 H (19-24) mmol/L ABG O2 Saturation 98.0 H (94-97) % Chloride (98-107) mmol/L BUN (7-17) mg/dL Creatinine (0.52-1.04) mg/dL Glucose (74-99) mg/dL POC Glucose (mg/dL) 135 H (70-110) mg/dL Calcium (8.4-10.2) mg/dL Magnesium (1.6-2.3) mg/dL Iron 30 L (50-170) ug/dL % Saturation 8.43 L (12.00-45.00) Delta Bilirubin (0.0-0.2) mg/dL Ammonia (<30) umol/L Albumin (3.5-5.0) g/dL 07/05/22 07/05/22 07/05/22 Range/Units 17:26 17:41 19:55 RBC (3.80-5.40) m/uL Hgb (11.4-16.0) gm/dL Hct (34.0-46.0) % MCV (80.0-100.0) fL MCHC (31.0-37.0) g/dL RDW (11.5-15.5) % Plt Count (150-450) k/uL Macrocytosis ABG pH 7.05 L* (7.35-7.45) ABG pCO2 90 H* (35-45) mmHg ABG pO2 (83-108) mmHg ABG Total CO2 28 H (19-24) mmol/L ABG O2 Saturation (94-97) % Chloride (98-107) mmol/L BUN (7-17) mg/dL Creatinine (0.52-1.04) mg/dL Glucose (74-99) mg/dL POC Glucose (mg/dL) 134 H 126 H (70-110) mg/dL Calcium (8.4-10.2) mg/dL Magnesium (1.6-2.3) mg/dL Iron (50-170) ug/dL % Saturation (12.00-45.00) Delta Bilirubin (0.0-0.2) mg/dL Ammonia (<30) umol/L Albumin (3.5-5.0) g/dL 07/06/22 07/06/22 07/06/22 Range/Units 05:22 05:22 05:22 RBC 3.02 L (3.80-5.40) m/uL Hgb 8.9 L (11.4-16.0) gm/dL Hct 31.9 L (34.0-46.0) % MCV 105.4 H (80.0-100.0) fL MCHC 28.0 L (31.0-37.0) g/dL RDW 19.7 H (11.5-15.5) % Plt Count 97 L (150-450) k/uL Macrocytosis Marked A ABG pH (7.35-7.45) ABG pCO2 (35-45) mmHg ABG pO2 (83-108) mmHg ABG Total CO2 (19-24) mmol/L ABG O2 Saturation (94-97) % Chloride 113 H (98-107) mmol/L BUN 67 H (7-17) mg/dL Creatinine 3.42 H (0.52-1.04) mg/dL Glucose 113 H (74-99) mg/dL POC Glucose (mg/dL) (70-110) mg/dL Calcium 8.3 L (8.4-10.2) mg/dL Magnesium 2.4 H (1.6-2.3) mg/dL Iron (50-170) ug/dL % Saturation (12.00-45.00) Delta Bilirubin 0.3 H (0.0-0.2) mg/dL Ammonia 91 H (<30) umol/L Albumin 3.1 L (3.5-5.0) g/dL 07/06/22 07/06/22 Range/Units 06:15 08:07 RBC (3.80-5.40) m/uL Hgb (11.4-16.0) gm/dL Hct (34.0-46.0) % MCV (80.0-100.0) fL MCHC (31.0-37.0) g/dL RDW (11.5-15.5) % Plt Count (150-450) k/uL Macrocytosis ABG pH 7.10 L* (7.35-7.45) ABG pCO2 81 H* (35-45) mmHg ABG pO2 65 L (83-108) mmHg ABG Total CO2 28 H (19-24) mmol/L ABG O2 Saturation 91.9 L (94-97) % Chloride (98-107) mmol/L BUN (7-17) mg/dL Creatinine (0.52-1.04) mg/dL Glucose (74-99) mg/dL POC Glucose (mg/dL) 116 H (70-110) mg/dL Calcium (8.4-10.2) mg/dL Magnesium (1.6-2.3) mg/dL Iron (50-170) ug/dL % Saturation (12.00-45.00) Delta Bilirubin (0.0-0.2) mg/dL Ammonia (<30) umol/L Albumin (3.5-5.0) g/dL Microbiology - Last 24 Hours (Table) 06/30/22 18:55 Blood Culture - Preliminary Blood No Growth after 120 hours Diabetes panel 07/06/22 Range/Units 05:22 Sodium 144 (137-145) mmol/L Potassium 4.8 (3.5-5.1) mmol/L Chloride 113 H (98-107) mmol/L Carbon Dioxide 23 (22-30) mmol/L BUN 67 H (7-17) mg/dL Creatinine 3.42 H (0.52-1.04) mg/dL Glucose 113 H (74-99) mg/dL Calcium 8.3 L (8.4-10.2) mg/dL AST 21 (14-36) U/L ALT 18 (4-34) U/L Alkaline Phosphatase 79 (38-126) U/L Total Protein 6.7 (6.3-8.2) g/dL Albumin 3.1 L (3.5-5.0) g/dL Calcium panel 07/06/22 Range/Units 05:22 Calcium 8.3 L (8.4-10.2) mg/dL Albumin 3.1 L (3.5-5.0) g/dL Pituitary panel 07/06/22 Range/Units 05:22 Sodium 144 (137-145) mmol/L Potassium 4.8 (3.5-5.1) mmol/L Chloride 113 H (98-107) mmol/L Carbon Dioxide 23 (22-30) mmol/L BUN 67 H (7-17) mg/dL Creatinine 3.42 H (0.52-1.04) mg/dL Glucose 113 H (74-99) mg/dL Calcium 8.3 L (8.4-10.2) mg/dL Adrenal panel 07/06/22 Range/Units 05:22 Sodium 144 (137-145) mmol/L Potassium 4.8 (3.5-5.1) mmol/L Chloride 113 H (98-107) mmol/L Carbon Dioxide 23 (22-30) mmol/L BUN 67 H (7-17) mg/dL Creatinine 3.42 H (0.52-1.04) mg/dL Glucose 113 H (74-99) mg/dL Calcium 8.3 L (8.4-10.2) mg/dL Total Bilirubin 0.3 (0.2-1.3) mg/dL AST 21 (14-36) U/L ALT 18 (4-34) U/L Alkaline Phosphatase 79 (38-126) U/L Total Protein 6.7 (6.3-8.2) g/dL Albumin 3.1 L (3.5-5.0) g/dL
--- NOTE | 2022-07-06 12:22 | P.GSCN ---
History of Present Illness History of present illness: Reoperative diagnoses acute kidney injury due to sepsis Posterior same Procedure ultrasound-guided triple-lumen dialysis cath is place her right femoral approach patient was seen and discussed care unit the right groin was prepped and draped applied sterile manner 1% lidocaine for infected the groin area ultrasound-guided micropuncture to discharge femoral vein 4-[place] dilator Doppler guidewire then we passed a regular guidewire which was parked at the inferior vena cava without any resistance dilator was advanced and then we placed triple-lumen dialysis catheter flushed with heparin saline and Hep-Lock secured with 3-0 nylon dressing applied patient for the procedure well Past Medical History Past Medical History: GERD/Reflux, Hypertension, Osteoarthritis (OA) Additional Past Medical History / Comment(s): has been on oral hyperglycemic medications in the past but pcp has taken her off of meds; neuropathy 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 3 years ago was on iv antibiotics and in rehab for 8 months follwing this Past Anesthesia/Blood Transfusion Reactions: No Reported Reaction Past Psychological History: No Psychological Hx Reported Smoking Status: Former smoker Past Alcohol Use History: None Reported Past Drug Use History: None Reported - Past Family History Mother Family Medical History: Cancer Father Family Medical History: Myocardial Infarction ([place]) Medications and Allergies Home Medications Medication Instructions Recorded Confirmed Type Acetaminophen [Tylenol] 650 mg PO Q4H PRN 01/29/22 06/30/22 History Dextrose Chew [Glucose Chew Tab] 32 gm PO QID PRN 01/29/22 06/30/22 History Ipratropium-Albuterol Nebulize 3 ml INHALATION RT-Q6H PRN 01/29/22 06/30/22 History [Duoneb 0.5 mg-3 mg/3 ml Soln] Cefuroxime [Ceftin] 250 mg PO BID@0800,1700 06/26/22 06/30/22 History HYDROcodone/APAP 10-325MG [[place] 1 tab PO Q6H PRN 06/26/22 06/30/22 History 10-325] Albuterol Sulfate [Ventolin HFA] 1 puff INHALATION RT-Q4H PRN 06/30/22 06/30/22 History Ammonium Lactate Lotion 1 applic TOPICAL BID 06/30/22 06/30/22 History [Lac-Hydrin 12% Lotion] Ascorbic Acid [Vitamin C] 1,000 mg PO DAILY@1700 06/30/22 06/30/22 History Cholecalciferol [Vitamin D3 (25 25 mcg PO DAILY@1700 06/30/22 06/30/22 History Mcg = 1000 Iu)] Ciclopirox Olamine [Loprox 0.77% 1 applic TOPICAL BID@0800,2100 06/30/22 06/30/22 History cream] Ferrous Sulfate [Iron (65 MG 325 mg PO DAILY@0800 06/30/22 06/30/22 History Elemental)] Folic Acid 1 mg PO DAILY@1700 06/30/22 06/30/22 History Furosemide [Lasix] 40 mg PO DAILY@0600 06/30/22 06/30/22 History Loperamide HCl [Imodium A-D] 2 - 4 mg PO QID PRN 06/30/22 06/30/22 History Magnesium Hydroxide [Milk of 7,200 mg PO Q48H PRN 06/30/22 06/30/22 History Magnesia Concentrate] Menthol [Biofreeze] 1 applic TOPICAL DAILY PRN 06/30/22 06/30/22 History Omeprazole Magnesium [PriLOSEC OTC] 20 mg PO HS 06/30/22 06/30/22 History bisacodyL 10 mg RECTAL DAILY PRN 06/30/22 06/30/22 History Allergies Allergy/AdvReac Type Severity Reaction Status Date / Time No Known Allergies Allergy Verified 06/30/22 17:44 Surgical - Exam Vital Signs Pulse Ox 97 06/30/22 16:21 Results - Labs 07/06/22 05:22 07/06/22 05:22 Abnormal Lab Results - Last 24 Hours (Table) 07/05/22 07/05/22 07/05/22 Range/Units 05:55 12:25 16:42 RBC (3.80-5.40) m/uL Hgb (11.4-16.0) gm/dL Hct (34.0-46.0) % MCV (80.0-100.0) fL MCHC (31.0-37.0) g/dL RDW (11.5-15.5) % Plt Count (150-450) k/uL Macrocytosis ABG pH 7.03 L* (7.35-7.45) ABG pCO2 97 H* (35-45) mmHg ABG pO2 (83-108) mmHg ABG Total CO2 28 H (19-24) mmol/L ABG O2 Saturation 98.0 H (94-97) % Chloride (98-107) mmol/L BUN (7-17) mg/dL Creatinine (0.52-1.04) mg/dL Glucose (74-99) mg/dL POC Glucose (mg/dL) 135 H (70-110) mg/dL Calcium (8.4-10.2) mg/dL Magnesium (1.6-2.3) mg/dL Iron 30 L (50-170) ug/dL % Saturation 8.43 L (12.00-45.00) Delta Bilirubin (0.0-0.2) mg/dL Ammonia (<30) umol/L Albumin (3.5-5.0) g/dL 07/05/22 07/05/22 07/05/22 Range/Units 17:26 17:41 19:55 RBC (3.80-5.40) m/uL Hgb (11.4-16.0) gm/dL Hct (34.0-46.0) % MCV (80.0-100.0) fL MCHC (31.0-37.0) g/dL RDW (11.5-15.5) % Plt Count (150-450) k/uL Macrocytosis ABG pH 7.05 L* (7.35-7.45) ABG pCO2 90 H* (35-45) mmHg ABG pO2 (83-108) mmHg ABG Total CO2 28 H (19-24) mmol/L ABG O2 Saturation (94-97) % Chloride (98-107) mmol/L BUN (7-17) mg/dL Creatinine (0.52-1.04) mg/dL Glucose (74-99) mg/dL POC Glucose (mg/dL) 134 H 126 H (70-110) mg/dL Calcium (8.4-10.2) mg/dL Magnesium (1.6-2.3) mg/dL Iron (50-170) ug/dL % Saturation (12.00-45.00) Delta Bilirubin (0.0-0.2) mg/dL Ammonia (<30) umol/L Albumin (3.5-5.0) g/dL 07/06/22 07/06/22 07/06/22 Range/Units 05:22 05:22 05:22 RBC 3.02 L (3.80-5.40) m/uL Hgb 8.9 L (11.4-16.0) gm/dL Hct 31.9 L (34.0-46.0) % MCV 105.4 H (80.0-100.0) fL MCHC 28.0 L (31.0-37.0) g/dL RDW 19.7 H (11.5-15.5) % Plt Count 97 L (150-450) k/uL Macrocytosis Marked A ABG pH (7.35-7.45) ABG pCO2 (35-45) mmHg ABG pO2 (83-108) mmHg ABG Total CO2 (19-24) mmol/L ABG O2 Saturation (94-97) % Chloride 113 H (98-107) mmol/L BUN 67 H (7-17) mg/dL Creatinine 3.42 H (0.52-1.04) mg/dL Glucose 113 H (74-99) mg/dL POC Glucose (mg/dL) (70-110) mg/dL Calcium 8.3 L (8.4-10.2) mg/dL Magnesium 2.4 H (1.6-2.3) mg/dL Iron (50-170) ug/dL % Saturation (12.00-45.00) Delta Bilirubin 0.3 H (0.0-0.2) mg/dL Ammonia 91 H (<30) umol/L Albumin 3.1 L (3.5-5.0) g/dL 07/06/22 07/06/22 Range/Units 06:15 08:07 RBC (3.80-5.40) m/uL Hgb (11.4-16.0) gm/dL Hct (34.0-46.0) % MCV (80.0-100.0) fL MCHC (31.0-37.0) g/dL RDW (11.5-15.5) % Plt Count (150-450) k/uL Macrocytosis ABG pH 7.10 L* (7.35-7.45) ABG pCO2 81 H* (35-45) mmHg ABG pO2 65 L (83-108) mmHg ABG Total CO2 28 H (19-24) mmol/L ABG O2 Saturation 91.9 L (94-97) % Chloride (98-107) mmol/L BUN (7-17) mg/dL Creatinine (0.52-1.04) mg/dL Glucose (74-99) mg/dL POC Glucose (mg/dL) 116 H (70-110) mg/dL Calcium (8.4-10.2) mg/dL Magnesium (1.6-2.3) mg/dL Iron (50-170) ug/dL % Saturation (12.00-45.00) Delta Bilirubin (0.0-0.2) mg/dL Ammonia (<30) umol/L Albumin (3.5-5.0) g/dL Microbiology - Last 24 Hours (Table) 06/30/22 18:55 Blood Culture - Preliminary Blood No Growth after 120 hours Diabetes panel 07/06/22 Range/Units 05:22 Sodium 144 (137-145) mmol/L Potassium 4.8 (3.5-5.1) mmol/L Chloride 113 H (98-107) mmol/L Carbon Dioxide 23 (22-30) mmol/L BUN 67 H (7-17) mg/dL Creatinine 3.42 H (0.52-1.04) mg/dL Glucose 113 H (74-99) mg/dL Calcium 8.3 L (8.4-10.2) mg/dL AST 21 (14-36) U/L ALT 18 (4-34) U/L Alkaline Phosphatase 79 (38-126) U/L Total Protein 6.7 (6.3-8.2) g/dL Albumin 3.1 L (3.5-5.0) g/dL Calcium panel 07/06/22 Range/Units 05:22 Calcium 8.3 L (8.4-10.2) mg/dL Albumin 3.1 L (3.5-5.0) g/dL Pituitary panel 07/06/22 Range/Units 05:22 Sodium 144 (137-145) mmol/L Potassium 4.8 (3.5-5.1) mmol/L Chloride 113 H (98-107) mmol/L Carbon Dioxide 23 (22-30) mmol/L BUN 67 H (7-17) mg/dL Creatinine 3.42 H (0.52-1.04) mg/dL Glucose 113 H (74-99) mg/dL Calcium 8.3 L (8.4-10.2) mg/dL Adrenal panel 07/06/22 Range/Units 05:22 Sodium 144 (137-145) mmol/L Potassium 4.8 (3.5-5.1) mmol/L Chloride 113 H (98-107) mmol/L Carbon Dioxide 23 (22-30) mmol/L BUN 67 H (7-17) mg/dL Creatinine 3.42 H (0.52-1.04) mg/dL Glucose 113 H (74-99) mg/dL Calcium 8.3 L (8.4-10.2) mg/dL Total Bilirubin 0.3 (0.2-1.3) mg/dL AST 21 (14-36) U/L ALT 18 (4-34) U/L Alkaline Phosphatase 79 (38-126) U/L Total Protein 6.7 (6.3-8.2) g/dL Albumin 3.1 L (3.5-5.0) g/dL
[2022-07-06 12:56] LABS: Glucose,Whole Blood 104 mg/dL (70-110)
[2022-07-06] MEDS: ASCORBIC ACID 500 MG TAB PO SCH (14:23)
[2022-07-06] MEDS: CHOLECALCIFEROL 25 MCG (1000 IU) TABLET PO SCH (14:23)
[2022-07-06] MEDS: FOLIC ACID 1 MG TAB PO SCH (14:23)
[2022-07-06] MEDS: NOREPINEPHRINE 8 MG in SODIUM CHLORIDE 0.9% 250 ML IV SCH (15:49)
[2022-07-06 15:51] LABS: ABG Base Excess -4.4 mmol/L; ABG HCO3 25 mmol/L (21-25); ABG Oxygen Saturation 93.9 % (94-97); ABG PO2 72 mmHg (83-108); ABG TCO2 27 mmol/L (19-24); Allen Test Performed? Yes
[2022-07-06 15:54] LABS: ABG PCO2 74 mmHg (35-45); ABG PH 7.14 (7.35-7.45)
[2022-07-06 17:56] LABS: Glucose,Whole Blood 111 mg/dL (70-110)
--- NOTE | 2022-07-06 19:10 | P.PN ---
Subjective This is a pleasant 72 years old -Prydeinig female from [facility] with multiple medical problems as below. Initially was admitted from [place] with 4 edema, dizziness and yesterday she was found acidotic and she was sent to the ICU. Patient has evidence of severe sepsis secondary to Proteus UTI, and this has been complicated with acute hy poxic hypercapnic respiratory failure leading to severe encephalopathy and some nylons, patient currently lying in bed very lethargic, To provide information and does not follow commands. Also her mentation is worsened by hepatic encephalopathy picture with elevated ammonia level, currently 91. Patient has combined both metabolic and respiratory acidosis and pH about 7, pCO2 is elevated. Patient also with evidence of acute anuric kidney failure, dialysis catheter was placed and plan to start her on dialysis today. Several consultants on the case and following her closely including pulmonary, c ardiology, nephrology, neurology and vascular surgery. Active Medications Generic Name Dose Route Start Last Admin Trade Name Freq PRN Reason Stop Dose Admin Acetaminophen 650 mg 06/30/22 19:05 Acetaminophen Tab 325 Mg Tab PO Q6HR PRN Mild Pain or Fever > 100.5 Hydrocodone Bitart/Acetaminophen 1 each 07/01/22 11:05 Hydrocodone/Apap 10-325mg 1 Each Tab PO Q6H PRN Moderate to Severe Pain (4-10) Albuterol Sulfate 2 puff 07/01/22 11:05 07/06/22 15:55 Albuterol Hfa Inhaler INHALATION 2 puff RT-Q4H PRN Administration Shortness Of Breath Ascorbic Acid 1,000 mg 07/01/22 17:00 07/06/22 14:23 Ascorbic Acid 500 Mg Tab PO Not Given DAILY@1700 [facility] Bisacodyl 10 mg 07/01/22 11:05 Bisacodyl 10 Mg Supp RECTAL DAILY PRN Constipation Cholecalciferol 25 mcg 07/01/22 17:00 07/06/22 14:23 Cholecalciferol 25 Mcg (1000 Iu) Tablet PO Not Given DAILY@1700 [facility] Clotrimazole 1 applic 07/01/22 21:00 07/06/22 10:29 Clotrimazole 1% Cream 30 Gm Tube TOPICAL 1 applic BID@0800,2100 [facility] Administration Duloxetine HCl 30 mg 07/03/22 14:30 07/06/22 09:48 Duloxetine Hcl 30 Mg Capsule. PO Not Given DAILY [facility] Ferrous Sulfate 325 mg 07/02/22 08:00 07/06/22 09:47 Ferrous Sulfate 325 Mg Tab PO Not Given DAILY@0800 [facility] Folic Acid 1 mg 07/01/22 17:00 07/06/22 14:23 Folic Acid 1 Mg Tab PO Not Given DAILY@1700 [facility] Glucose 32 gm 07/02/22 13:00 07/06/22 14:24 Dextrose 4 Gm Chewable PO Not Given QID [facility] Heparin Sodium (Porcine) 5,000 unit 07/05/22 16:30 07/06/22 15:26 Heparin Sodium,Porcine/Pf 5,000 Unit/0.5 Ml Syringe SQ 5,000 unit Q8HR [facility] Administration Dextrose/Water 1,000 mls @ 75 mls/hr 07/05/22 11:00 07/06/22 01:20 Dextrose 5%-Water Iv Soln IV Not Given .[id number] [facility] Piperacillin Sod/Tazobactam 100 mls @ 25 mls/hr 07/05/22 21:00 07/06/22 09:56 Sod 3.375 gm/ Sodium Chloride IVPB 25 mls/hr Q12HR [facility] Administration Protocol Dopamine HCl/Dextrose 800 mg/ 250 mls @ 14.288 mls/hr 07/05/22 23:15 07/06/22 15:26 IV Solution IV 14.288 mls/hr .[id number] [facility] Administration 4 MCG/KG/MIN Norepinephrine Bitartrate 8 mg 258 mls @ 11.586 mls/hr 07/06/22 16:00 07/06/22 15:49 / Sodium Chloride IV 0.03 mcg/kg/min .[id number] [facility] 11.586 mls/hr Administration Protocol 0.03 MCG/KG/MIN Lactic Acid 1 applic 07/01/22 21:00 07/06/22 10:28 Ammonium Lactate 12% Lotion 225 Gm Btl TOPICAL 1 applic BID [facility] Administration Protocol Lactulose 20 gm 07/03/22 13:15 07/06/22 09:48 Lactulose 20 Gm/30 Ml Cup PO Not Given BID [facility] Levothyroxine Sodium 50 mcg 07/01/22 13:30 07/06/22 07:32 Levothyroxine 50 Mcg Tab PO Not Given DAILY@0630 [facility] Magnesium Hydroxide 2,400 mg 07/01/22 11:05 Magnesium Hydroxide 2,400 Mg/10 Ml Cup PO Q48H PRN Constipation Methyl Salicylate 1 applic 07/01/22 11:05 07/02/22 05:48 Methyl Salicylate-Menthol Oint (3 Oz Tube) TOPICAL 1 applic DAILY PRN Administration neck & shoulder pain Metoprolol Tartrate 25 mg 07/02/22 09:00 07/06/22 09:48 Metoprolol Tartrate 25 Mg Tab PO Not Given BID [facility] Naloxone HCl 0.2 mg 06/30/22 19:05 Naloxone 0.4 Mg/Ml 1 Ml Vial IV Q2M PRN Opioid Reversal Ondansetron HCl 4 mg 06/30/22 19:05 Ondansetron 4 Mg/2 Ml Vial IVP Q8HR PRN Nausea And Vomiting Objective - Vital Signs Vital signs: Vital Signs Temp 97.1 F L 07/06/22 18:00 Pulse 90 07/06/22 18:00 Resp 10 L 07/06/22 18:00 BP 90/58 07/06/22 18:00 Pulse Ox 99 07/06/22 18:00 FiO2 30 07/06/22 18:00 Intake & Output 07/06/22 07/06/22 07/07/22 06:59 18:59 07:59 Intake Total 456.928 5529 Output Total 4 5 Balance 973.861 3361 Weight 199.581 kg Intake: IV 885 970 Dextrose 5% in Water 1, 675 900 000 ml @ 75 mls/hr IV . [id number] [facility] Rx#:[id number] Furosemide 100 mg In 110 70 Sodium Chloride 0.9% 90 ml @ 10 MG/HR 10 mls/hr IV .Q10H [facility] Rx#: [id number] Piperacillin-Tazobactam 3 100 .375 gm In Sodium Chloride 0.9% 100 ml @ 25 mls/hr IVPB Q12HR [facility] Rx #:[id number] Intake, IV Titration 76.167 100 Amount Furosemide 100 mg In 76.167 100 Sodium Chloride 0.9% 90 ml @ 10 MG/HR 10 mls/hr IV .Q10H [facility] Rx#: [id number] Output: Urine 4 5 Other: Voiding Method Indwelling Catheter Indwelling Catheter - Exam -GENERAL: The patient is very somnolent and lethargic, she does not respond to verbal or tactile stimuli. Morbidly obese HEENT: Pupils are round and equally reacting to light. EOMI. No scleral icterus. No conjunctival pallor. Normocephalic, atraumatic. No pharyngeal erythema. No thyromegaly. CARDIOVASCULAR: S1 and S2 present. No murmurs, rubs, or gallops. -PULMONARY: Chest is clear to auscultation, no wheezing or crackles. Decreased breath sounds on both sides of the lungs -ABDOMEN: Soft, nontender, nondistended, normoactive bowel sounds. No palpable organomegaly. Gomez catheter in place with minimal urine output MUSCULOSKELETAL: No joint swelling or deformity. EXTREMITIES: No cyanosis, clubbing, or pedal edema. NEUROLOGICAL: Gross neurological examination did not reveal any focal deficits. SKIN: No rashes. no petechiae. - Labs CBC & Chem 7: 07/06/22 05:22 07/06/22 05:22 Labs: Abnormal Lab Results - Last 24 Hours (Table) 07/05/22 07/05/22 07/06/22 Range/Units 05:55 19:55 05:22 RBC 3.02 L (3.80-5.40) m/uL Hgb 8.9 L (11.4-16.0) gm/dL Hct 31.9 L (34.0-46.0) % MCV 105.4 H (80.0-100.0) fL MCHC 28.0 L (31.0-37.0) g/dL RDW 19.7 H (11.5-15.5) % Plt Count 97 L (150-450) k/uL Macrocytosis Marked A ABG pH (7.35-7.45) ABG pCO2 (35-45) mmHg ABG pO2 (83-108) mmHg ABG Total CO2 (19-24) mmol/L ABG O2 Saturation (94-97) % Chloride (98-107) mmol/L BUN (7-17) mg/dL Creatinine (0.52-1.04) mg/dL Glucose (74-99) mg/dL POC Glucose (mg/dL) 126 H (70-110) mg/dL Calcium (8.4-10.2) mg/dL Magnesium (1.6-2.3) mg/dL Iron 30 L (50-170) ug/dL % Saturation 8.43 L (12.00-45.00) Delta Bilirubin (0.0-0.2) mg/dL Ammonia (<30) umol/L Albumin (3.5-5.0) g/dL 07/06/22 07/06/22 07/06/22 Range/Units 05:22 05:22 06:15 RBC (3.80-5.40) m/uL Hgb (11.4-16.0) gm/dL Hct (34.0-46.0) % MCV (80.0-100.0) fL MCHC (31.0-37.0) g/dL RDW (11.5-15.5) % Plt Count (150-450) k/uL Macrocytosis ABG pH 7.10 L* (7.35-7.45) ABG pCO2 81 H* (35-45) mmHg ABG pO2 65 L (83-108) mmHg ABG Total CO2 28 H (19-24) mmol/L ABG O2 Saturation 91.9 L (94-97) % Chloride 113 H (98-107) mmol/L BUN 67 H (7-17) mg/dL Creatinine 3.42 H (0.52-1.04) mg/dL Glucose 113 H (74-99) mg/dL POC Glucose (mg/dL) (70-110) mg/dL Calcium 8.3 L (8.4-10.2) mg/dL Magnesium 2.4 H (1.6-2.3) mg/dL Iron (50-170) ug/dL % Saturation (12.00-45.00) Delta Bilirubin 0.3 H (0.0-0.2) mg/dL Ammonia 91 H (<30) umol/L Albumin 3.1 L (3.5-5.0) g/dL 07/06/22 07/06/22 07/06/22 Range/Units 08:07 15:47 17:55 RBC (3.80-5.40) m/uL Hgb (11.4-16.0) gm/dL Hct (34.0-46.0) % MCV (80.0-100.0) fL MCHC (31.0-37.0) g/dL RDW (11.5-15.5) % Plt Count (150-450) k/uL Macrocytosis ABG pH 7.14 L* (7.35-7.45) ABG pCO2 74 H* (35-45) mmHg ABG pO2 72 L (83-108) mmHg ABG Total CO2 27 H (19-24) mmol/L ABG O2 Saturation 93.9 L (94-97) % Chloride (98-107) mmol/L BUN (7-17) mg/dL Creatinine (0.52-1.04) mg/dL Glucose (74-99) mg/dL POC Glucose (mg/dL) 116 H 111 H (70-110) mg/dL Calcium (8.4-10.2) mg/dL Magnesium (1.6-2.3) mg/dL Iron (50-170) ug/dL % Saturation (12.00-45.00) Delta Bilirubin (0.0-0.2) mg/dL Ammonia (<30) umol/L Albumin (3.5-5.0) g/dL Microbiology - Last 24 Hours (Table) 06/30/22 18:55 Blood Culture - Preliminary Blood No Growth after 120 hours Assessment and Plan Assessment: Bilateral posterior infusion, hospital acquired pneumonia cannot be excluded Acute hypoxic hypercapnic respiratory failure Acute anuric renal failure requiring hemodialysis Hepatic encephalopathy with elevated ammonia level Acute urinary tract infection secondary to Klebsiella Chronic atrial fibrillation Metabolic and respiratory acidosis Metabolic encephalopathy Mild cardiomyopathy with ejection fraction 40-45% Morbidly obese with BMI of 75.5 Plan: hemodialysis catheter placed today and would be eventually dialyze her rn training team on the case Patient remains in the ICU with pulmonary/critical care consult Continue with D5W Continue with dopamine drip Continue with Zosyn. Several consultants on the case including pulmonary, cardiology, nephrology, neurology, vascular surgery. DVT prophylaxis: Subcutaneous heparin GI Prophylaxis: Pepcid PT/OT: Pending Prognosis is guarded
[2022-07-06 21:37] LABS: Glucose,Whole Blood 97 mg/dL (70-110)
[2022-07-06] MEDS: LACTULOSE 200 GM/300 ML (FROM 1/2 GAL JUG) RECTAL SCH (23:28)
[2022-07-06 23:45] LABS: Hepatitis B Surface AB- Quant 3.5 mIU/mL; Hepatitis B Surface Antibody Nonreactive (Nonreactive)
[2022-07-06 23:49] LABS: Hepatitis B Surface Antigen Nonreactive (Nonreactive)
[2022-07-07] MEDS: ALBUTEROL HFA INHALER INHALATION PRN ×5 (00:29→16:21)
[2022-07-07 04:31] LABS: Anisocytosis Slight; HCT 30.1 % (34.0-46.0); HGB 8.5 gm/dL (11.4-16.0); Hypochromasia Marked; MCH 28.7 pg (25.0-35.0); MCHC 28.2 g/dL (31.0-37.0); MCV 101.8 fL (80.0-100.0); Macrocytosis Moderate; Mean Platelet Volume 11.6; Poikilocytosis Slight; RBC 2.95 m/uL (3.80-5.40)
[2022-07-07] MEDS: HEPARIN SODIUM,PORCINE/PF 5,000 UNIT/0.5 ML SYRINGE SQ SCH ×3 (04:48→17:16)
[2022-07-07] MEDS: DEXTROSE 5% IN WATER 1,000 ML IV SCH ×3 (04:49→20:35)
[2022-07-07 04:54] LABS: Albumin 2.9 g/dL (3.5-5.0); Potassium 4.4 mmol/L (3.5-5.1); Total Bilirubin 0.4 mg/dL (0.2-1.3); Total Protein 6.4 g/dL (6.3-8.2)
[2022-07-07 05:00] LABS: Platelet Count 87 k/uL (150-450)
[2022-07-07 05:13] LABS: Band Neutrophils % 1 %; Basophils # (M) 0.04 k/uL (0-0.2); Eosinophils # (M) 0.09 k/uL (0-0.7); Large Platelets Present; Lymphocytes # (M) 0.79 k/uL (1.0-4.8); Monocytes # (M) 0.53 k/uL (0-1.0); Neutrophils % (M) 68 %; Nucleated Red Blood Cells 7 /100 WBC (0-0); Total Cells Counted 200; WBC 4.4 k/uL (3.8-10.6)
[2022-07-07 05:14] LABS: Polychromasia Present
[2022-07-07] MEDS ORDERED: ACETAMINOPHEN SUPPOSITORY 120 MG SUPP RECTAL PRN (07:03)
[2022-07-07] MEDS: LEVOTHYROXINE 50 MCG TAB PO SCH (07:34)
--- NOTE | 2022-07-07 08:01 | XR ---
EXAMINATION TYPE: XR chest 1V portable DATE OF EXAM: 07/07/2022 6:06 AM COMPARISON: Chest radiographs from 07/06/2022 TECHNIQUE: XR chest 1V portable Portable AP radiograph of the chest. CLINICAL INDICATION:Female, 72 years old with history of shortness of breath; FINDINGS: Lungs/Pleura: Suspected large pleural effusion with associated atelectasis on the right. Pulmonary vascularity: Unremarkable. Heart/mediastinum: Cardiomediastinal silhouette is enlarged and stable. Musculoskeletal: No acute osseous pathology. IMPRESSION: Large or pleural effusion with associated atelectasis. Similar to prior.
--- NOTE | 2022-07-07 09:08 | P.PN ---
Subjective Progress Note Date: 07/07/22 Principal diagnosis: 72-year-old female followed up with acute kidney injury secondary to bacteremia with staph epidermidis as well as Proteus UTI. Additionally she had A. fib wi th RVR and had been hypotensive. She is anuric. [facility] the [facility] months. she was ambulatory before [facility] few months ago. I spoke to the son yesterday and after discussion we started on dialysis yesterday. She tolerated 2 L taken off. This morning she remains on BiPAP but obtunded unresponsive. Blood pressure is maintained with some levo fed on and off. Currently off of levo fed. She is in atrial fibrillation urine output remains anuric. Ultrasound shows right kidney normal size no hydronephrosis left kidney could not be visualized because she is obese . Objective - Vital Signs Vital signs: Vital Signs Temp 96.7 F L 07/07/22 04:00 Pulse 83 07/07/22 08:30 Resp 12 07/07/22 08:30 BP 111/67 07/07/22 08:30 Pulse Ox 96 07/07/22 08:30 FiO2 30 07/07/22 08:31 Intake & Output 07/06/22 07/07/22 07/07/22 17:59 06:59 18:59 Intake Total 156.823 Output Total 0 Balance 156.823 Weight Intake: IV 150 Dextrose 5% in Water 1, 150 000 ml @ 75 mls/hr IV . [id number] [facility] Rx#:[id number] Furosemide 100 mg In Sodium Chloride 0.9% 90 ml @ 10 MG/HR 10 mls/hr IV .Q10H [facility] Rx#: [id number] Piperacillin-Tazobactam 3 .375 gm In Sodium Chloride 0.9% 100 ml @ 25 mls/hr IVPB Q12HR [facility] Rx #:[id number] Intake, IV Titration 6.823 Amount Furosemide 100 mg In Sodium Chloride 0.9% 90 ml @ 10 MG/HR 10 mls/hr IV .Q10H [facility] Rx#: [id number] Norepinephrine 8 mg In 6.823 Sodium Chloride 0.9% 250 ml @ 0.03 MCG/KG/MIN 11. 586 mls/hr IV .[id number] [facility] Rx#:[id number] Hemodialysis Output: Urine 0 Hemodialysis Other: Voiding Method # Voids 0 On examination currently obtunded. She is on BiPAP. No facial asymmetry noted Lungs are clear with less than optimal air entry Heart sounds unremarkable except atrial fibrillation Abdomen is obese nontender Extremity exam was mild edema Neurologically obtunded. - Labs CBC & Chem 7: 07/07/22 03:52 07/07/22 03:52 Labs: Abnormal Lab Results - Last 24 Hours (Table) 07/06/22 07/06/22 07/06/22 Range/Units 08:07 15:47 17:55 RBC (3.80-5.40) m/uL Hgb (11.4-16.0) gm/dL Hct (34.0-46.0) % MCV (80.0-100.0) fL MCHC (31.0-37.0) g/dL RDW (11.5-15.5) % Plt Count (150-450) k/uL Lymphocytes # (Manual) (1.0-4.8) k/uL Nucleated RBCs (0-0) /100 WBC ABG pH 7.14 L* (7.35-7.45) ABG pCO2 74 H* (35-45) mmHg ABG pO2 72 L (83-108) mmHg ABG Total CO2 27 H (19-24) mmol/L ABG O2 Saturation 93.9 L (94-97) % Chloride (98-107) mmol/L BUN (7-17) mg/dL Creatinine (0.52-1.04) mg/dL POC Glucose (mg/dL) 116 H 111 H (70-110) mg/dL Calcium (8.4-10.2) mg/dL Ammonia (<30) umol/L Albumin (3.5-5.0) g/dL Hep B Core Total Ab (Nonreactive) 07/06/22 07/07/22 07/07/22 Range/Units 18:25 03:52 03:52 RBC 2.95 L (3.80-5.40) m/uL Hgb 8.5 L (11.4-16.0) gm/dL Hct 30.1 L (34.0-46.0) % MCV 101.8 H (80.0-100.0) fL MCHC 28.2 L (31.0-37.0) g/dL RDW 20.0 H (11.5-15.5) % Plt Count 87 L (150-450) k/uL Lymphocytes # (Manual) 0.79 L (1.0-4.8) k/uL Nucleated RBCs 7 H (0-0) /100 WBC ABG pH (7.35-7.45) ABG pCO2 (35-45) mmHg ABG pO2 (83-108) mmHg ABG Total CO2 (19-24) mmol/L ABG O2 Saturation (94-97) % Chloride (98-107) mmol/L BUN (7-17) mg/dL Creatinine (0.52-1.04) mg/dL POC Glucose (mg/dL) (70-110) mg/dL Calcium (8.4-10.2) mg/dL Ammonia 72 H (<30) umol/L Albumin (3.5-5.0) g/dL Hep B Core Total Ab Non-Reactive A (Nonreactive) 07/07/22 Range/Units 03:52 RBC (3.80-5.40) m/uL Hgb (11.4-16.0) gm/dL Hct (34.0-46.0) % MCV (80.0-100.0) fL MCHC (31.0-37.0) g/dL RDW (11.5-15.5) % Plt Count (150-450) k/uL Lymphocytes # (Manual) (1.0-4.8) k/uL Nucleated RBCs (0-0) /100 WBC ABG pH (7.35-7.45) ABG pCO2 (35-45) mmHg ABG pO2 (83-108) mmHg ABG Total CO2 (19-24) mmol/L ABG O2 Saturation (94-97) % Chloride 109 H (98-107) mmol/L BUN 49 H (7-17) mg/dL Creatinine 3.04 H (0.52-1.04) mg/dL POC Glucose (mg/dL) (70-110) mg/dL Calcium 8.0 L (8.4-10.2) mg/dL Ammonia (<30) umol/L Albumin 2.9 L (3.5-5.0) g/dL Hep B Core Total Ab (Nonreactive) Microbiology - Last 24 Hours (Table) 06/30/22 18:55 Blood Culture - Final Blood No Growth after 144 hours Assessment and Plan Assessment: Impression 1. ATN, secondary to sepsis with staph epidermidis bacteremia and Proteus UTI. Anuric. Started on dialysis yesterday 2 L taken off for 4 hours, tolerated dialysis 2. Obtundation, CO2 narcosis, hypoventilation obesity 3. Staph epi bacteremia 4. UTI 5. Atrial fibrillation 6. Hypertension 7. Congestive heart failure. 8. Anemia, rule out iron deficiency. Hemoglobin is going down from 9.4-8.9-8.5 Recommendation 1. Will continue dialysis today because of the fluid overload. We'll again give her 4 hours of dialysis and 2 L taken off 2. Prognosis very guarded. 3. No changes in medications suggestive for right now 4. Watch hemoglobin and transfuse as needed
[2022-07-07] MEDS: DULoxetine HCL 30 MG CAPSULE.DR PO SCH (09:10)
[2022-07-07] MEDS: METOPROLOL TARTRATE 25 MG TAB PO SCH ×2 (09:10→20:26)
[2022-07-07] MEDS: DEXTROSE 4 GM CHEWABLE PO SCH ×4 (09:10→23:00)
[2022-07-07] MEDS: FERROUS SULFATE 325 MG TAB PO SCH (09:10)
--- NOTE | 2022-07-07 09:30 | P.PN ---
Subjective Progress Note Date: 07/07/22 PROGRESS NOTE The patient became more lethargic yesterday, requiring transfer to the ICU she is on the BiPAP, she has no urinary output. She continues to be in atrial fibrillation with controlled ventricular response. She is not able to take any oral medications. She is on IV Lasix drip without significant response. She is being evaluated for possible dialysis. She continues to be somnolent today, she has hypercapnic respiratory failure. July 07: The patient remains lethargic, in atrial fibrillation, she underwent dialysis yesterday and is scheduled to undergo dialysis today. She is in atrial fibrillation with controlled ventricular response. She was on norepinephrine for short period of time. There is no evidence of ventricular arrhythmia. She continues to be anuric. Medications: Patient is unable to take her beta patricia because of the mental status PHYSICAL EXAMINATION: 72-year-old female somnolent, morbidly, very lethargic obese Blood pressure 105/70 heart rate 60 LUNGS: Clear to auscultation anteriorly HEART: Irregular rate and rhythm, S1, S2. No S3. systolic ejection murmur ABDOMEN: Soft, nontender, no organomegaly EXTREMETIES: +1-2 edema LAB: Hemoglobin 8.5, BUN 49, creatinine 3.04 IMPRESSION: 1. Respiratory failure with hypercapnic status with pleural effusion 2. Acute on chronic kidney injury 3. Atrial fibrillation 4. Morbid obesity 5. UTI with probable sepsis 6. Prior history of hypertension 7. [id number] systolic dysfunction 8. History of anemia PLAN: 1. Dialysis per nephrology 2. Continue supportive care 3. If needed use IV metoprolol until able to take by mouth 4. Prognosis is guarded Objective - Vital Signs Vital signs: Vital Signs Temp 96.7 F L 07/07/22 04:00 Pulse 67 07/07/22 09:00 Resp 12 07/07/22 09:00 BP 105/79 07/07/22 09:00 Pulse Ox 96 07/07/22 09:00 FiO2 30 07/07/22 08:31 Intake & Output 07/06/22 07/07/22 07/07/22 17:59 06:59 18:59 Intake Total 231.823 Output Total 0 Balance 231.823 Weight Intake: IV 225 Dextrose 5% in Water 1, 225 000 ml @ 75 mls/hr IV . [id number] [facility] Rx#:[id number] Furosemide 100 mg In Sodium Chloride 0.9% 90 ml @ 10 MG/HR 10 mls/hr IV .Q10H [facility] Rx#: [id number] Piperacillin-Tazobactam 3 .375 gm In Sodium Chloride 0.9% 100 ml @ 25 mls/hr IVPB Q12HR [facility] Rx #:[id number] Intake, IV Titration 6.823 Amount Furosemide 100 mg In Sodium Chloride 0.9% 90 ml @ 10 MG/HR 10 mls/hr IV .Q10H [facility] Rx#: [id number] Norepinephrine 8 mg In 6.823 Sodium Chloride 0.9% 250 ml @ 0.03 MCG/KG/MIN 11. 586 mls/hr IV .[id number] [facility] Rx#:[id number] Hemodialysis Output: Urine 0 Hemodialysis Other: Voiding Method Indwelling Catheter # Voids 0 - Labs CBC & Chem 7: 07/07/22 03:52 07/07/22 03:52 Labs: Abnormal Lab Results - Last 24 Hours (Table) 07/06/22 07/06/22 07/06/22 Range/Units 15:47 17:55 18:25 RBC (3.80-5.40) m/uL Hgb (11.4-16.0) gm/dL Hct (34.0-46.0) % MCV (80.0-100.0) fL MCHC (31.0-37.0) g/dL RDW (11.5-15.5) % Plt Count (150-450) k/uL Lymphocytes # (Manual) (1.0-4.8) k/uL Nucleated RBCs (0-0) /100 WBC ABG pH 7.14 L* (7.35-7.45) ABG pCO2 74 H* (35-45) mmHg ABG pO2 72 L (83-108) mmHg ABG Total CO2 27 H (19-24) mmol/L ABG O2 Saturation 93.9 L (94-97) % Chloride (98-107) mmol/L BUN (7-17) mg/dL Creatinine (0.52-1.04) mg/dL POC Glucose (mg/dL) 111 H (70-110) mg/dL Calcium (8.4-10.2) mg/dL Ammonia (<30) umol/L Albumin (3.5-5.0) g/dL Hep B Core Total Ab Non-Reactive A (Nonreactive) 07/07/22 07/07/22 07/07/22 Range/Units 03:52 03:52 03:52 RBC 2.95 L (3.80-5.40) m/uL Hgb 8.5 L (11.4-16.0) gm/dL Hct 30.1 L (34.0-46.0) % MCV 101.8 H (80.0-100.0) fL MCHC 28.2 L (31.0-37.0) g/dL RDW 20.0 H (11.5-15.5) % Plt Count 87 L (150-450) k/uL Lymphocytes # (Manual) 0.79 L (1.0-4.8) k/uL Nucleated RBCs 7 H (0-0) /100 WBC ABG pH (7.35-7.45) ABG pCO2 (35-45) mmHg ABG pO2 (83-108) mmHg ABG Total CO2 (19-24) mmol/L ABG O2 Saturation (94-97) % Chloride 109 H (98-107) mmol/L BUN 49 H (7-17) mg/dL Creatinine 3.04 H (0.52-1.04) mg/dL POC Glucose (mg/dL) (70-110) mg/dL Calcium 8.0 L (8.4-10.2) mg/dL Ammonia 72 H (<30) umol/L Albumin 2.9 L (3.5-5.0) g/dL Hep B Core Total Ab (Nonreactive) Microbiology - Last 24 Hours (Table) 06/30/22 18:55 Blood Culture - Final Blood No Growth after 144 hours
--- NOTE | 2022-07-07 09:37 | P.PN ---
Subjective Progress Note Date: 07/07/22 72-year-old morbidly obese female patient, presented to the hospital because of not feeling well, dizziness, hypothermic and she was also found to be in acute kidney injury on top of chronic kidney disease and an underlying gram-negative urinary tract infection. I was asked to evaluate this patient as the patient was becoming more somnolent and sleepy and unresponsive. Blood gas that was done this morning showed an acute respiratory acidosis. Showing a pH of 7.03 with a pCO2 of 96 and pO2 of 103 and this was done on FiO2 of 24%. Based on that, the patient was placed on a BiPAP. Currently she is on a BiPAP pressures of 14/6 cm of water and FiO2 of 30%. They changed tidal volumes around 150 with a respiratory rate of 13. Increase IPAP up to 16 and she generating a tidal volume of around 270 mL. She remains very much somnolent and lethargic although there is some improvement in her level of alertness since she was started on a BiPAP. Morning blood gases were noted. The electrolytes show a sodium level of 144, potassium is at 5, bicarbonate 24, BUN is at 67 with a creatinine of 2.7. The response at 5.1 with a hemoglobin of 9.4. Urine culture was positive Proteus mirabilis. The patient is currently on IV Rocephin. Most recent hemodynamic parameters show a temperature of 97, pulse of 53, respiration of 16 and a blood pressure 91/54. Gomez catheter was inserted. The patient was given a dose of Lasix with essentially no urine output. Ultrasound of the kidneys were done and it showed no evidence of any hydronephrosis.. This patient is known to have some mild chronic systolic heart failure with an ejection fraction of 40-45%. She has severe enlargement of the RV with tricuspid regurgitation and severe pulmonary hypertension. Her EKG is consistent of atrial fibrillation. She is diabetic. She has hypertension. She has peripheral neuropathy, morbid obesity, I do not think she is maintaining on any form of noninvasive positive pressure ventilator at home. The chest x-ray that was done at the time of admission showed CHF with bilateral pleural effusion. Right-sided pleural effusion is quite large. CAT scan of the brain was done because of an altered mentation. The sulci appear to be less prominent and there was a question of cerebral edema. Based on that, neurology consultation was obtained. EEG was also done today that showed background slowing and moderate to severe generalized cerebral dysfunction consistent with encephalopathy. The patient was also seen by various consultants including nephrology and neurology and their consults are all appreciated. No reported aspiration. On today's evaluation of 07/06/2022, the patient is lethargic and somnolent and she remains in acute hypercapnic respiratory failure. This occurred yesterday as the patient had severe respiratory acidosis. The patient was septic at the time of admission, hypothermic with gram-negative UTI with Proteus mirabilis and subsequently she developed acute hypercapnic respiratory failure. A chest x-ray was consistent with bilateral pleural effusion right more than left. She got transferred to the intensive care unit and she was placed on a BiPAP at a pressure of 16/6 cm of water FiO2 of 30%. Pulse ox is currently at 91%. She is able to generate better tidal volumes compared to yesterday which is in the order of 300 mL and her respiratory rate is around 11 when a minute ventilation of around 4 L/m. The morning blood gases showed a pH of 7.10 with a pCO2 of 81 and pO2 of 65. Chest x-ray showing cardiomegaly. His evidence of bilateral pleural effusion. Underlying pneumonia cannot be completely excluded. Based on that, I switch this patient to IV Zosyn. Overnight, attempts were made to improve the patient's urine output. The patient was given Lasix 80 mg IV. The patient was started on Lasix drip at 10 mg an hour. The patient was started on dopamine renal dose. Unfortunately, she has produced only for cc of urine output since she adopted intensive care unit. Her BUN is at 67 with a creatinine of 3.4. Sodium is at 144 with a potassium level of 4.8. Her ammonia level is down to 91. Unable to provide any lactulose as the patient doesn't have any access for oral intake of medication. Unable to take lactulose at this point in time. WBC count is at 6.1 with a hemoglobin of 8.9 and a platelet count of 97. Very much lethargic. Very much somnolent. Remains on IV Zosyn. She is receiving external warming and her rectal temperature is at 91.5. The fights on the case is Gomez cath is in place. There is no evidence of any hydronephrosis. She is known to have chronic kidney disease. She also developed an acute kidney injury on top of chronic kidney disease and she has systolic heart failure with right-sided ventricular failure and secondary pulmonary hypertension. She is a DNR/DNI CODE STATUS. 07/07/2022, the patient is being seen for a follow-up. Clinically she is essentially unchanged and condition is similar to yesterday. She remains somnolent and lethargic and she remains encephalopathic and this is essentially hypercapnic respiratory failure due to a large bilateral pleural effusion, respiratory insufficiency and possibly a component of hepatic encephalopathy. The patient was maintained on BiPAP and she is still tolerating the BiPAP at a pressure of 16/6 cm of water and FiO2 of 30%. Her generator tidal volume on the BiPAP machine is around 350 mL with a respiratory rate of 11 and a minute ventilation of around 4 L/m. She is arousable upon stimulation, yet she doesn't follow on a specific commands. Chest x-ray from today shows large right-sided pleural effusion and there is also a left-sided pleural effusion. Unfortunately, the patient is not producing any urine. This was discussed with nephrology. Also discussed with the family. She remains a DNR/DNI CODE STATUS. Nevertheless, we decided to proceed with hemodialysis. The patient underwent a dialysis catheter insertion and her right femoral vein and this was successful and the patient was given a session of hemodialysis with a total of 2 L of ultrafiltration. On today's blood work, the BUN is at 49 with a creatinine of 3 and a sodium level is at 141 with a potassium level of 4.4. The previous because of 4.4 with a hemoglobin of 8.5. Blood sugars at 97. Her current temperature is 96.7. The patient's serum ammonia level is down to 72. Her thyroid function tests showed a TSH of 5.4. Free T4 is not available. Pro-calcitonin level was 0.12. She remains on IV Zosyn as an empiric antibiotic coverage. She did have a gram-negative urinary tract infection with Proteus mirabilis. Objective - Vital Signs Vital signs: Vital Signs Temp 96.7 F L 07/07/22 04:00 Pulse 67 07/07/22 09:00 Resp 12 07/07/22 09:00 BP 105/79 07/07/22 09:00 Pulse Ox 96 07/07/22 09:00 FiO2 30 07/07/22 08:31 Intake & Output 07/06/22 07/07/22 07/07/22 17:59 06:59 18:59 Intake Total 231.823 Output Total 0 Balance 231.823 Weight Intake: IV 225 Dextrose 5% in Water 1, 225 000 ml @ 75 mls/hr IV . [id number] JAIMIE Rx#:[id number] Furosemide 100 mg In Sodium Chloride 0.9% 90 ml @ 10 MG/HR 10 mls/hr IV .Q10H JAIMIE Rx#: [id number] Piperacillin-Tazobactam 3 .375 gm In Sodium Chloride 0.9% 100 ml @ 25 mls/hr IVPB Q12HR JAIMIE Rx #:[id number] Intake, IV Titration 6.823 Amount Furosemide 100 mg In Sodium Chloride 0.9% 90 ml @ 10 MG/HR 10 mls/hr IV .Q10H JAIMIE Rx#: [id number] Norepinephrine 8 mg In 6.823 Sodium Chloride 0.9% 250 ml @ 0.03 MCG/KG/MIN 11. 586 mls/hr IV .[id number] JAIMIE Rx#:[id number] Hemodialysis Output: Urine 0 Hemodialysis Other: Voiding Method Indwelling Catheter # Voids 0 - Exam Patient is very much somnolent and lethargic on a BiPAP at a pressure of 16/6 cm of water and FiO2 of 30%, she is morbidly obese Head exam was generally normal. There was no scleral icterus or corneal arcus. Mucous membranes were moist. Neck was supple and without jugular venous distension, thyromegaly, or carotid bruits. Carotids were easily palpable bilaterally. There was no adenopathy. No significant JVD could be appreciated Breath other quite diminished bilaterally. No wheezes or rhonchi. Marked image breast on the mid and lower lung harvey bilaterally. Heart sounds are irregular consistent with atrial fibrillation. Overall heart sounds are distant. Abdomen is obese. CANNOT be accurately felt. There is no ascites. No direct tenderness or rebound tenderness or guarding. The patient does have a dialysis catheter in her right femoral vein. Extremities reveal significant amount of edema mainly in the thighs. Pulses are diminished bilaterally. No open wounds or sores. The scars of previous knee replacement bilaterally. Examination of the skin revealed no evidence of significant rashes, suspicious appearing nevi or other concerning lesions. Neurologically, the patient opens her eyes spontaneously. She is sluggishly responsive to the painful stimulation. His moldable 4 extremities. Neurologic exam is nonfocal. - Labs CBC & Chem 7: 07/07/22 03:52 07/07/22 03:52 Labs: Abnormal Lab Results - Last 24 Hours (Table) 07/06/22 07/06/22 07/06/22 Range/Units 15:47 17:55 18:25 RBC (3.80-5.40) m/uL Hgb (11.4-16.0) gm/dL Hct (34.0-46.0) % MCV (80.0-100.0) fL MCHC (31.0-37.0) g/dL RDW (11.5-15.5) % Plt Count (150-450) k/uL Lymphocytes # (Manual) (1.0-4.8) k/uL Nucleated RBCs (0-0) /100 WBC ABG pH 7.14 L* (7.35-7.45) ABG pCO2 74 H* (35-45) mmHg ABG pO2 72 L (83-108) mmHg ABG Total CO2 27 H (19-24) mmol/L ABG O2 Saturation 93.9 L (94-97) % Chloride (98-107) mmol/L BUN (7-17) mg/dL Creatinine (0.52-1.04) mg/dL POC Glucose (mg/dL) 111 H (70-110) mg/dL Calcium (8.4-10.2) mg/dL Ammonia (<30) umol/L Albumin (3.5-5.0) g/dL Hep B Core Total Ab Non-Reactive A (Nonreactive) 07/07/22 07/07/22 07/07/22 Range/Units 03:52 03:52 03:52 RBC 2.95 L (3.80-5.40) m/uL Hgb 8.5 L (11.4-16.0) gm/dL Hct 30.1 L (34.0-46.0) % MCV 101.8 H (80.0-100.0) fL MCHC 28.2 L (31.0-37.0) g/dL RDW 20.0 H (11.5-15.5) % Plt Count 87 L (150-450) k/uL Lymphocytes # (Manual) 0.79 L (1.0-4.8) k/uL Nucleated RBCs 7 H (0-0) /100 WBC ABG pH (7.35-7.45) ABG pCO2 (35-45) mmHg ABG pO2 (83-108) mmHg ABG Total CO2 (19-24) mmol/L ABG O2 Saturation (94-97) % Chloride 109 H (98-107) mmol/L BUN 49 H (7-17) mg/dL Creatinine 3.04 H (0.52-1.04) mg/dL POC Glucose (mg/dL) (70-110) mg/dL Calcium 8.0 L (8.4-10.2) mg/dL Ammonia 72 H (<30) umol/L Albumin 2.9 L (3.5-5.0) g/dL Hep B Core Total Ab (Nonreactive) Microbiology - Last 24 Hours (Table) 06/30/22 18:55 Blood Culture - Final Blood No Growth after 144 hours Assessment and Plan Plan: Acute respiratory acidosis, multifactorial. The patient has large right-sided pleural effusion and a moderate-sized left-sided pleural effusion. The patient is an hypercapnic respiratory failure. The patient has acute hypercapnic respiratory failure currently on a BiPAP. The patient has bilateral pleural effusions/CHF in the pleural effusions worse on the right based on the chest x- ray that was done 06/30/2022. The patient has an acute kidney injury and has signs of fluid overload. Underlying pneumonia cannot be completely excluded. The patient got transferred to the intensive care unit. The patient was started on hemodialysis, first session was given to her yesterday with a total of 2 L of ultrafiltration. Same will be done today. Altered mentation, CO2 narcosis along possibly with a component of metabolic encephalopathy. Neurologically on the case. EEG showing generalized slowing consistent with cerebral dysfunction. No evidence of any seizures. There may be also a component of hepatic encephalopathy. Ammonia level is down trending for now Acute on chronic kidney injury. No evidence of any hydronephrosis. The patient has baseline stage III chronic kidney disease. Currently she is anorexic/oliguric. Did not respond to Lasix. The patient is currently on Lasix drip and dopamine infusion. No urine this point in time. The patient is anorexic. The patient was started on hemodialysis yesterday. Morbid obesity Proteus mirabilis UTI currently on IV Zosyn should Diabetes mellitus Hypothyroidism Hypothermia Hypertension Degenerative arthritis with bilateral knee replacements Anemia of chronic disease Acute thrombocytopenia. CHF with systolic heart failure and ejection fraction of 40-45% and the patient has evidence of severe pulmonary hypertension and right-sided heart failure Chronic lower oximetry edema Chronic atrial fibrillation, rate is controlled for now. DNR/DNI CODE STATUS Plan This patient is critically ill. We'll keep her on a BiPAP and keep the pressures of 16/6 cm of water Chest x-ray is unchanged in fact there is worsening of the right-sided pleural effusion Dialysis was initiated yesterday, first session was given to yesterday with a total of 2 L of ultrafiltration. Same will be done today The patient will be kept here in the ICU She'll be kept on a BiPAP DNR/DNI CODE STATUS Unable to take any of her oral pills as the patient is significantly over time. No pressors for now No diuretics as the patient did not respond to Lasix Monitor urine output ANTICOAGULANTS for now Cor status remains DNR/DNI Switch to Synthroid to IV 50 g daily basis Condition is critical, the patient is in the ICU with the understanding that she is a DNR/DNI. > 30 minutes evaluation, critical care time Time with Patient: Greater than 30
[2022-07-07] MEDS: LACTULOSE 200 GM/300 ML (FROM 1/2 GAL JUG) RECTAL SCH ×3 (09:43→15:28)
[2022-07-07] MEDS: PIPERACILLIN-TAZOBACTAM 3.375 GM in SODIUM CHLORIDE 0.9% 100 ML IVPB SCH ×2 (09:52→20:34)
[2022-07-07] MEDS: CLOTRIMAZOLE 1% CREAM 30 GM TUBE TOPICAL SCH ×2 (09:53→20:35)
[2022-07-07] MEDS: AMMONIUM LACTATE 12% LOTION 225 GM BTL TOPICAL SCH ×2 (09:53→20:35)
--- NOTE | 2022-07-07 10:10 | P.PN ---
Subjective Progress Note Date: 07/07/22 This is a telemedicine neurology follow performed today on 07/07/2022. Patient was seen for a follow-up. Patient is more lethargic, obtunded. Patient is in the ICU. Patient is now again DO NOT RESUSCITATE. Patient has a bear hugger, also BiPAP on. Patient had received hemodialysis last night, and will be getting another hemodialysis today. Her ammonia is better. Patient is laying in the bed, appears slightly more comfortable, but still obtunded. Objective - Vital Signs Vital signs: Vital Signs Temp 96.7 F L 07/07/22 04:00 Pulse 83 07/07/22 08:30 Resp 12 07/07/22 08:30 BP 111/67 07/07/22 08:30 Pulse Ox 96 07/07/22 08:30 FiO2 30 07/07/22 08:31 Intake & Output 07/06/22 07/07/22 07/07/22 17:59 06:59 18:59 Intake Total 156.823 Output Total 0 Balance 156.823 Weight Intake: IV 150 Dextrose 5% in Water 1, 150 000 ml @ 75 mls/hr IV . [id number] JAIMIE Rx#:[id number] Furosemide 100 mg In Sodium Chloride 0.9% 90 ml @ 10 MG/HR 10 mls/hr IV .Q10H JAIMIE Rx#: [id number] Piperacillin-Tazobactam 3 .375 gm In Sodium Chloride 0.9% 100 ml @ 25 mls/hr IVPB Q12HR JAIMIE Rx #:[id number] Intake, IV Titration 6.823 Amount Furosemide 100 mg In Sodium Chloride 0.9% 90 ml @ 10 MG/HR 10 mls/hr IV .Q10H JAIMIE Rx#: [id number] Norepinephrine 8 mg In 6.823 Sodium Chloride 0.9% 250 ml @ 0.03 MCG/KG/MIN 11. 586 mls/hr IV .[id number] JAIMIE Rx#:[id number] Hemodialysis Output: Urine 0 Hemodialysis Other: Voiding Method Indwelling Catheter # Voids 0 - Exam Patient is laying in the bed, appears obtunded, more lethargic. Patient's pupils are equal, round and reacting. Rest of the examination could not be performed because patient is obtunded. Patient is not squeezing hands., Not following commands. - Labs CBC & Chem 7: 07/07/22 03:52 07/07/22 03:52 Labs: Abnormal Lab Results - Last 24 Hours (Table) 07/06/22 07/06/22 07/06/22 Range/Units 08:07 15:47 17:55 RBC (3.80-5.40) m/uL Hgb (11.4-16.0) gm/dL Hct (34.0-46.0) % MCV (80.0-100.0) fL MCHC (31.0-37.0) g/dL RDW (11.5-15.5) % Plt Count (150-450) k/uL Lymphocytes # (Manual) (1.0-4.8) k/uL Nucleated RBCs (0-0) /100 WBC ABG pH 7.14 L* (7.35-7.45) ABG pCO2 74 H* (35-45) mmHg ABG pO2 72 L (83-108) mmHg ABG Total CO2 27 H (19-24) mmol/L ABG O2 Saturation 93.9 L (94-97) % Chloride (98-107) mmol/L BUN (7-17) mg/dL Creatinine (0.52-1.04) mg/dL POC Glucose (mg/dL) 116 H 111 H (70-110) mg/dL Calcium (8.4-10.2) mg/dL Ammonia (<30) umol/L Albumin (3.5-5.0) g/dL Hep B Core Total Ab (Nonreactive) 07/06/22 07/07/22 07/07/22 Range/Units 18:25 03:52 03:52 RBC 2.95 L (3.80-5.40) m/uL Hgb 8.5 L (11.4-16.0) gm/dL Hct 30.1 L (34.0-46.0) % MCV 101.8 H (80.0-100.0) fL MCHC 28.2 L (31.0-37.0) g/dL RDW 20.0 H (11.5-15.5) % Plt Count 87 L (150-450) k/uL Lymphocytes # (Manual) 0.79 L (1.0-4.8) k/uL Nucleated RBCs 7 H (0-0) /100 WBC ABG pH (7.35-7.45) ABG pCO2 (35-45) mmHg ABG pO2 (83-108) mmHg ABG Total CO2 (19-24) mmol/L ABG O2 Saturation (94-97) % Chloride (98-107) mmol/L BUN (7-17) mg/dL Creatinine (0.52-1.04) mg/dL POC Glucose (mg/dL) (70-110) mg/dL Calcium (8.4-10.2) mg/dL Ammonia 72 H (<30) umol/L Albumin (3.5-5.0) g/dL Hep B Core Total Ab Non-Reactive A (Nonreactive) 07/07/22 Range/Units 03:52 RBC (3.80-5.40) m/uL Hgb (11.4-16.0) gm/dL Hct (34.0-46.0) % MCV (80.0-100.0) fL MCHC (31.0-37.0) g/dL RDW (11.5-15.5) % Plt Count (150-450) k/uL Lymphocytes # (Manual) (1.0-4.8) k/uL Nucleated RBCs (0-0) /100 WBC ABG pH (7.35-7.45) ABG pCO2 (35-45) mmHg ABG pO2 (83-108) mmHg ABG Total CO2 (19-24) mmol/L ABG O2 Saturation (94-97) % Chloride 109 H (98-107) mmol/L BUN 49 H (7-17) mg/dL Creatinine 3.04 H (0.52-1.04) mg/dL POC Glucose (mg/dL) (70-110) mg/dL Calcium 8.0 L (8.4-10.2) mg/dL Ammonia (<30) umol/L Albumin 2.9 L (3.5-5.0) g/dL Hep B Core Total Ab (Nonreactive) Microbiology - Last 24 Hours (Table) 06/30/22 18:55 Blood Culture - Final Blood No Growth after 144 hours Assessment and Plan Assessment: * Altered mental status, likely due to toxic metabolic encephalopathy. * Acute on chronic renal failure, with fluid overload, now starting hemodialysis * Hypercapnic respiratory failure * Acute UTI with urine growing > 100,000 Proteus mirabilis * Hypotension * Atrial fibrillation, cardiology on board. * Hepatic encephalopathy * Stool occult blood positive. 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 * Morbid obesity * Nonambulatory status. * Depression Plan: * Patient's altered mental status is likely due to toxic metabolic encephalopathy. Patient has acute UTI, on Zosyn. * Patient has acute on chronic renal failure, nephrology on board. Patient to get Filippo catheter today. Patient has received hemodialysis yesterday and really getting one today. Hopefully it will help with her mentation. * EEG was abnormal due to background slowing of moderate to severe degree, celis ggestive of generalized cerebral dysfunction as can be seen with toxic metabolic encephalopathy or related to diffuse structural brain abnormality. Clinical correlation is recommended. No epileptiform activity was seen. * CT had reported by radiologist as diffuse edema. I reviewed her current comp uted tomography scan and reviewed with her previous CT head from 10/13/2021, was essentially unchanged. No further workup needed. * Patient's ABG from 07/06/2022 shows pH 7.10, pCO2 81, pO2 65 and saturation 91.9%. Patient started on BiPAP. Patient is again made DO NOT RESUSCITATE. * Patient's ammonia 166, down to 91 yesterday, and 72 today. Patient has some component of hepatic encephalopathy. Patient is on lactulose. * Previous workup as below was unremarkable, no need to repeat. * Carotid Doppler 10/13/2021 revealed no stenosis in the ICA. Antegrade flow in the vertebral arteries. * 2-D echo 07/02/2022 revealed normal left ventricular size and reduced left- ventricular systolic function with EF 40-45%. Septal hypokinesis. Severely dilated right atrium. Left atrial enlargement. * Fasting lipid panel cholesterol 135, LDL 60, HDL 60 and triglycerides 68. Continue Lipitor 40 mg daily. Continue aspirin daily. * Hemoglobin A1c 5.3. * B12 541, folate 40.0. TSH mildly elevated 5.44, will defer to IM. * DVT prophylaxis, patient on heparin 5000 units subcu every 8 hours. * Neurologically no other workup indicated. Patient has severe numerous medical issues as listed above. Medical management as per IM, critical care, pulmonary and nephrology. Dr. Jesse Lee starting neurology service the morning. Neurology will see patient very sporadically.
[2022-07-07 12:20] LABS: Glucose,Whole Blood 81 mg/dL (70-110)
--- NOTE | 2022-07-07 13:41 | P.PN ---
Subjective This is a pleasant 72 years old -[place] female from [facility] with multiple medical problems as below. Initially was admitted from [place] with 4 edema, dizziness and yesterday she was found acidotic and she was sent to the ICU. Patient has evidence of severe sepsis secondary to Proteus UTI, and this has been complicated with acute hy poxic hypercapnic respiratory failure leading to severe encephalopathy and some nylons, patient currently lying in bed very lethargic, To provide information and does not follow commands. Also her mentation is worsened by hepatic encephalopathy picture with elevated ammonia level, currently 91. Patient has combined both metabolic and respiratory acidosis and pH about 7, pCO2 is elevated. Patient also with evidence of acute anuric kidney failure, dialysis catheter was placed and plan to start her on dialysis today. Several consultants on the case and following her closely including pulmonary, c ardiology, nephrology, neurology and vascular surgery. 07/07/2022 Patient remains in the ICU in critical condition, her mentation only slightly improving however she is not responding to verbal or physical stimuli. However patient is moaning in pain when she is moved by staff. She does not need any pressors and she is afebrile, blood pressure currently 110/56. She is not tachycardic. However she requires BiPAP yesterday patient was started on hemodialysis. She still any aortic Hemoglobin is 8.5, no leukocytosis. Platelet count 87 which is stable. Creatinine stable at about 3.0. Liver enzymes not elevated. Urine culture is growing Proteus mirabilis. Blood culture is staph epidermidis which is most likely contamination. Chest x-ray, large right pleural effusion, cardiomegaly, no change from previous. Her ammonia level is lowering today after she was started on lactulose rectally. Also will order Tylenol rectally Doppler with pain. She is also on Zosyn, and D5W at 75 mL/h, Objective - Vital Signs Vital signs: Vital Signs Temp 96.7 F L 07/07/22 04:00 Pulse 67 07/07/22 09:00 Resp 12 07/07/22 09:00 BP 105/79 07/07/22 09:00 Pulse Ox 96 07/07/22 09:00 FiO2 30 07/07/22 08:31 Intake & Output 07/06/22 07/07/22 07/07/22 17:59 06:59 18:59 Intake Total 231.823 Output Total 0 Balance 231.823 Weight Intake: IV 225 Dextrose 5% in Water 1, 225 000 ml @ 75 mls/hr IV . [id number] JAIMIE Rx#:[id number] Furosemide 100 mg In Sodium Chloride 0.9% 90 ml @ 10 MG/HR 10 mls/hr IV .Q10H JAIMIE Rx#: [id number] Piperacillin-Tazobactam 3 .375 gm In Sodium Chloride 0.9% 100 ml @ 25 mls/hr IVPB Q12HR JAIMIE Rx #:[id number] Intake, IV Titration 6.823 Amount Furosemide 100 mg In Sodium Chloride 0.9% 90 ml @ 10 MG/HR 10 mls/hr IV .Q10H JAIMIE Rx#: [id number] Norepinephrine 8 mg In 6.823 Sodium Chloride 0.9% 250 ml @ 0.03 MCG/KG/MIN 11. 586 mls/hr IV .[id number] JAIMIE Rx#:[id number] Hemodialysis Output: Urine 0 Hemodialysis Other: Voiding Method Indwelling Catheter # Voids 0 - Exam -GENERAL: The patient is very somnolent and lethargic, she does not respond to verbal or tactile stimuli. Morbidly obese HEENT: Pupils are round and equally reacting to light. EOMI. No scleral icterus. No conjunctival pallor. Normocephalic, atraumatic. No pharyngeal erythema. No thyromegaly. CARDIOVASCULAR: S1 and S2 present. No murmurs, rubs, or gallops. -PULMONARY: Chest is clear to auscultation, no wheezing or crackles. Decreased breath sounds on both sides of the lungs -ABDOMEN: Soft, nontender, nondistended, normoactive bowel sounds. No palpable organomegaly. Gomez catheter in place with minimal urine output MUSCULOSKELETAL: No joint swelling or deformity. EXTREMITIES: No cyanosis, clubbing, or pedal edema. NEUROLOGICAL: Gross neurological examination did not reveal any focal deficits. SKIN: No rashes. no petechiae. - Labs CBC & Chem 7: 07/07/22 03:52 07/07/22 03:52 Labs: Abnormal Lab Results - Last 24 Hours (Table) 07/06/22 07/06/22 07/06/22 Range/Units 15:47 17:55 18:25 RBC (3.80-5.40) m/uL Hgb (11.4-16.0) gm/dL Hct (34.0-46.0) % MCV (80.0-100.0) fL MCHC (31.0-37.0) g/dL RDW (11.5-15.5) % Plt Count (150-450) k/uL Lymphocytes # (Manual) (1.0-4.8) k/uL Nucleated RBCs (0-0) /100 WBC ABG pH 7.14 L* (7.35-7.45) ABG pCO2 74 H* (35-45) mmHg ABG pO2 72 L (83-108) mmHg ABG Total CO2 27 H (19-24) mmol/L ABG O2 Saturation 93.9 L (94-97) % Chloride (98-107) mmol/L BUN (7-17) mg/dL Creatinine (0.52-1.04) mg/dL POC Glucose (mg/dL) 111 H (70-110) mg/dL Calcium (8.4-10.2) mg/dL Ammonia (<30) umol/L Albumin (3.5-5.0) g/dL Hep B Core Total Ab Non-Reactive A (Nonreactive) 07/07/22 07/07/22 07/07/22 Range/Units 03:52 03:52 03:52 RBC 2.95 L (3.80-5.40) m/uL Hgb 8.5 L (11.4-16.0) gm/dL Hct 30.1 L (34.0-46.0) % MCV 101.8 H (80.0-100.0) fL MCHC 28.2 L (31.0-37.0) g/dL RDW 20.0 H (11.5-15.5) % Plt Count 87 L (150-450) k/uL Lymphocytes # (Manual) 0.79 L (1.0-4.8) k/uL Nucleated RBCs 7 H (0-0) /100 WBC ABG pH (7.35-7.45) ABG pCO2 (35-45) mmHg ABG pO2 (83-108) mmHg ABG Total CO2 (19-24) mmol/L ABG O2 Saturation (94-97) % Chloride 109 H (98-107) mmol/L BUN 49 H (7-17) mg/dL Creatinine 3.04 H (0.52-1.04) mg/dL POC Glucose (mg/dL) (70-110) mg/dL Calcium 8.0 L (8.4-10.2) mg/dL Ammonia 72 H (<30) umol/L Albumin 2.9 L (3.5-5.0) g/dL Hep B Core Total Ab (Nonreactive) Microbiology - Last 24 Hours (Table) 06/30/22 18:55 Blood Culture - Final Blood No Growth after 144 hours Assessment and Plan Assessment: Bilateral posterior infusion, hospital acquired pneumonia cannot be excluded Acute hypoxic hypercapnic respiratory failure Acute anuric renal failure requiring hemodialysis Hepatic encephalopathy with elevated ammonia level Acute urinary tract infection secondary to Klebsiella Chronic atrial fibrillation Metabolic and respiratory acidosis Metabolic encephalopathy Mild cardiomyopathy with ejection fraction 40-45% Morbidly obese with BMI of 75.5 Plan: hemodialysis catheter placed today and would be eventually 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 lactulose and tylenol rectal doses Several consultants on the case including pulmonary, cardiology, nephrology, neurology, vascular surgery. DVT prophylaxis: Subcutaneous heparin GI Prophylaxis: Pepcid PT/OT: Pending Prognosis is guarded
[2022-07-07] MEDS: ASCORBIC ACID 500 MG TAB PO SCH (15:28)
[2022-07-07] MEDS: FOLIC ACID 1 MG TAB PO SCH (15:28)
[2022-07-07] MEDS: CHOLECALCIFEROL 25 MCG (1000 IU) TABLET PO SCH (15:28)
[2022-07-07 17:55] LABS: Glucose,Whole Blood 95 mg/dL (70-110)
[2022-07-07] MEDS: NOREPINEPHRINE 8 MG in SODIUM CHLORIDE 0.9% 250 ML IV SCH (19:28)
[2022-07-07 20:02] LABS: Glucose,Whole Blood 94 mg/dL (70-110)
[2022-07-08] MEDS: ALBUTEROL HFA INHALER INHALATION PRN ×5 (00:17→20:10)
[2022-07-08 00:52] LABS: Glucose,Whole Blood 94 mg/dL (70-110)
[2022-07-08] MEDS: LACTULOSE 200 GM/300 ML (FROM 1/2 GAL JUG) RECTAL SCH (00:55)
[2022-07-08] MEDS: HEPARIN SODIUM,PORCINE/PF 5,000 UNIT/0.5 ML SYRINGE SQ SCH (00:56)
[2022-07-08 07:02] LABS: Glucose,Whole Blood 95 mg/dL (70-110)
--- NOTE | 2022-07-08 07:15 | XR ---
EXAMINATION TYPE: XR chest 1V portable DATE OF EXAM: 07/08/2022 6:23 AM COMPARISON: Chest radiograph from one day prior. TECHNIQUE: XR chest 1V portable Portable AP radiograph of the chest. CLINICAL INDICATION:Female, 72 years old with history of shortness of breath; FINDINGS: Lungs/Pleura: Similar exam with pleural effusion with associated atelectasis on the right. Which appe ars decreased which may be due to patient positioning. Left lung demonstrates pulmonary vascular yarelis estion. Pulmonary vascularity: Unremarkable. Heart/mediastinum: Cardiomediastinal silhouette is enlarged and stable. Musculoskeletal: No acute osseous pathology. IMPRESSION: Bilateral pleural effusions right greater than left. Similar cardiomegaly. Similar pulmonary vascular congestion.
[2022-07-08] MEDS: FERROUS SULFATE 325 MG TAB PO SCH (08:08)
[2022-07-08] MEDS: METOPROLOL TARTRATE 25 MG TAB PO SCH (08:09)
[2022-07-08] MEDS: DULoxetine HCL 30 MG CAPSULE.DR PO SCH (08:09)
[2022-07-08] MEDS: DEXTROSE 4 GM CHEWABLE PO SCH ×4 (08:09→20:22)
[2022-07-08 08:31] LABS: Bilirubin, Delta 0.3 mg/dL (0.0-0.2); Calcium 7.8 mg/dL (8.4-10.2); Potassium 4.2 mmol/L (3.5-5.1); Total Bilirubin 0.3 mg/dL (0.2-1.3); Total Protein 6.6 g/dL (6.3-8.2)
[2022-07-08 08:35] LABS: Anisocytosis Moderate; HCT 27.5 % (34.0-46.0); HGB 8.4 gm/dL (11.4-16.0); Hypochromasia Marked; MCH 30.1 pg (25.0-35.0); MCHC 30.5 g/dL (31.0-37.0); MCV 98.7 fL (80.0-100.0); Macrocytosis Moderate; Mean Platelet Volume 10.9; Poikilocytosis Slight; RBC 2.78 m/uL (3.80-5.40); RDW 20.3 % (11.5-15.5)
[2022-07-08] MEDS: PIPERACILLIN-TAZOBACTAM 3.375 GM in SODIUM CHLORIDE 0.9% 100 ML IVPB SCH ×2 (08:35→20:28)
[2022-07-08] MEDS: LEVOTHYROXINE IVP 100 MCG/5 ML VIAL IV SCH (08:35)
[2022-07-08] MEDS: AMMONIUM LACTATE 12% LOTION 225 GM BTL TOPICAL SCH ×2 (08:36→20:28)
[2022-07-08] MEDS: CLOTRIMAZOLE 1% CREAM 30 GM TUBE TOPICAL SCH ×2 (08:36→20:29)
[2022-07-08 08:41] LABS: Platelet Count 84 k/uL (150-450)
[2022-07-08 09:16] LABS: Neutrophils % (M) 61 %; Nucleated Red Blood Cells 9 /100 WBC (0-0); Total Cells Counted 100
[2022-07-08 09:17] LABS: Eosinophils # (M) 0.18 k/uL (0-0.7); Lymphocytes # (M) 0.95 k/uL (1.0-4.8); Monocytes # (M) 0.25 k/uL (0-1.0); Neutrophils # (M) 2.14 k/uL (1.3-7.7); WBC 3.5 k/uL (3.8-10.6)
[2022-07-08] MEDS ORDERED: HEPARIN SODIUM 1,000 UN/ML (10ML VL) IV ONE (09:41)
[2022-07-08] MEDS ORDERED: HEPARIN SODIUM 1,000 UN/ML (10ML VL) IV PRN (09:41)
[2022-07-08] MEDS ORDERED: HEPARIN SOD,PORK IN 0.45% NACL 25,000 UNIT in 0.45% NACL 1 250ML.BAG IV SCH (09:45)
--- NOTE | 2022-07-08 11:02 | P.PN ---
Subjective Patient is patient is seen for follow-up for acute kidney injury. She has had a couple of treatments of hemodialysis with UF of about 2 L. Currently off of pressors Urine output only 30 mL for 8 hours Patient remains on BiPAP Patient is been confused. Objective - Vital Signs Vital signs: Vital Signs Temp 97.1 F L 07/08/22 08:00 Pulse 63 07/08/22 10:00 Resp 20 07/08/22 10:00 BP 105/49 07/08/22 10:00 Pulse Ox 95 07/08/22 10:00 FiO2 30 07/08/22 08:00 Intake & Output 07/07/22 07/08/22 07/08/22 18:59 06:59 18:59 Intake Total 1381.823 700 400 Output Total 2505 30 0 Balance -1123.177 670 400 Weight 196.132 kg Intake: IV 775 700 400 Dextrose 5% in Water 1, 675 600 300 000 ml @ 75 mls/hr IV . [id number] JAIMIE Rx#:[id number] Piperacillin-Tazobactam 3 100 100 100 .375 gm In Sodium Chloride 0.9% 100 ml @ 25 mls/hr IVPB Q12HR JAIMIE Rx #:[id number] Intake, IV Titration 6.823 Amount Norepinephrine 8 mg In 6.823 Sodium Chloride 0.9% 250 ml @ 0.03 MCG/KG/MIN 11. 586 mls/hr IV .[id number] JAIMIE Rx#:[id number] Hemodialysis 600 Output: Urine 5 30 0 Hemodialysis 2500 Other: Voiding Method Indwelling Catheter Indwelling Catheter Indwelling Catheter # Voids 0 0 # Bowel Movements 1 - Exam Awake on BiPAP Confused Examination of the heart S1 and S2 Examination of the lungs decreased breath sounds at the bases Abdomen is soft obese Examination lower extremity shows edema 2+ bilaterally - Labs CBC & Chem 7: 07/08/22 07:58 07/08/22 07:58 Labs: Abnormal Lab Results - Last 24 Hours (Table) 07/08/22 07/08/22 07/08/22 Range/Units 07:58 07:58 07:58 WBC 3.5 L (3.8-10.6) k/uL RBC 2.78 L (3.80-5.40) m/uL Hgb 8.4 L (11.4-16.0) gm/dL Hct 27.5 L (34.0-46.0) % MCHC 30.5 L (31.0-37.0) g/dL RDW 20.3 H (11.5-15.5) % Plt Count 84 L (150-450) k/uL Lymphocytes # (Manual) 0.95 L (1.0-4.8) k/uL Nucleated RBCs 9 H (0-0) /100 WBC BUN 35 H (7-17) mg/dL Creatinine 2.79 H (0.52-1.04) mg/dL Calcium 7.8 L (8.4-10.2) mg/dL Delta Bilirubin 0.3 H (0.0-0.2) mg/dL Ammonia 80 H (<30) umol/L Albumin 3.0 L (3.5-5.0) g/dL Assessment and Plan Assessment: 1. ATN, secondary to sepsis with staph epidermidis bacteremia and Proteus UTI. Anuric. Started on dialysis 07/06/2022 2 L taken off for 4 hours, tolerated dialysis 2. Obtundation, CO2 narcosis, hypoventilation obesity 3. Staph epi bacteremia 4. UTI 5. Atrial fibrillation 6. Hypertension 7. Congestive heart failure. 8. Anemia, with significant iron deficiency. Plan: Repeat hemodialysis today with goal UF of 1-2 L Add IV iron Repeat hemodialysis in a.m. Check labs in a.m.
[2022-07-08 11:06] VITALS: BMI 74.2
[2022-07-08] MEDS: NOREPINEPHRINE 8 MG in SODIUM CHLORIDE 0.9% 250 ML IV SCH (11:24)
[2022-07-08 11:31] LABS: Glucose,Whole Blood 85 mg/dL (70-110)
[2022-07-08 11:53] LABS: Partial Thromboplastin Time 29.5 sec (22.0-30.0); Prothrombin Time 10.9 sec (9.0-12.0)
--- NOTE | 2022-07-08 11:54 | IR ---
PICC LINE PLACEMENT: HISTORY: Infection requiring long-term antibiotic therapy PROCEDURE: Ultrasound guidance of PICC line placement. [employer]OR: COMPLICATIONS: None ANESTHESIA: 1. 1% Lidocaine locally. FINDINGS/TECHNIQUE: The procedure was explained to the patient. The risks, complications, benefits and alternatives were discussed and any questions were answered. Informed consent was obtained. The patient was placed supine on the fluoroscopic table and prepped and draped in the usual sterile fash ion. Utilizing a 21 gauge needle and sonographic guidance, access in the right cephalic vein was ac hieved and there is placement of a 0.018 guidewire. The vein is patent. A 5-F. sheath was placed ov er the guidewire. The guidewire and dilator were removed and a 5-F. Double lumen PICC line was place d through the sheath with the chest x-ray confirming the tip at the level of the SVC. The sheath was removed, the catheter was flushed and sutured into position. The patient was stable throughout the procedure and remained stable upon discharge from the Department of Radiology. The vein puncture was patent under ultrasound. A france scale image was obtained to document patency of the vein punctured. All elements of the maximal barrier technique were utilized. IMPRESSION: 1. Successful PICC line placement under ultrasound performed bedside within the ICU.
--- NOTE | 2022-07-08 11:58 | XR ---
EXAMINATION TYPE: XR chest 1V confirm line plcmt DATE OF EXAM: 07/08/2022 COMPARISON: 07/08/2022 HISTORY: PICC line placement TECHNIQUE: Single frontal view of the chest is obtained. FINDINGS: Right-sided PICC line seen with the tip overlying the SVC. Heart enlarged and there remain s bilateral large areas of consolidation and pleural effusion. No sizable pneumothorax. No overt fail ure. Arthropathy of the shoulders. There is a metallic screw which appears separate from the humeral head. IMPRESSION: 1. PICC line in good position with stable bilateral infiltrate and pleural effusion. 2. There is a metallic screw superior to the right humeral head which could be related to prior surge ry and now dislodged and a foreign body within the adjacent soft tissues. Correlate clinically for pr ior surgery including rotator cuff surgery.
--- NOTE | 2022-07-08 12:01 | P.PN ---
Subjective Progress Note Date: 07/08/22 Principal diagnosis: Acute hypoxic and hypercapnic respiratory failure, multifactorial 72-year-old morbidly obese female patient, presented to the hospital because of not feeling well, dizziness, hypothermic and she was also found to be in acute kidney injury on top of chronic kidney disease and an underlying gram-negative urinary tract infection. I was asked to evaluate this patient as the patient was becoming more somnolent and sleepy and unresponsive. Blood gas that was done this morning showed an acute respiratory acidosis. Showing a pH of 7.03 with a pCO2 of 96 and pO2 of 103 and this was done on FiO2 of 24%. Based on that, the patient was placed on a BiPAP. Currently she is on a BiPAP pressures of 14/6 cm of water and FiO2 of 30%. They changed tidal volumes around 150 with a respiratory rate of 13. Increase IPAP up to 16 and she generating a tidal volume of around 270 mL. She remains very much somnolent and lethargic although there is some improvement in her level of alertness since she was started on a BiPAP. Morning blood gases were noted. The electrolytes show a sodium level of 144, potassium is at 5, bicarbonate 24, BUN is at 67 with a creatinine of 2.7. The response at 5.1 with a hemoglobin of 9.4. Urine culture was positive Proteus mirabilis. The patient is currently on IV Rocephin. Most recent hemodynamic parameters show a temperature of 97, pulse of 53, respiration of 16 and a blood pressure 91/54. Gomez catheter was inserted. The patient was given a dose of Lasix with essentially no urine output. Ultrasound of the kidneys were done and it showed no evidence of any hydronephrosis.. This patient is known to have some mild chronic systolic heart failure with an ejection fraction of 40-45%. She has severe enlargement of the RV with tricuspid regurgitation and severe pulmonary hypertension. Her EKG is consistent of atrial fibrillation. She is diabetic. She has hypertension. She has peripheral neuropathy, morbid obesity, I do not think she is maintaining on any form of noninvasive positive pressure ventilator at home. The chest x-ray that was done at the time of admission showed CHF with bilateral pleural effu ani. Right-sided pleural effusion is quite large. CAT scan of the brain was done because of an altered mentation. The sulci appear to be less prominent and there was a question of cerebral edema. Based on that, neurology consultation was obtained. EEG was also done today that showed background slowing and moderate to severe generalized cerebral dysfunction consistent with encephalopathy. The patient was also seen by various consultants including nephrology and neurology and their consults are all appreciated. No reported aspiration. On today's evaluation of 07/06/2022, the patient is lethargic and somnolent and she remains in acute hypercapnic respiratory failure. This occurred yesterday as the patient had severe respiratory acidosis. The patient was septic at the time of admission, hypothermic with gram-negative UTI with Proteus mirabilis and subsequently she developed acute hypercapnic respiratory failure. A chest x-ray was consistent with bilateral pleural effusion right more than left. She got transferred to the intensive care unit and she was placed on a BiPAP at a pressure of 16/6 cm of water FiO2 of 30%. Pulse ox is currently at 91%. She is able to generate better tidal volumes compared to yesterday which is in the order of 300 mL and her respiratory rate is around 11 when a minute ventilation of around 4 L/m. The morning blood gases showed a pH of 7.10 with a pCO2 of 81 and pO2 of 65. Chest x-ray showing cardiomegaly. His evidence of bilateral pleural effusion. Underlying pneumonia cannot be completely excluded. Based on that, I switch this patient to IV Zosyn. Overnight, attempts were made to improve the patient's urine output. The patient was given Lasix 80 mg IV. The patient was started on Lasix drip at 10 mg an hour. The patient was started on dopamine renal dose. Unfortunately, she has produced only for cc of urine output since she adopted intensive care unit. Her BUN is at 67 with a creatinine of 3.4. Sodium is at 144 with a potassium level of 4.8. Her ammonia level is down to 91. Unable to provide any lactulose as the patient doesn't have any access for oral intake of medication. Unable to take lactulose at this point in time. WBC count is at 6.1 with a hemoglobin of 8.9 and a platelet count of 97. Very much lethargic. Very much somnolent. Remains on IV Zosyn. She is receiving external warming and her rectal temperature is at 91.5. The fights on the case is Gomez cath is in place. There is no evidence of any hydronephrosis. She is known to have chronic kidney disease. She also developed an acute kidney injury on top of chronic kidney disease and she has systolic heart failure with right-sided ventricular failure and secondary pulmonary hypertension. She is a DNR/DNI CODE STATUS. 07/07/2022, the patient is being seen for a follow-up. Clinically she is essentially unchanged and condition is similar to yesterday. She remains somnolent and lethargic and she remains encephalopathic and this is essentially hypercapnic respiratory failure due to a large bilateral pleural effusion, respiratory insufficiency and possibly a component of hepatic encephalopathy. The patient was maintained on BiPAP and she is still tolerating the BiPAP at a pressure of 16/6 cm of water and FiO2 of 30%. Her generator tidal volume on the BiPAP machine is around 350 mL with a respiratory rate of 11 and a minute ventilation of around 4 L/m. She is arousable upon stimulation, yet she doesn't follow on a specific commands. Chest x-ray from today shows large right-sided pleural effusion and there is also a left-sided pleural effusion. Unfortunately, the patient is not producing any urine. This was discussed with nephrology. Also discussed with the family. She remains a DNR/DNI CODE STATUS. Nevertheless, we decided to proceed with hemodialysis. The patient underwent a dialysis catheter insertion and her right femoral vein and this was successful and the patient was given a session of hemodialysis with a total of 2 L of ultrafiltration. On today's blood work, the BUN is at 49 with a creatinine of 3 and a sodium level is at 141 with a potassium level of 4.4. The previous because of 4.4 with a hemoglobin of 8.5. Blood sugars at 97. Her current temperature is 96.7. The patient's serum ammonia level is down to 72. Her thyroid function tests showed a TSH of 5.4. Free T4 is not available. Pro- calcitonin level was 0.12. She remains on IV Zosyn as an empiric antibiotic coverage. She did have a gram-negative urinary tract infection with Proteus mirabilis. Patient was reevaluated today on 07/08/2022, remains in the ICU, remains on BiPAP with IPAP of 16 EPAP of 6 and FiO2 of 30 percent. Patient is on hemodialysis through a femoral catheter/hemodialysis catheter, patient had positive Proteus mirabilis in the urine and she had staph epidermidis in the blood. Patient is somnolent, lethargic, however she is arousable and she opens her eyes, follows very simple instructions. Nonetheless she is a bit encephalopathic. Tolerating BiPAP quite well, chest x-ray continues to show good sized right-sided pleural effusion and small left pleural effusion hoping this will improve with hemodialysis. Patient is not making much urine. CODE STATUS remains DO NOT RESUSCITATE/DO NOT INTUBATE. WBC count is 3.5 hemoglobin is 8.4 electrolytes are normal BUN is 35 creatinine 2.79 rest of her labs are unremarkable. Objective - Vital Signs Vital signs: Vital Signs Temp 97.1 F L 07/08/22 08:00 Pulse 76 07/08/22 11:00 Resp 20 07/08/22 11:00 BP 125/58 07/08/22 11:00 Pulse Ox 97 07/08/22 11:00 FiO2 30 07/08/22 08:00 Intake & Output 07/07/22 07/08/22 07/08/22 18:59 06:59 18:59 Intake Total 1381.823 700 475 Output Total 2505 30 0 Balance -1123.177 670 475 Weight 196.132 kg 196.132 kg Intake: IV 775 700 475 Dextrose 5% in Water 1, 675 600 375 000 ml @ 75 mls/hr IV . [id number] JAIMIE Rx#:[id number] Piperacillin-Tazobactam 3 100 100 100 .375 gm In Sodium Chloride 0.9% 100 ml @ 25 mls/hr IVPB Q12HR JAIMIE Rx #:[id number] Intake, IV Titration 6.823 Amount Norepinephrine 8 mg In 6.823 Sodium Chloride 0.9% 250 ml @ 0.03 MCG/KG/MIN 11. 586 mls/hr IV .[id number] JAIMIE Rx#:[id number] Hemodialysis 600 Output: Urine 5 30 0 Hemodialysis 2500 Other: Voiding Method Indwelling Catheter Indwelling Catheter Indwelling Catheter # Voids 0 0 # Bowel Movements 1 - Exam Physical Exam: Revealed 72-year-old female, obese, on BiPAP, lethargic, nonetheless arousable and follows very simple instructions. Head: Atraumatic, normocephalic. HEENT:[ Short and obese neck, Neck is supple.] [No neck masses.] [No thy romegaly.] [No JVD.] Anicteric, no neck masses, no JVD, no Chest: Symmetrical chest expansion, crackles at the bases bilaterally no rhonchi no wheezes. Cardiac Exam: Irregular irregular rhythm. [Normal S1 and S2, no S3 gallop, no murmur.] Abdomen: [Morbidly obese, Soft, nontender, no megaly, no rebound, no guarding, normal bowel sounds.] Extremities: [No clubbing, 2+ bipedal edema, no cyanosis.] Right femoral dialysis catheter is noted. Neurological Exam: Patient is lethargic, but arousable, follows simple instructions, but quite sluggish. Psychiatric: Depressed mood, flat affect, could not fully assess mental status. Skin: No rashes. Scars noted from previous knee replacement bilaterally - Labs CBC & Chem 7: 07/08/22 07:58 07/08/22 07:58 Labs: Abnormal Lab Results - Last 24 Hours (Table) 07/08/22 07/08/22 07/08/22 Range/Units 07:58 07:58 07:58 WBC 3.5 L (3.8-10.6) k/uL RBC 2.78 L (3.80-5.40) m/uL Hgb 8.4 L (11.4-16.0) gm/dL Hct 27.5 L (34.0-46.0) % MCHC 30.5 L (31.0-37.0) g/dL RDW 20.3 H (11.5-15.5) % Plt Count 84 L (150-450) k/uL Lymphocytes # (Manual) 0.95 L (1.0-4.8) k/uL Nucleated RBCs 9 H (0-0) /100 WBC BUN 35 H (7-17) mg/dL Creatinine 2.79 H (0.52-1.04) mg/dL Calcium 7.8 L (8.4-10.2) mg/dL Delta Bilirubin 0.3 H (0.0-0.2) mg/dL Ammonia 80 H (<30) umol/L Albumin 3.0 L (3.5-5.0) g/dL Assessment and Plan Assessment: Impression: Acute hypoxic and hypercapnic respiratory failure Acute metabolic encephalopathy secondary to CO2 narcosis Acute hepatic encephalopathy with elevated ammonia level on admission Acute on chronic kidney injury requiring hemodialysis patient was placed at one point on Lasix infusion did not seem to help much. She was also placed on dopamine infusion. Morbid obesity. Acute Proteus mirabilis urinary tract infection Type 2 diabetes Hypothyroidism Benign essential hypertension Chronic systolic LV dysfunction with ejection fraction of 40-45% Severe pulmonary hypertension and cor pulmonale Chronic bilateral lower extremities edema Chronic atrial fibrillation DO NOT RESUSCITATE/DO NOT INTUBATE CODE STATUS Recommendation: Obviously patient is critically ill. Continue BiPAP and titrate accordingly presently on 16/6 and 50% FiO2 Continue hemodialysis Continue antibiotics Continue GI and DVT prophylaxis Arrange for PICC line placement as this seems to be a very long process of treatment with antibiotics. Monitor electrolytes and renal profile on a daily basis. Monitor x-ray of the chest daily. Continue to monitor renal output, although it is rather minimal and the patient isn't requiring hemodialysis Continue to monitor in the ICU. Continue Zosyn. We will continue to follow. Critical care time is over 30 Time with Patient: Greater than 30
[2022-07-08] MEDS: SODIUM FERRIC GLUCONAT-SUCROSE 125 MG in SODIUM CHLORIDE 0.9% 100 ML IVPB SCH (12:12)
[2022-07-08] MEDS: ASCORBIC ACID 500 MG TAB PO SCH (15:17)
[2022-07-08] MEDS: CHOLECALCIFEROL 25 MCG (1000 IU) TABLET PO SCH (15:17)
[2022-07-08] MEDS: FOLIC ACID 1 MG TAB PO SCH (15:17)
--- NOTE | 2022-07-08 16:00 | PN ---
PROGRESS NOTE SUBJECTIVE: Ms. Randall is on a BiPAP. She has multiple comorbid conditions. She is in atrial fibrillation, rate is controlled. We will discontinue the beta-patricia altogether. I am recommending a low-dose intravenous heparin protocol, but once she is able to take oral medications, we can place her on 2.5 mg b.i.d. of Eliquis. She has had dialysis last 2 days, and she may have additional dialysis today also. Her creatinine is in the range of 2.79 today. Yesterday, it was 3.04. Potassium level is good. The patient has had some swallowing issues, but she is more alert and awake, and we will try and see if she swallows. If she is able to, I would recommend Eliquis 2.5 mg b.i.d., otherwise low-dose heparin intravenously. OBJECTIVE: VITAL SIGNS: Stable. Blood pressure is actually 108/60 with a small dose of Levophed. Pulse rate is in the 70s, atrial fibrillation. NECK: JVD is evident. HEART: S1 and S2 with irregularity in rhythm is audible. LUNGS: Reveal bilateral diminished air entry. ABDOMEN: Distended. EXTREMITIES: Lower extremities reveal diminished pulses. IMPRESSION: 1. Atrial fibrillation with controlled rate. 2. History of urinary tract infection, possible sepsis. The patient is on antibiotics. 3. Chronic obstructive pulmonary disease, on BiPAP. RECOMMENDATIONS: I am recommending low-dose heparin, but if the patient can swallow, we will place her on Eliquis 2.5 mg b.i.d., possible dialysis today. Prognosis remains guarded. MMODL / IJN: [id number] /
[2022-07-08 18:01] LABS: Glucose,Whole Blood 90 mg/dL (70-110)
[2022-07-08] MEDS ORDERED: KETOROLAC 15 MG/ML 1 ML VIAL IVP STA (19:10)
[2022-07-08] MEDS: DEXTROSE 5% IN WATER 1,000 ML IV SCH (20:29)
[2022-07-08 23:52] LABS: Glucose,Whole Blood 85 mg/dL (70-110)
[2022-07-09] MEDS ORDERED: LORazepam 2 MG/ML INJ IV STA (02:59)
[2022-07-09 05:03] LABS: INR 1.1 (<1.2); Prothrombin Time 11.6 sec (9.0-12.0)
[2022-07-09 05:09] LABS: Calcium 7.5 mg/dL (8.4-10.2); Potassium 3.9 mmol/L (3.5-5.1)
[2022-07-09 05:17] LABS: Anisocytosis Moderate; HCT 26.1 % (34.0-46.0); HGB 7.8 gm/dL (11.4-16.0); Hypochromasia Marked; MCH 29.4 pg (25.0-35.0); MCHC 29.8 g/dL (31.0-37.0); MCV 98.7 fL (80.0-100.0); Macrocytosis Moderate; Mean Platelet Volume 11.6; Poikilocytosis Slight; RBC 2.64 m/uL (3.80-5.40); RDW 20.2 % (11.5-15.5)
[2022-07-09] MEDS ORDERED: Potassium Replacement Protocol 1 EACH MISC MISCELLANE PRN (05:19)
[2022-07-09 05:20] LABS: Platelet Count 79 k/uL (150-450)
[2022-07-09] MEDS: POTASSIUM CHLORIDE 10 MEQ in WATER FOR INJECTION 1 100ML.BAG IVPB SCH ×2 (05:45→06:57)
[2022-07-09 05:49] LABS: Basophils # (M) 0.03 k/uL (0-0.2); Lymphocytes # (M) 0.92 k/uL (1.0-4.8); Monocytes # (M) 0.36 k/uL (0-1.0); Neutrophils # (M) 1.91 k/uL (1.3-7.7); Neutrophils % (M) 58 %; Nucleated Red Blood Cells 8 /100 WBC (0-0); Total Cells Counted 200; WBC 3.3 k/uL (3.8-10.6)
[2022-07-09 05:50] LABS: Large Platelets Present; Polychromasia Present
[2022-07-09 06:27] LABS: Glucose,Whole Blood 73 mg/dL (70-110)
--- NOTE | 2022-07-09 06:59 | XR ---
EXAMINATION TYPE: XR chest 1V DATE OF EXAM: 07/09/2022 6:10 AM COMPARISON: Chest radiographs from 07/08/2022 TECHNIQUE: XR chest 1V Portable AP radiograph of the chest. CLINICAL INDICATION:Female, 72 years old with history of pleural effusion; FINDINGS: Lungs/Pleura: Similar right consolidation and pleural effusion. No pneumothorax. Heart/mediastinum: C ardiomediastinal silhouette is enlarged and stable. Atherosclerotic calcifications are seen in the a gulshan. Musculoskeletal: No acute osseous pathology. Other findings: None Lines/Tubes: Right-sided PICC line with distal tip overlying the SVC. IMPRESSION: 1. Stable right-sided PICC line. 2. Similar cardiomegaly with pleural effusion and consolidation on the right.
[2022-07-09] MEDS: FERROUS SULFATE 325 MG TAB PO SCH (07:31)
[2022-07-09] MEDS: DEXTROSE 4 GM CHEWABLE PO SCH ×3 (07:31→15:09)
[2022-07-09] MEDS: DULoxetine HCL 30 MG CAPSULE.DR PO SCH (07:32)
[2022-07-09 08:11] LABS: Glucose,Whole Blood 73 mg/dL (70-110)
[2022-07-09] MEDS: ALBUTEROL HFA INHALER INHALATION PRN (08:20)
[2022-07-09] MEDS: PIPERACILLIN-TAZOBACTAM 3.375 GM in SODIUM CHLORIDE 0.9% 100 ML IVPB SCH (09:04)
[2022-07-09] MEDS: CLOTRIMAZOLE 1% CREAM 30 GM TUBE TOPICAL SCH (09:04)
[2022-07-09] MEDS: SODIUM FERRIC GLUCONAT-SUCROSE 125 MG in SODIUM CHLORIDE 0.9% 100 ML IVPB SCH (09:04)
[2022-07-09] MEDS: AMMONIUM LACTATE 12% LOTION 225 GM BTL TOPICAL SCH (09:05)
[2022-07-09] MEDS: DEXTROSE 5% IN WATER 1,000 ML IV SCH (09:05)
[2022-07-09] MEDS: LEVOTHYROXINE IVP 100 MCG/5 ML VIAL IV SCH (09:05)
[2022-07-09 09:48] LABS: Glucose,Whole Blood 70 mg/dL (70-110)
[2022-07-09] MEDS ORDERED: DEXTROSE 50% SYRINGE 50 ML IVP ONE (09:48)
[2022-07-09] MEDS ORDERED: DEXTROSE 50% SYRINGE 50 ML IVP STA (09:49)
--- NOTE | 2022-07-09 10:13 | P.PN ---
Subjective Progress Note Date: 07/08/22 This is a pleasant 72 years old -[place] female from long-term with multiple medical problems as below. Initially was admitted from [place] with 4 edema, dizziness and yesterday she was found acidotic and she was sent to the ICU. Patient has evidence of severe sepsis secondary to Proteus UTI, and this has been complicated with acute hypoxic hypercapnic respiratory failure leading to severe encephalopathy and some nylons, patient currently lying in bed very lethargic, To provide information and does not follow commands. Also her mentation is worsened by hepatic encephalopathy picture with elevated ammonia level, currently 91. Patient has combined both metabolic and respiratory acidosis and pH about 7, pCO2 is elevated. Patient also with evidence of acute anuric kidney failure, dialysis catheter was placed and plan to start her on dialysis today. Several consultants on the case and following her closely including pulmonary, cardiology, nephrology, neurology and vascular surgery. 07/07/2022 Patient remains in the ICU in critical condition, her mentation only slightly improving however she is not responding to verbal or physical stimuli. However patient is moaning in pain when she is moved by staff. She does not need any pressors and she is afebrile, blood pressure currently 11 0/56. She is not tachycardic. However she requires BiPAP yesterday patient was started on hemodialysis. She still any aortic Hemoglobin is 8.5, no leukocytosis. Platelet count 87 which is stable. Creatinine stable at about 3.0. Liver enzymes not elevated. Urine culture is growing Proteus mirabilis. Blood culture is staph epidermidis which is most likely contamination. Chest x-ray, large right pleural effusion, cardiomegaly, no change from previous. Her ammonia level is lowering today after she was started on lactulose rectally. Also will order Tylenol rectally Doppler with pain. She is also on Zosyn, and D5W at 75 mL/h, 07/08/2022 Patient is in the MICU. Currently on BiPAP. Awake and alert but could not communicate. Patient has been afebrile. Chest x-ray showed there is metallic screws superior to the right humeral head which could be related to prior surgery and now dislodged and it for body within the adjacent soft tissues. Correlate clinically for prior surgery including rotator cuff surgery. Bilateral large areas of consolidation and pleural effusion. Patient is on antibiotics in the form of Zosyn. Continued on IV hydration with D5 water at 75 mL per hour. Urine culture showed Proteus mirabilis and blood cultures to staph epidermidis. Patient is on hemodialysis. Laboratory data showed WBC 3.4 hemoglobin 8.4 and platelets 84 BUN 35 and creatinine 2.79. Nephrology and pulmonary is on board. Current medications reviewed. Objective - Vital Signs Vital signs: Vital Signs Temp 97.1 F L 07/08/22 08:00 Pulse 68 07/08/22 08:30 Resp 20 07/08/22 08:30 BP 108/62 07/08/22 08:30 Pulse Ox 98 07/08/22 08:30 FiO2 30 07/08/22 08:00 Intake & Output 07/07/22 07/08/22 07/08/22 18:59 06:59 18:59 Intake Total 1381.823 700 250 Output Total 2505 30 0 Balance -1123.177 670 250 Weight 196.132 kg Intake: IV 775 700 250 Dextrose 5% in Water 1, 675 600 150 000 ml @ 75 mls/hr IV . [id number] JAIMIE Rx#:[id number] Piperacillin-Tazobactam 3 100 100 100 .375 gm In Sodium Chloride 0.9% 100 ml @ 25 mls/hr IVPB Q12HR JAIMIE Rx #:[id number] Intake, IV Titration 6.823 Amount Norepinephrine 8 mg In 6.823 Sodium Chloride 0.9% 250 ml @ 0.03 MCG/KG/MIN 11. 586 mls/hr IV .[id number] JAIMIE Rx#:[id number] Hemodialysis 600 Output: Urine 5 30 0 Hemodialysis 2500 Other: Voiding Method Indwelling Catheter Indwelling Catheter Indwelling Catheter # Voids 0 0 # Bowel Movements 1 - Exam - Exam -GENERAL: The patient is on BiPAP. Patient is awake but could not speak. Lethargic and drowsy. HEENT: Pupils are round and equally reacting to light. EOMI. No scleral icterus. No conjunctival pallor. Normocephalic, atraumatic. No pharyngeal erythema. No thyromegaly. CARDIOVASCULAR: S1 and S2 present. No murmurs, rubs, or gallops. -PULMONARY: Chest is clear to auscultation, no wheezing or crackles. Decreased breath sounds on both sides of the lungs -ABDOMEN: Soft, nontender, nondistended, normoactive bowel sounds. No palpable organomegaly. Gomez catheter in place with minimal urine output MUSCULOSKELETAL: No joint swelling or deformity. EXTREMITIES: No cyanosis, clubbing, or pedal edema. NEUROLOGICAL: Gross neurological examination did not reveal any focal deficits. SKIN: No rashes. no petechiae. - Labs CBC & Chem 7: 07/09/22 04:43 07/09/22 04:43 Labs: Abnormal Lab Results - Last 24 Hours (Table) 07/08/22 07/08/22 07/08/22 Range/Units 07:58 07:58 07:58 WBC 3.5 L (3.8-10.6) k/uL RBC 2.78 L (3.80-5.40) m/uL Hgb 8.4 L (11.4-16.0) gm/dL Hct 27.5 L (34.0-46.0) % MCHC 30.5 L (31.0-37.0) g/dL RDW 20.3 H (11.5-15.5) % Plt Count 84 L (150-450) k/uL Lymphocytes # (Manual) 0.95 L (1.0-4.8) k/uL Nucleated RBCs 9 H (0-0) /100 WBC BUN 35 H (7-17) mg/dL Creatinine 2.79 H (0.52-1.04) mg/dL Calcium 7.8 L (8.4-10.2) mg/dL Delta Bilirubin 0.3 H (0.0-0.2) mg/dL Ammonia 80 H (<30) umol/L Albumin 3.0 L (3.5-5.0) g/dL Assessment and Plan Assessment: Acute hypoxic and hypercapnic respiratory failure. Currently on BiPAP. Bilateral pleural effusion. Acute on chronic anuric renal failure. Currently requiring hemodialysis Hepatic encephalopathy with elevated ammonia level Acute urinary tract infection secondary to Proteus mirabilis New onset persistent atrial fibrillation. Currently not on anticoagulation. Metabolic and respiratory acidosis Metabolic encephalopathy Mild cardiomyopathy with ejection fraction 40-45% Morbidly obese with BMI of 75.5 Hypothyroidism Chronic CHF with systolic dysfunction ejection fraction 40-40% Severe pulmonary hypertension and cor pulmonale Chronic bilateral lower extremity edema Plan: Patient is MICU. On BiPAP. Started on hemodialysis Continue with D5W Patient was on dopamine drip. Continue with Zosyn. lactulose and tylenol rectal doses Several consultants on the case including pulmonary, cardiology, nephrology, neurology, vascular surgery. DVT prophylaxis: Subcutaneous heparin GI Prophylaxis: Pepcid PT/OT: Pending Prognosis is guarded Time with Patient: Greater than 30
[2022-07-09] MEDS: NOREPINEPHRINE 8 MG in SODIUM CHLORIDE 0.9% 250 ML IV SCH (10:53)
--- NOTE | 2022-07-09 11:07 | P.PN ---
Subjective Patient is patient is seen for follow-up for acute kidney injury. She has had a couple of treatments of hemodialysis with UF of about 2 L. Currently off of pressors Urine output 0 mL since yesterday Patient came off BiPAP after hemodialysis yesterday. Status post 3.5 L of ultrafiltration. Patient remains confused. Objective - Vital Signs Vital signs: Vital Signs Temp 97.0 F L 07/09/22 08:00 Pulse 76 07/09/22 10:00 Resp 11 L 07/09/22 10:00 BP 88/40 07/09/22 10:00 Pulse Ox 96 07/09/22 10:00 FiO2 30 07/08/22 16:00 Intake & Output 07/08/22 07/09/22 07/09/22 18:59 06:59 18:59 Intake Total 1764.66 1042.179 500 Output Total 3515 0 0 Balance -1750.34 1042.179 500 Weight 196.132 kg 194.54 kg Intake: IV 1000 1000 400 Dextrose 5% in Water 1, 900 900 300 000 ml @ 75 mls/hr IV . [id number] JAIMIE Rx#:[id number] Piperacillin-Tazobactam 3 100 100 100 .375 gm In Sodium Chloride 0.9% 100 ml @ 25 mls/hr IVPB Q12HR JAIMIE Rx #:[id number] Intake, IV Titration 164.66 42.179 100 Amount Heparin Sod,Pork in 0.45% 64.66 42.179 NaCl 25,000 unit In 0.45 % NaCl 1 250ml.bag @ 5. 098 UNITS/KG/HR 9.999 mls /hr IV .Q24H JAIMIE Rx#: [id number] Sodium Ferric Gluconat- 100 100 Sucrose 125 mg In Sodium Chloride 0.9% 100 ml @ 100 mls/hr IVPB DAILY JAIMIE Rx#:[id number] Hemodialysis 600 Output: Urine 15 0 0 Hemodialysis 3500 Other: Voiding Method Indwelling Catheter Indwelling Catheter Indwelling Catheter - Exam Sleeping but arousable, comfortable Off of BiPAP Confused Examination of the heart S1 and S2 Examination of the lungs decreased breath sounds at the bases Abdomen is soft obese Examination lower extremity shows edema 1+ bilaterally - Labs CBC & Chem 7: 07/09/22 04:43 07/09/22 04:43 Labs: Abnormal Lab Results - Last 24 Hours (Table) 07/08/22 07/08/22 07/09/22 Range/Units 18:00 21:45 04:43 WBC (3.8-10.6) k/uL RBC (3.80-5.40) m/uL Hgb (11.4-16.0) gm/dL Hct (34.0-46.0) % MCHC (31.0-37.0) g/dL RDW (11.5-15.5) % Plt Count (150-450) k/uL Lymphocytes # (Manual) (1.0-4.8) k/uL Nucleated RBCs (0-0) /100 WBC APTT 128.4 H* 52.6 H (22.0-30.0) sec Sodium 136 L (137-145) mmol/L Carbon Dioxide 31 H (22-30) mmol/L BUN 27 H (7-17) mg/dL Creatinine 2.95 H (0.52-1.04) mg/dL Calcium 7.5 L (8.4-10.2) mg/dL 07/09/22 07/09/22 Range/Units 04:43 04:43 WBC 3.3 L (3.8-10.6) k/uL RBC 2.64 L (3.80-5.40) m/uL Hgb 7.8 L (11.4-16.0) gm/dL Hct 26.1 L (34.0-46.0) % MCHC 29.8 L (31.0-37.0) g/dL RDW 20.2 H (11.5-15.5) % Plt Count 79 L (150-450) k/uL Lymphocytes # (Manual) 0.92 L (1.0-4.8) k/uL Nucleated RBCs 8 H (0-0) /100 WBC APTT 34.4 H (22.0-30.0) sec Sodium (137-145) mmol/L Carbon Dioxide (22-30) mmol/L BUN (7-17) mg/dL Creatinine (0.52-1.04) mg/dL Calcium (8.4-10.2) mg/dL Assessment and Plan Assessment: 1. ATN, secondary to sepsis with staph epidermidis bacteremia and Proteus UTI. Anuric. Started on dialysis 07/06/2022 , tolerated dialysis fairly well 2. Obtundation, CO2 narcosis, hypoventilation obesity 3. Staph epi bacteremia 4. UTI 5. Atrial fibrillation 6. Hypertension 7. Congestive heart failure. 8. Anemia, with significant iron deficiency. Plan: Repeat hemodialysis today with increase UF as tolerated Continue with IV iron Avoid nephrotoxic agents
[2022-07-09 11:26] LABS: Glucose,Whole Blood 95 mg/dL (70-110)
--- NOTE | 2022-07-09 12:59 | P.PN ---
Subjective Progress Note Date: 07/09/22 Principal diagnosis: Acute hypoxic and hypercapnic respiratory failure, multifactorial 72-year-old morbidly obese female patient, presented to the hospital because of not feeling well, dizziness, hypothermic and she was also found to be in acute kidney injury on top of chronic kidney disease and an underlying gram-negative urinary tract infection. I was asked to evaluate this patient as the patient was becoming more somnolent and sleepy and unresponsive. Blood gas that was done this morning showed an acute respiratory acidosis. Showing a pH of 7.03 with a pCO2 of 96 and pO2 of 103 and this was done on FiO2 of 24%. Based on that, the patient was placed on a BiPAP. Currently she is on a BiPAP pressures of 14/6 cm of water and FiO2 of 30%. They changed tidal volumes around 150 with a respiratory rate of 13. Increase IPAP up to 16 and she generating a tidal volume of around 270 mL. She remains very much somnolent and lethargic although there is some improvement in her level of alertness since she was started on a BiPAP. Morning blood gases were noted. The electrolytes show a sodium level of 144, potassium is at 5, bicarbonate 24, BUN is at 67 with a creatinine of 2.7. The response at 5.1 with a hemoglobin of 9.4. Urine culture was positive Proteus mirabilis. The patient is currently on IV Rocephin. Most recent hemodynamic parameters show a temperature of 97, pulse of 53, respiration of 16 and a blood pressure 91/54. Gomez catheter was inserted. The patient was given a dose of Lasix with essentially no urine output. Ultrasound of the kidneys were done and it showed no evidence of any hydronephrosis.. This patient is known to have some mild chronic systolic heart failure with an ejection fraction of 40-45%. She has severe enlargement of the RV with tricuspid regurgitation and severe pulmonary hypertension. Her EKG is consistent of atrial fibrillation. She is diabetic. She has hypertension. She has peripheral neuropathy, morbid obesity, I do not think she is maintaining on any form of noninvasive positive pressure ventilator at home. The chest x-ray that was done at the time of admission showed CHF with bilateral pleural effu ani. Right-sided pleural effusion is quite large. CAT scan of the brain was done because of an altered mentation. The sulci appear to be less prominent and there was a question of cerebral edema. Based on that, neurology consultation was obtained. EEG was also done today that showed background slowing and moderate to severe generalized cerebral dysfunction consistent with encephalopathy. The patient was also seen by various consultants including nephrology and neurology and their consults are all appreciated. No reported aspiration. On today's evaluation of 07/06/2022, the patient is lethargic and somnolent and she remains in acute hypercapnic respiratory failure. This occurred yesterday as the patient had severe respiratory acidosis. The patient was septic at the time of admission, hypothermic with gram-negative UTI with Proteus mirabilis and subsequently she developed acute hypercapnic respiratory failure. A chest x-ray was consistent with bilateral pleural effusion right more than left. She got transferred to the intensive care unit and she was placed on a BiPAP at a pressure of 16/6 cm of water FiO2 of 30%. Pulse ox is currently at 91%. She is able to generate better tidal volumes compared to yesterday which is in the order of 300 mL and her respiratory rate is around 11 when a minute ventilation of around 4 L/m. The morning blood gases showed a pH of 7.10 with a pCO2 of 81 and pO2 of 65. Chest x-ray showing cardiomegaly. His evidence of bilateral pleural effusion. Underlying pneumonia cannot be completely excluded. Based on that, I switch this patient to IV Zosyn. Overnight, attempts were made to improve the patient's urine output. The patient was given Lasix 80 mg IV. The patient was started on Lasix drip at 10 mg an hour. The patient was started on dopamine renal dose. Unfortunately, she has produced only for cc of urine output since she adopted intensive care unit. Her BUN is at 67 with a creatinine of 3.4. Sodium is at 144 with a potassium level of 4.8. Her ammonia level is down to 91. Unable to provide any lactulose as the patient doesn't have any access for oral intake of medication. Unable to take lactulose at this point in time. WBC count is at 6.1 with a hemoglobin of 8.9 and a platelet count of 97. Very much lethargic. Very much somnolent. Remains on IV Zosyn. She is receiving external warming and her rectal temperature is at 91.5. The fights on the case is Gomez cath is in place. There is no evidence of any hydronephrosis. She is known to have chronic kidney disease. She also developed an acute kidney injury on top of chronic kidney disease and she has systolic heart failure with right-sided ventricular failure and secondary pulmonary hypertension. She is a DNR/DNI CODE STATUS. 07/07/2022, the patient is being seen for a follow-up. Clinically she is essentially unchanged and condition is similar to yesterday. She remains somnolent and lethargic and she remains encephalopathic and this is essentially hypercapnic respiratory failure due to a large bilateral pleural effusion, respiratory insufficiency and possibly a component of hepatic encephalopathy. The patient was maintained on BiPAP and she is still tolerating the BiPAP at a pressure of 16/6 cm of water and FiO2 of 30%. Her generator tidal volume on the BiPAP machine is around 350 mL with a respiratory rate of 11 and a minute ventilation of around 4 L/m. She is arousable upon stimulation, yet she doesn't follow on a specific commands. Chest x-ray from today shows large right-sided pleural effusion and there is also a left-sided pleural effusion. Unfortunately, the patient is not producing any urine. This was discussed with nephrology. Also discussed with the family. She remains a DNR/DNI CODE STATUS. Nevertheless, we decided to proceed with hemodialysis. The patient underwent a dialysis catheter insertion and her right femoral vein and this was successful and the patient was given a session of hemodialysis with a total of 2 L of ultrafiltration. On today's blood work, the BUN is at 49 with a creatinine of 3 and a sodium level is at 141 with a potassium level of 4.4. The previous because of 4.4 with a hemoglobin of 8.5. Blood sugars at 97. Her current temperature is 96.7. The patient's serum ammonia level is down to 72. Her thyroid function tests showed a TSH of 5.4. Free T4 is not available. Pro- calcitonin level was 0.12. She remains on IV Zosyn as an empiric antibiotic coverage. She did have a gram-negative urinary tract infection with Proteus mirabilis. Patient was reevaluated today on 07/08/2022, remains in the ICU, remains on BiPAP with IPAP of 16 EPAP of 6 and FiO2 of 30 percent. Patient is on hemodialysis through a femoral catheter/hemodialysis catheter, patient had positive Proteus mirabilis in the urine and she had staph epidermidis in the blood. Patient is somnolent, lethargic, however she is arousable and she opens her eyes, follows very simple instructions. Nonetheless she is a bit encephalopathic. Tolerating BiPAP quite well, chest x-ray continues to show good sized right-sided pleural effusion and small left pleural effusion hoping this will improve with hemodialysis. Patient is not making much urine. CODE STATUS remains DO NOT RESUSCITATE/DO NOT INTUBATE. WBC count is 3.5 hemoglobin is 8.4 electrolytes are normal BUN is 35 creatinine 2.79 rest of her labs are unremarkable. Reevaluated today on 07/09/2022, patient remains in the ICU, off BiPAP mostly because family requested not to placed on BiPAP because the patient gets extremely agitated and keeps pulling off her BiPAP and he may actually consider comfort care measures. Patient is now on 3 L nasal cannula and I cut it down to 2 L. She is lethargic but arousable and follows very simple instructions. Underwent hemodialysis yesterday, and 3 L of fluids were removed. May require dialysis again today, chest x-ray continues to show good sized right-sided pleural effusion and may improve with further hemodialysis. WBC count is 3.3 hemoglobin 7., basic metabolic profile is normal BUN is 27 creatinine 2.9. Chest x-ray is still consistent with fluid overload and good sized right-sided pleural effusion Objective - Vital Signs Vital signs: Vital Signs Temp 97.0 F L 07/09/22 08:00 Pulse 66 07/09/22 11:00 Resp 12 07/09/22 11:00 BP 97/55 07/09/22 11:00 Pulse Ox 98 07/09/22 11:00 FiO2 30 07/09/22 11:33 Intake & Output 07/08/22 07/09/22 07/09/22 18:59 06:59 18:59 Intake Total 1764.66 1042.179 650 Output Total 3515 0 23 Balance -1750.34 1042.179 627 Weight 196.132 kg 194.54 kg Intake: IV 1000 1000 550 Dextrose 5% in Water 1, 900 900 450 000 ml @ 75 mls/hr IV . [id number] Rx#:[id number] Piperacillin-Tazobactam 3 100 100 100 .375 gm In Sodium Chloride 0.9% 100 ml @ 25 mls/hr IVPB Q12HR [facility] Rx #:[id number] Intake, IV Titration 164.66 42.179 100 Amount Heparin Sod,Pork in 0.45% 64.66 42.179 NaCl 25,000 unit In 0.45 % NaCl 1 250ml.bag @ 5. 098 UNITS/KG/HR 9.999 mls /hr IV .Q24H [facility] Rx#: [id number] Sodium Ferric Gluconat- 100 100 Sucrose 125 mg In Sodium Chloride 0.9% 100 ml @ 100 mls/hr IVPB DAILY [facility] Rx#:[id number] Hemodialysis 600 Output: Urine 15 0 23 Hemodialysis 3500 Other: Voiding Method Indwelling Catheter Indwelling Catheter Indwelling Catheter - Exam Physical Exam: Revealed 72-year-old female, obese, on BiPAP, lethargic, nonet heless arousable and follows very simple instructions. Head: Atraumatic, normocephalic. HEENT:[ Short and obese neck, Neck is supple.] [No neck masses.] [No thyromegaly.] [No JVD.] Anicteric, no neck masses, no JVD, no Chest: Symmetrical chest expansion, crackles at the bases bilaterally no rhonch i no wheezes. Cardiac Exam: Irregular irregular rhythm. [Normal S1 and S2, no S3 gallop, no murmur.] Abdomen: [Morbidly obese, Soft, nontender, no megaly, no rebound, no guarding, normal bowel sounds.] Extremities: [No clubbing, 2+ bipedal edema, no cyanosis.] Right femoral dialysis catheter is noted. Neurological Exam: Patient is lethargic, but arousable, follows simple instructions, but quite sluggish. Psychiatric: Depressed mood, flat affect, could not fully assess mental status. Skin: No rashes. Scars noted from previous knee replacement bilaterally - Labs CBC & Chem 7: 07/09/22 04:43 07/09/22 04:43 Labs: Abnormal Lab Results - Last 24 Hours (Table) 07/08/22 07/08/22 07/09/22 Range/Units 18:00 21:45 04:43 WBC (3.8-10.6) k/uL RBC (3.80-5.40) m/uL Hgb (11.4-16.0) gm/dL Hct (34.0-46.0) % MCHC (31.0-37.0) g/dL RDW (11.5-15.5) % Plt Count (150-450) k/uL Lymphocytes # (Manual) (1.0-4.8) k/uL Nucleated RBCs (0-0) /100 WBC APTT 128.4 H* 52.6 H (22.0-30.0) sec Sodium 136 L (137-145) mmol/L Carbon Dioxide 31 H (22-30) mmol/L BUN 27 H (7-17) mg/dL Creatinine 2.95 H (0.52-1.04) mg/dL Calcium 7.5 L (8.4-10.2) mg/dL 07/09/22 07/09/22 Range/Units 04:43 04:43 WBC 3.3 L (3.8-10.6) k/uL RBC 2.64 L (3.80-5.40) m/uL Hgb 7.8 L (11.4-16.0) gm/dL Hct 26.1 L (34.0-46.0) % MCHC 29.8 L (31.0-37.0) g/dL RDW 20.2 H (11.5-15.5) % Plt Count 79 L (150-450) k/uL Lymphocytes # (Manual) 0.92 L (1.0-4.8) k/uL Nucleated RBCs 8 H (0-0) /100 WBC APTT 34.4 H (22.0-30.0) sec Sodium (137-145) mmol/L Carbon Dioxide (22-30) mmol/L BUN (7-17) mg/dL Creatinine (0.52-1.04) mg/dL Calcium (8.4-10.2) mg/dL Assessment and Plan Assessment: Impression: Acute hypoxic and hypercapnic respiratory failure Acute metabolic encephalopathy secondary to CO2 narcosis Acute hepatic encephalopathy with elevated ammonia level on admission Acute on chronic kidney injury requiring hemodialysis patient was placed at one point on Lasix infusion did not seem to help much. She was also placed on do pamine infusion. Morbid obesity. Acute Proteus mirabilis urinary tract infection Type 2 diabetes Hypothyroidism Benign essential hypertension Chronic systolic LV dysfunction with ejection fraction of 40-45% Severe pulmonary hypertension and cor pulmonale Chronic bilateral lower extremities edema Chronic atrial fibrillation DO NOT RESUSCITATE/DO NOT INTUBATE CODE STATUS Recommendation: This continue BiPAP and continue the patient on O2 via nasal cannula Continue hemodialysis Continue antibiotics Continue GI and DVT prophylaxis PICC line was placed yesterday uneventfully Monitor electrolytes and renal profile on a daily basis. Monitor x-ray of the chest daily. Nephrology to continue follow-up on renal status and hemodialysis Continue to monitor in the ICU We will continue to follow. We will likely discuss with the family to consider comfort care measures if the patient is mostly concerned about comfort and has not been able to tolerate BiPAP Critical care time is over 30 Time with Patient: Greater than 30
--- NOTE | 2022-07-09 14:31 | P.PN ---
Subjective Progress Note Date: 07/09/22 I am seeing the patient for the first time during this admission. Please refer to Dr. Wade's note for further details. It seems the patient continues to have elevated ammonia Objective - Vital Signs Vital signs: Vital Signs Temp 97.0 F L 07/09/22 08:00 Pulse 66 07/09/22 11:00 Resp 12 07/09/22 11:00 BP 97/55 07/09/22 11:00 Pulse Ox 98 07/09/22 11:00 FiO2 30 07/09/22 11:33 Intake & Output 07/08/22 07/09/22 07/09/22 18:59 06:59 18:59 Intake Total 1764.66 1042.179 650 Output Total 3515 0 23 Balance -1750.34 1042.179 627 Weight 196.132 kg 194.54 kg Intake: IV 1000 1000 550 Dextrose 5% in Water 1, 900 900 450 000 ml @ 75 mls/hr IV . [id number] [facility] Rx#:[id number] Piperacillin-Tazobactam 3 100 100 100 .375 gm In Sodium Chloride 0.9% 100 ml @ 25 mls/hr IVPB Q12HR [facility] Rx #:[id number] Intake, IV Titration 164.66 42.179 100 Amount Heparin Sod,Pork in 0.45% 64.66 42.179 NaCl 25,000 unit In 0.45 % NaCl 1 250ml.bag @ 5. 098 UNITS/KG/HR 9.999 mls /hr IV .Q24H [facility] Rx#: [id number] Sodium Ferric Gluconat- 100 100 Sucrose 125 mg In Sodium Chloride 0.9% 100 ml @ 100 mls/hr IVPB DAILY [facility] Rx#:[id number] Hemodialysis 600 Output: Urine 15 0 23 Hemodialysis 3500 Other: Voiding Method Indwelling Catheter Indwelling Catheter Indwelling Catheter - Exam GENERAL: The patient is lying in bed and does not appear in acute distress. NEUROLOGICAL: Limited because of her cooperation. Higher mental function: The patient is moderately to severely drowsy but is awakeable to voice. Is oriented to self. She is able to name pen. She is following few simple commands. Language is limited. Cranial nerves: Has proptosis of both eyes and is tracking right and left. No facial weakness. Seems to have dysarthria to hoarse voice. Motor: The strength is able to lift bilateral upper above gravity briefly and wiggling both toes. Cerebellum: Unable to asses. Sensation: Unable to assess because of lack of response. - Labs CBC & Chem 7: 07/09/22 04:43 07/09/22 04:43 Labs: Abnormal Lab Results - Last 24 Hours (Table) 07/08/22 07/08/22 07/09/22 Range/Units 18:00 21:45 04:43 WBC (3.8-10.6) k/uL RBC (3.80-5.40) m/uL Hgb (11.4-16.0) gm/dL Hct (34.0-46.0) % MCHC (31.0-37.0) g/dL RDW (11.5-15.5) % Plt Count (150-450) k/uL Lymphocytes # (Manual) (1.0-4.8) k/uL Nucleated RBCs (0-0) /100 WBC APTT 128.4 H* 52.6 H (22.0-30.0) sec Sodium 136 L (137-145) mmol/L Carbon Dioxide 31 H (22-30) mmol/L BUN 27 H (7-17) mg/dL Creatinine 2.95 H (0.52-1.04) mg/dL Calcium 7.5 L (8.4-10.2) mg/dL Ammonia (<30) umol/L 07/09/22 07/09/22 07/09/22 Range/Units 04:43 04:43 13:40 WBC 3.3 L (3.8-10.6) k/uL RBC 2.64 L (3.80-5.40) m/uL Hgb 7.8 L (11.4-16.0) gm/dL Hct 26.1 L (34.0-46.0) % MCHC 29.8 L (31.0-37.0) g/dL RDW 20.2 H (11.5-15.5) % Plt Count 79 L (150-450) k/uL Lymphocytes # (Manual) 0.92 L (1.0-4.8) k/uL Nucleated RBCs 8 H (0-0) /100 WBC APTT 34.4 H (22.0-30.0) sec Sodium (137-145) mmol/L Carbon Dioxide (22-30) mmol/L BUN (7-17) mg/dL Creatinine (0.52-1.04) mg/dL Calcium (8.4-10.2) mg/dL Ammonia 89 H (<30) umol/L 07/09/22 Range/Units 13:40 WBC (3.8-10.6) k/uL RBC (3.80-5.40) m/uL Hgb (11.4-16.0) gm/dL Hct (34.0-46.0) % MCHC (31.0-37.0) g/dL RDW (11.5-15.5) % Plt Count (150-450) k/uL Lymphocytes # (Manual) (1.0-4.8) k/uL Nucleated RBCs (0-0) /100 WBC APTT 38.7 H (22.0-30.0) sec Sodium (137-145) mmol/L Carbon Dioxide (22-30) mmol/L BUN (7-17) mg/dL Creatinine (0.52-1.04) mg/dL Calcium (8.4-10.2) mg/dL Ammonia (<30) umol/L Assessment and Plan Assessment: * Altered mental status, likely due to toxic metabolic encephalopathy. * Acute on chronic renal failure, with fluid overload * Hypercapnic respiratory failure * Acute UTI with urine growing > 100,000 Proteus mirabilis * Hypotension * Atrial fibrillation, cardiology on board. * Hepatic encephalopathy. Has elevated ammonia * Stool occult blood positive. 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 * Morbid obesity * Nonambulatory status. * Depression Plan: * Patient has abnormal TSH but no free T4 was done. Patient has proptosis of both eyes. I will get repeat TSH and will order free T4. Ordered ionized calcium. Will defer management to primary team. * For continued elevated ammonia will defer management to primary team. * Patient has acute on chronic renal failure, nephrology on board. On dialysis. * EEG was abnormal due to background slowing of moderate to severe degree, sugg estive of generalized cerebral dysfunction as can be seen with toxic metabolic encephalopathy or related to diffuse structural brain abnormality. Clinical correlation is recommended. No epileptiform activity was seen. * CT had reported by radiologist as diffuse edema. I reviewed her current computed tomography scan and reviewed with her previous CT head from 10/13/2021, was essentially unchanged. No further workup needed. * Carotid Doppler 10/13/2021 revealed no stenosis in the ICA. Antegrade flow in the vertebral arteries. * 2-D echo 07/02/2022 revealed normal left ventricular size and reduced left- ventricular systolic function with EF 40-45%. Septal hypokinesis. Severely dilated right atrium. Left atrial enlargement. * Fasting lipid panel cholesterol 135, LDL 60, HDL 60 and triglycerides 68. Continue Lipitor 40 mg daily. Continue aspirin daily. * Hemoglobin A1c 5.3. * B12 541, folate 40.0. TSH mildly elevated 5.44, will defer to IM. * DVT prophylaxis, patient on heparin 5000 units subcu every 8 hours. * DO NOT RESUSCITATE. The plan is discussed with nurse. Will continue to follow-up with patient sporadically. Time with Patient: Less than 30
[2022-07-09] MEDS: FOLIC ACID 1 MG TAB PO SCH (15:09)
[2022-07-09] MEDS: ASCORBIC ACID 500 MG TAB PO SCH (15:09)
[2022-07-09] MEDS: CHOLECALCIFEROL 25 MCG (1000 IU) TABLET PO SCH (15:09)
[2022-07-09 15:57] LABS: Ionized Calcium 4.8 mg/dL (4.5-5.3)
[2022-07-09 16:04] VITALS: TEMP 97.4
[2022-07-09 17:28] LABS: Glucose,Whole Blood 92 mg/dL (70-110)
[2022-07-09 19:37] VITALS: BP 124/59; PULSE 75; RESP 15
[2022-07-09 19:42] LABS: T4, Free (Free Thyroxine) 1.27 ng/dL (0.78-2.19)
--- NOTE | 2022-07-09 19:51 | P.PN ---
Progress Note - Text Progress Note Date: 07/09/22 Chief Complaint: Not feeling well This is a pleasant 72-year-old patient of follows with Dr. Carranza. At [facility]. Chronic stable medical conditions include GERD, hypertension, osteoarthritis, peripheral neuropathy. CK D. Patient was brought in from the [facility] by EMS. Patient had been complaining of dizzy lightheaded not feeling well. Some numbness tingling. Patient's found to be hypothermic in the ER. It may be noted that patient has glucose tablets at the [facility]. And Accu-Cheks and blood glucose running low. Patient urine was dirty appearing. Denies any chest pain or shortness of breath. Has had decreased appetite. Denied any obvious fever and chills. 07/02/2022: Tired. Poor appetite. Placed on D5.45. Schedules glucose tablets. Discussed with the patient increase oral intake. 07/03/2022: Remains diet. Sleepy. Does wake up to answer questions. Taking her medications. Not really eating. Spoke at length with the patient. Willing to eat some. Consult psychiatry for depression. 07/04/2022: Patient's ammonia level came back elevated yesterday. Patient put on lactulose. Remains lethargic. Not eating. We'll proceed to do an EEG and a computed tomography scan of the brain. Consult neurology. Neurology compared to current computed tomography scan from prior computed tomography scan. Unchanged. 07/05/2022: Patient getting lactulose for hyperammonemia. Having to 3 BMs a day. Still remained lethargic. Not eating. Getting IV fluids. ABG ordered showed a pH of 7.03 and a pCO2 of 97. BiPAP and pulmonary consultation done. Likely underlying obesity hypoventilation syndrome. EEG suggestive of metabolic encephalopathy. 07/06/2022:This is a pleasant 72 years old -[place] female from senior living with multiple medical problems as below. Initially was admitted from [place] with 4 edema, dizziness and yesterday she was found acidotic and she was sent to the ICU. Patient has evidence of severe sepsis secondary to Proteus UTI, and this has been complicated with acute hypoxic hypercapnic respiratory failure leading to severe encephalopathy and some nylons, patient currently lying in bed very lethargic, To provide information and does not follow commands. Also her mentation is worsened by hepatic encephalopathy picture with elevated ammonia level, currently 91. Patient has combined both metabolic and respiratory acidosis and pH about 7, pCO2 is elevated. Patient also with evidence of acute anuric kidney failure, dialysis catheter was placed and plan to start her on dialysis today. Several consultants on the case and following her closely including pulmonary, cardiology, nephrology, neurology and vascular surgery. 07/07/2022 Patient remains in the ICU in critical condition, her mentation only slightly improving however she is not responding to verbal or physical stimuli. However patient is moaning in pain when she is moved by staff. She does not need any pressors and she is afebrile, blood pressure currently 110/56. She is not tachycardic. However she requires BiPAP yesterday patient was started on hemodialysis. She still any aortic Hemoglobin is 8.5, no leukocytosis. Platelet count 87 which is stable. Creatinine stable at about 3.0. Liver enzymes not elevated. Urine culture is growing Proteus mirabilis. Blood culture is staph epidermidis which is most likely contamination. Chest x-ray, large right pleural effusion, cardiomegaly, no change from previous. Her ammonia level is lowering today after she was started on lactulose rectally. Also will order Tylenol rectally Doppler with pain. She is also on Zosyn, and D5W at 75 mL/h, 07/08/2022 Patient is in the MICU. Currently on BiPAP. Awake and alert but could not communicate. Patient has been afebrile. Chest x-ray showed there is metallic screws superior to the right humeral head which could be related to prior surgery and now dislodged and it for body within the adjacent soft tissues. Correlate clinically for prior surgery including rotator cuff surgery. Bilateral large areas of consolidation and pleural effusion. Patient is on antibiotics in the form of Zosyn. Continued on IV hydration with D5 water at 75 mL per hour. Urine culture showed Proteus mirabilis and blood cultures to staph epidermidis. Patient is on hemodialysis. Laboratory data showed WBC 3.4 hemoglobin 8.4 and platelets 84 BUN 35 and creatinine 2.79. Nephrology and pulmonary is on board. 07/09/2022: I resumed care of the patient today. ICU. Nasal cannula. Due for hemodialysis today. Had hemodialysis Friday, Friday, Friday. Eldest son Bubba by the bedside. Patient has been awake enough to answer questions. Nurse Rosa present by the bedside. Patient is repeatedly abdomen diet she's had enough off all this. And she wants to . She wants to go to the Lord. Had a lengthy discussion with the son at the bedside. He is suspecting his mother's wishes. I also concurred that patient's code multiple things going on her prognosis is not good. Patient is already DO NOT RESUSCITATE. I did: Felisha a family meeting this evening with all the children to come in. Current medications reviewed Past medical history to include: GERD, hypertension, osteoarthritis, peripheral neuropathy, CK D Social history: At [facility] [place] No smoking. Alcohol rarely. Physical examination: VITAL SIGNS: 97.8, 73, 16, 99/77, 97% on 3 L GENERAL: Reclining in bed, lethargic but wakes up answer questions. Dialysis catheter EYES: Pupils equal. Conjunctiva normal. HEENT: External appearance of nose and ears normal, oral cavity dry mucous membranes NECK: JVD unable to assess; masses not palpable. HEART: First and second heart sounds are normal; no edema. LUNGS: Respiratory rate normal; distant breath sounds. ABDOMEN: Soft, nontender, liver spleen not palpable, no masses palpable. PSYCH: Lethargic tired but able to answer questions. MUSCULOSKELETAL:No Clubbing/cyanosis;muscles-grossly intact. Chronic limited range of motion of right shoulder. NEUROLOGICAL: Cranial nerves grossly intact Power sensation grossly intact. INVESTIGATIONS, reviewed in the clinical context: 07/06/2022: White count 3.3 hemoglobin 7.8 platelets 79 sodium 136 potassium 3.9 creatinine 2.95 07/05/2022: White count 5.1 hemoglobin 9.4 platelets 93 potassium 5 BUN 67 creatinine 2.87 ammonia 166 ABG on room air: PH 7.03 pCO2 97 pO2 103 EEG: Suggestive of metabolic encephalopathy. CT brain without contrast: Questionable edema. 07/04/2022: White count 5.6 albumin 8.8 platelets 93 potassium 4.8 BUN 66 creatinine 2.7 to 07/03/2022: Potassium 5.5 chloride 115 BUN 66 creatinine 2.78 ammonia 138 07/02/2022: Potassium 5.5 BUN 62 creatinine 3.11. Procalcitonin 0.12 White count 3 hemoglobin 9.9 platelets 1:30 sodium 145 potassium 5.2 BUN 58 creatinine 2.2 to TSH 5.4 UA: Protein 1+ leukoesterase positive WBC 59 bacteria rare EKG tracing personally reviewed by me-atrial fibrillation. PVC. Rate 92 Chest x-ray film personally reviewed by me-underpenetrated due to obesity. Possible right basilar infiltrate/effusion Previous testin-D echocardiogram [September 2021] EF 55-60% 05/17/2022: Creatinine 1.5 Assessment and plan: -Severe hypothermia, multifactorial. Admission rectal temperature 93 degrees: Became hypothermic again. Head Stuart hugger earlier. -Acute metabolic encephalopathy from hyperammonemia and CO2 narcosis. Slow to respond lactulose. Neurology following. No focal findings. Computed tomography scan unchanged from prior computed tomography scan per neurology. EEG shows encephalopathy. -Acute severe respiratory acidosis from obesity hypoventilation syndrome: Patient is not tolerating BiPAP. -Acute hypercapnic respiratory failure from obesity hypoventilation syndrome: Follow with pulmonary. - right lower lobe pneumonia suspect gram-negative organism IV ceftriaxone -Severe obesity hypoventilation syndrome. BMI 72.1 -Hypoglycemia and decreased oral intake. Glucose tablets. D5 0.45 iv -Hyper-ammonemia, cause unclear lactulose 20 g every 12. Titrate for 2-3 BMs a day. -Morbid obesity BMI 72.1 Weight loss measures -Primary osteoarthritis [place] 10 every 6 when necessary -Peripheral neuropathy -Hypothyroid Synthroid 50 g a day -Probable depression -GERD Prilosec 20mg -Hyperkalemia in the setting of renal failure: Better Low potassium diet. Lokelma. -Acute kidney injury, possibly prerenal: From decreased oral intake: Not improving Started on hemodialysis 07/07/2022 - CKD, stage III likely nephrosclerosis Creatinine 1.5 in April 2022 -Chronic medical debility -DO NOT RESUSCITATE Continue current medication treatment plan. Prognosis not good. Her weight for a family meeting this evening. Looking to make patient comfort care. Patient's eldest son at the bedside agreeable. Discussed with nurse. Family meeting later this evening. Continue current treatment plan.
[2022-07-09] MEDS ORDERED: HEPARIN SODIUM,PORCINE/PF 5,000 UNIT/0.5 ML SYRINGE SQ SCH (21:00)
[2022-07-10] MEDS ORDERED: FAMOTIDINE 20 MG/2 ML VIAL IV SCH (09:00)
--- NOTE | 2022-07-10 11:30 | P.DS ---
Providers Date of admission: 06/30/22 19:07 Expected date of discharge: 07/09/22 Attending physician: John Weldon Consults: 07/03/22 11:54 Consult Physician Routine Consulting Provider: Connor Agudelo Consult Reason/Comments: depression Do you want consulting provider notified?: Yes 07/04/22 12:51 Consult Physician Routine Consulting Provider: Afshan Wade Consult Reason/Comments: altered mentation Do you want consulting provider notified?: Yes 07/05/22 09:41 Consult Physician Routine Consulting Provider: Nga Duran Consult Reason/Comments: acute kidney injury Do you want consulting provider notified?: Yes 07/05/22 13:00 Consult Physician Routine Consulting Provider: Harrison King Consult Reason/Comments: critical arterial blood gases Do you want consulting provider notified?: Yes 07/06/22 08:39 Consult Physician Routine Consulting Provider: Torin Kearns Consult Reason/Comments: chf Do you want consulting provider notified?: Already Contacted 07/06/22 09:04 Consult Physician Routine Consulting Provider: Russ De La Vega Consult Reason/Comments: HD catheter placement Do you want consulting provider notified?: Yes Primary care physician: [facility] Course: Chief Complaint: Not feeling well This is a pleasant 72-year-old patient of follows with Dr. Carranza. At [facility]. Chronic stable medical conditions include GERD, hypertension, osteoarthritis, peripheral neuropathy. CK D. Patient was brought in from the [facility] by EMS. Patient had been complaining of dizzy lightheaded not feeling well. Some numbness tingling. Patient's found to be hypothermic in the ER. It may be noted that patient has glucose tablets at the [facility]. And Accu-Cheks and blood glucose running low. Patient urine was dirty appearing. Denies any chest pain or shortness of breath. Has had decreased appetite. Denied any obvious fever and chills. 07/02/2022: Tired. Poor appetite. Placed on D5.45. Schedules glucose tablets. Discussed with the patient increase oral intake. 07/03/2022: Remains diet. Sleepy. Does wake up to answer questions. Taking her medications. Not really eating. Spoke at length with the patient. Willing to eat some. Consult psychiatry for depression. 07/04/2022: Patient's ammonia level came back elevated yesterday. Patient put on lactulose. Remains lethargic. Not eating. We'll proceed to do an EEG and a computed tomography scan of the brain. Consult neurology. Neurology compared to current computed tomography scan from prior computed tomography scan. Unchanged. 07/05/2022: Patient getting lactulose for hyperammonemia. Having to 3 BMs a day. Still remained lethargic. Not eating. Getting IV fluids. ABG ordered showed a pH of 7.03 and a pCO2 of 97. BiPAP and pulmonary consultation done. Likely underlying obesity hypoventilation syndrome. EEG suggestive of metabolic encephalopathy. 07/06/2022:This is a pleasant 72 years old -[place] female from [facility] with multiple medical problems as below. Initially was admitted from [place] with 4 edema, dizziness and yesterday she was found acidotic and she was sent to the ICU. Patient has evidence of severe sepsis secondary to Proteus UTI, and this has been complicated with acute hypoxic hypercapnic respiratory failure leading to severe encephalopathy and some nylons, patient currently lying in bed very lethargic, To provide information and does not follow commands. Also her mentation is worsened by hepatic encephalopathy picture with elevated ammonia level, currently 91. Patient has combined both metabolic and respiratory acidosis and pH about 7, pCO2 is elevated. Patient also with evidence of acute anuric kidney failure, dialysis catheter was placed and plan to start her on dialysis today. Several consultants on the case and following her closely including pulmonary, cardiology, nephrology, neurology and vascular surgery. 07/07/2022 Patient remains in the ICU in critical condition, her mentation only slightly improving however she is not responding to verbal or physical stimuli. However patient is moaning in pain when she is moved by staff. She does not need any pressors and she is afebrile, blood pressure currently 110/56. She is not tachycardic. However she requires BiPAP yesterday patient was started on hemodialysis. She still any aortic Hemoglobin is 8.5, no leukocytosis. Platelet count 87 which is stable. Creatinine stable at about 3.0. Liver enzymes not elevated. Urine culture is growing Proteus mirabilis. Blood culture is staph epidermidis which is most likely contamination. Chest x-ray, large right pleural effusion, cardiomegaly, no change from previous. Her ammonia level is lowering today after she was started on lactulose rectally. Also will order Tylenol rectally Doppler with pain. She is also on Zosyn, and D5W at 75 mL/h, 07/08/2022 Patient is in the MICU. Currently on BiPAP. Awake and alert but could not communicate. Patient has been afebrile. Chest x-ray showed there is metallic screws superior to the right humeral head which could be related to prior surgery and now dislodged and it for body within the adjacent soft tissues. Correlate clinically for prior surgery including rotator cuff surgery. Bilateral large areas of consolidation and pleural effusion. Patient is on antibiotics in the form of Zosyn. Continued on IV hydration with D5 water at 75 mL per hour. Urine culture showed Proteus mirabilis and blood cultures to staph epidermidis. Patient is on hemodialysis. Laboratory data showed WBC 3.4 hemoglobin 8.4 and platelets 84 BUN 35 and creatinine 2.79. Nephrology and pulmonary is on board. 07/09/2022: I resumed care of the patient today. ICU. Nasal cannula. Due for hemodialysis today. Had hemodialysis Friday, Friday, Friday. Eldest son Bubba by the bedside. Patient has been awake enough to answer questions. Nurse Rosa present by the bedside. Patient is repeatedly abdomen diet she's had enough off all this. And she wants to . She wants to go to the Lord. Had a lengthy discussion with the son at the bedside. He is suspecting his mother's wishes. I also concurred that patient's code multiple things going on her prognosis is not good. Patient is already DO NOT RESUSCITATE. I did: Felisha a family meeting this evening with all the children to come in. Family meeting was held. , And they wished to proceed with comfort measures. hospice to be consulted. Past medical history to include: GERD, hypertension, osteoarthritis, peripheral neuropathy, CK D [facility] No [facility]. Alcohol rarely. Physical examination: VITAL SIGNS: 97.8, 73, 16, 99/77, 97% on 3 L GENERAL: Reclining in bed, lethargic but wakes up answer questions. Dialysis catheter EYES: Pupils equal. Conjunctiva normal. HEENT: External appearance of nose and ears normal, oral cavity dry mucous membranes NECK: JVD unable to assess; masses not palpable. HEART: First and second heart sounds are normal; no edema. LUNGS: Respiratory rate normal; distant breath sounds. ABDOMEN: Soft, nontender, liver spleen not palpable, no masses palpable. PSYCH: Lethargic tired but able to answer questions. MUSCULOSKELETAL:No Clubbing/cyanosis;muscles-grossly intact. Chronic limited range of motion of right shoulder. NEUROLOGICAL: Cranial nerves grossly intact Power sensation grossly intact. INVESTIGATIONS, reviewed in the clinical context: 07/06/2022: White count 3.3 hemoglobin 7.8 platelets 79 sodium 136 potassium 3.9 creatinine 2.95 07/05/2022: White count 5.1 hemoglobin 9.4 platelets 93 potassium 5 BUN 67 creatinine 2.87 ammonia 166 ABG on room air: PH 7.03 pCO2 97 pO2 103 EEG: Suggestive of metabolic encephalopathy. CT brain without contrast: Questionable edema. 07/04/2022: White count 5.6 albumin 8.8 platelets 93 potassium 4.8 BUN 66 creatinine 2.7 to 07/03/2022: Potassium 5.5 chloride 115 BUN 66 creatinine 2.78 ammonia 138 07/02/2022: Potassium 5.5 BUN 62 creatinine 3.11. Procalcitonin 0.12 White count 3 hemoglobin 9.9 platelets 1:30 sodium 145 potassium 5.2 BUN 58 creatinine 2.2 to TSH 5.4 UA: Protein 1+ leukoesterase positive WBC 59 bacteria rare EKG tracing personally reviewed by me-atrial fibrillation. PVC. Rate 92 Chest x-ray film personally reviewed by me-underpenetrated due to obesity. Possible right basilar infiltrate/effusion Previous testin-D echocardiogram [September 2021] EF 55-60% 05/17/2022: Creatinine 1.5 Assessment and plan: -Severe hypothermia, multifactorial. Admission rectal temperature 93 degrees: Became hypothermic again. Head Stuart hugger earlier. -Acute metabolic encephalopathy from hyperammonemia and CO2 narcosis. Slow to respond lactulose. Neurology following. No focal findings. Computed tomography scan unchanged from prior computed tomography scan per neurology. EEG shows encephalopathy. -Acute severe respiratory acidosis from obesity hypoventilation syndrome: Patient is not tolerating BiPAP. -Acute hypercapnic respiratory failure from obesity hypoventilation syndrome: Follow with pulmonary. - right lower lobe pneumonia suspect gram-negative organism IV ceftriaxone -Severe obesity hypoventilation syndrome. BMI 72.1 -Hypoglycemia and decreased oral intake. Glucose tablets. D5 0.45 iv -Hyper-ammonemia, cause unclear lactulose 20 g every 12. Titrate for 2-3 BMs a day. -Morbid obesity BMI 72.1 Weight loss measures -Primary osteoarthritis [place] 10 every 6 when necessary -Peripheral neuropathy -Hypothyroid Synthroid 50 g a day -Probable depression -GERD Prilosec 20mg -Hyperkalemia in the setting of renal failure: Better Low potassium diet. Lokelma. -Acute kidney injury, possibly prerenal: From decreased oral intake: Not improving Started on hemodialysis 07/07/2022 - CKD, stage III likely nephrosclerosis Creatinine 1.5 in April 2022 -Chronic medical debility -DO NOT RESUSCITATE/comfort measures disposition: Inpatient hospice/GI P. Hospice consulted Patient Condition at Discharge: Serious Plan - Discharge Summary New Discharge Prescriptions: No Action Dextrose Chew [Glucose Chew Tab] 32 gm PO QID PRN PRN Reason: Hypoglycemia Ipratropium-Albuterol Nebulize [Duoneb 0.5 mg-3 mg/3 ml Soln] 3 ml INHALATION RT-Q6H PRN PRN Reason: Shortness Of Breath Cefuroxime [Ceftin] 250 mg PO BID@0800,1700 Albuterol Sulfate [Ventolin HFA] 1 puff INHALATION RT-Q4H PRN PRN Reason: Shortness Of Breath bisacodyL 10 mg RECTAL DAILY PRN PRN Reason: Constipation Menthol [Biofreeze] 1 applic TOPICAL DAILY PRN PRN Reason: neck & shoulder pain Omeprazole Magnesium [PriLOSEC OTC] 20 mg PO HS Furosemide [Lasix] 40 mg PO DAILY@0600 Ferrous Sulfate [Iron (65 MG Elemental)] 325 mg PO DAILY@0800 Ascorbic Acid [Vitamin C] 1,000 mg PO DAILY@1700 Acetaminophen [Tylenol] 650 mg PO Q4H PRN PRN Reason: Fever And/ Or Pain HYDROcodone/APAP 10-325MG [[place] 10-325] 1 tab PO Q6H PRN PRN Reason: Pain Ammonium Lactate Lotion [Lac-Hydrin 12% Lotion] 1 applic TOPICAL BID Magnesium Hydroxide [Milk of Magnesia Concentrate] 7,200 mg PO Q48H PRN PRN Reason: Constipation Loperamide HCl [Imodium A-D] 2 - 4 mg PO QID PRN PRN Reason: Diarrhea Ciclopirox Olamine [Loprox 0.77% cream] 1 applic TOPICAL BID@0800,2100 Folic Acid 1 mg PO DAILY@1700 Cholecalciferol [Vitamin D3 (25 Mcg = 1000 Iu)] 25 mcg PO DAILY@1700 Discharge Medication List Acetaminophen [Tylenol] 650 mg PO Q4H PRN 01/29/22 [History] Dextrose Chew [Glucose Chew Tab] 32 gm PO QID PRN 01/29/22 [History] Ipratropium-Albuterol Nebulize [Duoneb 0.5 mg-3 mg/3 ml Soln] 3 ml INHALATION RT-Q6H PRN 01/29/22 [History] Cefuroxime [Ceftin] 250 mg PO BID@0800,1700 06/26/22 [History] HYDROcodone/APAP 10-325MG [[place] 10-325] 1 tab PO Q6H PRN 06/26/22 [History] Albuterol Sulfate [Ventolin HFA] 1 puff INHALATION RT-Q4H PRN 06/30/22 [History] Ammonium Lactate Lotion [Lac-Hydrin 12% Lotion] 1 applic TOPICAL BID 06/30/22 [History] Ascorbic Acid [Vitamin C] 1,000 mg PO DAILY@17006/30/22 [History] Cholecalciferol [Vitamin D3 (25 Mcg = 1000 Iu)] 25 mcg PO DAILY@169906/30/22 [History] Ciclopirox Olamine [Loprox 0.77% cream] 1 applic TOPICAL BID@0800,2100 06/30/22 [History] Ferrous Sulfate [Iron (65 MG Elemental)] 325 mg PO DAILY@0800 06/30/22 [History] Folic Acid 1 mg PO DAILY@17006/30/22 [History] Furosemide [Lasix] 40 mg PO DAILY@0606/30/22 [History] Loperamide HCl [Imodium A-D] 2 - 4 mg PO QID PRN 06/30/22 [History] Magnesium Hydroxide [Milk of Magnesia Concentrate] 7,200 mg PO Q48H PRN 06/30/22 [History] Menthol [Biofreeze] 1 applic TOPICAL DAILY PRN 06/30/22 [History] Omeprazole Magnesium [PriLOSEC OTC] 20 mg PO HS 06/30/22 [History] bisacodyL 10 mg RECTAL DAILY PRN 06/30/22 [History] Follow up Appointment(s)/Referral(s): Torin Kearns MD [STAFF PHYSICIAN] - 2 Weeks Garry Carranza DO [Primary Care Provider] - 1-2 days Discharge Disposition: [facility]CH TO [facility]
--- NOTE | 2022-07-18 19:16 | PCN ---
PROCEDURE NOTE PREOPERATIVE DIAGNOSIS: Acute chronic renal failure. POSTOPERATIVE DIAGNOSIS: Acute chronic renal failure. PROCEDURE PERFORMED: Placement of dialysis catheter, right femoral approach. DESCRIPTION OF PROCEDURE: This patient was seen. Right groin was prepped, and drapes were applied in a sterile manner. 1% lidocaine plain was infiltrated in the groin area. Ultrasound-guided micropuncture was introduced into the right common femoral vein. Micropuncture guidewire was passed, and 4-Maldivian dilator was advanced on top of the guidewire. Then, we passed a regular guidewire without any resistance. Dilators were advanced on the top of the guidewire. Then, we placed dialysis catheter on the top of the guidewire. The guidewire was removed. Flushed with heparinized saline and hep-locked. Secured with 3-0 nylon. Dressing was applied. The patient tolerated the procedure well. MMBEBETO / DOUGN: [id number] /
== END 2022-07-09 20:51 | disposition still patient (30) | DRG 177 ==
LOC: EC 16:18 → 3SCARD 19:07 → 2SICU 07-05 17:17
PROVIDERS: ADMIT Hospitalist; ATTEND Hospitalist
PROC: 5A09357 Assistance with Respiratory Ventilation, Less than 24 Consecutive Hours, Continuous Positive Airway Pressure (ICD-10-PCS; 2022-07-05)
PROC: 5A1D70Z Performance of Urinary Filtration, Intermittent, Less than 6 Hours Per Day (ICD-10-PCS; 2022-07-05)
PROC: 02HV33Z Insertion of Infusion Device into Superior Vena Cava, Percutaneous Approach (ICD-10-PCS; principal; 2022-07-08 09:20)
DX: J15.6 Pneumonia due to other Gram-negative bacteria (principal); G92.8 Other toxic encephalopathy; N17.0 Acute kidney failure with tubular necrosis; J96.21 Acute and chronic respiratory failure with hypoxia; G93.6 Cerebral edema; J96.22 Acute and chronic respiratory failure with hypercapnia; E72.20 Disorder of urea cycle metabolism, unspecified; I13.0 Hypertensive heart and chronic kidney disease with heart failure and stage 1 through stage 4 chronic kidney disease, or unspecified chronic kidney disease; E87.4 Mixed disorder of acid-base balance; E87.0 Hyperosmolality and hypernatremia; I42.9 Cardiomyopathy, unspecified; E66.2 Morbid (severe) obesity with alveolar hypoventilation; I48.19 Other persistent atrial fibrillation; Z68.45 Body mass index [BMI] 70 or greater, adult; T84.120A Displacement of internal fixation device of right humerus, initial encounter; K92.2 Gastrointestinal hemorrhage, unspecified; I50.22 Chronic systolic (congestive) heart failure; N39.0 Urinary tract infection, site not specified; F03.93 Unspecified dementia, unspecified severity, with mood disturbance; Z16.29 Resistance to other single specified antibiotic; F32.0 Major depressive disorder, single episode, mild; F03.94 Unspecified dementia, unspecified severity, with anxiety; Z51.5 Encounter for palliative care; Z66 Do not resuscitate; K76.82 Hepatic encephalopathy; I27.29 Other secondary pulmonary hypertension; E11.649 Type 2 diabetes mellitus with hypoglycemia without coma; D63.1 Anemia in chronic kidney disease; E11.22 Type 2 diabetes mellitus with diabetic chronic kidney disease; I08.3 Combined rheumatic disorders of mitral, aortic and tricuspid valves; E03.9 Hypothyroidism, unspecified; N18.32 Chronic kidney disease, stage 3b; D50.9 Iron deficiency anemia, unspecified; G62.9 Polyneuropathy, unspecified; D72.819 Decreased white blood cell count, unspecified; B96.4 Proteus (mirabilis) (morganii) as the cause of diseases classified elsewhere; R63.0 Anorexia; I49.3 Ventricular premature depolarization; M19.91 Primary osteoarthritis, unspecified site; B96.1 Klebsiella pneumoniae [K. pneumoniae] as the cause of diseases classified elsewhere; E87.5 Hyperkalemia; R53.81 Other malaise; B95.7 Other staphylococcus as the cause of diseases classified elsewhere; K21.9 Gastro-esophageal reflux disease without esophagitis; Y79.1 Therapeutic (nonsurgical) and rehabilitative orthopedic devices associated with adverse incidents; Z96.653 Presence of artificial knee joint, bilateral; Z87.891 Personal history of nicotine dependence; Z86.14 Personal history of Methicillin resistant Staphylococcus aureus infection; Z79.899 Other long term (current) drug therapy; Z74.01 Bed confinement status; Z28.311 Partially vaccinated for COVID-19; Z87.440 Personal history of urinary (tract) infections; Z99.3 Dependence on wheelchair; Z82.49 Family history of ischemic heart disease and other diseases of the circulatory system
CPT/HCPCS: 36415; 36573; 36600; 70450; 71045; 71046; 76770; 80048; 80053; 80076; 81001; 82140; 82248; 82272; 82330; 82565; 82728; 82805; 83540; 83550; 83605; 83735; 83880; 84145; 84439; 84443; 84484; 85025; 85027; 85610; 85730; 86704; 86706; 87040; 87077; 87086; 87186; 87340; 90935; 93005; 93306; 94640; 94660; 94760; 95816; 96365; 96366; 96368; 96375; 96376; 99285

== ENCOUNTER 2022-07-09 20:19 | Inpatient (IN) | payer MEDICAID ==
[2022-07-09] MEDS ORDERED: LORazepam 2 MG/ML INJ IV PRN (20:36)
[2022-07-09] MEDS ORDERED: ARTIFICIAL TEARS-HYPROMELLOSE DROPS 15 ML BTL BOTH EYES PRN (20:36)
[2022-07-09] MEDS ORDERED: MORPHINE SULFATE 2 MG/ML SYRINGE IV PRN (20:36)
[2022-07-09] MEDS ORDERED: GLYCOPYRROLATE 0.2 MG/ML 2 ML VIAL IVP PRN (20:36)
[2022-07-09] MEDS ORDERED: ATROPINE OPHTH SOLN 1% 5ML BTL SUBLINGUAL PRN (20:36)
[2022-07-09] MEDS ORDERED: ACETAMINOPHEN SUPPOSITORY 650 MG SUPP RECTAL PRN (20:36)
[2022-07-09] MEDS ORDERED: ONDANSETRON 4 MG/2 ML VIAL IVP PRN (20:36)
[2022-07-09] MEDS ORDERED: SCOPOLAMINE 1 MG/72 HR PATCH TRANSDERM SCH (21:00)
[2022-07-09] MEDS: MORPHINE SULFATE (100 MG/2 ML) 100 MG in SODIUM CHLORIDE 0.9% 100 ML IV SCH (21:51)
--- NOTE | 2022-07-09 21:51 | PN ---
PROGRESS NOTE SUBJECTIVE: This lady's hemoglobin has dropped to 7.8 from 8.4 yesterday. We had started her on a low-dose heparin intravenously. We will, therefore, discontinue IV heparin and place her on subcutaneous heparin. She is in atrial fibrillation, rate is controlled. She has multiple other comorbid conditions, and these are being addressed. From a cardiac standpoint, I am recommending that we continue current medications. Heart rate is controlled. No need for any additional rate control agents. We will discontinue anticoagulation in view of drop in hemoglobin and black tarry stools history in the last 3 to 4 days. OBJECTIVE: HEART: S1 and S2 heard normally. Irregularity in rhythm. Short systolic murmur. LUNGS: Reveal decent air entry. ABDOMEN: Unchanged. LOWER EXTREMITIES: Unchanged. PLAN: I will continue to see her as needed. MMODL / IJN: [id number] /
[2022-07-10 00:37] VITALS: TEMP 96.6
[2022-07-10 05:12] VITALS: BP 97/48
--- NOTE | 2022-07-10 11:37 | P.HPIM ---
History of Present Illness H&P Date: 07/10/22 Chief Complaint: Lethargic Chief Complaint: Not feeling well This is a pleasant 72-year-old patient of follows with Dr. Carranza. At [facility]. Chronic stable medical conditions include GERD, hypertension, osteoarthritis, peripheral neuropathy. CK D. Patient was brought in from the [facility] by EMS. Patient had been complaining of dizzy lightheaded not feeling well. Some numbness tingling. Patient's found to be hypothermic in the ER. It may be noted that patient has glucose tablets at the [facility]. And Accu-Cheks and blood glucose running low. Patient urine was dirty appearing. Denies any chest pain or shortness of breath. Has had decreased appetite. Denied any obvious fever and chills. 07/02/2022: Tired. Poor appetite. Placed on D5.45. Schedules glucose tablets. Discussed with the patient increase oral intake. 07/03/2022: Remains diet. Sleepy. Does wake up to answer questions. Taking her medications. Not really eating. Spoke at length with the patient. Willing to eat some. Consult psychiatry for depression. 07/04/2022: Patient's ammonia level came back elevated yesterday. Patient put on lactulose. Remains lethargic. Not eating. We'll proceed to do an EEG and a computed tomography scan of the brain. Consult neurology. Neurology compared to current computed tomography scan from prior computed tomography scan. Unchanged. 07/05/2022: Patient getting lactulose for hyperammonemia. Having to 3 BMs a day. Still remained lethargic. Not eating. Getting IV fluids. ABG ordered showed a pH of 7.03 and a pCO2 of 97. BiPAP and pulmonary consultation done. Likely underlying obesity hypoventilation syndrome. EEG suggestive of metabolic encephalopathy. 07/06/2022:This is a pleasant 72 years old -[place] female from care home with multiple medical problems as below. Initially was admitted from [facility] with 4 edema, dizziness and yesterday she was found acidotic and she was sent to the ICU. Patient has evidence of severe sepsis secondary to Proteus UTI, and this has been complicated with acute hypoxic hypercapnic respiratory failure leading to severe encephalopathy and some nylons, patient currently lying in bed very lethargic, To provide information and does not follow commands. Also her mentation is worsened by hepatic encephalopathy picture with elevated ammonia level, currently 91. Patient has combined both metabolic and respiratory acidosis and pH about 7, pCO2 is elevated. Patient also with evidence of acute anuric kidney failure, dialysis catheter was placed and plan to start her on dialysis today. Several consultants on the case and following her closely including pulmonary, cardiology, nephrology, neurology and vascular surgery. 07/07/2022 Patient remains in the ICU in critical condition, her mentation only slightly improving however she is not responding to verbal or physical stimuli. However patient is moaning in pain when she is moved by staff. She does not need any pressors and she is afebrile, blood pressure currently 110/56. She is not tachycardic. However she requires BiPAP yesterday patient was started on hemodialysis. She still any aortic Hemoglobin is 8.5, no leukocytosis. Platelet count 87 which is stable. Creatinine stable at about 3.0. Liver enzymes not elevated. Urine culture is growing Proteus mirabilis. Blood culture is staph epidermidis which is most likely contamination. Chest x-ray, large right pleural effusion, cardiomegaly, no change from previous. Her ammonia level is lowering today after she was started on lactulose rectally. Also will order Tylenol rectally Doppler with pain. She is also on Zosyn, and D5W at 75 mL/h, 07/08/2022 Patient is in the MICU. Currently on BiPAP. Awake and alert but could not communicate. Patient has been afebrile. Chest x-ray showed there is metallic screws superior to the right humeral head which could be related to prior surgery and now dislodged and it for body within the adjacent soft tissues. Correlate clinically for prior surgery including rotator cuff surgery. Bilateral large areas of consolidation and pleural effusion. Patient is on antibiotics in the form of Zosyn. Continued on IV hydration with D5 water at 75 mL per hour. Urine culture showed Proteus mirabilis and blood cultures to staph epidermidis. Patient is on hemodialysis. Laboratory data showed WBC 3.4 hemoglobin 8.4 and platelets 84 BUN 35 and creatinine 2.79. Nephrology and pulmonary is on board. 07/09/2022: I resumed care of the patient today. ICU. Nasal cannula. Due for hemodialysis today. Had hemodialysis Friday, Friday, Friday. Eldest son [place] by the bedside. Patient has been awake enou gh to answer questions. Nurse Rosa present by the bedside. Patient is repeatedly abdomen diet she's had enough off all this. And she wants to . She wants to go to the [facility]. Had a lengthy discussion with the son at the bedside. He is suspecting his mother's wishes. I also concurred that patient's code multiple things going on her prognosis is not good. Patient is already DO NOT RESUSCITATE. I did: Felisha a family meeting this evening with all the children to come in. Family meeting was held. , And they wished to proceed with comfort measures. hospice to be consulted. 07/10/2022: Patient was yesterday admitted to [facility] inpatient hospice. Under [place]. Was started on morphine drip. Scopolamine patch. Several family members at the bedside today. Patient occasionally open her eyes. Breathing comfortable. Occasionally makes some sounds. Active Medications Acetaminophen (Acetaminophen Suppository 650 Mg Supp) 650 mg RECTAL Q4HR PRN PRN Reason: Fever and/or Mild Pain Artificial Tears (Artificial Tears-Hypromellose Drops 15 Ml Btl) 1 drops BOTH EYES Q2HR PRN PRN Reason: Dry Eye(s) Atropine Sulfate (Atropine Ophth Soln 1% 5ml Btl) 2 drops SUBLINGUAL Q4HR PRN PRN Reason: Excess Secretions Last Admin: 07/09/22 22:08 Dose: 2 drops Glycopyrrolate (Glycopyrrolate 0.2 Mg/Ml 2 Ml Vial) 0.1 mg IVP Q6HR PRN PRN Reason: Excess Secretions Morphine Sulfate 100 mg/ (Sodium Chloride) 102 mls @ 1.02 mls/hr IV .Q24H JAIMIE; Protocol Last Titration: 07/10/22 11:26 Dose: 8 mg/hr, 8.16 mls/hr Lorazepam (Lorazepam 2 Mg/Ml Inj) 1 mg IV Q6HR PRN PRN Reason: Anxiety Morphine Sulfate (Morphine Sulfate 2 Mg/Ml Syringe) 2 mg IV Q15M PRN PRN Reason: Breakthrough Pain Last Admin: 07/09/22 21:24 Dose: 2 mg Ondansetron HCl (Ondansetron 4 Mg/2 Ml Vial) 4 mg IVP Q8HR PRN PRN Reason: Nausea/emesis Scopolamine (Scopolamine 1 Mg/72 Hr Patch) 1 patch TRANSDERM Q72H [facility] Last Admin: 07/09/22 22:06 Dose: 1 patch Past medical history to include: GERD, hypertension, osteoarthritis, peripheral neuropathy, CK D Social history: At [facility] No smoking. Alcohol rarely. Physical examination: VITAL SIGNS: 96.6, 65, 12, 97 x 48, 97% on 2 L GENERAL: Reclining in bed, lethargic occasionally opening eyes EYES: Pupils equal. Conjunctiva normal. HEENT: External appearance of nose and ears normal, oral cavity dry mucous membranes NECK: JVD unable to assess; masses not palpable. HEART: First and second heart sounds are normal; no edema. LUNGS: Respiratory rate increased; distant breath sounds. ABDOMEN: Soft, nontender, liver spleen not palpable, no masses palpable. PSYCH: Lethargic tired not answer questions. MUSCULOSKELETAL:No Clubbing/cyanosis;muscles-grossly intact. NEUROLOGICAL: Cranial nerves grossly intact Power sensation grossly intact. INVESTIGATIONS, reviewed in the clinical context: 07/06/2022: White count 3.3 hemoglobin 7.8 platelets 79 sodium 136 potassium 3.9 creatinine 2.95 07/05/2022: White count 5.1 hemoglobin 9.4 platelets 93 potassium 5 BUN 67 creatinine 2.87 ammonia 166 ABG on room air: PH 7.03 pCO2 97 pO2 103 EEG: Suggestive of metabolic encephalopathy. CT brain without contrast: Questionable edema. 07/04/2022: White count 5.6 albumin 8.8 platelets 93 potassium 4.8 BUN 66 creatinine 2.7 to 07/03/2022: Potassium 5.5 chloride 115 BUN 66 creatinine 2.78 ammonia 138 07/02/2022: Potassium 5.5 BUN 62 creatinine 3.11. Procalcitonin 0.12 White count 3 hemoglobin 9.9 platelets 1:30 sodium 145 potassium 5.2 BUN 58 creatinine 2.2 to TSH 5.4 UA: Protein 1+ leukoesterase positive WBC 59 bacteria rare EKG tracing personally reviewed by me-atrial fibrillation. PVC. Rate 92 Chest x-ray film personally reviewed by me-underpenetrated due to obesity. Possible right basilar infiltrate/effusion Previous testin-D echocardiogram [September 2021] EF 55-60% 05/17/2022: Creatinine 1.5 Assessment and plan: -End-of-life care, comfort measures -Severe hypothermia, multifactorial. -Acute metabolic encephalopathy from hyperammonemia and CO2 narcosis. -Acute severe respiratory acidosis from obesity hypoventilation syndrome: -Acute hypercapnic respiratory failure from obesity hypoventilation syndrome: - right lower lobe pneumonia suspect gram-negative organism -Severe obesity hypoventilation syndrome. BMI 72.1 -Hypoglycemia and decreased oral intake. -Hyper-ammonemia, cause unclear -Morbid obesity BMI 72.1 -Primary osteoarthritis -Peripheral neuropathy -Hypothyroid -Probable depression -GERD -Acute kidney injury, possibly prerenal: From decreased oral intake: Not improving - CKD, stage III likely nephrosclerosis Creatinine 1.5 in April 2022 -Chronic medical debility -DO NOT RESUSCITATE/comfort measures Comfort measures in place. Morphine drip. Scopolamine patch. Discussed with family the bed check. Under hospice. Past Medical History Past Medical History: GERD/Reflux, Hypertension, Osteoarthritis (OA) Additional Past Medical History / Comment(s): has been on oral hyperglycemic medications in the past but pcp has taken her off of meds; neuropathy History of Any Multi-Drug Resistant Organisms: MRSA Date of last positivie culture/infection: 2011 MDRO Source:: L Knee Past Surgical History: Hernia Repair, Joint Replacement Additional Past Surgical History / Comment(s): total knee bilateral, left became infected component removed and antibiotic spacer placed. 3 years ago was on iv antibiotics and in rehab for 8 months follwing this Past Anesthesia/Blood Transfusion Reactions: No Reported Reaction Past Psychological History: No Psychological Hx Reported Smoking Status: Former smoker Past Alcohol Use History: None Reported Past Drug Use History: None Reported - Past Family History Mother Family Medical History: Cancer Father Family Medical History: Myocardial Infarction ([place]) Medications and Allergies Home Medications Medication Instructions Recorded Confirmed Type Acetaminophen [Tylenol] 650 mg PO Q4H PRN 01/29/22 06/30/22 History Dextrose Chew [Glucose Chew Tab] 32 gm PO QID PRN 01/29/22 06/30/22 History Ipratropium-Albuterol Nebulize 3 ml INHALATION RT-Q6H PRN 01/29/22 06/30/22 History [Duoneb 0.5 mg-3 mg/3 ml Soln] Cefuroxime [Ceftin] 250 mg PO BID@0800,1700 06/26/22 06/30/22 History HYDROcodone/APAP 10-325MG [[place] 1 tab PO Q6H PRN 06/26/22 06/30/22 History 10-325] Albuterol Sulfate [Ventolin HFA] 1 puff INHALATION RT-Q4H PRN 06/30/22 06/30/22 History Ammonium Lactate Lotion 1 applic TOPICAL BID 06/30/22 06/30/22 History [Lac-Hydrin 12% Lotion] Ascorbic Acid [Vitamin C] 1,000 mg PO DAILY@1700 06/30/22 06/30/22 History Cholecalciferol [Vitamin D3 (25 25 mcg PO DAILY@1700 06/30/22 06/30/22 History Mcg = 1000 Iu)] Ciclopirox Olamine [Loprox 0.77% 1 applic TOPICAL BID@0800,2100 06/30/22 06/30/22 History cream] Ferrous Sulfate [Iron (65 MG 325 mg PO DAILY@0800 06/30/22 06/30/22 History Elemental)] Folic Acid 1 mg PO DAILY@1700 06/30/22 06/30/22 History Furosemide [Lasix] 40 mg PO DAILY@0600 06/30/22 06/30/22 History Loperamide HCl [Imodium A-D] 2 - 4 mg PO QID PRN 06/30/22 06/30/22 History Magnesium Hydroxide [Milk of 7,200 mg PO Q48H PRN 06/30/22 06/30/22 History Magnesia Concentrate] Menthol [Biofreeze] 1 applic TOPICAL DAILY PRN 06/30/22 06/30/22 History Omeprazole Magnesium [PriLOSEC OTC] 20 mg PO HS 06/30/22 06/30/22 History bisacodyL 10 mg RECTAL DAILY PRN 06/30/22 06/30/22 History Allergies Allergy/AdvReac Type Severity Reaction Status Date / Time No Known Allergies Allergy Verified 06/30/22 17:44 Physical Exam Vitals: Vital Signs Temp Pulse Resp BP Pulse Ox FiO2 07/10/22 04:00 65 4 L 97/48 87 L 07/10/22 00:00 96.6 F L 62 12 110/75 97 07/09/22 22:21 97.6 F 10 L Intake and Output 07/09/22 07/10/22 07/10/22 22:59 06:59 14:59 Intake Total 420.323 170.336 58.420 Output Total 1825 0 0 Balance -1404.677 170.336 58.420 Intake: IV 20 160 20 IV Fluid 20 160 20 Intake, IV Titration 0.323 10.336 38.420 Amount Morphine Sulfate (100 mg/ 0.323 10.336 38.420 2 ml) 100 mg In Sodium Chloride 0.9% 100 ml @ 1 MG/HR 1.02 mls/hr IV . Q24H [facility] Rx#:[id number] Hemodialysis 400 Output: Urine 0 0 0 Hemodialysis 1825 Other: Voiding Method Indwelling Catheter Weight 194.54 kg 194 kg
[2022-07-10] MEDS: MORPHINE SULFATE (100 MG/2 ML) 100 MG in SODIUM CHLORIDE 0.9% 100 ML IV SCH (17:00)
[2022-07-10 18:53] VITALS: PULSE 0; RESP 0
--- NOTE | 2022-07-11 18:02 | P.DS ---
Providers Date of admission: 07/09/22 20:43 Expected date of discharge: 07/10/22 Attending physician: John Weldon Primary care physician: Garry Carranza [facility] Course: Chief Complaint: Not feeling well This is a pleasant 72-year-old patient of follows with Dr. Carranza. At [facility]. Chronic stable medical conditions include GERD, hypertension, osteoarthritis, peripheral neuropathy. CK D. Patient was brought in from the [facility] by EMS. Patient had been complaining of dizzy lightheaded not feeling well. Some numbness tingling. Patient's found to be hypothermic in the ER. It may be noted that patient has glucose tablets at the [facility]. And Accu-Cheks and blood glucose running low. Patient urine was dirty appearing. Denies any chest pain or shortness of breath. Has had decreased appetite. Denied any obvious fever and chills. 07/02/2022: Tired. Poor appetite. Placed on D5.45. Schedules glucose tablets. Discussed with the patient increase oral intake. 07/03/2022: Remains diet. Sleepy. Does wake up to answer questions. Taking her medications. Not really eating. Spoke at length with the patient. Willing to eat some. Consult psychiatry for depression. 07/04/2022: Patient's ammonia level came back elevated yesterday. Patient put on lactulose. Remains lethargic. Not eating. We'll proceed to do an EEG and a computed tomography scan of the brain. Consult neurology. Neurology compared to current computed tomography scan from prior computed tomography scan. Unchanged. 07/05/2022: Patient getting lactulose for hyperammonemia. Having to 3 BMs a day. Still remained lethargic. Not eating. Getting IV fluids. ABG ordered showed a pH of 7.03 and a pCO2 of 97. BiPAP and pulmonary consultation done. Likely underlying obesity hypoventilation syndrome. EEG suggestive of metabolic encephalopathy. 07/06/2022:This is a pleasant 72 years old -[place] female from [facility] with multiple medical problems as below. Initially was admitted from [place] with 4 edema, dizziness and yesterday she was found acidotic and she was sent to the ICU. Patient has evidence of severe sepsis secondary to Proteus UTI, and this has been complicated with acute hypoxic hypercapnic respiratory failure leading to severe encephalopathy and some nylons, patient currently lying in bed very lethargic, To provide information and does not follow commands. Also her mentation is worsened by hepatic encephalopathy picture with elevated ammonia level, currently 91. Patient has combined both metabolic and respiratory acidosis and pH about 7, pCO2 is elevated. Patient also with evidence of acute anuric kidney failure, dialysis catheter was placed and plan to start her on dialysis today. Several consultants on the case and following her closely including pulmonary, cardiology, nephrology, neurology and vascular surgery. 07/07/2022 Patient remains in the ICU in critical condition, her mentation only slightly improving however she is not responding to verbal or physical stimuli. However patient is moaning in pain when she is moved by staff. She does not need any pressors and she is afebrile, blood pressure currently 110/56. She is not tachycardic. However she requires BiPAP yesterday patient was started on hemodialysis. She still any aortic Hemoglobin is 8.5, no leukocytosis. Platelet count 87 which is stable. Creatinine stable at about 3.0. Liver enzymes not elevated. Urine culture is growing Proteus mirabilis. Blood culture is staph epidermidis which is most likely contamination. Chest x-ray, large right pleural effusion, cardiomegaly, no change from previous . Her ammonia level is lowering today after she was started on lactulose rectally. Also will order Tylenol rectally Doppler with pain. She is also on Zosyn, and D5W at 75 mL/h, 07/08/2022 Patient is in the MICU. Currently on BiPAP. Awake and alert but could not communicate. Patient has been afebrile. Chest x-ray showed there is metallic screws superior to the right humeral head which could be related to prior surgery and now dislodged and it for body within the adjacent soft tissues. Correlate clinically for prior surgery including rotator cuff surgery. Bilateral large areas of consolidation and pleural effusion. Patient is on antibiotics in the form of Zosyn. Continued on IV hydration with D5 water at 75 mL per hour. Urine culture showed Proteus mirabilis and blood cultures to staph epidermidis. Patient is on hemodialysis. Laboratory data showed WBC 3.4 hemoglobin 8.4 and platelets 84 BUN 35 and creatinine 2.79. Nephrology and pulmonary is on board. 07/09/2022: I resumed care of the patient today. ICU. Nasal cannula. Due for hemodialysis today. Had hemodialysis Friday, Friday, Friday. Eldest son [place] by the bedside. Patient has been awake enough to answer questions. Nurse Rosa present by the bedside. Patient is repeatedly abdomen diet she's had enough off all this. And she wants to . [facility] Had a lengthy discussion with the son at the bedside. He is suspecting his mother's wishes. I also concurred that patient's code multiple things going on her prognosis is not good. Patient is already DO NOT RESUSCITATE. I did: Felisha a family meeting this evening with all the children to come in. Family meeting was held. , And they wished to proceed with comfort measures. hospice to be consulted. 07/10/2022: Patient was yesterday admitted to [facility] inpatient hospice. Under [place]. Was started on morphine drip. Scopolamine patch. Several family members at the bedside today. Patient occasionally open her eyes. Breathing comfortable. Occasionally makes some sounds. Patient late in the evening. Past medical history to include: GERD, hypertension, osteoarthritis, peripheral neuropathy, CK D Social history: At [facility] No smoking. Alcohol rarely. INVESTIGATIONS, reviewed in the clinical context: 07/06/2022: White count 3.3 hemoglobin 7.8 platelets 79 sodium 136 potassium 3.9 creatinine 2.95 07/05/2022: White count 5.1 hemoglobin 9.4 platelets 93 potassium 5 BUN 67 creatinine 2.87 ammonia 166 ABG on room air: PH 7.03 pCO2 97 pO2 103 EEG: Suggestive of metabolic encephalopathy. CT brain without contrast: Questionable edema. 07/04/2022: White count 5.6 albumin 8.8 platelets 93 potassium 4.8 BUN 66 creatinine 2.7 to 07/03/2022: Potassium 5.5 chloride 115 BUN 66 creatinine 2.78 ammonia 138 07/02/2022: Potassium 5.5 BUN 62 creatinine 3.11. Procalcitonin 0.12 White count 3 hemoglobin 9.9 platelets 1:30 sodium 145 potassium 5.2 BUN 58 creatinine 2.2 to TSH 5.4 UA: Protein 1+ leukoesterase positive WBC 59 bacteria rare EKG tracing personally reviewed by me-atrial fibrillation. PVC. Rate 92 Chest x-ray film personally reviewed by me-underpenetrated due to obesity. Possible right basilar infiltrate/effusion Previous testin-D echocardiogram [September 2021] EF 55-60% 05/17/2022: Creatinine 1.5 Cause of : Obesity hypoventilation syndrome Assessment and plan: -End-of-life care, comfort measures -Severe hypothermia, multifactorial. -Acute metabolic encephalopathy from hyperammonemia and CO2 narcosis. -Acute severe respiratory acidosis from obesity hypoventilation syndrome: -Acute hypercapnic respiratory failure from obesity hypoventilation syndrome: - right lower lobe pneumonia suspect gram-negative organism -Severe obesity hypoventilation syndrome. BMI 72.1 -Hypoglycemia and decreased oral intake. -Hyper-ammonemia, cause unclear -Morbid obesity BMI 72.1 -Primary osteoarthritis -Peripheral neuropathy -Hypothyroid -Probable depression -GERD -Acute kidney injury, possibly prerenal: From decreased oral intake: Not improving - CKD, stage III likely nephrosclerosis Creatinine 1.5 in April 2022 -Chronic medical debility -DO NOT RESUSCITATE/comfort measures Disposition: Patient Plan - Discharge Summary New Discharge Prescriptions: No Action Dextrose Chew [Glucose Chew Tab] 32 gm PO QID PRN PRN Reason: Hypoglycemia Ipratropium-Albuterol Nebulize [Duoneb 0.5 mg-3 mg/3 ml Soln] 3 ml INHALATION RT-Q6H PRN PRN Reason: Shortness Of Breath Cefuroxime [Ceftin] 250 mg PO BID@0800,1700 Albuterol Sulfate [Ventolin HFA] 1 puff INHALATION RT-Q4H PRN PRN Reason: Shortness Of Breath bisacodyL 10 mg RECTAL DAILY PRN PRN Reason: Constipation Menthol [Biofreeze] 1 applic TOPICAL DAILY PRN PRN Reason: neck & shoulder pain Omeprazole Magnesium [PriLOSEC OTC] 20 mg PO HS Furosemide [Lasix] 40 mg PO DAILY@0600 Ferrous Sulfate [Iron (65 MG Elemental)] 325 mg PO DAILY@0800 Ascorbic Acid [Vitamin C] 1,000 mg PO DAILY@1700 Acetaminophen [Tylenol] 650 mg PO Q4H PRN PRN Reason: Fever And/ Or Pain HYDROcodone/APAP 10-325MG [[place] 10-325] 1 tab PO Q6H PRN PRN Reason: Pain Ammonium Lactate Lotion [Lac-Hydrin 12% Lotion] 1 applic TOPICAL BID Magnesium Hydroxide [Milk of Magnesia Concentrate] 7,200 mg PO Q48H PRN PRN Reason: Constipation Loperamide HCl [Imodium A-D] 2 - 4 mg PO QID PRN PRN Reason: Diarrhea Ciclopirox Olamine [Loprox 0.77% cream] 1 applic TOPICAL BID@0800,2100 Folic Acid 1 mg PO DAILY@1700 Cholecalciferol [Vitamin D3 (25 Mcg = 1000 Iu)] 25 mcg PO DAILY@1700 Discharge Medication List Acetaminophen [Tylenol] 650 mg PO Q4H PRN 01/29/22 [History] Dextrose Chew [Glucose Chew Tab] 32 gm PO QID PRN 01/29/22 [History] Ipratropium-Albuterol Nebulize [Duoneb 0.5 mg-3 mg/3 ml Soln] 3 ml INHALATION RT-Q6H PRN 01/29/22 [History] Cefuroxime [Ceftin] 250 mg PO BID@0800,1700 06/26/22 [History] HYDROcodone/APAP 10-325MG [[place] 10-325] 1 tab PO Q6H PRN 06/26/22 [History] Albuterol Sulfate [Ventolin HFA] 1 puff INHALATION RT-Q4H PRN 06/30/22 [History] Ammonium Lactate Lotion [Lac-Hydrin 12% Lotion] 1 applic TOPICAL BID 06/30/22 [History] Ascorbic Acid [Vitamin C] 1,000 mg PO DAILY@169906/30/22 [History] Cholecalciferol [Vitamin D3 (25 Mcg = 1000 Iu)] 25 mcg PO DAILY@17006/30/22 [History] Ciclopirox Olamine [Loprox 0.77% cream] 1 applic TOPICAL BID@0800,2100 06/30/22 [History] Ferrous Sulfate [Iron (65 MG Elemental)] 325 mg PO DAILY@0806/30/22 [History] Folic Acid 1 mg PO DAILY@169906/30/22 [History] Furosemide [Lasix] 40 mg PO DAILY@0606/30/22 [History] Loperamide HCl [Imodium A-D] 2 - 4 mg PO QID PRN 06/30/22 [History] Magnesium Hydroxide [Milk of Magnesia Concentrate] 7,200 mg PO Q48H PRN 06/30/22 [History] Menthol [Biofreeze] 1 applic TOPICAL DAILY PRN 06/30/22 [History] Omeprazole Magnesium [PriLOSEC OTC] 20 mg PO HS 06/30/22 [History] bisacodyL 10 mg RECTAL DAILY PRN 06/30/22 [History] Discharge Disposition: - Preliminary Cause of Preliminary Cause of : Obesity hypoventilation syndrome
== END 2022-07-10 23:35 | disposition expired | DRG 951 ==
LOC: 2SICU 20:43
PROVIDERS: ADMIT Hospitalist; ATTEND Hospitalist
PROC: 5A1D70Z Performance of Urinary Filtration, Intermittent, Less than 6 Hours Per Day (ICD-10-PCS; principal; 2022-07-09)
DX: Z51.5 Encounter for palliative care (principal); A41.59 Other Gram-negative sepsis; G93.41 Metabolic encephalopathy; J96.01 Acute respiratory failure with hypoxia; J96.02 Acute respiratory failure with hypercapnia; R65.20 Severe sepsis without septic shock; J15.6 Pneumonia due to other Gram-negative bacteria; A41.1 Sepsis due to other specified staphylococcus; N17.9 Acute kidney failure, unspecified; E66.2 Morbid (severe) obesity with alveolar hypoventilation; E72.20 Disorder of urea cycle metabolism, unspecified; E87.4 Mixed disorder of acid-base balance; Z68.45 Body mass index [BMI] 70 or greater, adult; N39.0 Urinary tract infection, site not specified; Z66 Do not resuscitate; E03.9 Hypothyroidism, unspecified; F32.A Depression, unspecified; E16.2 Hypoglycemia, unspecified; F41.9 Anxiety disorder, unspecified; G62.9 Polyneuropathy, unspecified; I12.9 Hypertensive chronic kidney disease with stage 1 through stage 4 chronic kidney disease, or unspecified chronic kidney disease; M19.91 Primary osteoarthritis, unspecified site; T68.XXXA Hypothermia, initial encounter; I48.91 Unspecified atrial fibrillation; K21.9 Gastro-esophageal reflux disease without esophagitis; K76.82 Hepatic encephalopathy; N18.30 Chronic kidney disease, stage 3 unspecified; Z79.899 Other long term (current) drug therapy; Z99.2 Dependence on renal dialysis; Z82.49 Family history of ischemic heart disease and other diseases of the circulatory system; Z87.891 Personal history of nicotine dependence; Z79.890 Hormone replacement therapy; Z87.19 Personal history of other diseases of the digestive system; Z86.14 Personal history of Methicillin resistant Staphylococcus aureus infection
CPT/HCPCS: 90935